=== PATIENT | female | born 1950 | race Caucasian/White ===

== ENCOUNTER 2019-10-17 10:46 | Inpatient (IN) | payer MEDICARE, SELFPAY | END 2019-10-18 18:06 | disposition home or self-care (01) | DRG 247 | PROVIDERS: Admitting Provider Internal Medicine Cardiovascular Disease; Emergency Provider Family Medicine; Visit Provider Internal Medicine Cardiovascular Disease | DX: I21.3 ST elevation (STEMI) myocardial infarction of unspecified site (principal); E78.5 Hyperlipidemia, unspecified; E03.9 Hypothyroidism, unspecified; I10 Essential (primary) hypertension; E66.9 Obesity, unspecified; Z68.35 Body mass index [BMI] 35.0-35.9, adult ==

== ENCOUNTER → 2019-10-28 10:30 | Outpatient (BNVA) | payer MEDICARE, SELFPAY | PROVIDERS: Visit Provider Nurse Practitioner Family | DX: I25.10 Atherosclerotic heart disease of native coronary artery without angina pectoris (principal) | CPT/HCPCS: 80048 ==

== ENCOUNTER → 2022-03-14 14:06 | Outpatient (BNVA) | payer MEDICARE, SELFPAY | PROVIDERS: PCP Family Medicine; Visit Provider Internal Medicine Cardiovascular Disease | DX: I25.10 Atherosclerotic heart disease of native coronary artery without angina pectoris (principal); I10 Essential (primary) hypertension; E78.2 Mixed hyperlipidemia; E03.9 Hypothyroidism, unspecified; I25.2 Old myocardial infarction | CPT/HCPCS: 93005; 99214; 99215 ==

== ENCOUNTER 2022-04-27 08:38 | Emergency (ER) | payer MEDICARE, SELFPAY ==
[2022-04-27] VITALS (14 sets, daily range): BP systolic 150–194; BP diastolic 75–118; PULSE 78–100; RESP 16; O2SAT 94–99; BMI 37.2
--- NOTE | 2022-04-27 09:12 | CT_ITS ---
WS: [id number] CT HEAD TECHNIQUE: Noncontrast CT of the head obtained from the skullbase to the vertex. CLINICAL INFORMATION: fall COMPARISON: None. DLP: 1013.[address] scans at [facility] use at least one of these dose optimization techniques: automated e xposure control; mA and/or kV adjustment per patient size (includes targeted exams where dose is matc hed to clinical indication); or iterative reconstruction. FINDINGS: No evidence of intracranial hemorrhage or mass effect. Ventricular system and basal cisterns are sheth nt. Mild small vessel changes with mild parenchymal volume loss. No extra-axial fluid collections. No evidence of mass or mass effect. Paranasal sinuses and mastoid air cells are well aerated. .Normal visualized soft tissues. CT/CT head wo con* [id number] IMPRESSION: 1. No evidence of intracranial hemorrhage or mass effect. 2. Mild small vessel changes. Mild parenchymal volume loss. 3. No acute intracranial findings.
--- NOTE | 2022-04-27 09:12 | CT_ITS ---
WS: [id number] CT CERVICAL TRAUMA TECHNIQUE: Noncontrast CT of the cervical spine with coronal and sagittal reformatted images. CLINICAL INFORMATION: fall COMPARISON: None. DLP: 310.[address] scans at [facility] use at least one of these dose optimization techniques: automated e xposure control; mA and/or kV adjustment per patient size (includes targeted exams where dose is matc hed to clinical indication); or iterative reconstruction. FINDINGS: Straightening of the normal cervical lordosis. Mild spondylitic changes. Disc space narrowing worse a t C5-C6 and C6-C7. Normal craniocervical junction. Normal C1-C2 articulation. Dens is normal in appea chris. Normal occipital condyles. No high-grade spinal canal narrowing. Normal C1 ring. No evidence o f acute fracture or dislocation. Moderate calcified carotid bulb calcification. Normal prevertebral soft tissues. Mastoids air cells are well aerated. CT/CT cervical spin wo con* [id number] IMPRESSION: 1. No evidence of acute fracture or dislocation. 2. Mild spondylitic changes.
--- NOTE | 2022-04-27 09:12 | ECG_ITS ---
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 Measurements Intervals [place] Rate: 66 P: 59 [place]: 252 QRS: 0 QRSD: 84 T: 62 QT: 402 QTc: 421 Interpretive Statements SINUS RHYTHM WITH FIRST DEGREE AV BLOCK Compared to ECG 10/18/2019 09:11:55 First degree AV block now present Ventricular premature complex(es) no longer present Myocardial infarct finding no longer present Electronically Signed On 04-27-2022 17:55:34 CDT by Sarbjit Randolph M.D. [email or web address] general [id number]
--- NOTE | 2022-04-27 09:13 | ED_ITS ---
HPI - Weakness General: Chief complaint: Weakness Stated complaint: GENERAL WEAKNESS Time Seen by Provider: 04/27/22 09:03 History of Present Illness: 71-year-old presents after a fall at home. States she got lightheaded and fell to the ground. Did not lose consciousness. Denies any focal numbness or tingling. She is on aspirin Plavix. Denies any headache or neck pain. Denies any chest pain shortness of breath palpitations. Denies any vision change hearing change or focal weakness numbness or tingling. Denies any vertigo. Review of Systems Narrative: - CONSTITUTIONAL: Denies weight loss, fever and chills. - HEENT: Denies changes in vision and hearing. - RESPIRATORY: Denies SOB and cough. - CV: Denies palpitations and CP. - GI: Denies abdominal pain, nausea, vomiting and diarrhea. - : Denies dysuria and urinary frequency. - MSK: Denies myalgia and joint pain. - SKIN: Denies rash and pruritus. - NEUROLOGICAL: Denies headache, weakness, numbness and syncope. - PSYCHIATRIC: Denies suicidal ideation PFSH ED PFSH: Medical History Coronary artery disease HTN (hypertension) Hyperlipidemia Hypothyroidism ST elevation [place] (STEMI) Family History Father Cancer glioblastoma Mother CAD (coronary artery disease), Onset Age: 90 Denies family history of Diabetes Clotting disorder Dementia Chronic kidney disease (CKD) Suicide Anesthesia complication Bleeding disorder Lung disease Stroke Social History Smoking and tobacco status: never smoked Alcohol intake: never History of recent travel: No Physical Exam Narrative: EXAM NARRATIVE: - GENERAL: Alert and oriented x 3. No acute distress. Well-nourished. - EYES: EOMI. Anicteric. - HENT: Atraumatic, no C-spine tenderness. Moist mucous membranes. No scleral icterus. No cervical lymphadenopathy. - LUNGS: Clear to auscultation bilaterally. No accessory muscle use. Equal lung sounds bilaterally. No respiratory distress. - CARDIOVASCULAR: Regular rate and rhythm. No murmur. No JVD. - ABDOMEN: Soft, non-tender and non-distended. Negative CVA tenderness bilaterally, no rebound or guarding, negative [place] sign. No palpable masses. - EXTREMITIES: No edema. Non-tender. - SKIN: No rashes or lesions. Warm. - NEUROLOGIC: No meningismus or focal neurological deficits. CN II-XII grossly intact. - PSYCHIATRIC: Cooperative. Appropriate mood and affect. Course Vital Signs: Vital signs: Vital Signs Pulse Rate 97 04/27/22 09:03 Respiratory Rate 16 04/27/22 09:03 Blood Pressure 164/97 04/27/22 10:00 Pulse Oximetry 94 04/27/22 10:26 MDM - Weakness Medical Decision Making 71-year-old presents with lightheadedness after fall at home. Denies any focal pain. She is on aspirin Plavix. CT scan of the head does not reveal any intracranial hemorrhage and CT of the C-spine does not show any fracture or dislocation. There is no other sign of focal trauma. EKG and troponin do not reveal any significant ischemia or acute abnormality. Urinalysis reveals UTI. Prescription for Keflex provided. Remainder blood work unremarkable. At this time I believe patient would be safe for discharge and outpatient follow-up. Return precautions provided. Plan was reviewed with the patient who expressed understanding. Questions answered. Patient will follow up with PCP. Patient discharged in stable condition. Lab Data : 04/27/22 09:29 04/27/22 09:29 Radiology Impressions Cervical Spine CT 04/27/22 09:12 IMPRESSION: 1. No evidence of acute fracture or dislocation. 2. Mild spondylitic changes. Head CT 04/27/22 09:12 IMPRESSION: 1. No evidence of intracranial hemorrhage or mass effect. 2. Mild small vessel changes. Mild parenchymal volume loss. 3. No acute intracranial findings. Laboratory Results WBC 5.9 10^3/uL (4.0-10.0) 04/27/22 09:29 RBC 4.25 10^6/uL (4.1-5.3) 04/27/22 09:29 Hgb 13.5 g/dL (11.5-15.3) 04/27/22 09:29 Hct 39.7 % (37.0-47.0) 04/27/22 09: MCV 93.4 fl (81-99) 04/27/22 09: MCH 31.8 pg (28.0-34.0) 04/27/22 09: MCHC 34.0 g/dL (30.0-36.0) 04/27/22 09: RDW 13.2 % (12.1-15.1) 04/27/22 09: Plt Count 241 10^3/cmm (130-400) 04/27/22 09: MPV 10.0 fL (7.4-10.4) 04/27/22 09: Neut % (Auto) 70.2 % 04/27/22 09: Lymph % (Auto) 20.2 % 04/27/22 09: [place] % (Auto) 6.6 % 04/27/22 09: Eos % (Auto) 1.7 % 04/27/22 09: Baso % (Auto) 0.8 % 04/27/22 09: Neut # (Auto) 4.17 10^3/uL (1.8-7.7) 04/27/22 09: Lymph # (Auto) 1.2 10^3/uL (0.8-4.8) 04/27/22 09: [place] # (Auto) 0.4 10^3/uL (0.2-0.9) 04/27/22 09: Eos # (Auto) 0.1 10^3/uL (0.0-0.8) 04/27/22 09: Baso # (Auto) 0.1 10^3/uL (0.0-0.1) 04/27/22 09: Nucleated RBC % (auto) 0 % 04/27/22: Nucleated RBCs # 0.0 /100WBC 04/27/22 09: Sodium 137 mmol/L (136-145) 04/27/22 09: Potassium 3.9 mmol/L (3.5-5.1) 04/27/22 09: Chloride 101 mmol/L (98-107) 04/27/22 09: Carbon Dioxide 22 mmol/L (22-29) 04/27/22 09: Anion Gap 17.9 (5-19) 04/27/22 09: BUN 13 mg/dL (8-23) 04/27/22 09: Creatinine 0.7 mg/dL (0.5-0.9) 04/27/22 09: GFR Calculation Not Reportable 04/27/22 09: Glucose 90 mg/dL (65-115) 04/27/22 09: Calculated Osmolality 284 mOsm/kg (285-295) L 04/27/22 09: Calcium 9.2 mg/dL (8.5-10.5) 04/27/22 09: Total Bilirubin 0.4 mg/dL (0.15-1.2) 04/27/22: AST 19 U/L (0-32) 04/27/22: ALT 11 U/L (0-33) 04/27/22: Alkaline Phosphatase 102 IU/L (35-105) 04/27/22: Troponin T Baseline 12 ng/L (0-10) H 04/27/22 09: NT-Pro-B Natriuret Pep 262 pg/mL (0-125) H 04/27/22 09: Total Protein 7.7 g/dL (6.6-8.7) 04/27/22 09: Albumin 4.2 g/dL (3.5-5.2) 04/27/22 09: Globulin 3.5 g/dL (1.3-4.6) 04/27/22 09: TSH 9.42 uIU/mL (0.27-4.20) H 04/27/22 09: Free T4 1.00 ng/dL (0.82-1.77) 04/27/22 09:29 Urine Color Straw (Yellow) 04/27/22 10:26 Urine Appearance Clear (CLEAR) 04/27/22 10:26 Urine pH 5 (5-7) 04/27/22 10:26 Ur Specific [place] 1.010 (1.005-1.030) 04/27/22 10:26 Urine Protein Neg (Negative) 04/27/22 10:26 Urine Glucose (UA) Norm (Normal) 04/27/22 10:26 Urine Ketones Negative (Negative) 04/27/22 10:26 Urine Blood Neg (Negative) 04/27/22 10:26 Urine Nitrate Negative (Negative) 04/27/22 10:26 Urine Bilirubin Neg (Negative) 04/27/22 10:26 Urine Urobilinogen Norm mg/dL (Negative) 04/27/22 10:26 Ur Leukocyte Esterase 2+ (Negative) H 04/27/22 10:26 Urine RBC 0-4 /hpf (0-2) H 04/27/22 10:26 Urine WBC 5-10 /hpf (0-5) H 04/27/22 10:26 Ur Squamous Epith Cells 5-10 /hpf (0-5) H 04/27/22 10:26 Amorphous Sediment Not Reportable 04/27/22 10:26 Urine Bacteria Trace /hpf (NONE) 04/27/22 10:26 EKG Data EKG 1: Other EKG comments: Sinus rhythm with first-degree AV block, rate of 66, no signs of acute ischemia or acute abnormality. Discharge Plan Discharge Condition: Stable Prescriptions: No Action levothyroxine [Euthyrox] 100 mcg tablet 100 mcg PO DAILY 0RF carvedilol 6.25 mg tablet 6.25 mg PO BID Qty: 180 3RF Rx Instructions: must administer with a meal/food clopidogrel 75 mg tablet 75 mg PO DAILY Qty: 90 3RF losartan 50 mg tablet 50 mg PO DAILY Qty: 90 3RF aspirin 162.5 mg capsule,extended release 24hr 162.5 mg PO QAM 30 Days Qty: 30 6RF Referrals: Marcela Avila MD [Primary Care Provider] - Coding Level of Care Code ED Steam Tender for Chg Delores
[2022-04-27 09:44] LABS: Basophils # 0.1 10^3/uL (0.0-0.1); Basophils % 0.8 %; Eosinophils # 0.1 10^3/uL (0.0-0.8); Eosinophils % 1.7 %; Hematocrit 39.7 % (37.0-47.0); Hemoglobin 13.5 g/dL (11.5-15.3); Lymphocytes # 1.2 10^3/uL (0.8-4.8); Lymphocytes % 20.2 %; Mean Corpuscular Hemoglobin 31.8 pg (28.0-34.0); Mean Corpuscular Volume 93.4 fl (81-99); Monocytes # 0.4 10^3/uL (0.2-0.9); Monocytes % 6.6 %; Neutrophils # 4.17 10^3/uL (1.8-7.7); Neutrophils % 70.2 %; Nucleated Red Blood Cells % 0 %; Platelet Count 241 10^3/cmm (130-400); Red Blood Count 4.25 10^6/uL (4.1-5.3); Red Cell Distribution Width 13.2 % (12.1-15.1); White Blood Count 5.9 10^3/uL (4.0-10.0)
[2022-04-27 10:01] LABS: Troponin(5th) Baseline 12 ng/L (0-10)
[2022-04-27 10:14] LABS: Alanine Aminotransferase 11 U/L (0-33); Albumin Level 4.2 g/dL (3.5-5.2); Alkaline Phosphatase 102 IU/L (35-105); Anion Gap 17.9 (5-19); Aspartate Amino Transferase 19 U/L (0-32); Blood Urea Nitrogen 13 mg/dL (8-23); Calcium 9.2 mg/dL (8.5-10.5); Carbon Dioxide 22 mmol/L (22-29); Chloride 101 mmol/L (98-107); Creatinine Clr Calc Pharmacy 70.8093; Globulin 3.5 g/dL (1.3-4.6); Glucose 90 mg/dL (65-115); NT Pro B Type Natriuretic Pept 262 pg/mL (0-125); Osmolality Calculated 284 mOsm/kg (285-295); Potassium 3.9 mmol/L (3.5-5.1); Sodium 137 mmol/L (136-145); Thyroid Stimulating Hormone 9.42 uIU/mL (0.27-4.20); Total Bilirubin 0.4 mg/dL (0.15-1.2); Total Protein 7.7 g/dL (6.6-8.7)
[2022-04-27 10:57] LABS: Bilirubin Urine Neg (Negative); Blood Urine Neg (Negative); Glucose Urine UA Norm (Normal); Ketones Urine Negative (Negative); Leukocyte Esterase Urine 2+ (Negative); Nitrate Urine Negative (Negative); Protein Urine Neg (Negative); Urine Appearance Clear (CLEAR); Urine Color Straw (Yellow); Urobilinogen Urine Norm (Negative); pH Urine 5 (5-7)
[2022-04-27 10:58] LABS: Bacteria Urine TRACE /hpf; RBC Urine 0-4 /hpf (0-2)
[2022-04-27 10:59] LABS: Add Urine Culture? No
== END 2022-04-27 11:59 | disposition home or self-care (01) ==
PROVIDERS: Emergency Provider Emergency Medicine; PCP Family Medicine
DX: R42 Dizziness and giddiness (principal); N39.0 Urinary tract infection, site not specified; I25.10 Atherosclerotic heart disease of native coronary artery without angina pectoris; I10 Essential (primary) hypertension; E78.5 Hyperlipidemia, unspecified; E03.9 Hypothyroidism, unspecified; I25.2 Old myocardial infarction; Z88.0 Allergy status to penicillin
CPT/HCPCS: 70450; 72125; 80053; 81001; 83880; 84439; 84443; 84484; 85025; 93005; 99284

== ENCOUNTER 2022-05-05 08:55 | Emergency (ER) | payer MEDICARE, SELFPAY ==
--- NOTE | 2022-05-05 08:58 | ECG_ITS ---
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 Measurements Intervals [place] Rate: 60 P: 54 MD: 187 QRS: 37 QRSD: 86 T: 90 QT: 429 QTc: 430 Interpretive Statements SINUS RHYTHM WITH MARKED SINUS ARRHYTHMIA LOW QRS VOLTAGE IN PRECORDIAL LEADS [QRS DEFLECTION < 1.0 mV IN CHEST LEADS] MODERATE ST DEPRESSION [0.05+ mV ST DEPRESSION] Compared to ECG 04/27/2022 09:40:20 Low QRS voltage now present ST (T wave) deviation now present First degree AV block no longer present Electronically Signed On 05-05-2022 22:02:11 CDT by Jazmyne Fields M.D. [id number]
--- NOTE | 2022-05-05 08:58 | XRR_ITS ---
PROCEDURE INFORMATION: Exam: XR Chest Exam date and time: 05/05/2022 10:05 AM Age: 71 years old Clinical indication: Pain; Chest pressure TECHNIQUE: Imaging protocol: Radiologic exam of the chest. Views: 1 view. COMPARISON: CT cervical spin wo con* [id number] 04/27/2022 10:04 AM FINDINGS: Lungs: There are normal lung volumes. There is minimal accentuation of the pulmonary vascularity. There are no airspace opacities in the lungs. Pleural spaces: There are no pleural effusions or pneumothorax. Heart/Mediastinum: There is doua-pi-drptdxuz cardiomegaly. There is a mildly tortuous thoracic aorta. The pulmonary vasculature is normal. The trachea is in the midline. Bones/joints: No acute abnormalities. Retrocardiac lower paraspinal opacity is seen, which may be related to a hiatal hernia. Assessment is limited. XR/XR chest 1V portable [id number] IMPRESSION: 1. Minimal accentuation of the pulmonary vascularity. No airspace opacities in the lungs. 2. Mild to moderate cardiomegaly.
--- NOTE | 2022-05-05 08:59 | ED_ITS ---
HPI - Chest Pain General: Chief Complaint: Chest Pain Stated Complaint: WEAKNESS, CHEST PRESSURE Time Seen by Provider: 05/05/22 08:55 Source: patient Mode of arrival: ambulatory Limitations: no limitations History of Present Illness: 71-year-old female presents to the emergency room with complaints of dizziness and chest discomfort. Patient has a known history of coronary disease to do half years ago she had a STEMI reviewing the cardiac cath report it was a single vessel disease with only 1 lesion in the right coronary artery distally that was 90% it was ballooned and stented no other coronary artery disease was noted. She is continued to be on Plavix since then. She complaining of some mild chest discomfort she had an episode 8 days ago she was seen in the emergency room found to have a UTI and was discharged home she is returning today with dizziness and some mild chest discomfort she had just stood up when this happened. Did not have any vomiting not have any diaphoresis no radiation of the discomfort into her neck or arms.Denies any shortness of breath cough or fever. MD complaint: chest pain Pertinent past history: coronary artery disease Onset (ago): hour(s) Timing of current episode: episodic Onset: during rest Pain location: left chest Pain radiation: none Severity: mild Quality: tightness and aching Relieving factors: nothing Exacerbating factors: nothing Context: other (Recent UTI) Associated symptoms: Deny abdominal pain, diaphoresis, dyspnea, fever(s), leg edema, nausea, palpitations, sense of impending doom, syncope or vomiting Review of Systems Const: Denies: fever(s), chills, fatigue, malaise or diaphoresis ENMT: Denies: throat pain, ear or mastoid pain, nasal discharge or nasal congestion Card: Reports: chest pain; Denies: palpitations, edema or syncope Resp: Denies: dyspnea GI: Denies: abdominal pain, nausea or vomiting : Denies: flank pain, difficulty voiding, dysuria, urinary frequency or urinary urgency Skin/Breast: Denies: rash or pruritus Neuro: Reports: dizziness; Denies: headache(s) PFSH ED PFSH: Medical History Coronary artery disease HTN (hypertension) Hyperlipidemia Hypothyroidism ST elevation [place] (STEMI) Family History Father Cancer glioblastoma Mother CAD (coronary artery disease), Onset Age: 90 Denies family history of Diabetes Clotting disorder Dementia Chronic kidney disease (CKD) Suicide Anesthesia complication Bleeding disorder Lung disease Stroke Social History Smoking and tobacco status: never smoked Alcohol intake: never History of recent travel: No Physical Exam Const: COMMON NORMALS: no acute distress GENERAL APPEARANCE: cooperative and comfortable ORIENTATION/CONSCIOUSNESS: Yes awake, Yes oriented to person, Yes oriented to place and Yes oriented to time HENMT: COMMON NORMALS: normocephalic, atraumatic and hearing grossly normal bilaterally HEAD & SCALP: normocephalic and atraumatic Neck/C-Spine: COMMON NORMALS: no JVD Resp: COMMON NORMALS: normal respiratory effort, No retractions, No use of accessory muscles and clear to auscultation bilaterally AUSCULTATION: clear to auscultation bilaterally Cardio: COMMON NORMALS: no JVD, regular rate, regular rhythm and No murmurs present (Cardio) RATE: regular rate RHYTHM: regular rhythm GI: COMMON NORMALS: Soft to palpation and No hepatosplenomegaly present AUSCULTATION: Yes normoactive bowel sounds PALPATION: Yes Soft to palpation, No Tenderness to palpation present (GI), No Guarding due to palpation present (GI) and Yes No hepatosplenomegaly present Extremity: COMMON NORMALS: normal to inspection, capillary refill normal, no clubbing, cyanosis or edema, no calf tenderness and no pedal edema Neuro: SENSORIUM/ORIENTATION: Yes oriented to person, Yes oriented to place and Yes oriented to time Skin: COMMON NORMALS: no rashes or lesions noted GENERAL SKIN EXAM: no rashes or lesions noted Course Vital Signs: Vital signs: Vital Signs Pulse Rate 75 05/05/22 11:54 Respiratory Rate 17 05/05/22 11:54 Blood Pressure 153/106 05/05/22 11:54 Pulse Oximetry 98 05/05/22 11:54 MDM - Chest Pain Medical Decision Making Previous cath ablation and single-vessel disease. Generally she has been feeling weak and at times dizzy. She is rather bradycardic when she is here. I suspect a lot of her symptoms are due to her carvedilol. We will decrease her carvedilol to 3.125 twice daily add amlodipine 5 daily continue her other medications the same particularly her clopidogrel. Recheck with primary care doctor within the week to reevaluate blood pressure and symptoms return if she has further problems. Medical Records I reviewed the patient's medical records. Lab Data I reviewed the patient's lab results. : 05/05/22 09:10 05/05/22 09:10 Radiology Impressions Chest X-Ray 05/05/22 08:58 IMPRESSION: 1. Minimal accentuation of the pulmonary vascularity. No airspace opacities in the lungs. 2. Mild to moderate cardiomegaly. Laboratory Results WBC 6.2 10^3/uL (4.0-10.0) 05/05/22 09:10 RBC 3.90 10^6/uL (4.1-5.3) L 05/05/22 09:10 Hgb 12.3 g/dL (11.5-15.3) 05/05/22 09:10 Hct 35.4 % (37.0-47.0) L 05/05/22 09:10 MCV 90.8 fl (81-99) 05/05/22 09:10 MCH 31.5 pg (28.0-34.0) 05/05/22 09:10 MCHC 34.7 g/dL (30.0-36.0) 05/05/22 09:10 RDW 13.4 % (12.1-15.1) 05/05/22 09:10 Plt Count 200 10^3/cmm (130-400) 05/05/22 09:10 MPV 9.8 fL (7.4-10.4) 05/05/22 09:10 Neut % (Auto) 68.3 % 05/05/22 09:10 Lymph % (Auto) 21.7 % 05/05/22 09:10 [place] % (Auto) 7.6 % 05/05/22 09:10 Eos % (Auto) 1.3 % 05/05/22 09:10 Baso % (Auto) 0.8 % 05/05/22 09:10 Neut # (Auto) 4.22 10^3/uL (1.8-7.7) 05/05/22 09:10 Lymph # (Auto) 1.3 10^3/uL (0.8-4.8) 05/05/22 09:10 [place] # (Auto) 0.5 10^3/uL (0.2-0.9) 05/05/22 09:10 Eos # (Auto) 0.1 10^3/uL (0.0-0.8) 05/05/22 09:10 Baso # (Auto) 0.1 10^3/uL (0.0-0.1) 05/05/22 09:10 Nucleated RBC % (auto) 0 % 05/05/22 09:10 Nucleated RBCs # 0.0 /100WBC 05/05/22 09:10 Sodium 135 mmol/L (136-145) L 05/05/22 09:10 Potassium 4.4 mmol/L (3.5-5.1) 05/05/22 09:10 Chloride 104 mmol/L (98-107) 05/05/22 09:10 Carbon Dioxide 18 mmol/L (22-29) L 05/05/22 09:10 Anion Gap 17.4 (5-19) 05/05/22 09:10 BUN 16 mg/dL (8-23) 05/05/22 09:10 Creatinine 0.7 mg/dL (0.5-0.9) 05/05/22 09:10 GFR Calculation Not Reportable 05/05/22 09:10 Glucose 105 mg/dL (65-115) 05/05/22 09:10 Calculated Osmolality 282 mOsm/kg (285-295) L 05/05/22 09:10 Calcium 9.2 mg/dL (8.5-10.5) 05/05/22 09:10 Total Bilirubin 0.4 mg/dL (0.15-1.2) 05/05/22 09:10 AST 21 U/L (0-32) 05/05/22 09:10 ALT 12 U/L (0-33) 05/05/22 09:10 Alkaline Phosphatase 89 IU/L (35-105) 05/05/22 09:10 Troponin T Baseline 10 ng/L (0-10) 05/05/22 09:10 Troponin T 120 Minute 10.96 ng/L (0-10) H 05/05/22 11:28 Delta Troponin T 0.96 ABS# (0-10) 05/05/22 11:28 Total Protein 7.6 g/dL (6.6-8.7) 05/05/22 09:10 Albumin 4.2 g/dL (3.5-5.2) 05/05/22 09:10 Globulin 3.4 g/dL (1.3-4.6) 05/05/22 09:10 Urine Color Yellow (Yellow) 05/05/22 11:20 Urine Appearance Clear (CLEAR) 05/05/22 11:20 Urine pH 5 (5-7) 05/05/22 11:20 Ur Specific [place] 1.005 (1.005-1.030) 05/05/22 11:20 Urine Protein Neg (Negative) 05/05/22 11:20 Urine Glucose (UA) Norm (Normal) 05/05/22 11:20 Urine Ketones Negative (Negative) 05/05/22 11:20 Urine Blood Neg (Negative) 05/05/22 11:20 Urine Nitrate Negative (Negative) 05/05/22 11:20 Urine Bilirubin Neg (Negative) 05/05/22 11:20 Urine Urobilinogen Norm mg/dL (Negative) 05/05/22 11:20 Ur Leukocyte Esterase Negative (Negative) 05/05/22 11:20 Discharge Plan Discharge Patient Disposition: Home Clinical Impression: Atypical chest pain, Dizziness, Medication side effect Condition: Stable Prescriptions: New carvedilol 3.125 mg tablet 3.125 mg PO BID Qty: 60 0RF Rx Instructions: must administer with a meal/food amlodipine 5 mg tablet 5 mg PO DAILY Qty: 30 0RF Discontinued carvedilol 6.25 mg tablet 6.25 mg PO BID Qty: 180 3RF Rx Instructions: must administer with a meal/food No Action levothyroxine [Euthyrox] 100 mcg tablet 100 mcg PO DAILY 0RF clopidogrel 75 mg tablet 75 mg PO DAILY Qty: 90 3RF losartan 50 mg tablet 50 mg PO DAILY Qty: 90 3RF aspirin 162.5 mg capsule,extended release 24hr 162.5 mg PO QAM 30 Days Qty: 30 6RF Multi-Vitamin Tablet 1 tab PO DAILY 0RF vitamin E 100 unit Capsule 100 unit PO DAILY 0RF Vitamin C 250 mg Tablet 250 mg PO DAILY 0RF Vitamin D3 25 mcg (1,000 unit) Capsule 25 mcg PO DAILY 0RF Discharge Orders: Discharge ED (Routine); Ordered 05/05/22 Ordered By: Jose Reyes Referrals: Marcela Avila MD [Primary Care Provider] - Discharge Diet: Usual diet Discharge Activity: Resume usual activity Patient Instructions: Opioid Safety Activity Restrictions/Additional Instructions: Follow-up with your primary care doctor within the week to reevaluate blood pressure. Coding Level of Care Code ED Automatic Lathe Tender for Chg Fwd Exam Comprehensive
[2022-05-05 09:00] VITALS: BP 182/82; PULSE 58; RESP 17; O2SAT 100; BMI 37.2
[2022-05-05 10:03] VITALS: BP 132/55; PULSE 72; RESP 18; O2SAT 98
[2022-05-05 10:07] LABS: Basophils # 0.1 10^3/uL (0.0-0.1); Basophils % 0.8 %; Eosinophils # 0.1 10^3/uL (0.0-0.8); Eosinophils % 1.3 %; Hematocrit 35.4 % (37.0-47.0); Hemoglobin 12.3 g/dL (11.5-15.3); Lymphocytes # 1.3 10^3/uL (0.8-4.8); Lymphocytes % 21.7 %; Mean Corpuscular HGB Conc 34.7 g/dL (30.0-36.0); Mean Corpuscular Hemoglobin 31.5 pg (28.0-34.0); Mean Corpuscular Volume 90.8 fl (81-99); Mean Platelet Volume 9.8 fL (7.4-10.4); Monocytes # 0.5 10^3/uL (0.2-0.9); Monocytes % 7.6 %; Neutrophils # 4.22 10^3/uL (1.8-7.7); Neutrophils % 68.3 %; Nucleated Red Blood Cells % 0 %; Platelet Count 200 10^3/cmm (130-400); Red Cell Distribution Width 13.4 % (12.1-15.1); White Blood Count 6.2 10^3/uL (4.0-10.0)
[2022-05-05 10:31] LABS: Troponin(5th) Baseline 10 ng/L (0-10)
[2022-05-05 10:35] LABS: Alanine Aminotransferase 12 U/L (0-33); Albumin Level 4.2 g/dL (3.5-5.2); Alkaline Phosphatase 89 IU/L (35-105); Blood Urea Nitrogen 16 mg/dL (8-23); Calcium 9.2 mg/dL (8.5-10.5); Carbon Dioxide 18 mmol/L (22-29); Chloride 104 mmol/L (98-107); Creatinine Clr Calc Pharmacy 70.8093; Globulin 3.4 g/dL (1.3-4.6); Glucose 105 mg/dL (65-115); Osmolality Calculated 282 mOsm/kg (285-295); Sodium 135 mmol/L (136-145); Total Bilirubin 0.4 mg/dL (0.15-1.2); Total Protein 7.6 g/dL (6.6-8.7)
[2022-05-05 10:51] LABS: Anion Gap 17.4 (5-19); Aspartate Amino Transferase 21 U/L (0-32); Potassium 4.4 mmol/L (3.5-5.1)
--- NOTE | 2022-05-05 10:58 | ECG_ITS ---
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 Measurements Intervals [place] Rate: 60 P: 61 [place]: 224 QRS: -6 QRSD: 88 T: 57 QT: 447 QTc: 447 Interpretive Statements SINUS RHYTHM WITH FIRST DEGREE AV BLOCK POSSIBLE ANTERIOR MYOCARDIAL INFARCTION , PROBABLY OLD [30 ms Q WAVE IN V3/V4, OR R < 0.2 mV IN V4] Compared to ECG 05/05/2022 09:05:43 First degree AV block now present Myocardial infarct finding now present Sinus arrhythmia no longer present ST (T wave) deviation no longer present Electronically Signed On 05-05-2022 22:52:17 CDT by Jazmyne Fields M.D. [id number]
[2022-05-05] MEDS: clopidogrel 75 mg Tablet PO (11:22)
[2022-05-05] MEDS: carvedilol 6.25 mg Tablet PO (11:22)
[2022-05-05 11:48] LABS: Add Urine Microscopic? NO; Charge for UA Resulting for Rev
[2022-05-05 11:54] VITALS: BP 153/106; PULSE 75; RESP 17; O2SAT 98
[2022-05-05 11:56] LABS: Bilirubin Urine Neg (Negative); Blood Urine Neg (Negative); Glucose Urine UA Norm (Normal); Ketones Urine Negative (Negative); Leukocyte Esterase Urine Negative (Negative); Nitrate Urine Negative (Negative); Protein Urine Neg (Negative); Specific Gravity, Urine 1.005 (1.005-1.030); Urine Appearance Clear (CLEAR); Urine Color Yellow (Yellow); Urobilinogen Urine Norm (Negative); pH Urine 5 (5-7)
[2022-05-05 12:06] LABS: Troponin 5 2HR 10.96 ng/L (0-10)
[2022-05-05 12:11] LABS: Troponin 5 2HR Delta 0.96 ABS# (0-10)
[2022-05-05 12:49] VITALS: BP 138/75; PULSE 61; RESP 15; O2SAT 98
== END 2022-05-05 12:50 | disposition home or self-care (01) ==
PROVIDERS: Emergency Provider Family Medicine; PCP Family Medicine
DX: R07.89 Other chest pain (principal); R42 Dizziness and giddiness; T50.905A Adverse effect of unspecified drugs, medicaments and biological substances, initial encounter; Z79.02 Long term (current) use of antithrombotics/antiplatelets; Z79.82 Long term (current) use of aspirin; I25.10 Atherosclerotic heart disease of native coronary artery without angina pectoris; I10 Essential (primary) hypertension; E78.5 Hyperlipidemia, unspecified; I25.2 Old myocardial infarction
CPT/HCPCS: 36415; 71045; 80053; 81003; 84484; 85025; 93005; 99285

== ENCOUNTER → 2022-05-09 13:53 | Outpatient (BNVA) | payer MEDICARE, SELFPAY | PROVIDERS: PCP Family Medicine; Visit Provider Nurse Practitioner Family | DX: R42 Dizziness and giddiness (principal); I49.9 Cardiac arrhythmia, unspecified; E03.9 Hypothyroidism, unspecified; I49.1 Atrial premature depolarization; I49.3 Ventricular premature depolarization; I48.91 Unspecified atrial fibrillation; I48.92 Unspecified atrial flutter | CPT/HCPCS: 93229; 99213; 99214 ==

== ENCOUNTER 2022-05-10 06:48 | Outpatient (CLI) | payer MEDICARE, SELFPAY ==
[2022-05-10 07:53] LABS: Thyroid Stimulating Hormone 9.75 uIU/mL (0.27-4.20)
[2022-05-11 13:10] LABS: Chol HDL Ratio 3.34 mg/dL (0.0-4.40); Cholesterol 227 mg/dL (0-200); HDL Cholesterol 68 mg/dL (60-100); LDL Cholesterol Calculated 140 mg/dL (50-129); LDL HDL Ratio 2.06 RATIO (0.00-3.22); Triglycerides 96 mg/dL (0-150)
[2022-05-11 13:13] LABS: Free T4 Free Thyroxine 1.32 ng/dL (0.82-1.77)
== END 2022-05-10 06:49 | disposition home or self-care (01) ==
PROVIDERS: Nurse Practitioner Family; PCP Family Medicine; Visit Provider Internal Medicine Cardiovascular Disease
DX: E78.2 Mixed hyperlipidemia (principal); I49.9 Cardiac arrhythmia, unspecified
CPT/HCPCS: 36415; 80061; 84439; 84443

== ENCOUNTER 2022-05-20 16:05 | Outpatient (CLI) | payer MEDICARE, SELFPAY ==
[2022-05-20 16:53] LABS: Basophils % 0.6 %; Eosinophils # 0.1 10^3/uL (0.0-0.8); Eosinophils % 2.5 %; Hematocrit 38.3 % (37.0-47.0); Hemoglobin 12.1 g/dL (11.5-15.3); Lymphocytes # 1.6 10^3/uL (0.8-4.8); Lymphocytes % 32.2 %; Mean Corpuscular HGB Conc 31.6 g/dL (30.0-36.0); Mean Corpuscular Hemoglobin 31.3 pg (28.0-34.0); Mean Corpuscular Volume 99.2 fl (81-99); Mean Platelet Volume 9.8 fL (7.4-10.4); Monocytes # 0.3 10^3/uL (0.2-0.9); Monocytes % 6.9 %; Neutrophils # 2.77 10^3/uL (1.8-7.7); Neutrophils % 57.6 %; Nucleated Red Blood Cells % 0 %; Platelet Count 217 10^3/cmm (130-400); Red Blood Count 3.86 10^6/uL (4.1-5.3); Red Cell Distribution Width 14.4 % (12.1-15.1); White Blood Count 4.8 10^3/uL (4.0-10.0)
[2022-05-20 18:01] LABS: Blood Urea Nitrogen 13 mg/dL (8-23); Calcium 9.5 mg/dL (8.5-10.5); Carbon Dioxide 21 mmol/L (22-29); Chloride 106 mmol/L (98-107); Glucose 105 mg/dL (65-115); NT Pro B Type Natriuretic Pept 252 pg/mL (0-125); Osmolality Calculated 290 mOsm/kg (285-295); Sodium 140 mmol/L (136-145); Thyroid Stimulating Hormone 1.63 uIU/mL (0.27-4.20)
[2022-05-20 18:20] LABS: Anion Gap 17.1 (5-19); Potassium 4.1 mmol/L (3.5-5.1)
== END 2022-05-20 16:06 | disposition home or self-care (01) ==
PROVIDERS: PCP Family Medicine; Visit Provider Nurse Practitioner Family
DX: I12.9 Hypertensive chronic kidney disease with stage 1 through stage 4 chronic kidney disease, or unspecified chronic kidney disease (principal); I25.10 Atherosclerotic heart disease of native coronary artery without angina pectoris; I48.91 Unspecified atrial fibrillation; E78.2 Mixed hyperlipidemia; N18.9 Chronic kidney disease, unspecified
CPT/HCPCS: 36415; 80048; 83880; 84443; 85025

== ENCOUNTER 2022-06-23 06:36 | Inpatient (IN) | payer MEDICARE, SELFPAY ==
[2022-06-23] VITALS (87 sets, daily range): BP systolic 109–169; BP diastolic 48–82; PULSE 31–48; RESP 11–23; TEMP 36.5–36.7; O2SAT 90–100; BMI 38.4
--- NOTE | 2022-06-23 06:38 | W.ED.CHESTPA ---
HPI - Chest Pain General: Chief Complaint: Neck Pain/Injury Stated Complaint: jaw/neck pain Time Seen by Provider: 06/23/22 06:37 History of Present Illness: Ms. Dhaliwal is a 71-year-old lady with significant past medical history of CAD, hypertension, hyperlipidemia, thyroid disorder, history of STEMI with PCI presenting to the emergency department due to abnormal neck and shoulder pain. Onset of symptoms was a few days ago without known specific provoking factor. She endorses pain in her right jaw and neck with radiation to her right shoulder back. Pain has been intermittent in nature and she currently does not endorse any pain. Mild associated generalized malaise, nausea, shortness of breath however no other specific focal infectious symptoms. Overall intensity symptoms when present is moderate. No other specific changes in health, exacerbating, or alleviating factors identified. Onset (ago): day(s) Timing of current episode: episodic Prior episodes: No Pain location: other Pain radiation: back and right shoulder Quality: aching Relieving factors: nothing Exacerbating factors: nothing Associated symptoms: Reports other Review of Systems General: Reports: 10 or more systems reviewed and unremarkable except in HPI and below PFSH ED PFSH: Medical History Coronary artery disease HTN (hypertension) Hyperlipidemia Reports she cannot take statins Hypothyroidism ST elevation [place] (STEMI) Surgical History H/O coronary angiogram 2020, RCA disease MARGY times 2 History of permanent cardiac pacemaker placement S/P cholecystectomy Family History Father Cancer glioblastoma Mother CAD (coronary artery disease), Onset Age: 90 Denies family history of Diabetes Clotting disorder Dementia Chronic kidney disease (CKD) Suicide Anesthesia complication Bleeding disorder Lung disease Stroke Social History Smoking and tobacco status: never smoked Alcohol intake: never History of recent travel: No Physical Exam Const: COMMON NORMALS: alert GENERAL APPEARANCE: cooperative and well developed HENMT: COMMON NORMALS: normocephalic and atraumatic HEAD & SCALP: normocephalic and atraumatic THROAT: posterior oropharynx normal Eye: COMMON NORMALS: conjunctivae normal CONJUNCTIVA: Yes conjunctivae normal SCLERA: sclerae normal Neck/C-Spine: COMMON NORMALS: no lymphadenopathy and supple GENERAL: Yes trachea midline OTHER: No tenderness palpation Resp: COMMON NORMALS: normal respiratory effort and clear to auscultation bilaterally EFFORT & INSPECTION: Yes able to speak in complete sentences AUSCULTATION: clear to auscultation bilaterally Cardio: COMMON NORMALS: regular rhythm RATE: bradycardic RHYTHM: regular rhythm GI: COMMON NORMALS: Soft to palpation PALPATION: Yes Soft to palpation and No Tenderness to palpation present (GI) Extremity: GENERAL: Yes normal exam except as noted and No edema Neuro: COMMON NORMALS: moves all extremities SENSORIUM/ORIENTATION: Yes alert and No Orientation impaired Psych: COMMON NORMALS: mental status grossly normal and Normal thought process present THOUGHT PROCESS: Normal thought process present Course ED course: - Patient was seen and evaluated by me at bedside - Patient placed on cardiac monitors, IV access obtained - Initial evaluation notable for exam as above. Patient is significantly bradycardic though blood pressure is adequate. - Labs and xrays personally interpreted by me. EKG notable for either second-degree type II block or other high-grade AV block, there is some significant irregularity of WI interval consistent with dissociation however QRS complexes narrow. Nonspecific ST segment abnormalities. No STEMI. Limited review of prior Holter monitor records reveals first-degree AV block. - Labs notable for no leukocytosis, normal hemoglobin. Metabolic panel with mild hyponatremia. Initial troponin only minimally elevated. BNP elevated compared to prior. TSH normal. - Imaging notable for mild pulmonary vascular congestion, no lobar consolidation or pneumothorax. No x-ray evidence of soft tissue pathology in the neck - Upon serial reexamination after treatment the patient was similar - Based on patient history, evaluation, and testing as interpreted the most likely cause of the patient's condition is neck pain which may be atypical chest pain in the context of new onset high-grade AV block - The results of ED evaluation were discussed with the patient including plan for admission due to requirement for level of care not available if discharged to prevent significant worsening/deterioration. - Admitting service was contacted and Dr Rice with the hospitalist service agreed to admit the patient - Patient was admitted without further deterioration or significant events. Note: Click bubbles or prepopulated suarez in note writing are used for assistance with data collection and billing and are inherently more limited than narrative and other text portions of this note. Please use narrative for additional clinical history and defer to narrative/free test for any case of contradictory information. If information appears in only free text or click bubble it should be considered present or absent as reported. Please contact note ticket writer for clarifications of clinical information or contradictory information. MDM is a brief summary, contradictory or erroneous seeming information should be clarified and full note should be reviewed. Vital Signs: Vital signs: Vital Signs Temperature 97.7 F 06/24/22 14:00 Pulse Rate 60 06/25/22 13:43 Respiratory Rate 19 H 06/25/22 12:00 Blood Pressure 127/62 06/25/22 14:00 Pulse Oximetry 93 06/25/22 13:44 Oxygen Delivery Me thod 06/25/22 13:43 Oxygen Flow Rate 2 06/23/22 23:00 MDM - Chest Pain Medical Decision Making 71-year-old lady with cardiac history presenting with neck/jaw pain with radiation down shoulder and back. Patient found to have new onset high-grade AV block. Blood pressure satisfactory. No clear etiology identified on ED evaluation. Admitted for further management. Medical Records I reviewed the patient's medical records. Lab Data I reviewed the patient's lab results. : 06/25/22 06:42 06/25/22 03:00 Radiology Impressions Soft Tissue Neck X-Ray 06/23/22 06:58 IMPRESSION: No acute findings. Chest X-Ray 06/25/22 06:00 IMPRESSION: 1. No significant change from prior exam. 2. Stable cardiomegaly. Laboratory Results WBC 5.2 10^3/uL (4.0-10.0) 06/23/22 06:50 RBC 3.66 10^6/uL (4.1-5.3) L 06/23/22 06:50 Hgb 11.6 g/dL (11.5-15.3) 06/23/22 06:50 Hct 36.4 % (37.0-47.0) L 06/23/22 06:50 MCV 99.5 fl (81-99) H 06/23/22 06:50 MCH 31.7 pg (28.0-34.0) 06/23/22 06:50 MCHC 31.9 g/dL (30.0-36.0) 06/23/22 06:50 RDW 14.2 % (12.1-15.1) 06/23/22 06:50 Plt Count 230 10^3/cmm (130-400) 06/23/22 06:50 MPV 11.1 fL (7.4-10.4) H 06/23/22 06:50 Neut % (Auto) 52.2 % 06/23/22 06:50 Lymph % (Auto) 34.5 % 06/23/22 06:50 Taliaferro % (Auto) 9.4 % 06/23/22 06:50 Eos % (Auto) 2.9 % 06/23/22 06:50 Baso % (Auto) 0.8 % 06/23/22 06:50 Neut # (Auto) 2.74 10^3/uL (1.8-7.7) 06/23/22 06:50 Lymph # (Auto) 1.8 10^3/uL (0.8-4.8) 06/23/22 06:50 Taliaferro # (Auto) 0.5 10^3/uL (0.2-0.9) 06/23/22 06:50 Eos # (Auto) 0.2 10^3/uL (0.0-0.8) 06/23/22 06:50 Baso # (Auto) 0.0 10^3/uL (0.0-0.1) 06/23/22 06:50 Nucleated RBC % (auto) 0 % 06/23/22 06:50 Nucleated RBCs # 0.0 /100WBC 06/23/22 06:50 D-Dimer 1.68 ug/mIFEU (0-0.59) H 06/23/22 06:50 Sodium 134 mmol/L (136-145) L 06/23/22 06:50 Potassium 4.3 mmol/L (3.5-5.1) 06/23/22 06:50 Chloride 104 mmol/L (98-107) 06/23/22 06:50 Carbon Dioxide 19 mmol/L (22-29) L 06/23/22 06:50 Anion Gap 15.3 (5-19) 06/23/22 06:50 BUN 19 mg/dL (8-23) 06/23/22 06:50 Creatinine 0.7 mg/dL (0.5-0.9) 06/23/22 06:50 GFR Calculation Not Reportable 06/23/22 06:50 Glucose 100 mg/dL (65-115) 06/23/22 06:50 Calculated Osmolality 280 mOsm/kg (285-295) L 06/23/22 06:50 Calcium 9.3 mg/dL (8.5-10.5) 06/23/22 06:50 Magnesium 2.1 mg/dL (1.7-2.3) 06/23/22 06:50 Total Bilirubin 0.3 mg/dL (0.15-1.2) 06/23/22 06:50 AST 31 U/L (0-32) 06/23/22 06:50 ALT 29 U/L (0-33) 06/23/22 06:50 Alkaline Phosphatase 102 U/L (35-105) 06/23/22 06:50 Troponin T Baseline 14 ng/L (0-10) H 06/23/22 06:50 Troponin T 120 Minute 12.16 ng/L (0-10) H 06/23/22 08:48 Delta Troponin T -1.84 ABS# (0-10) L 06/23/22 08:48 NT-Pro-B Natriuret Pep 2335 pg/mL (0-125) H 06/23/22 06:50 Total Protein 6.8 g/dL (6.6-8.7) 06/23/22 06:50 Albumin 3.7 g/dL (3.5-5.2) 06/23/22 06:50 Globulin 3.1 g/dL (1.3-4.6) 06/23/22 06:50 Lipase 27 U/L (13-60) 06/23/22 06:50 TSH 0.52 uIU/mL (0.27-4.20) 06/23/22 06:50 Critical Care Time Critical Care Time: Critical Care Time: Yes Total Critical Care Time: 35 Attestation: Due to a high probability of clinically significant, possibly life threatening deterioration, the patient required my highest level of attention and preparedness to intervene emergently and I personally spent this critical care time directly and personally managing the patient. This critical care time included obtaining a history; examining the patient; pulse oximetry; ordering and review of laboratory and imaging studies; arranging urgent treatment with development of a management plan; evaluation of patient's response to treatment; frequent reassessment; and, discussions with other providers as applicable. It was exclusive of separately billable procedures. Primary system involved is cardiac Discharge Plan Discharge Patient Disposition: Admitted As Inpatient Admit Provider: Jose Rice Clinical Impression: Atypical chest pain, High degree atrioventricular block Condition: Stable Discharge Diet: Cardiac Discharge Activity: Limit activity as instructed Coding Level of Care Code ED Steak Tenderizer Machine for Chg Fwd Exam Comprehensive
--- NOTE | 2022-06-23 06:42 | ECG_ITS ---
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 Measurements Intervals [place] Rate: 36 P: IN: QRS: 1 QRSD: 74 T: 37 QT: 503 QTc: 389 Interpretive Statements SINUS RHYTHM WITH HIGH GRADE AV BLOCK Possible junctional escape rhythm LOW QRS VOLTAGE IN PRECORDIAL LEADS [QRS DEFLECTION < 1.0 mV IN CHEST LEADS] MODERATE ST DEPRESSION [0.05+ mV ST DEPRESSION] CRITICAL TEST RESULT Compared to ECG 05/05/2022 11:58:33 Low QRS voltage now present ST (T wave) deviation now present First degree AV block no longer present Myocardial infarct finding no longer present Electronically Signed On 06-24-2022 15:34:46 CDT by Jazmyne Fields M.D. [id number]
--- NOTE | 2022-06-23 06:58 | XRR_ITS ---
PROCEDURE INFORMATION: Exam: XR Soft Tissue Neck Exam date and time: 06/23/2022 7:27 AM Age: 71 years old Clinical indication: Patient HX: RT sided neck pain and SOB x 2 days; Additional info: Right sided neck pain TECHNIQUE: Imaging protocol: Radiologic exam of the soft tissues of the neck. COMPARISON: CT cervical spin wo con* [id number] 04/27/2022 10:04 AM FINDINGS: Airway: Normal. No abnormal narrowing. Soft tissues: Normal. Normal epiglottis. No radiopaque foreign body seen. Bones/joints: Degenerative changes of the spine noted. XR/XR soft tissue neck [id number] IMPRESSION: No acute findings.
--- NOTE | 2022-06-23 06:58 | XRR_ITS ---
PROCEDURE INFORMATION: Exam: XR Chest Exam date and time: 06/23/2022 7:23 AM Age: 71 years old Clinical indication: Shortness of breath; Prior surgery; Surgery type: Stents; Patient HX: SOB RT sided neck pain x 2 days; Additional info: Bradycardia TECHNIQUE: Imaging protocol: Radiologic exam of the chest. Views: 1 view. COMPARISON: CR XR chest 1V portable [id number] 05/05/2022 10:05 AM FINDINGS: Lungs: Minimally increased lung markings, which can be seen with pulmonary congestion. Streaky left basilar atelectasis seen. No consolidation. Pleural spaces: Unremarkable. No pleural effusion. No pneumothorax. Heart/Mediastinum: Stable cardiomediastinal silhouette. Bones/joints: Unremarkable. XR/XR chest 1V portable [id number] IMPRESSION: Imaging findings suggestive of mild pulmonary congestion.
--- NOTE | 2022-06-23 07:10 | PC.NURSE ---
PT PLACED ON CONTINUOUS NIBP, SPO2, AND CM
[2022-06-23 07:21] LABS: Basophils % 0.8 %; Eosinophils # 0.2 10^3/uL (0.0-0.8); Eosinophils % 2.9 %; Hematocrit 36.4 % (37.0-47.0); Hemoglobin 11.6 g/dL (11.5-15.3); Lymphocytes # 1.8 10^3/uL (0.8-4.8); Lymphocytes % 34.5 %; Mean Corpuscular HGB Conc 31.9 g/dL (30.0-36.0); Mean Corpuscular Hemoglobin 31.7 pg (28.0-34.0); Mean Corpuscular Volume 99.5 fl (81-99); Mean Platelet Volume 11.1 fL (7.4-10.4); Monocytes # 0.5 10^3/uL (0.2-0.9); Monocytes % 9.4 %; Neutrophils # 2.74 10^3/uL (1.8-7.7); Neutrophils % 52.2 %; Nucleated Red Blood Cells % 0 %; Platelet Count 230 10^3/cmm (130-400); Red Blood Count 3.66 10^6/uL (4.1-5.3); Red Cell Distribution Width 14.2 % (12.1-15.1); White Blood Count 5.2 10^3/uL (4.0-10.0)
[2022-06-23 07:37] LABS: Troponin(5th) Baseline 14 ng/L (0-10)
[2022-06-23 07:52] LABS: Albumin Level 3.7 g/dL (3.5-5.2); Alkaline Phosphatase 102 U/L (35-105); Anion Gap 15.3 (5-19); Aspartate Amino Transferase 31 U/L (0-32); Blood Urea Nitrogen 19 mg/dL (8-23); Calcium 9.3 mg/dL (8.5-10.5); Carbon Dioxide 19 mmol/L (22-29); Chloride 104 mmol/L (98-107); Creatinine Clr Calc Pharmacy 69.4041; Globulin 3.1 g/dL (1.3-4.6); Glucose 100 mg/dL (65-115); Lipase 27 U/L (13-60); Magnesium 2.1 mg/dL (1.7-2.3); NT Pro B Type Natriuretic Pept 2335 pg/mL (0-125); Osmolality Calculated 280 mOsm/kg (285-295); Potassium 4.3 mmol/L (3.5-5.1); Sodium 134 mmol/L (136-145); Thyroid Stimulating Hormone 0.52 uIU/mL (0.27-4.20); Total Bilirubin 0.3 mg/dL (0.15-1.2); Total Protein 6.8 g/dL (6.6-8.7)
[2022-06-23 07:53] LABS: Alanine Aminotransferase 29 U/L (0-33)
--- NOTE | 2022-06-23 09:04 | ECG_ITS ---
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 Measurements Intervals [place] Rate: 32 P: [place]: QRS: 0 QRSD: 83 T: -12 QT: 536 QTc: 392 Interpretive Statements SINUS RHYTHM WITH THIRD-DEGREE HEART BLOCK NONSPECIFIC ST & T-WAVE ABNORMALITY CRITICAL TEST RESULT Compared to ECG 06/23/2022 06:43:30 T-wave abnormality now present ST (T wave) deviation no longer present Electronically Signed On 06-24-2022 15:44:21 CDT by Jazmyne Fields M.D. [id number]
--- NOTE | 2022-06-23 09:13 | PM.HP ---
Providers/Chief Complaint Admitting Physician: Jose Rice MD, Hospitalist. Primary Care Provider: Rebecca Salazar DO Chief Complaint: jaw/neck pain History of Present Illness Mady Dhaliwal is a 71 year old female who presents to the hospital feeling weak, dizzy, and short of breath with walking. She believes its been going on about 2 days. For the last 2 days she is also had some right neck, right jaw, right scapula and right shoulder discomfort occurring mainly at night, in the middle of the night. She reports it would last as long as 15 or 20 minutes. She denies any chest discomfort. She reports no shortness of breath currently. She has not recently had any fever, cough or other illness. There has been no recent change in her medication other than reduction of carvedilol dose at an ER visit around May 05. She had a subsequent Holter monitor in May demonstrating no heart block. In the emergency department and aspirin was given, and atropine was given x1 Review of Systems General: Reports: 10 or more systems reviewed and unremarkable except in HPI and below Const: Denies: fever(s) or chills Eyes: Denies: change in vision ENMT: Denies: throat pain Card: Denies: chest pain Resp: Reports: dyspnea GI: Denies: abdominal pain, hematemesis, hematochezia or melena : Denies: flank pain Musc: Denies: neck pain Skin/Breast: Denies: rash Neuro: Reports: dizziness; Denies: headache(s) Psych: Denies: anxiety or depression Endo: Denies: polyuria Jose/Lymph: Denies: easy bruising All/Imm: Denies: urticaria Medications/Allergies Home Medications Medication Instructions Recorded Confirmed Last Taken Type ascorbic acid (vitamin C) 250 mg 250 mg PO QAM 05/05/22 06/23/22 05/04/22 History tablet (Vitamin C) cholecalciferol (vitamin D3) 25 25 mcg PO DAILY 05/05/22 06/23/22 05/04/22 History mcg (1,000 unit) capsule (Vitamin D3) multivitamin 1 tab PO QAM 05/05/22 06/23/22 06/22/22 History levothyroxine 100 mcg tablet 150 mcg PO DAILY #135 tabs 05/11/22 06/23/22 06/23/22 Rx (Euthyrox) carvedilol 3.125 mg tablet 3.125 mg PO BID #180 tabs 05/23/22 06/23/22 06/22/22 Rx furosemide 20 mg tablet (Lasix) 20 mg PO DAILY PRN edema #90 tabs 05/27/22 06/23/22 Unknown Rx amlodipine 5 mg tablet 5 mg PO QAM 06/23/22 06/23/22 Unknown History aspirin 81 mg tablet,delayed 81 mg PO BID 06/23/22 06/23/22 Unknown History release clopidogrel 75 mg tablet 75 mg PO QAM 06/23/22 06/23/22 06/22/22 History losartan 50 mg tablet 50 mg PO QAM 06/23/22 06/23/22 06/22/22 History vitamin E 1,000 unit capsule 1,000 unit PO DAILY 06/23/22 06/23/22 Unknown History Allergies Allergy/AdvReac Type Severity Reaction Status Date / Time Penicillins Allergy Unknown Verified 06/23/22 07:12 alirocumab AdvReac Severe Pt refuses Verified 06/23/22 07:12 [From Praluent Pen] any self-injections evolocumab AdvReac Severe Pt refuses Verified 06/23/22 07:12 [From Repatha SureClick] self injections rosuvastatin AdvReac Severe ADR-Nausea Verified 06/23/22 07:12 PFSH Acute PFSH: Medical History (Updated 06/23/22 @ 10:05 by Jose Rice MD) Coronary artery disease HTN (hypertension) Hyperlipidemia Reports she cannot take statins Hypothyroidism ST elevation CT (STEMI) Surgical History H/O coronary angiogram 2019, RCA disease MARGY times 2 S/P cholecystectomy Family History Father Cancer glioblastoma Mother CAD (coronary artery disease), Onset Age: 90 Denies family history of Diabetes Clotting disorder Dementia Chronic kidney disease (CKD) Suicide Anesthesia complication Bleeding disorder Lung disease Stroke Social History Smoking and tobacco status: never smoked Alcohol intake: never History of recent travel: No Vitals/I&O/Wt Last Vital Signs Temp 97.9 F 06/23/22 06:42 Pulse 33 L 06/23/22 08:30 Resp 18 06/23/22 08:30 BP 169/66 06/23/22 08:30 Pulse Ox 97 06/23/22 08:30 O2 Del Method 06/23/22 08:30 Weight last 48 hrs Weight 95.254 kg Physical Exam Narrative: General exam is a white female, currently in no distress and denying any discomfort. HEENT: Pupils equally round. Oropharynx clear. Neck is supple no lymphadenopathy or thyromegaly Cardiovascular bradycardic, regular, no murmur Lungs clear no wheezing or crackles Abdomen is soft with positive bowel sounds. No obvious organomegaly exam is deferred Extremities no cyanosis clubbing or edema, cap refill brisk Skin no rash Neuro no obvious focal deficits. Data : 06/23/22 06:50 06/23/22 06:50 Other Labs: EKG demonstrates third-degree heart block, junctional escape rhythm, rate of 32 Chest x-ray possible mild pulmonary congestion. Soft tissue neck negative Dimer 1.7 LFTs normal Troponin 14 with repeat of 12 BNP 2335 TSH 0.5 Magnesium normal A&P Assessment and plan (1) Third degree heart block by electrocardiogram: Admission to ICU Keep pacer pads on Electrolytes, TSH were checked and normal Atropine was not effective Cardiology consultation obtained Consider dopamine if any significant symptomatology occurs May need pacemaker. Hold Plavix currently. Hold beta-matteo. Status: Acute (2) Atherosclerotic heart disease of [place] coronary artery with other forms of angina pectoris: Concerned that her right shoulder, jaw discomfort at night represents angina Cardiology is likely going to address with angiogram today. NPO. Continue aspirin Continue Norvasc Check echocardiogram. Status: Acute (3) Hypothyroidism: Continue thyroid hormone. Adequately supplemented. Status: Chronic Qualifiers: Hypothyroidism type: acquired Qualified Code(s): E03.9 - Hypothyroidism, unspecified (4) Hyperlipidemia: Refuses statin Status: Chronic Qualifiers: Hyperlipidemia type: mixed hyperlipidemia Qualified Code(s): E78.2 - Mixed hyperlipidemia Plan Multiple other medical problems as outlined in past medical history Full code SCDs for DVT prophylaxis, Lovenox for DVT prophylaxis Attestations Medical Necessity Statement*: Will need greater than 2 midnight stay for evaluation and treatment of complete heart block. Coding Level of Care Code Acute Caul Dresser for Chg Fwd Diagnoses Third degree heart block by electrocardiogram I44.2 Atherosclerotic heart disease of [place] coronary artery with other forms of angina pectoris I25.118 Hypothyroidism E03.9 Hypothyroidism type: acquired Hyperlipidemia E78.2 Hyperlipidemia type: mixed hyperlipidemia
[2022-06-23] MEDS: atropine 0.1 mg/mL Syr 10 mL 1 MG IVP (09:14)
--- NOTE | 2022-06-23 09:18 | USCV_ITS ---
Mady Dhaliwal Age: 71 Gender: F : 1950 Exam Date: 06/23/2022 09:35 Ordering Phys: Jose Rice MD Technologist: BLAIRE [place]am Location[place] [facility] [place]ication: CHEST PAIN BP: 159 / 64 HR: 30 Rhythm: Sinus Technical Quality: Adequate MEASUREMENTS (Male / Female) Normal Values 2D ECHO LV Diastolic Diameter PLAX 5.3 cm 4.2 - 5.9 / 3.9 - 5.3 cm LV Systolic Diameter PLAX 3.1 cm IVS Diastolic Thickness 1.1 cm 0.6 - 1.0 / 0.6 - 0.9 cm IVS Systolic Thickness 2.0 cm LVPW Diastolic Thickness 1.3 cm 0.6 - 1.0 / 0.6 - 0.9 cm LVPW Systolic Thickness 1.9 cm LVOT Diameter 2.0 cm LV Ejection Fraction 2D Teich 70.7 % LV Ejection Fraction MOD 2C 63.7 % LV Ejection Fraction 2C AL 64.6 % LA Diameter 4.2 cm LA Width 3.8 cm LA Height 5.9 cm RA Width 3.4 cm RA Height 4.9 cm Aorta at Sinotubular Diameter 2.1 cm IVC Diameter 1.8 cm M-MODE Aortic Annulus Diameter 3.1 cm LA Ao Ratio MM 1.5 MV E Point Septal Separation 0.3 cm DOPPLER AV Peak Velocity 259.8 cm/s LVOT Peak Velocity 205.7 cm/s AV Area Cont Eq vti 2.6 cm squared AV Area Cont Eq pk 2.6 cm squared MV Peak Velocity 181.0 cm/s MV Area PHT 5.4 cm squared Mitral E to A Ratio 2.1 MV E' Velocity 97.5 cm/s Mitral E to MV E' Ratio 12.2 Mitral E to LV E' Lateral Ratio 13.0 Mitral E to LV E' Septal Ratio 11.5 TR Peak Velocity 288.1 cm/s TR Peak Gradient 33.2 mmHg TR Mean Velocity 252.9 cm/s TR Mean Gradient 27.7 mmHg TR Velocity Time Integral 122.0 cm TV Peak E Velocity 53.0 cm/s Right Atrial Pressure 8.0 mmHg Pulmonary Artery Systolic Pressu 41.2 mmHg PV Peak Velocity 150.0 cm/s RV Acceleration Time 0.2 s RV Ejection Time 0.4 s RV AcT/ET 0.6 FINDINGS Left Ventricle Normal left ventricular size and systolic function, EF 63 %. No regional wall motion abnormalities. Right Ventricle The right ventricle is normal in size and function. Right Atrium Mildly increased right atrial size. Left Atrium Mildly increased left atrial size. Mitral Valve Trace to mild mitral valve regurgitation. Aortic Valve Mild aortic stenosis with a valve area of 2.32 cm squared. Peak gradient of 27 and a mean gradient of 13 mmHg. The peak velocity was 2.63 meters per second Tricuspid Valve Mild tricuspid valve regurgitation. Pulmonic Valve No gross abnormalities noted Pericardium Normal pericardium without effusion. Aorta Normal ascending aorta dimension. IVC Normal inferior vena cava. CONCLUSIONS Normal left ventricular size and systolic function, EF 63 %. No regional wall motion abnormalities. Mild biatrial enlargement. Trace to mild mitral valve regurgitation. Mild tricuspid valve regurgitation. Estimated pulmonary artery peak systolic pressure 41 mm of medically There is no pericardial effusion. There are no intracardiac masses. Compared to the study from 10/17/2019 there is development of aortic valve stenosis. Dr Jazmyne Fields MD FAC (Electronically Signed) Final Date: 23 June 2022 13:12 S
[2022-06-23 09:19] LABS: Troponin 5 2HR 12.16 ng/L (0-10)
[2022-06-23 09:21] LABS: Troponin 5 2HR Delta -1.84 ABS# (0-10)
--- NOTE | 2022-06-23 09:41 | P.CONIM_ITS ---
Providers/Reason For Consult Consulting Physician/Specialty*: ADRIANA Fields MD/cardiology Reason for Consult*: Patient with jaw pain/high degree heart block Requesting Physician: Dr. Bolden/Dr. iRce Attending Physician: Jose Rice MD Primary Care Provider: Rebecca Salazar DO History of Present Illness History of Present Illness Mady Dhaliwal is a 71 year old female with a history of atherosclerotic heart diseas, high blood pressure and dyslipidemia, presents with complaints of episodes of right jaw pain for the last 2 nights. This patient has a history of coronary artery disease and had PCI of the right coronary artery in September 2019.. She had a high-grade lesion in the distal RCA for which she underwent balloon angioplasty followed by drug-eluting stent placement. Apparently she been doing okay following this. Lately she been having episodes of bradycardia. She also has been having episodes of near syncopal episode. For the last 2 to 3 days, she has been having some amount of shortness of breath with activities, dizziness and feeling of weakness. She has not had any syncopal or near syncopal episodes during this time. She mainly came to the ER because of the episodes of jaw pain. She has no definite precipitating factors. The symptoms are mostly occurring at night when she tries to lie down. It may last anywhere from 5 to 10 minutes and then goes away by itself. She may have 2 or 3 episodes through the night. During the day times, she has no chest pains or jaw pains. She was brought to the emergency room by her . She had a recent event monitor which revealed sinus rhythm with an average heart rate of 63 bpm. She had a frequent episodes of supraventricular ectopics, a ccounting for 2% of the total heartbeats. She also had a short run of atrial flutter/fibrillation, lasting for 15 minutes. She did not have any symptomatic arrhythmias. She has not had any recent stress test. Review of Systems Narrative: CONSTITUTIONAL: No fever or chills. Has been having some amount of generalized weakness/fatigue lately. EYES: No blurring of vision or other visual disturbances lately. [] ENT: No hoarseness of voice, auditory disturbances or sore throat. [] CARDIOVASCULAR: As mentioned above. RESPIRATORY: No significant cough. GASTROINTESTINAL: No hematemesis or melena. GENITOURINARY: No dysuria or hematuria. INTEGUMENTARY: No skin rashes or history of skin cancer. NEURO: Has a history of syncopal/near syncopal episodes. PSYCHIATRIC: No history of psychosis or major depression. HEMATOLOGIC: No bleeding disorders or significant anemia. ENDOCRINE: No history of polyuria or polydipsia. MUSCULOSKELETAL: No recent joint pain or swelling. ALLERGY/IMMUNOLOGY: As mentioned above. Medications/Allergies Home Medications Medication Instructions Recorded Confirmed Last Taken Type ascorbic acid (vitamin C) 250 mg 250 mg PO QAM 05/05/22 06/23/22 05/04/22 History tablet (Vitamin C) cholecalciferol (vitamin D3) 25 25 mcg PO DAILY 05/05/22 06/23/22 05/04/22 History mcg (1,000 unit) capsule (Vitamin D3) multivitamin 1 tab PO QAM 05/05/22 06/23/22 06/22/22 History levothyroxine 100 mcg tablet 150 mcg PO DAILY #135 tabs 05/11/22 06/23/22 06/23/22 Rx (Euthyrox) carvedilol 3.125 mg tablet 3.125 mg PO BID #180 tabs 05/23/22 06/23/22 06/22/22 Rx furosemide 20 mg tablet (Lasix) 20 mg PO DAILY PRN edema #90 tabs 05/27/22 06/23/22 Unknown Rx amlodipine 5 mg tablet 5 mg PO QAM 06/23/22 06/23/22 Unknown History aspirin 81 mg tablet,delayed 81 mg PO BID 06/23/22 06/23/22 Unknown History release clopidogrel 75 mg tablet 75 mg PO QAM 06/23/22 06/23/22 06/22/22 History losartan 50 mg tablet 50 mg PO QAM 06/23/22 06/23/22 06/22/22 History vitamin E 1,000 unit capsule 1,000 unit PO DAILY 06/23/22 06/23/22 Unknown History Allergies Allergy/AdvReac Type Severity Reaction Status Date / Time Penicillins Allergy Unknown Verified 06/23/22 07:12 alirocumab AdvReac Severe Pt refuses Verified 06/23/22 07:12 [From Praluent Pen] any self-injections evolocumab AdvReac Severe Pt refuses Verified 06/23/22 07:12 [From Repsue SureClick] self injections rosuvastatin AdvReac Severe ADR-Nausea Verified 06/23/22 07:12 PFSH Acute PFSH: Medical History Coronary artery disease HTN (hypertension) Hyperlipidemia Hypothyroidism ST elevation [place] (STEMI) Surgical History H/O coronary angiogram 2020, RCA disease MARGY times 2 S/P cholecystectomy Family History Father Cancer glioblastoma Mother CAD (coronary artery disease), Onset Age: 90 Denies family history of Diabetes Clotting disorder Dementia Chronic kidney disease (CKD) Suicide Anesthesia complication Bleeding disorder Lung disease Stroke Social History Smoking and tobacco status: never smoked Alcohol intake: never History of recent travel: No Vitals/I&O/Wt Last Vital Signs Temp 97.9 F 06/23/22 06:42 Pulse 36 L 06/23/22 09:19 Resp 12 06/23/22 09:19 BP 151/60 06/23/22 09:19 Pulse Ox 97 06/23/22 09:19 O2 Del Method 06/23/22 09:19 Weight last 48 hrs Weight 210 lb Physical Exam Narrative: GENERAL: The patient is alert and oriented times three. Not in any acute distress. Moderately obese HEENT: No significant pallor, icterus or lymphadenopathy.Oral cavity: There are no mucous membrane lesions. Fundus examination. Fundus is not visualized NECK: Trachea appears to be central. No masses noted. No JVD or thyromegaly appreciated. RESPIRATORY: Chest is symmetrical. No intercostals muscle retraction or any accessory muscle activation. There is no chest wall tenderness. Breath sounds are heard bilaterally. No rales or rhonchi heard. No evidence of any consolidation. BREASTS: Deferred. HEART: The heart sounds are normal. No S3 or S4. No significant murmurs. No pericardial rub ABDOMEN: No vessel pulsations or distention. No tenderness. No organomegaly appreciated. Bowel sounds are normally heard. : Deferred. RECTAL: Deferred. LYMPHATIC: No lymphadenopathy noted in the neck. EXTREMITIES: No edema or cyanosis. No clubbing. MUSCULOSKELETAL: No acute joint deformities or swelling SKIN: There are no significant rashes or ecchymosis NEUROPSYCHIATRIC: The patient is alert and oriented x3. Appears to be in a good mood. No tremors or rigidity noted. Data : 06/23/22 06:50 06/23/22 06:50 Other Labs: EKG showed Third-degree heart block with a possible junctional bradycardia, heart rate of [address] changes. Event monitor done on 05/09/2022 1.? The baseline rhythm was found to be normal sinus with an average overall heart rate of 63 bpm.? Episodes of atrial flutter/fibrillation, lasting for a total of 15 minutes was recorded.? Occasional ventricular and frequent supraventricular ectopics were noted as mentioned above.? Supraventricular ectopics amounted 2% of the total heartbeats 2.? No symptomatic tachycardia or bradyarrhythmias.? No significant pauses. 3.? No previous similar studies, available for comparison 10/17/19 [facility] w/PCI LM has 0% stenosis LAD has 05 stenosis CX has 0% stenosis Distal Right Coronary Artery: Severe 90% stenosis, TI [place]: 0 flow Coronary angiography shows right dominance Distal Right Coronary Artery:90% stenosis treated with AB TREK 2.50 x 12 RX Balloon, M DT R ATTILA 3.0 x 15 MARGY, and MDT R ATTILA 2.5 x 15 MARGY 0% residual stenosis, JOVON: 3 flow Plain balloon angioplasty was performed and distal RCA using 2.5 x 12 AB trek balloon at nominal interval. There is severe coronary artery disease with one vessel disease Distal Right Coronary Artery was treated with balloon and two drug eluting stents. EKG 1: EKG computer-generated impression: Chest X-Ray 06/23/22 06:58 IMPRESSION: Imaging findings suggestive of mild pulmonary congestion. Soft Tissue Neck X-Ray 06/23/22 06:58 IMPRESSION: No acute findings. A&P Assessment and plan (1) Jaw pain: Patient's episodes of jaw pain, may suggest an unstable coronary syndrome. Her EKG changes are nonspecific. No evidence of myocardial injury. In view of the history of right coronary artery intervention, coronary ischemia causing bradycardia and chest pain is a consideration. For further evaluation, patient may benefit from a cardiac catheterization. I may go ahead and do an echocardiogram, to evaluate LV function and rule out any other pathology. Status: Acute (2) Third degree heart block by electrocardiogram: Patient seems to be fairly stable with a high degree AV block. IV atropine did not change the heart rate. Most likely she may require a permanent pacemaker implantation. This will be decided after reviewing the echocardiogram and possible cardiac catheterization. Status: Acute (3) Atherosclerotic heart disease of [place] coronary artery with other forms of angina pectoris: Patient has been doing okay up until recently. Her history of intervention of the right coronary artery and new onset of bradycardia, may suggest ischemia in the distribution of the right coronary artery. This needs to be further evaluated. Status: Acute (4) Benign essential hypertension with target blood pressure below 140/90: Currently the blood pressure is a stage II. We may optimize the antihypertensive medication. Status: Acute (5) Hyperlipidemia: She is on dietary modification. This may be continued. Status: Chronic Qualifiers: Hyperlipidemia type: mixed hyperlipidemia Qualified Code(s): E78.2 - Mixed hyperlipidemia (6) Hypothyroidism: Clinically she seems to be euthyroid. We may check on the TSH in the blood. Status: Chronic Qualifiers: Hypothyroidism type: acquired Qualified Code(s): E03.9 - Hypothyroidism, unspecified (7) Atrial arrhythmia: Need to consider oral anticoagulation. Status: Acute Plan After reviewing the echocardiogram, further recommendations will be made. Patient may continue on the current medications. She may be kept NPO. Also may hold off on the Plavix for the time being. After reviewing the above and also based on the patient's clinical progress, further recommendations will be made. Thank you for the opportunity to eval this patient make these recommendations Consult Attestations Medical Necessity Statement: Patient requires continued hospital stay for close monitoring and further management Coding Level of Care Code Acute Director Of Undergraduate Admissions for Chg Fwd History Expanded Problem Focused Exam Detailed Medical Decision Making High Complexity Diagnoses Jaw pain R68.84 Third degree heart block by electrocardiogram I44.2 Atherosclerotic heart disease of [place] coronary artery with other forms of angina pectoris I25.118 Benign essential hypertension with target blood pressure below 140/90 I10 Hyperlipidemia E78.2 Hyperlipidemia type: mixed hyperlipidemia Hypothyroidism E03.9 Hypothyroidism type: acquired Atrial arrhythmia I49.8
[2022-06-23 09:56] LABS: D Dimer 1.68 ug/mIFEU (0-0.59)
--- NOTE | 2022-06-23 10:26 | PC.CHAP ---
Pastoral Care Encounter/Spiritual Assessment Type of Contact [] Declined youth care specialist visit [] Patient/Family/Request visit [] Outpatient visit [] Follow-up visit [] Physician referral [] Code/Alert [x] Routine visit [] Staff referral [] Actively dying [] Patient sleeping [] Family support [] [] Out of room [] Palliative care [] [x] Receiving care in room [] Pre-surgical visit [] Trauma [] Long length of stay [x] ICU visit [] Other: Relational/Emotional Strength [] Patient feels connected with others/family/visitors/staff [] Distress [] Loneliness/isolation [] Abandonment Spirituality of Patient [] Person of Karen [] Attends Spiritism of their Karen [] Believes in Prayer [] Reads Bible or Buddhism materials [] There are Spiritual issues to be addressed [place] [employer] Interventions [x] Prayer [] Active listening [] Non-anxious presence [] Spiritual/emotional support [] Crisis/trauma care [] Spiritual counseling [] Bereavement support [] Provided bereavement packet [] Provided Bible/devotional materials [] Provided toy/stuffed animal, coloring book to patient or family member [] Provided Communion [] Anointing/[place] [] Salvation [x] Completed spiritual assessment [] Other: Impact on Illness or Injury [] Angry [] Fearful [] Anxious [] Often cries [] Exhaustion [] Unable to work [] Unable to attend jainism [] Unable to walk/stand [] Unable to read [] Unable to drive [] Unable to eat/drink [] Unable to sleep [] Unable to be with family [] Patient intubated [] Other: Summary Time spent with patient x
[2022-06-23] MEDS: enoxaparin 40 mg/0.4 mL Syringe SUBCUT (12:02)
[2022-06-23] MEDS: sodium chloride 0.9% 1,000 ML 30 ML IV (12:03)
--- NOTE | 2022-06-23 12:28 | XACV_ITS ---
Exam Room: [facility] Ht: 157 cm Wt: 95 kg BSA: 2.09 m2 Gender: Female : 1950 Any Known Allergies: Other Exam Priority: Routine Procedure(s): Procedure Description: Diagnostic procedure Procedure Description: Coronary Angiography Diagnostic Cath Status: Elective Diagnostic Findings * Patient has developed third-degree AV block and needs a pacemaker. Angiography requested prior to procedure. Coronaries only. The left main coronary artery reveals a 10% ostial stenosis. The remainder of the left main is normal. The LAD and circumflex are normal. The right coronary artery is the dominant vessel and is widely patent. There are stents placed at the acute margin. These are widely patent. The remainder the vessel is essentially normal. Conclusions 1. Normal coronary arteries. Patent stent of the right coronary artery. Recommendations * Proceed with pacemaker placement. Diagnostic RX Recommendation: none Anticoagulation: Heparin Pressures Phase:Rest AO : 84 / 45 ( 60 ) @ 4:22:00 PM 90 / 49 ( 66 ) @ 4:24:00 PM Clinical Evaluation EBL: 5mL-10mL Procedural Details Procedure Consent Obtained. Pre-Procedure Time Out. Identified patient by full name and date of as verbalized by the patient/guarantor. Does the consent match the physician's order: Yes. Accurate & Complete Informed Consent: Yes. Inpatient/Outpatient History & Physical on Chart: Yes. If H&P is completed, is and addenduem needed: No; If yes, is the addendum complete: N/A. Visualize and Verify Site with Patient/Guarantor: N/A. Relevant Radiology Images available: Yes. Pre-op teaching completed and patient verbalized understanding. The risks, benefits, and alternatives of sedation and/or procedure were discussed by physician. The patient agrees to continue. Procedure started. [facility] Clinical Fraility Score: 4: Vulnerable. Patient Transport Orderly Indications: Other. Correct patient, site and procedure confirmed by cath team. Current diagnosis: Chest Pain. PERRLA. 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 Lungs clear x 5 lobes. A 18 gauge IV was started in the left anticubital using aseptic technique. IV Fluids: 0.9% NaCl at KVO. 0 mL infused prior to garden labourer. Pre Procedural Pulses: right radial was 2+. Oxygen started at 2liters/min via nasal canula. right groin was prepped with chloroprep then draped in the usual sterile fashion. right radial was prepped with chloroprep then draped in the usual sterile fashion. Baseline sample Acquired. HR: 45 BPM. Physician notified. Physician arrived. Physician scrubbed in. Immediate Pre-Procedure Time Out. Correct Patient: Yes; Correct Procedure: Yes; Correct Site: Yes; Correct Patient Position: Yes; Correct Supplies: Yes; Dried Flammable Prep: Yes; Blood Products Available: N/A;. Lidocaine 1% infiltrated to the right radial. Arterial access obtained. A 5 [place] TIG catheter in over wire. Multiple views taken of left coronary artery. Catheter redirected to the RCA. Multiple views taken of right coronary artery. Catheter out. A TR Band was successful obtaining hemostatsis at the Right Radial artery insertion site. Post Procedure: Pulses reassessed and unchanged. PERRLA. 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 Medication's Wasted: Lidocaine 1% = 2 mL. Medication's Wasted: Heparin = 1000 units. Medication's Wasted: Nitro = 49.8 mg. Total IV fluids: 30 mL. Complications: None. Estimated blood loss: 5mL-10mL. Responsiveness - Normal response to verbal stimuli; alert and oriented, PERRLA. Airway - Unaffected, no intervention required; spontaneous ventilation. Circulation: W/N/L, pulses unchanged. Nausea/Vomiting: No. Procedure completed. Patient transferred by bed to ICU. Vital chart was stopped. Access Site Site: Right Radial artery Sheath Size: 6 Fr Hemostasis Method: TR Band Hemostasis Success: Successful Procedure Medications Start: 3:15 PM Stop: 3:15 PM Medication: Versed Amount: 1 mg Route: I.V. Start: 3:15 PM Stop: 3:15 PM Medication: Fentanyl Amount: 50 mcg Route: I.V. Start: 3:15 PM Stop: 3:15 PM Medication: Versed Amount: 1 mg Route: I.V. Start: 3:17 PM Stop: 3:17 PM Medication: Nitrogylcerin Amount: 200 mcg Route: I.A. Start: 3:20 PM Stop: 3:20 PM Medication: Heparin Amount: 3500 units Route: I.V. I, the attending physician, have reviewed and verified all procedure medications. Yes, all medications given per verbal order History/Risk Factors Hypertension: Yes Dyslipidemia: Yes Peripheral Arterial Disease (PAD): No Obesity: No Renal Disease: No Prior Interventions PCI: Yes CABG: No Valve Surgery: No Date of PCI: 10/17/2019 Report Signatures Finalized by Dr. Valeriy Donahue MD on 06/23/2022 03:39 PM
--- NOTE | 2022-06-23 13:03 | ECG_ITS ---
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 Measurements Intervals [place] Rate: 35 P: [place]: QRS: 4 QRSD: 78 T: 50 QT: 476 QTc: 365 Interpretive Statements SINUS RHYTHM WITH THIRD-DEGREE HEART BLOCK LOW QRS VOLTAGE IN PRECORDIAL LEADS [QRS DEFLECTION < 1.0 mV IN CHEST LEADS] POSSIBLE ANTERIOR MYOCARDIAL INFARCTION , PROBABLY OLD [30 ms Q WAVE IN V3/V4, OR R < 0.2 mV IN V4] CRITICAL TEST RESULT Compared to ECG 06/23/2022 09:04:49 Low QRS voltage now present Myocardial infarct finding now present T-wave abnormality no longer present Electronically Signed On 06-24-2022 15:46:22 CDT by Jazmyne Fields M.D. [email or web address]
[2022-06-23 13:21] LABS: Troponin 5 6HR 13.9 ng/L (0-10); Troponin 5 6HR Delta -0.1 ng/L (0-12)
[2022-06-23] MEDS: acetaminophen 325 mg Tablet 650 MG PO (14:00)
--- NOTE | 2022-06-23 14:58 | PC.NURSE ---
Patient transferred to director of cath lab by director of cath lab staff.
--- NOTE | 2022-06-23 16:17 | PC.NURSE ---
1545 Patient returned to room from cardiac cath lab manager.
[2022-06-23] MEDS: sodium chloride 0.9% 1,000 ML 100 ML IV (16:32)
[2022-06-23] MEDS: aspirin 81 mg EC Tablet PO (17:37)
--- NOTE | 2022-06-23 19:00 | PC.NURSE ---
Bedside report received from DAVIN Chandra with patient participation.
--- NOTE | 2022-06-23 19:30 | PC.NURSE ---
CHG bath completed, and signed consent on chart.
[2022-06-23] MEDS: vancomycin 1,000 MG in sodium chloride 0.9% 250 ML 250 MG IV (21:19)
[2022-06-24] VITALS (35 sets, daily range): BP systolic 99–164; BP diastolic 50–92; PULSE 31–82; RESP 2–23; TEMP 36.5–36.6; O2SAT 77–100
[2022-06-24] MEDS: acetaminophen 325 mg Tablet 650 MG PO ×2 (00:52→20:14)
[2022-06-24] MEDS: sodium chloride 0.9% 1,000 ML 100 ML IV (00:59)
[2022-06-24 03:24] LABS: Basophils # 0.1 10^3/uL (0.0-0.1); Basophils % 0.7 %; Eosinophils # 0.2 10^3/uL (0.0-0.8); Eosinophils % 2.2 %; Hematocrit 35.6 % (37.0-47.0); Hemoglobin 11.2 g/dL (11.5-15.3); Lymphocytes % 27.1 %; Mean Corpuscular HGB Conc 31.5 g/dL (30.0-36.0); Mean Corpuscular Hemoglobin 31.5 pg (28.0-34.0); Mean Corpuscular Volume 100.3 fl (81-99); Monocytes # 0.6 10^3/uL (0.2-0.9); Monocytes % 8.6 %; Neutrophils # 4.48 10^3/uL (1.8-7.7); Nucleated Red Blood Cells % 0 %; Platelet Count 219 10^3/cmm (130-400); Red Blood Count 3.55 10^6/uL (4.1-5.3); Red Cell Distribution Width 14.5 % (12.1-15.1); White Blood Count 7.3 10^3/uL (4.0-10.0)
[2022-06-24 03:41] LABS: Alanine Aminotransferase 24 U/L (0-33); Albumin Level 3.7 g/dL (3.5-5.2); Alkaline Phosphatase 103 U/L (35-105); Anion Gap 14.2 (5-19); Aspartate Amino Transferase 21 U/L (0-32); Blood Urea Nitrogen 14 mg/dL (8-23); Calcium 8.9 mg/dL (8.5-10.5); Carbon Dioxide 21 mmol/L (22-29); Chloride 111 mmol/L (98-107); Globulin 2.9 g/dL (1.3-4.6); Glucose 101 mg/dL (65-115); Magnesium 2.1 mg/dL (1.7-2.3); Osmolality Calculated 295 mOsm/kg (285-295); Potassium 4.2 mmol/L (3.5-5.1); Sodium 142 mmol/L (136-145); Total Bilirubin 0.4 mg/dL (0.15-1.2); Total Protein 6.6 g/dL (6.6-8.7)
[2022-06-24] MEDS: losartan 50 mg Tablet PO (05:04)
[2022-06-24] MEDS: amlodipine 5 mg Tablet PO (05:05)
--- NOTE | 2022-06-24 06:47 | PC.NURSE ---
Patient being transported to OR at this time, escorted by OR staff.
--- NOTE | 2022-06-24 07:08 | W.PM.OPSUD ---
Surgery/Procedure H&P Update DATE OF PROCEDURE: June 24, 2022 DATE H&P PERFORMED: 06/23/22 H&P UPDATE INFORMATION: I have reviewed H&P completed within last 30 days, I have examined patient prior to procedure and No changes to prior documentation PREOP DIAGNOSIS: Third-degree heart block/symptomatic bradycardia PRIMARY INDICATION FOR PROCEDURE: Symptomatic bradycardia/third-degree heart block PLANNED PROCEDURE: Operation Date: 06/24/22 08:30 Proposed Procedures p Pacemaker Insertion(Left) - Jazmyne Fields MD Transvenous temporary pacer insertion thro the right groin PATIENT REASSESSED PRIOR TO SEDATION, WITH NO CHANGE NOTED: Yes PHYSICAL EXAM: alert, oriented x 3, clear to auscultation bilaterally and regular rate & rhythm AIRWAY EVAL/ANESTHESIA PLAN: normal airway, see other exam findings, ASA III, Monitored Anesthesia, Local Anesthesia, Risks, benefits & alternatives of sedation and/or procedure discussed and Patient agrees to continue as planned
--- NOTE | 2022-06-24 07:38 | P.PN_ITS ---
Subjective Subjective: Patient continues to remain in the third-degree heart block with a heart rate in the low 30s. Denies any chest pain or shortness of breath. Blood pressure is in the normal range. Had a cardiac catheterization yesterday and was found to have patent stented segment of the right coronary artery. Medications: Medication Review Details: Current Medications Acetaminophen (Acetaminophen 325 Mg Tablet) 650 mg PO Q6H PRN PRN Reason: MILD PAIN Last Admin: 06/24/22 00:52 Dose: 650 mg Amlodipine Besylate (Aml[facility]ipine 5 Mg Tablet) [facility] Last Admin: 06/24/22 05:05 Dose: 5 mg Aspirin (Aspirin 81 Mg Ec Tablet) 81 mg PO BID [facility] Last Admin: 06/23/22 17:37 Dose: 81 mg Enoxaparin Sodium (Enoxaparin 40 Mg/0.4 Ml Syringe) 40 mg SUBCUT Q24H [facility] Last Admin: 06/23/22 12:02 Dose: 40 mg Sodium Chloride (Sodium Chloride 0.9%) 1,000 mls @ 30 mls/hr IV .Q24H [facility] Last Infusion: 06/23/22 22:36 Dose: 0 mls/hr Sodium Chloride (Sodium Chloride 0.9%) 1,000 mls @ 100 mls/hr IV .Q10H [facility] Last Admin: 06/24/22 00:59 Dose: 100 mls/hr Sodium Chloride (Sodium Chloride 0.9%) 1,000 mls @ 75 mls/hr IV .[id number] [facility] Last Admin: 06/23/22 21:34 Dose: Not Given Levothyroxine Sodium (Levothyroxine 150 Mcg Tablet) 150 mcg PO DAILY [facility] Losartan Potassium (Losartan 50 Mg Tablet) [facility] Last Admin: 06/24/22 05:04 Dose: 50 mg Ondansetron HCl (Ondansetron 2 Mg/Ml Sdv 2 Ml) 4 mg IVP Q6H PRN PRN Reason: NAUSEA AND VOMITING Vitals/I&O/Wt Last Vital Signs Temp 97.7 F 06/24/22 04:00 Pulse 34 L 06/24/22 06:00 Resp 18 06/24/22 06:00 BP 133/66 06/24/22 06:00 Pulse Ox 92 06/24/22 06:00 O2 Del Method 06/23/22 23:00 O2 Flow Rate 2 06/23/22 23:00 06/23/22 06/24/22 06/24/22 22:59 06:59 14:59 Intake Total 1669.833 / 1669.833 271.667 / 1941.500 Balance 1669.833 / 1269.833 271.667 / 1541.500 Weight last 48 hrs Weight 225 lb 3.2 oz Weight 220 lb Weight 210 lb Physical Exam Narrative: GENERAL: The patient is alert and oriented times three. Not in any acute distress. Moderately obese HEENT: No significant pallor, icterus or lymphadenopathy.Oral cavity: There are no mucous membrane lesions. Fundus examination. Fundus is not visualized NECK: Trachea appears to be central. No masses noted. No JVD or thyromegaly appreciated. RESPIRATORY: Chest is symmetrical. No intercostals muscle retraction or any accessory muscle activation. There is no chest wall tenderness. Breath sounds are heard bilaterally. No rales or rhonchi heard. No evidence of any consolidation. BREASTS: Deferred. HEART: The heart sounds are normal. No S3 or S4. No significant murmurs. No pericardial rub ABDOMEN: No vessel pulsations or distention. No tenderness. No organomegaly appreciated. Bowel sounds are normally heard. : Deferred. RECTAL: Deferred. LYMPHATIC: No lymphadenopathy noted in the neck. EXTREMITIES: No edema or cyanosis. No clubbing. The right radial arterial puncture site has no hematoma bleeding MUSCULOSKELETAL: No acute joint deformities or swelling SKIN: There are no significant rashes or ecchymosis NEUROPSYCHIATRIC: The patient is alert and oriented x3. Appears to be in a good mood. No tremors or rigidity noted. Data : 06/24/22 03:06 06/24/22 03:06 Other Labs: Laboratory Last Values WBC 7.3 10^3/uL (4.0-10.0) 06/24/22 03:06 RBC 3.55 10^6/uL (4.1-5.3) L 06/24/22 03:06 Hgb 11.2 g/dL (11.5-15.3) L 06/24/22 03:06 Hct 35.6 % (37.0-47.0) L 06/24/22 03:06 MCV 100.3 fl (81-99) H 06/24/22 03:06 MCH 31.5 pg (28.0-34.0) 06/24/22 03:06 MCHC 31.5 g/dL (30.0-36.0) 06/24/22 03:06 RDW 14.5 % (12.1-15.1) 06/24/22 03:06 Plt Count 219 10^3/cmm (130-400) 06/24/22 03:06 MPV 11.0 fL (7.4-10.4) H 06/24/22 03:06 Neut % (Auto) 61.0 % 06/24/22 03:06 Lymph % (Auto) 27.1 % 06/24/22 03:06 Bland % (Auto) 8.6 % 06/24/22 03:06 Eos % (Auto) 2.2 % 06/24/22 03:06 Baso % (Auto) 0.7 % 06/24/22 03:06 Neut # (Auto) 4.48 10^3/uL (1.8-7.7) 06/24/22 03:06 Lymph # (Auto) 2.0 10^3/uL (0.8-4.8) 06/24/22 03:06 Bland # (Auto) 0.6 10^3/uL (0.2-0.9) 06/24/22 03:06 Eos # (Auto) 0.2 10^3/uL (0.0-0.8) 06/24/22 03:06 Baso # (Auto) 0.1 10^3/uL (0.0-0.1) 06/24/22 03:06 Nucleated RBC % (auto) 0 % 06/24/22 03:06 Nucleated RBCs # 0.0 /100WBC 06/24/22 03:06 D-Dimer 1.68 ug/mIFEU (0-0.59) H 06/23/22 06:50 Sodium 142 mmol/L (136-145) 06/24/22 03:06 Potassium 4.2 mmol/L (3.5-5.1) 06/24/22 03:06 Chloride 111 mmol/L (98-107) H 06/24/22 03:06 Carbon Dioxide 21 mmol/L (22-29) L 06/24/22 03:06 Anion Gap 14.2 (5-19) 06/24/22 03:06 BUN 14 mg/dL (8-23) 06/24/22 03:06 Creatinine 0.7 mg/dL (0.5-0.9) 06/24/22 03:06 GFR Calculation Not Reportable 06/24/22 03:06 Glucose 101 mg/dL (65-115) 06/24/22 03:06 Calculated Osmolality 295 mOsm/kg (285-295) 06/24/22 03:06 Calcium 8.9 mg/dL (8.5-10.5) 06/24/22 03:06 Magnesium 2.1 mg/dL (1.7-2.3) 06/24/22 03:06 Total Bilirubin 0.4 mg/dL (0.15-1.2) 06/24/22 03:06 AST 21 U/L (0-32) 06/24/22 03:06 ALT 24 U/L (0-33) 06/24/22 03:06 Alkaline Phosphatase 103 U/L (35-105) 06/24/22 03:06 Troponin T Baseline 14 ng/L (0-10) H 06/23/22 06:50 Troponin T 120 Minute 12.16 ng/L (0-10) H 06/23/22 08:48 Delta Troponin T -1.84 ABS# (0-10) L 06/23/22 08:48 Troponin T Hi Sens 6Hr 13.9 ng/L (0-10) H 06/23/22 12:56 Troponin T Hi Sens 6Hr Delta -0.1 ng/L (0-12) L 06/23/22 12:56 NT-Pro-B Natriuret Pep 2335 pg/mL (0-125) H 06/23/22 06:50 Total Protein 6.6 g/dL (6.6-8.7) 06/24/22 03:06 Albumin 3.7 g/dL (3.5-5.2) 06/24/22 03:06 Globulin 2.9 g/dL (1.3-4.6) 06/24/22 03:06 Lipase 27 U/L (13-60) 06/23/22 06:50 TSH 0.52 uIU/mL (0.27-4.20) 06/23/22 06:50 Blood Type A Negative 06/23/22 21:32 Rho(D) Type Negative 06/23/22 21:32 Antibody Screen Negative 06/23/22 21:32 A&P Assessment and plan (1) Third degree heart block by electrocardiogram: In view of the patient's symptomatic bradycardia and high degree AV block, she requires a permanent pacer implantation. This was discussed with the patient detail. The risk of bleeding, hematoma, vascular injury, pneumothorax, infection, renal failure and other concomitant complications were explained in detail. The patient understood this well and consented to proceed. Status: Acute (2) Benign essential hypertension with target blood pressure below 140/90: Currently the blood pressure is in the normal range. May continue on the current medications. Status: Acute (3) Atherosclerotic heart disease of [place] coronary artery with other forms of angina pectoris: Patient had a cardiac catheterization yesterday. She was found to have patent s tents in the right coronary artery. Most likely her jaw pains may be related to the heart block Status: Acute (4) Jaw pain: As mentioned above. She has no evidence of myocardial injury. Status: Acute Plan Since the patient continues to remain in third-degree heart block, we may go ahead with the permanent pacer implantation today. She needed a transvenous temporary pacer prior to the permanent pacer implantation. Patient understood t hese and consented to proceed. Attestations Medical Necessity Statement*: Patient requires continued hospital stay for close monitoring and further management Coding Level of Care Code Acute Graphic Designer for Joaquin Estrella Diagnoses Third degree heart block by electrocardiogram I44.2 Benign essential hypertension with target blood pressure below 140/90 I10 Atherosclerotic heart disease of [place] coronary artery with other forms of angina pectoris I25.118 Jaw pain R68.84
--- NOTE | 2022-06-24 10:28 | PC.CHAP ---
Pastoral Care Encounter/Spiritual Assessment Type of Contact [] Declined restaurant supervisor visit [] Patient/Family/Request visit [] Outpatient visit [] Follow-up visit [] Physician referral [] Code/Alert [x] Routine visit [] Staff referral [] Actively dying [] Patient sleeping [] Family support [] [] Out of room [] Palliative care [] [] Receiving care in room [] Pre-surgical visit [] Trauma [] Long length of stay [x] ICU visit [] Other: Relational/Emotional Strength [] Patient feels connected with others/family/visitors/staff [] Distress [] Loneliness/isolation [] Abandonment Spirituality of Patient [] Person of Karen [] Attends Anabaptism of their Karen [] Believes in Prayer [] Reads Bible or Nondenominational materials [] There are Spiritual issues to be addressed Medical Affairs Leader Interventions [x] Prayer [] Active listening [] Non-anxious presence [] Spiritual/emotional support [] Crisis/trauma care [] Spiritual counseling [] Bereavement support [] Provided bereavement packet [] Provided Bible/devotional materials [] Provided toy/stuffed animal, coloring book to patient or family member [] Provided Communion [] Anointing/[place] [] Salvation [x] Completed spiritual assessment [] Other: Impact on Illness or Injury [] Angry [] Fearful [] Anxious [] Often cries [] Exhaustion [] Unable to work [] Unable to attend mandaeism [] Unable to walk/stand [] Unable to read [] Unable to drive [] Unable to eat/drink [] Unable to sleep [] Unable to be with family [] Patient intubated [] Other: Summary Time spent with patient
--- NOTE | 2022-06-24 12:06 | XR_ITS ---
WS: [id number] Exam: XR chest 1V portable [id number] Date/Time of Exam: 06/24/2022 12:16 PM Reason For Exam: post perm pacemaker /per Comparison 06/23/2022. A cardiac pacer superimposes the left chest. The heart is enlarged but unchanged in size. Increased p ulmonary vascularity. No pleural effusions. No pneumothorax. The mediastinum is not widened. There ma y be a large hiatal hernia present. XR/XR chest 1V portable [id number] IMPRESSION: 1. Cardiac pacer has been placed since prior study. 2. Cardiac enlargement with increased pulmonary vascularity. 3. There may be a hiatal hernia present.
--- NOTE | 2022-06-24 12:29 | PM.OP ---
Operative Report Date of procedure: June 24, 2022 Pre-op diagnosis: Preop Diagnosis Third-degree heart block/symptomatic bradycardia Procedure: LOCATION: ICU PREOPERATIVE DIAGNOSES: Symptomatic bradycardia/third-degree heart block. POSTOPERATIVE DIAGNOSES: Same as above. COMPLICATIONS: None. ESTIMATED BLOOD LOSS: Around 10 milliliters. BRIEF HISTORY: 71-year-old white female with a history of atherosclerotic heart diseas, high blood pressure and dyslipidemia, presents with complaints of dizziness/weakness/shortness of breath. She was found to be in third-degree heart block. For further management of her condition, permanent pacemaker evaluation was recommended A dual chamber permanent pacemaker implantation was recommended for AV synchrony and symptom relief The procedure was explained to the patient in detail with the risks and benefits. The risks of bleeding, hematoma, vascular injury, infection, pneumothorax, myocardial perforation and other concomitant complications were explained in detail, which the patient understood well and consented to proceed. PROCEDURE DESCRIPTION: The procedure was performed the cardiac catheterization lab. Because of the patient's third-degree heart block, it was decided to insert a transvenous temporary pacer through the right groin. A right femoral venous access obtained using an 18-gauge needle, under sterile precautions and local anesthesia with 1% Xylocaine. The patient did not have a venous access in the left arm. Multiple attempts were made to get an access both by the Personal Banking Assistant staff and by the anesthesia service. Almost after 2 hours of trying it was decided to quit. It was decided to do a subclavian venogram by inserting a catheter into the vein from the right femoral access. A pulmonary venous catheter was advanced from the inferior vena cava to the right atrium and then to the subclavian vein through the superior vena cava and the left brachiocephalic trunk. Venogram was performed by injecting 20 cc of Omnipaque into the vein. The subclavian vein was found to be patent and the anatomy was delineated. A transvenous temporary pacer wire was advanced through the IVC into the right ventricle and secured in place. The left and the right side of the neck and the subclavian area were cleaned and draped in a sterile fashion. 1% Xylocaine was used as the local anesthetic agent. The left subclavian venous access was obtained using an 18-gauge Seldinger needle. A two-inch long incision was made 2.0 centimeters below the midclavicular region. By sharp and blunt dissection, a pacemaker pocket was made. A second venous access was obtained using another micropuncture needle system. Over the first guidewire, a 7-Sammarinese venous sheath with dilator was advanced. The venous dilator and the guidewire were taken out. A screw-in ventricular lead was advanced through the venous sheath and was positioned towards the right ventricle. Under fluoroscopic guidance, the ventricular lead was positioned toward the right ventricular apex. Good pacing and sensing thresholds were obtained. The lead was secured to the endocardium by advancing the helix. The stability of the lead was tested by gentle twisting movements and also by asking the patient to take some deep breaths and cough. The venous sheath was peeled off, at this time. The lead was secured to the pectoralis fascia, by suturing with 1-0 Surgilon. Over the second guidewire, another 7-Sammarinese venous sheath with dilator was advanced. The dilator and the guidewire were taken out. Under fluoroscopic guidance, an atrial lead (Medtronic), was advanced and positioned toward the right atrium. The lead was positioned in the right atrial appendage. Good pacing and sensing thresholds were obtained. The lead was secured to the endocardium by advancing the helix. Stability of the lead was tested by gentle twisting movements and also by asking the patient to take some deep breaths and cough. The venous sheath was peeled off, at this time. The lead was secured to the pectoralis fascia by suturing with 0-Surgilon. The pacemaker pocket was copiously irrigated with vancomycin solution. Patient had a lot of bruising in the pacemaker pocket. We used 5000 units of thrombin in the pocket for better hemostasis. Complete hemostasis was achieved. Sponge counts were confirmed. The leads were attached to a Medtronic generator. The leads were positioned behind the generator and the generator was attached to the pectoralis fascia by suturing with 0-Surgilon. The pocket was closed in layers. Skin was approximated using 4-0 Vicryl. IMPLANTED DEVICES: ATRIAL LEAD: Model number: 5076/45 Serial number: [id number] Make: Medtronic VENTRICULAR LEAD: Model number: 5076/52 Serial number: [id number] Make: Medtronic GENERATOR Brand: [place] XT DR MIKA Real Model number: [id number] Serial number: [id number] Make: Medtronic IMPLANTATION DATA: With the pacing system analyzer, the R wave sensing was 8.2 millivolts with a lead impedance of 551 and a pacing threshold was 0.5 volts at 0.4 milliseconds. In the atrium, the sensing was 1.75 millivolts with a lead impedance of 437 ohms and a pacing threshold was 1.125 volts at 0.4 milliseconds. Through the device, the R-wave sensing was not obtained because of the pacer dependency . The lead impedance of 532 and a pacing threshold was 0.5 volts at 0.4 milliseconds. The atrial sensing was 2.6 millivolts with a lead impedance of 418 ohms and a pacing threshold of 0.5 volts at 0.4 milliseconds. The pacemaker was set for DDDR mode with upper rate of 130 and a lower rate of 60. The atrial and ventricular output To 3.5 V, pulse width of 0.4. Atrial sensitivity At 0.3 and the ventricular sensitivity kept at 0.9 The temporary pacer wire was discontinued. The femoral venous sheath was removed in the Personal Banking Assistant. A pressure dressing was applied over the pacemaker site. The patient was transferred to the Medical Floor in stable condition. A chest x-ray was ordered to confirm the lead position and also to rule out any pneumothorax.
--- NOTE | 2022-06-24 13:17 | PM.PN ---
Subjective Subjective: Patient reports she is doing ok but cold. She has just returned after her pacemaker placement. No complications with procedure according to cardiology. Medications: Reviewed: Yes Vitals/I&O/Wt Last Vital Signs Temp 97.7 F 06/24/22 12:00 Pulse 34 L 06/24/22 12:00 Resp 18 06/24/22 12:00 BP 133/66 06/24/22 12:00 Pulse Ox 92 06/24/22 12:00 O2 Del Method 06/23/22 23:00 O2 Flow Rate 2 06/23/22 23:00 06/23/22 06/24/22 06/24/22 22:59 06:59 14:59 Intake Total 1669.833 / 1669.833 271.667 / 1941.500 Balance 1669.833 / 1269.833 271.667 / 1541.500 Weight last 48 hrs Weight 102.149 kg Weight 99.79 kg Weight 95.254 kg Physical Exam Narrative: General exam is a white female, currently in no distress Neck is supple no lymphadenopathy or thyromegaly Cardiovascular regular rate and rhythm. Telemetry indicates a paced rhythm at 60. Dressing noted left chest Lungs clear no wheezing or crackles Abdomen is soft with positive bowel sounds. No obvious organomegaly Extremities no cyanosis clubbing or edema, cap refill brisk Skin no rash Data : 06/24/22 03:06 06/24/22 03:06 A&P Assessment and plan (1) Third degree heart block by electrocardiogram: Permanent pacemaker today per cardiology Hopefully can discharge tomorrow Status: Acute (2) Atherosclerotic heart disease of [place] coronary artery with other forms of angina pectoris: Concerned that her right shoulder, jaw discomfort at night represents angina Angiogram performed 06/23 with no flow-limiting disease Continue aspirin Continue [facility] Echocardiogram demonstrated preserved EF. Mild aortic stenosis. Status: Acute (3) Hypothyroidism: Continue thyroid hormone. Adequately supplemented. Status: Chronic Qualifiers: Hypothyroidism type: acquired Qualified Code(s): E03.9 - Hypothyroidism, unspecified (4) Hyperlipidemia: Refuses statin Status: Chronic Qualifiers: Hyperlipidemia type: mixed hyperlipidemia Qualified Code(s): E78.2 - Mixed hyperlipidemia Plan Multiple other medical problems as outlined in past medical history Full code SCDs for DVT prophylaxis, Lovenox for DVT prophylaxis Attestations Medical Necessity Statement*: Needs continued hospitalization for close monitoring following pacemaker placement. Coding Level of Care Code Acute Director Script for Chg Fwd Diagnoses Third degree heart block by electrocardiogram I44.2 Atherosclerotic heart disease of [place] coronary artery with other forms of angina pectoris I25.118 Hypothyroidism E03.9 Hypothyroidism type: acquired Hyperlipidemia E78.2 Hyperlipidemia type: mixed hyperlipidemia
--- NOTE | 2022-06-24 13:55 | PC.NURSE ---
Pt back from [facility] Pt brought back from [employer] by [facility] staff. Pt is alert and oriented. Bulky pressure dressing to left chest is in place and dry with immobilizer in place. Pt denies pain. Family is at bedside. Call light within reach.
[2022-06-24] MEDS: clindamycin 900 MG/50 ML PREMIX 100 MG IV ×2 (14:35→23:15)
[2022-06-24 16:19] LABS: INR 1.04 (0.8-1.2)
[2022-06-24] MEDS: aspirin 81 mg EC Tablet PO (18:04)
[2022-06-24] MEDS: oxyCODONE-APAP 5-325 mg Tablet 1 TAB PO (21:11)
[2022-06-25] VITALS (26 sets, daily range): BP systolic 87–139; BP diastolic 41–73; PULSE 60–77; RESP 14–25; O2SAT 88–98
[2022-06-25 04:32] LABS: Blood Urea Nitrogen 13 mg/dL (8-23); Calcium 8.4 mg/dL (8.5-10.5); Carbon Dioxide 19 mmol/L (22-29); Chloride 112 mmol/L (98-107); Glucose 96 mg/dL (65-115); Osmolality Calculated 288 mOsm/kg (285-295); Sodium 139 mmol/L (136-145)
[2022-06-25 04:36] LABS: Anion Gap 12.2 (5-19); Potassium 4.2 mmol/L (3.5-5.1)
[2022-06-25] MEDS: oxyCODONE-APAP 5-325 mg Tablet 1 TAB PO (05:09)
[2022-06-25] MEDS: losartan 50 mg Tablet PO (05:09)
[2022-06-25] MEDS: amlodipine 5 mg Tablet PO (05:09)
--- NOTE | 2022-06-25 05:56 | ECG_ITS ---
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 Measurements Intervals [place] Rate: 69 P: 53 FL: 187 QRS: -51 QRSD: 159 T: 114 QT: 499 QTc: 537 Interpretive Statements A SENSE V PACED RHYTHM Compared to ECG 06/23/2022 13:03:45 Sinus rhythm no longer present Myocardial infarct finding no longer present Electronically Signed On 06-25-2022 13:18:26 CDT by Princess Black M.D. [email or web address]
--- NOTE | 2022-06-25 06:00 | XRR_ITS ---
PROCEDURE INFORMATION: Exam: XR Chest Exam date and time: 06/25/2022 5:04 AM Age: 71 years old Clinical indication: Condition or disease; Cardiac pacemaker adjustment and management; Prior surgery; Surgery date: Post-operative (0-2 days); Patient HX: F/u post pacemaker placement; Additional info: Post permanent pacemaker placement; Visualize lead tip TECHNIQUE: Imaging protocol: Radiologic exam of the chest. Views: 1 view. COMPARISON: CR XR chest 1V portable [id number] 06/24/2022 12:20 PM FINDINGS: Tubes, catheters and devices: Left-sided cardiac device noted. Lungs: Mild interstitial prominence. No significant airspace consolidation concerning for pneumonia. Pleural spaces: No pneumothorax. No large pleural effusion. Heart/Mediastinum: The heart is enlarged for size similar to prior exam. Bones/joints: Unremarkable. XR/XR chest 1V [id number] IMPRESSION: 1. No significant change from prior exam. 2. Stable cardiomegaly.
[2022-06-25 06:48] LABS: Basophils % 0.4 %; Eosinophils # 0.1 10^3/uL (0.0-0.8); Hematocrit 28.1 % (37.0-47.0); Hemoglobin 8.9 g/dL (11.5-15.3); Lymphocytes % 17.7 %; Mean Corpuscular HGB Conc 31.7 g/dL (30.0-36.0); Mean Corpuscular Hemoglobin 31.8 pg (28.0-34.0); Mean Corpuscular Volume 100.4 fl (81-99); Mean Platelet Volume 10.4 fL (7.4-10.4); Monocytes # 0.5 10^3/uL (0.2-0.9); Monocytes % 9.5 %; Neutrophils # 3.84 10^3/uL (1.8-7.7); Neutrophils % 70.2 %; Nucleated Red Blood Cells % 0 %; Platelet Count 158 10^3/cmm (130-400); Red Cell Distribution Width 14.4 % (12.1-15.1); White Blood Count 5.5 10^3/uL (4.0-10.0)
[2022-06-25] MEDS: levothyroxine 150 mcg Tablet PO (08:12)
[2022-06-25] MEDS: aspirin 81 mg EC Tablet PO (08:14)
--- NOTE | 2022-06-25 09:51 | PM.PN ---
Subjective Subjective: Feels well apart from some local pain -PPM checked today after multiple attempts. Medications: Reviewed: Yes Vitals/I&O/Wt Last Vital Signs Temp 97.7 F 06/24/22 14:00 Pulse 71 06/25/22 08:30 Resp 17 06/25/22 08:30 BP 100/62 06/25/22 08:30 Pulse Ox 93 06/25/22 08:30 O2 Del Method 06/23/22 23:00 O2 Flow Rate 2 06/23/22 23:00 06/24/22 06/25/22 06/25/22 22:59 06:59 14:59 Intake Total 1050 / 1050 50 / 1100 300 / 300 Output Total 200 / 200 Balance 1050 / 1050 -150 / 900 300 / 300 Weight last 48 hrs Weight 225 lb 3.2 oz Weight 220 lb Physical Exam Narrative: GENERAL: pleasant obese woman laying in bed in no acute distress HEENT: Extraocular movement intact. No pallor or icterus. NECK: central trachea, No JVD, No carotid bruit. CARDIOVASCULAR SYSTEM: S1-S2 regular. No S3 or S4 present. No murmur rubs or gallops. RESPIRATORY SYSTEM: Chest clear to auscultation. No wheezes rhonchi or rubs heard. No use of accessory muscles. Left upeer chest PPM in situ; dressing in place ABDOMEN: Soft, nontender and nondistended. Normal bowel sounds present. EXTREMITIES: No cyanosis, trace edema. No signs of chronic venous insufficiency. VICTIM WITNESS ADMINISTRATOR: Patient is alert oriented ?3. No focal neurological deficits. Data : 06/25/22 06:42 06/25/22 03:00 A&P Assessment and plan (1) Third degree heart block by electrocardiogram: In view of the patient's symptomatic bradycardia and high degree AV block, she required a permanent pacer implantation. -s/p dual chamber Medtronic PPM implantation IMPLANTATION DATA: With the pacing system analyzer, the R wave sensing was 8.2 millivolts with a lead impedance of 551 and a pacing threshold was 0.5 volts at 0.4 milliseconds. In the atrium, the sensing was 1.75 millivolts with a lead impedance of 437 ohms and a pacing threshold was 1.125 volts at 0.4 milliseconds. Through the device, the R-wave sensing was not obtained because of the pacer dependency . The lead impedance of 532 and a pacing threshold was 0.5 volts at 0.4 milliseconds. The atrial sensing was 2.6 millivolts with a lead impedance of 418 ohms and a pacing threshold of 0.5 volts at 0.4 milliseconds. The pacemaker was set for DDDR mode with upper rate of 130 and a lower rate of 60.? The atrial and ventricular output To 3.5 V, pulse width of 0.4.? Atrial sensitivity At 0.3 and the ventricular sensitivity kept at 0.9 EKG A sense V paced rhythm. Device functioning normally on interrogation. stable to be discharged home. Status: Acute (2) Benign essential hypertension with target blood pressure below 140/90: Currently the blood pressure is in the normal range. May continue on the current medications. Status: Acute (3) Atherosclerotic heart disease of [place] coronary artery with other forms of angina pectoris: Patient had a cardiac catheterization day before yesterday. She was found to have patent stents in the right coronary artery. Most likely her jaw pains may be related to the heart block Status: Acute (4) Jaw pain: As mentioned above. She has no evidence of myocardial injury. Status: Acute Plan Anemia Attestations Medical Necessity Statement*: stable to be discharged home froom cardiac stand point Coding Level of Care Code Acute Service Line Bus Cleaner for Joaquin Estrella Diagnoses Third degree heart block by electrocardiogram I44.2 Benign essential hypertension with target blood pressure below 140/90 I10 Atherosclerotic heart disease of [place] coronary artery with other forms of angina pectoris I25.118 Jaw pain R68.84
--- NOTE | 2022-06-25 11:33 | P.DS_ITS ---
Discharge Providers Date of Admission: 06/23/22 08:58 Date of Discharge: June 25, 2022 Attending Provider at Admission: Jose Rice MD Attending Provider at Discharge: David Ibrahim Primary Care Provider: Rebecca Salazar DO Diagnoses at Discharge Discharge Diagnosis (1) Third degree heart block by electrocardiogram: Status: Acute (2) Benign essential hypertension with target blood pressure below 140/90: Status: Acute (3) Atherosclerotic heart disease of [place] coronary artery with other forms of angina pectoris: Status: Acute (4) Jaw pain: Status: Acute Reason for Visit Reason for Visit: jaw/neck pain Hospital Course Hospital Course Pleasant 71-year-old lady with symptomatic bradycardia with weakness, dizziness, shortness of breath walking, third-degree heart block, underwent coronary angiogram with finding of patent stents in the right coronary artery, with some right neck, right jaw, right shoulder pain related likely due to heart block. Chest x-ray with mild pulmonary congestion. Echocardiogram with normal EF. No R WMA. Trace to mild MVR. Mild TVR. 41 mmHg estimated pulm artery peak syst olic pressure. Underwent uneventful dual-chamber PPM implantation on 06/24. She has had no recurrence of pain or discomfort. Minimal soreness at PPM implantation site. She is otherwise doing very well today, feels happy to be returning home. She is noted to be in mild acute diastolic CHF, mild oxygen requirement 2 L nasal cannula. Home oxygen evaluation is requested. This should improve with resolution of heart block, should hopefully be able to wean off oxygen quickly. Lasix is provided as needed for edema. Blood pressures are noted soft after receiving her usual amlodipine and losarta n, she is asked to stop these medications for now, as well as hold carvedilol. Please reassess blood pressures, and when and what dose these medications may be resumed. Physical Exam Const: COMMON NORMALS: patient oriented x3 and alert GENERAL APPEARANCE: cooperative ORIENTATION/CONSCIOUSNESS: Yes awake HENMT: COMMON NORMALS: oropharynx normal Neck/C-Spine: COMMON NORMALS: no JVD Chest: OTHER: L chest PPM clean dressing. Wearing sling. Resp: COMMON NORMALS: normal respiratory effort and clear to auscultation bilaterally AUSCULTATION: clear to auscultation bilaterally Cardio: COMMON NORMALS: no JVD, regular rhythm, S1 normal heart sound present, S2 normal heart sound present and No murmurs present (Cardio) RHYTHM: regular rhythm HEART SOUNDS: S1 normal heart sound present and S2 normal heart sound present GI: COMMON NORMALS: Normal to inspection, nondistended, normoactive bowel sounds present, Soft to palpation and non-tender PALPATION: Yes Soft to palpation Extremity: COMMON NORMALS: no joint enlargement and no pedal edema Neuro: COMMON NORMALS: patient oriented x3 and moves all extremities SENSORIUM/ORIENTATION: Yes alert Skin: COMMON NORMALS: no rashes or lesions noted GENERAL SKIN EXAM: no rashes or lesions noted Discharge Data Studies Completed and Pending Completed Studies During Hospitalization Category Date Time Status EXTRUDING PRESS ADJUSTER request for service Routine Exams 06/23/22 12:28 Completed EXTRUDING PRESS ADJUSTER request for service Routine Exams 06/24/22 06:01 Completed CXRP [XR chest 1V portable [id number]] Stat Exams 06/24/22 12:06 Completed XR chest 1V [id number] Routine Exams 06/25/22 06:00 Completed XR chest 1V portable [id number] Stat Exams 06/23/22 06:58 Completed XR soft tissue neck [id number] Stat Exams 06/23/22 06:58 Completed CV. echo complete* [id number] Stat Ultrasound 06/23/22 09:18 Completed Radiology Impressions Soft Tissue Neck X-Ray 06/23/22 06:58 IMPRESSION: No acute findings. Chest X-Ray 06/25/22 06:00 IMPRESSION: 1. No significant change from prior exam. 2. Stable cardiomegaly. Laboratory Results WBC 5.5 10^3/uL (4.0-10.0) 06/25/22 06:42 Corrected WBC Cancelled 06/25/22 03:00 RBC 2.80 10^6/uL (4.1-5.3) L 06/25/22 06:42 Hgb 8.9 g/dL (11.5-15.3) L 06/25/22 06:42 Hct 28.1 % (37.0-47.0) L 06/25/22 06:42 MCV 100.4 fl (81-99) H 06/25/22 06:42 MCH 31.8 pg (28.0-34.0) 06/25/22 06:42 MCHC 31.7 g/dL (30.0-36.0) 06/25/22 06:42 RDW 14.4 % (12.1-15.1) 06/25/22 06:42 Plt Count 158 10^3/cmm (130-400) 06/25/22 06:42 MPV 10.4 fL (7.4-10.4) 06/25/22 06:42 Gran % Cancelled 06/25/22 03:00 Neut % (Auto) 70.2 % 06/25/22 06:42 Lymph % (Auto) 17.7 % 06/25/22 06:42 [place] % (Auto) 9.5 % 06/25/22 06:42 Eos % (Auto) 2.0 % 06/25/22 06:42 Baso % (Auto) 0.4 % 06/25/22 06:42 Neut # (Auto) 3.84 10^3/uL (1.8-7.7) 06/25/22 06:42 Lymph # (Auto) 1.0 10^3/uL (0.8-4.8) 06/25/22 06:42 [place] # (Auto) 0.5 10^3/uL (0.2-0.9) 06/25/22 06:42 Eos # (Auto) 0.1 10^3/uL (0.0-0.8) 06/25/22 06:42 Baso # (Auto) 0.0 10^3/uL (0.0-0.1) 06/25/22 06:42 Absolute Gran (auto) Cancelled 06/25/22 03:00 Nucleated RBC % (auto) 0 % 06/25/22 06:42 Nucleated RBCs # 0.0 /100WBC 06/25/22 06:42 PT 13.90 SECONDS (12.1-14.9) 06/24/22 16:00 INR 1.04 (0.8-1.2) 06/24/22 16:00 D-Dimer 1.68 ug/mIFEU (0-0.59) H 06/23/22 06:50 Sodium 139 mmol/L (136-145) 06/25/22 03:00 Potassium 4.2 mmol/L (3.5-5.1) 06/25/22 03:00 Chloride 112 mmol/L (98-107) H 06/25/22 03:00 Carbon Dioxide 19 mmol/L (22-29) L 06/25/22 03:00 Anion Gap 12.2 (5-19) 06/25/22 03:00 BUN 13 mg/dL (8-23) 06/25/22 03:00 Creatinine 0.5 mg/dL (0.5-0.9) 06/25/22 03:00 GFR Calculation Not Reportable 06/25/22 03:00 Glucose 96 mg/dL (65-115) 06/25/22 03:00 Calculated Osmolality 288 mOsm/kg (285-295) 06/25/22 03:00 Calcium 8.4 mg/dL (8.5-10.5) L 06/25/22 03:00 Magnesium 2.1 mg/dL (1.7-2.3) 06/24/22 03:06 Total Bilirubin 0.4 mg/dL (0.15-1.2) 06/24/22 03:06 AST 21 U/L (0-32) 06/24/22 03:06 ALT 24 U/L (0-33) 06/24/22 03:06 Alkaline Phosphatase 103 U/L (35-105) 06/24/22 03:06 Troponin T Baseline 14 ng/L (0-10) H 06/23/22 06:50 Troponin T 120 Minute 12.16 ng/L (0-10) H 06/23/22 08:48 Delta Troponin T -1.84 ABS# (0-10) L 06/23/22 08:48 Troponin T Hi Sens 6Hr 13.9 ng/L (0-10) H 06/23/22 12:56 Troponin T Hi Sens 6Hr Delta -0.1 ng/L (0-12) L 06/23/22 12:56 NT-Pro-B Natriuret Pep 2335 pg/mL (0-125) H 06/23/22 06:50 Total Protein 6.6 g/dL (6.6-8.7) 06/24/22 03:06 Albumin 3.7 g/dL (3.5-5.2) 06/24/22 03:06 Globulin 2.9 g/dL (1.3-4.6) 06/24/22 03:06 Lipase 27 U/L (13-60) 06/23/22 06:50 TSH 0.52 uIU/mL (0.27-4.20) 06/23/22 06:50 Blood Type A Negative 06/23/22 21:32 Rho(D) Type Negative 06/23/22 21:32 Antibody Screen Negative 06/23/22 21:32 Vitals Last Vital Signs Temp 97.7 F 06/24/22 14:00 Pulse 60 06/25/22 11:00 Resp 15 06/25/22 11:00 BP 87/55 06/25/22 11:00 Pulse Ox 94 06/25/22 11:00 O2 Del Method 06/23/22 23:00 O2 Flow Rate 2 06/23/22 23:00 Discharge Plan Discharge Patient Disposition: Home Condition: Stable Prescriptions: New sulfamethoxazole-trimethoprim [Bactrim DS] 800-160 mg tablet 1 tab PO BID 7 Days Qty: 14 0RF furosemide [Lasix] 20 mg tablet 20 mg PO DAILY PRN (Reason: edema) Qty: 30 0RF Continued levothyroxine [Euthyrox] 100 mcg tablet 150 mcg PO DAILY Qty: 135 3RF furosemide [Lasix] 20 mg tablet 20 mg PO DAILY PRN (Reason: edema) Qty: 90 0RF multivitamin [Multi-Vitamin] Tablet 1 tab PO QAM ascorbic acid (vitamin C) [Vitamin C] 250 mg Tablet 250 mg PO QAM cholecalciferol (vitamin D3) [Vitamin D3] 25 mcg (1,000 unit) Capsule 25 mcg PO DAILY vitamin E 1,000 unit Capsule 1,000 unit PO DAILY Aspir-81 81 mg Tablet,Delayed Release (Dr/Ec) 81 mg PO BID clopidogrel 75 mg tablet 75 mg PO QAM Discontinued carvedilol 3.125 mg tablet 3.125 mg PO BID Qty: 180 3RF Rx Instructions: must administer with a meal/food losartan 50 mg tablet 50 mg PO QAM amlodipine 5 mg tablet 5 mg PO QAM Discharge Orders: Discharge Order (Routine); Ordered 06/25/22 Ordered By: David Ibrahim Referrals: Marcela Avila MD [Physician] - 4-7 days (Please call Dr. Avila's Office at [phone] to schedule a follow up appointment for 4-7 days. Thank you.) Claire Wing FNP [Nurse Practitioner] - 1 week (Please call Claire Wing's Office at [phone] to schedule a follow up appointment for 1 week. Thank you) Discharge Diet: Cardiac Discharge Activity: Limit activity as instructed Patient Instructions: Pacemaker (DC), Post Pacemaker - Donnie Activity Restrictions/Additional Instructions: Bactrim DS one tab PO BID for 7 days MVI daily for two weeks appt at the [facility] next with the KILN CAR UNLOADER Appointment with me in one month Limit use of your left arm for the next 2 days. Avoid lifting her left arm over the next 2-4 weeks above shoulder level. Avoid heavy lifting no more than 10-15 pounds. Please measure blood pressure twice daily at home. Please stop amlodipine, losartan, carvedilol for now until your blood pressures start rising up again. Discharge Attestations Time Spent in Discharge Care*: greater than 30 min Quality Metrics Clinical Quality Measures [ No reported AMI, CVA or VTE this stay] Coding Level of Care Code Acute Chg FW DC note Diagnoses Third degree heart block by electrocardiogram I44.2 Benign essential hypertension with target blood pressure below 140/90 I10 Atherosclerotic heart disease of [place] coronary artery with other forms of angina pectoris I25.118 Jaw pain R68.84
--- NOTE | 2022-06-25 12:38 | PC.NURSE ---
All D/C instruction educated to patient and at bedside, patient signed d/c form
--- NOTE | 2022-06-25 15:48 | PC.NURSE ---
ISAAC at this time transported by zoe
== END 2022-06-25 15:49 | disposition home or self-care (01) | DRG 243 ==
LOC: ER 08:14 → ICU 09:19
PROVIDERS: Internal Medicine Cardiovascular Disease; Admitting Provider Internal Medicine; Emergency Provider Emergency Medicine; PCP Family Medicine; Visit Provider Internal Medicine
PROC: B2111ZZ Fluoroscopy of Multiple Coronary Arteries using Low Osmolar Contrast (ICD-10-PCS; principal; 2022-06-23 15:00)
PROC: 0JH606Z Insertion of Pacemaker, Dual Chamber into Chest Subcutaneous Tissue and Fascia, Open Approach (ICD-10-PCS; principal; 2022-06-24 08:30)
DX: I44.2 Atrioventricular block, complete (principal); Z68.41 Body mass index [BMI] 40.0-44.9, adult; I25.118 Atherosclerotic heart disease of native coronary artery with other forms of angina pectoris; Z95.5 Presence of coronary angioplasty implant and graft; E78.2 Mixed hyperlipidemia; E03.9 Hypothyroidism, unspecified; I25.2 Old myocardial infarction; Z79.82 Long term (current) use of aspirin; Z79.02 Long term (current) use of antithrombotics/antiplatelets; I10 Essential (primary) hypertension; E66.9 Obesity, unspecified
CPT/HCPCS: 33208; 33210; 36415; 70360; 71045; 80048; 80053; 83690; 83735; 83880; 84443; 84484; 85025; 85378; 85610; 86850; 86900; 93005; 93306; 93454; 94760; 96360; 96361; 96372; 96374; 97110; 97165; 97535; 99152; 99153; 99285; C1751; C1769; C1779; C1786; C1887; C1894; J0461; J1644; J1650; J2250; J3010; J3370; J3490; J7030; J7050; Q9967

== ENCOUNTER 2022-06-28 15:40 | Inpatient (IN) | payer MEDICARE, SELFPAY ==
[2022-06-28] VITALS (62 sets, daily range): BP systolic 100–180; BP diastolic 50–85; PULSE 0–105; RESP 15–28; TEMP 36.7–36.9; O2SAT 96–99; BMI 38.6
--- NOTE | 2022-06-28 16:15 | ECG_ITS ---
[facility] Test Date: 2022-06-28 Pat Name: Mady Dhaliwal Department: Room: Gender: Female Financial Operations Clerk: : 1950 Requested By: Jose Carr Order Number: [id number] Lee MD: Princess Black M.D. Measurements Intervals [place] Rate: 60 P: HI: QRS: -27 QRSD: 132 T: 55 QT: 463 QTc: 463 Interpretive Statements ELECTRONIC VENTRICULAR PACEMAKER ABNORMAL RHYTHM ECG Compared to ECG 06/25/2022 05:56:29 No significant changes Electronically Signed On 06-28-2022 16:32:09 CDT by Princess Black M.D. [id number]
--- NOTE | 2022-06-28 16:35 | PC.NURSE ---
reports dizziness and diaphoresis with position changes. reports she changes positions slowly, recently had surgery. lung sounds clear, bowel sounds present x4. speech clear, speaking in complete sentences without difficulty.
--- NOTE | 2022-06-28 17:00 | ED_ITS ---
HPI - Weakness General: Chief complaint: Weakness Stated complaint: WEAKNESS/DIZZINESS/ DIAPHORESIS Time Seen by Provider: 06/28/22 16:13 Source: patient History of Present Illness: 71-year-old female presents emergency room with complaints of black melanic stools for the last 2 days. She has exertional dyspnea and weakness. She denies any chest pain. Patient was recently hospitalized with third-degree heart block had a angiogram done at that time was negative for any significant coronary artery disease. Patient denies any hematemesis or coffee-ground emesis. Patient currently is on clopidogrel no other anticoagulants. MD Complaint: generalized weakness Onset (ago): day(s) (2) Duration: constant Location: generalized Migration: none Severity: mild Relieving factors: none Exacerbating factors: none Associated symptoms: Reports melena, decreased appetite and nausea; Denies chest pain, chills, confusion, diaphoresis, dysuria, easy bruising, fever(s), headache(s), myalgias, short of breath, syncope or vomiting Review of Systems Const: Denies: fever(s), chills or diaphoresis Card: Denies: chest pain or syncope GI: Reports: nausea and melena; Denies: vomiting : Denies: dysuria Neuro: Denies: headache(s) or confusion Jose/Lymph: Denies: easy bruising PFSH ED PFSH: Medical History Coronary artery disease HTN (hypertension) Hyperlipidemia Reports she cannot take statins Hypothyroidism ST elevation [place] (STEMI) Surgical History H/O coronary angiogram 2020, RCA disease MARGY times 2 History of permanent cardiac pacemaker placement S/P cholecystectomy Family History Father Cancer glioblastoma Mother CAD (coronary artery disease), Onset Age: 90 Denies family history of Diabetes Clotting disorder Dementia Chronic kidney disease (CKD) Suicide Anesthesia complication Bleeding disorder Lung disease Stroke Social History Smoking and tobacco status: never smoked Alcohol intake: never History of recent travel: No Physical Exam Const: GENERAL APPEARANCE: cooperative and comfortable ORIENTATION/CONSCIOUSNESS: Yes awake, Yes oriented to person, Yes oriented to place and Yes oriented to time HENMT: COMMON NORMALS: normocephalic, atraumatic and hearing grossly normal bilaterally HEAD & SCALP: normocephalic and atraumatic Resp: COMMON NORMALS: normal respiratory effort, No retractions, No use of accessory muscles and clear to auscultation bilaterally AUSCULTATION: clear to auscultation bilaterally Cardio: COMMON NORMALS: regular rate, regular rhythm and No murmurs present (Cardio) RATE: regular rate RHYTHM: regular rhythm GI: COMMON NORMALS: Soft to palpation and No hepatosplenomegaly present AUSCULTATION: Yes normoactive bowel sounds PALPATION: Yes Soft to palpation, No Tenderness to palpation present (GI), No Guarding due to palpation present (GI) and Yes No hepatosplenomegaly present Extremity: COMMON NORMALS: normal to inspection, capillary refill normal, no clubbing, cyanosis or edema, no calf tenderness and no pedal edema Neuro: SENSORIUM/ORIENTATION: Yes oriented to person, Yes oriented to place and Yes oriented to time Skin: COMMON NORMALS: no rashes or lesions noted GENERAL SKIN EXAM: no rashes or lesions noted Course Vital Signs: Vital signs: Vital Signs Temperature 100.7 F H 07/01/22 22:00 Pulse Rate 60 07/01/22 22:00 Respiratory Rate 17 07/01/22 22:00 Blood Pressure 121/36 07/01/22 22:00 Pulse Oximetry 95 07/01/22 22:00 Oxygen Delivery Me thod 07/01/22 22:00 Oxygen Flow Rate 2 06/30/22 23:00 MDM - Weakness Medical Decision Making Melanic stools acute admit for acute GI bleed discussed with hospitalist orders written Lab Data : 07/01/22 05:19 07/01/22 05:19 Radiology Impressions Chest X-Ray 06/28/22 17:21 IMPRESSION: 1. Cardiomegaly and minimal pulmonary vascular congestion. 2. Bibasilar atelectasis versus minimal infiltrate. Laboratory Results WBC 7.6 10^3/uL (4.0-10.0) 06/28/22 16:57 RBC 2.20 10^6/uL (4.1-5.3) L 06/28/22 16:57 Hgb 7.2 g/dL (11.5-15.3) L 06/28/22 16:57 Hct 21.8 % (37.0-47.0) L 06/28/22 16:57 MCV 99.1 fl (81-99) H 06/28/22 16:57 MCH 32.7 pg (28.0-34.0) 06/28/22 16:57 MCHC 33.0 g/dL (30.0-36.0) 06/28/22 16:57 RDW 14.4 % (12.1-15.1) 06/28/22 16:57 Plt Count 167 10^3/cmm (130-400) 06/28/22 16:57 MPV 10.5 fL (7.4-10.4) H 06/28/22 16:57 Neut % (Auto) 80.4 % 06/28/22 16:57 Lymph % (Auto) 13.0 % 06/28/22 16:57 [place] % (Auto) 5.5 % 06/28/22 16:57 Eos % (Auto) 0.5 % 06/28/22 16:57 Baso % (Auto) 0.3 % 06/28/22 16:57 Neut # (Auto) 6.12 10^3/uL (1.8-7.7) 06/28/22 16:57 Lymph # (Auto) 1.0 10^3/uL (0.8-4.8) 06/28/22 16:57 [place] # (Auto) 0.4 10^3/uL (0.2-0.9) 06/28/22 16:57 Eos # (Auto) 0.0 10^3/uL (0.0-0.8) 06/28/22 16:57 Baso # (Auto) 0.0 10^3/uL (0.0-0.1) 06/28/22 16:57 Nucleated RBC % (auto) 0 % 06/28/22 16:57 Nucleated RBCs # 0.0 /100WBC 06/28/22 16:57 PT 14.70 SECONDS (12.1-14.9) 06/28/22 16:57 INR 1.12 (0.8-1.2) 06/28/22 16:57 APTT 22.5 SECONDS (23.9-36.7) L 06/28/22 16:57 Sodium 140 mmol/L (136-145) 06/28/22 16:57 Potassium 4.8 mmol/L (3.5-5.1) 06/28/22 16:57 Chloride 109 mmol/L (98-107) H 06/28/22 16:57 Carbon Dioxide 19 mmol/L (22-29) L 06/28/22 16:57 Anion Gap 16.8 (5-19) 06/28/22 16:57 BUN 37 mg/dL (8-23) H 06/28/22 16:57 Creatinine 0.6 mg/dL (0.5-0.9) 06/28/22 16:57 GFR Calculation Not Reportable 06/28/22 16:57 Glucose 136 mg/dL (65-115) H 06/28/22 16:57 Calculated Osmolality 301 mOsm/kg (285-295) H 06/28/22 16:57 Calcium 8.6 mg/dL (8.5-10.5) 06/28/22 16:57 Total Bilirubin 0.2 mg/dL (0.15-1.2) 06/28/22 16:57 AST 15 U/L (0-32) 06/28/22 16:57 ALT 14 U/L (0-33) 06/28/22 16:57 Alkaline Phosphatase 97 U/L (35-105) 06/28/22 16:57 Troponin T Baseline 29 ng/L (0-10) H 06/28/22 16:57 Total Protein 5.8 g/dL (6.6-8.7) L 06/28/22 16:57 Albumin 3.2 g/dL (3.5-5.2) L 06/28/22 16:57 Globulin 2.6 g/dL (1.3-4.6) 06/28/22 16:57 Discharge Plan Discharge Patient Disposition: Admitted As Inpatient Admit Provider: Jose Rice Clinical Impression: Acute GI bleeding, History of permanent cardiac pacemaker placement, HTN (hypertension), Anemia Condition: Stable Coding Level of Care Code ED Corporate Quality Engineer for Joaquin Estrella
[2022-06-28 17:16] LABS: Basophils % 0.3 %; Eosinophils % 0.5 %; Hematocrit 21.8 % (37.0-47.0); Hemoglobin 7.2 g/dL (11.5-15.3); Mean Corpuscular Hemoglobin 32.7 pg (28.0-34.0); Mean Corpuscular Volume 99.1 fl (81-99); Mean Platelet Volume 10.5 fL (7.4-10.4); Monocytes # 0.4 10^3/uL (0.2-0.9); Monocytes % 5.5 %; Neutrophils # 6.12 10^3/uL (1.8-7.7); Neutrophils % 80.4 %; Nucleated Red Blood Cells % 0 %; Platelet Count 167 10^3/cmm (130-400); Red Cell Distribution Width 14.4 % (12.1-15.1); White Blood Count 7.6 10^3/uL (4.0-10.0)
--- NOTE | 2022-06-28 17:21 | XRR_ITS ---
PROCEDURE INFORMATION: Exam: XR Chest Exam date and time: 06/28/2022 5:30 PM Age: 71 years old Clinical indication: Cough and dyspnea; Additional info: Dyspnea/cough TECHNIQUE: Imaging protocol: Radiologic exam of the chest. Views: 1 view. COMPARISON: CR (CHEST, ) 06/25/2022 5:04 AM FINDINGS: Tubes, catheters and devices: Pacemaker. Lungs: Bibasilar atelectasis versus minimal infiltrate. Pleural spaces: Unremarkable. No pleural effusion. No pneumothorax. Heart/Mediastinum: Cardiomegaly and minimal pulmonary vascular congestion. Bones/joints: Unremarkable. XR/XR chest 1V portable [id number] IMPRESSION: 1. Cardiomegaly and minimal pulmonary vascular congestion. 2. Bibasilar atelectasis versus minimal infiltrate.
[2022-06-28 17:36] LABS: INR 1.12 (0.8-1.2); Partial Thromboplastin Time 22.5 SECONDS (23.9-36.7)
[2022-06-28 17:42] LABS: Alanine Aminotransferase 14 U/L (0-33); Albumin Level 3.2 g/dL (3.5-5.2); Alkaline Phosphatase 97 U/L (35-105); Anion Gap 16.8 (5-19); Aspartate Amino Transferase 15 U/L (0-32); Blood Urea Nitrogen 37 mg/dL (8-23); Calcium 8.6 mg/dL (8.5-10.5); Carbon Dioxide 19 mmol/L (22-29); Chloride 109 mmol/L (98-107); Globulin 2.6 g/dL (1.3-4.6); Glucose 136 mg/dL (65-115); Osmolality Calculated 301 mOsm/kg (285-295); Potassium 4.8 mmol/L (3.5-5.1); Sodium 140 mmol/L (136-145); Total Bilirubin 0.2 mg/dL (0.15-1.2); Total Protein 5.8 g/dL (6.6-8.7)
--- NOTE | 2022-06-28 17:42 | PM.HP ---
Providers/Chief Complaint Admitting Physician: Jose Rice MD, hospitalist Primary Care Provider: Rebecca Salazar DO Chief Complaint: WEAKNESS/DIZZINESS/ DIAPHORESIS History of Present Illness Mady Dhaliwal is a 71 year old female presents to the hospital with history of black tarry stools, multiple times during the day for the last 2 days. When exerting she is short of breath, dizzy, and diaphoretic. She denies any chest discomfort. She reports some nausea, but no abdominal discomfort. She reports no vomiting any blood, blood in stool, or black or tarry stools. She has never had a GI bleed to her knowledge. She was recently in the hospital, for sick sinus syndrome and received a pacemaker, on June 24. He was somewhat a difficult placement, and she had some oozing during the procedure but was stable to be discharged the next day. Angiogram was also performed during the hospital stay which demonstrated no obvious flow-limiting lesions. In the emergency department, 2 units of packed red blood cells have been ordered. IV fluids have been initiated. Review of Systems General: Reports: 10 or more systems reviewed and unremarkable except in HPI and below Const: Denies: fever(s) or chills Eyes: Denies: change in vision ENMT: Denies: throat pain Card: Denies: chest pain Resp: Denies: dyspnea GI: Reports: nausea and melena; Denies: abdominal pain, vomiting, hematemesis or hematochezia : Denies: flank pain Musc: Denies: neck pain Skin/Breast: Denies: rash Neuro: Denies: headache(s) Psych: Denies: anxiety or depression Endo: Denies: polyuria Jose/Lymph: Denies: easy bruising All/Imm: Denies: urticaria Medications/Allergies Home Medications Medication Instructions Recorded Confirmed Last Taken Type ascorbic acid (vitamin C) 250 mg 250 mg PO QAM 05/05/22 06/28/22 05/04/22 History tablet (Vitamin C) multivitamin 1 tab PO QAM 05/05/22 06/28/22 06/28/22 History levothyroxine 100 mcg tablet 150 mcg PO DAILY #135 tabs 05/11/22 06/28/22 06/28/22 Rx (Euthyrox) aspirin 81 mg tablet,delayed 81 mg PO BID 06/23/22 06/28/22 Unknown History release clopidogrel 75 mg tablet 75 mg PO QAM 06/23/22 06/28/22 06/22/22 History furosemide 20 mg tablet (Lasix) 20 mg PO DAILY PRN edema #30 tabs 06/25/22 06/28/22 Unknown Rx sulfamethoxazole 800 1 tab PO BID 7 days #14 tabs 06/25/22 06/28/22 06/28/22 Rx mg-trimethoprim 160 mg tablet (Bactrim DS) acetaminophen 500 mg tablet 500 mg PO Q6H PRN Pain 06/28/22 06/28/22 06/27/22 History amlodipine 5 mg tablet 5 mg PO DAILY 06/28/22 06/28/22 Unknown History carvedilol 3.125 mg tablet 3.125 mg PO BID 06/28/22 06/28/22 Unknown History losartan 50 mg tablet 50 mg PO DAILY 06/28/22 06/28/22 Unknown History Allergies Allergy/AdvReac Type Severity Reaction Status Date / Time Penicillins Allergy Unknown Verified 06/28/22 16:44 alirocumab AdvReac Severe Pt refuses Verified 06/28/22 16:44 [From Praluent Pen] any self-injections evolocumab AdvReac Severe Pt refuses Verified 06/28/22 16:44 [From Repatha SureClick] self injections rosuvastatin AdvReac Severe ADR-Nausea Verified 06/28/22 16:44 PFSH Acute PFSH: Medical History (Updated 06/28/22 @ 17:56 by Jose Rice MD) Coronary artery disease HTN (hypertension) Hyperlipidemia Reports she cannot take statins Hypothyroidism ST elevation [place] (STEMI) Surgical History (Updated 06/28/22 @ 17:57 by Jose Rice MD) H/O coronary angiogram 2020, RCA disease MARGY times 2 History of permanent cardiac pacemaker placement S/P cholecystectomy Family History Father Cancer glioblastoma Mother CAD (coronary artery disease), Onset Age: 90 Denies family history of Diabetes Clotting disorder Dementia Chronic kidney disease (CKD) Suicide Anesthesia complication Bleeding disorder Lung disease Stroke Social History Smoking and tobacco status: never smoked Alcohol intake: never History of recent travel: No Vitals/I&O/Wt Last Vital Signs Temp 98.4 F 06/28/22 15:43 Pulse 60 06/28/22 17:18 Resp 15 06/28/22 15:43 BP 180/83 06/28/22 17:18 Pulse Ox 99 06/28/22 15:43 O2 Del Method 06/28/22 15:43 Physical Exam Narrative: General exam is a white female, somewhat anxious, and slightly diaphoretic. HEENT: Atraumatic and normocephalic. Pupils equally round. Oropharynx clear. Neck is supple no lymphadenopathy thyromegaly Cardiovascular regular rate and rhythm, no murmur Pacemaker site left chest without any significant drainage. Bandage in place. Lungs clear no wheezing or crackles Abdomen is soft with positive bowel sounds. No obvious organomegaly exams deferred Extremities no cyanosis clubbing or edema, cap refill brisk Skin no rash Neuro no obvious focal deficits. Data : 06/28/22 16:57 06/28/22 16:57 Other Labs: LFTs are within normal limits Creatinine 0.6 INR 1.12 Anion gap 17 Albumin 3.2 Chest x-ray by my read demonstrates pacemaker, no obvious infiltrate. Dual-chamber EKG demonstrates paced rhythm A&P Assessment and plan (1) Acute GI bleeding: Patient presents with black and tarry stools. This is consistent with upper GI bleeding. She has significant anemia. Hold Plavix and aspirin General surgery consultation for possible EGD Protonix 80 mg IV now on 40 mg IV every 12 hours N.p.o. Hydration Status: Acute (2) Anemia, posthemorrhagic, acute: Severe symptoms at home. These consist of diaphoresis, dizziness, shortness of breath. Transfusion of 2 units packed red blood cells ordered Repeat hemoglobin 1 hour following transfusion Repeat hemoglobin tomorrow morning with routine lab Status: Acute (3) Atherosclerotic heart disease of [place] coronary artery with other forms of angina pectoris: Hold Plavix and aspirin currently. Has been over 1 year since her last angiogram requiring stent, 2019 Status: Acute (4) History of permanent cardiac pacemaker placement: Recently had a permanent place maker placed. Surgical site appropriate No evidence of bleeding at surgical site Status: Acute (5) HTN (hypertension): Blood pressure elevated currently. Hydralazine as needed Initiate p.o. medicine as tolerated, once it is established acute GI bleeding has stabilized. Status: Chronic Qualifiers: Hypertension type: essential hypertension Qualified Code(s): I10 - Essential (primary) hypertension (6) Hypothyroidism: Continue thyroid hormone Status: Chronic Qualifiers: Hypothyroidism type: acquired Qualified Code(s): E03.9 - Hypothyroidism, unspecified Plan Full code SCDs for DVT prophylaxis. Anticoagulation contraindicated secondary to GI bleeding Attestations Medical Necessity Statement*: Will need greater than 2 midnight stay for evaluation and treatment of acute upper GI bleed with associated anemia Critical Care Time: The high probability of a clinically significant, sudden or life threatening deterioration of the patient's [hematologic, gastrointestinal] system(s) required my full and direct attention, intervention and personal management. The critical care time is as shown. 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
[2022-06-28 18:12] LABS: Troponin(5th) Baseline 29 ng/L (0-10)
[2022-06-28] MEDS: sodium chloride 0.9% 1,000 ML 150 ML IV (18:51)
[2022-06-28] MEDS: pantoprazole 40 mg SDV 80 MG IVP (19:48)
[2022-06-28] MEDS: D5-NS 0.45% + KCL 20 mEq 20 MEQ/1,000 ML BAG 100 MEQ IV (19:49)
--- NOTE | 2022-06-28 19:59 | ECG_ITS ---
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 Measurements Intervals [place] Rate: 60 P: OR: QRS: -48 QRSD: 166 T: 64 QT: 498 QTc: 498 Interpretive Statements ELECTRONIC VENTRICULAR PACEMAKER ABNORMAL RHYTHM ECG Compared to ECG 06/28/2022 16:15:46 No significant changes Electronically Signed On 06-29-2022 17:36:54 CDT by Princess Black M.D. [id number]
[2022-06-28 20:18] LABS: Hematocrit 21.7 % (37.0-47.0); Hemoglobin 6.7 g/dL (11.5-15.3)
[2022-06-28 20:26] LABS: Troponin 5 2HR 28.06 ng/L (0-10)
[2022-06-28 20:27] LABS: Troponin 5 2HR Delta -0.94 ABS# (0-10)
--- NOTE | 2022-06-28 23:02 | ECG_ITS ---
[facility] Test Date: 2022-06-29 Pat Name: Mady Dhaliwal Department: Room: ICU11 Gender: Female Trade Manager: : 1950 Requested By: Jose Carr Order Number: [id number] Lee MD: Sarbjit Randolph M.D. Measurements Intervals [place] Rate: 59 P: MS: QRS: -52 QRSD: 138 T: 83 QT: 469 QTc: 468 Interpretive Statements ELECTRONIC VENTRICULAR PACEMAKER Compared to ECG 06/28/2022 19:59:35 No significant changes Electronically Signed On 06-29-2022 19:55:06 CDT by Sarbjit Randolph M.D. [id number]
[2022-06-29] VITALS (142 sets, daily range): BP systolic 93–172; BP diastolic 35–88; PULSE 51–71; RESP 15–31; TEMP 36.5–38.3; O2SAT 89–100
[2022-06-29 00:30] LABS: Troponin 5 6HR 22.17 ng/L (0-10); Troponin 5 6HR Delta -6.83 ng/L (0-12)
--- NOTE | 2022-06-29 00:47 | PC.NURSE ---
Patient arrived to ICU with orders for 2 units of PRBC, MD notified of current orders for two other fluids. MD notified to disregard ED orders for fluids and admin Blood products. Tolerated well by patient with some minor discomfort at IV site.
[2022-06-29 01:43] LABS: Blood Urine Neg (Negative); Glucose Urine UA Norm (Normal); Ketones Urine Negative (Negative); Nitrate Urine Positive (Negative); Protein Urine 1+ (Negative); Urine Appearance SL Hazy (CLEAR); Urine Color Yellow (Yellow); pH Urine 6 (5-7)
[2022-06-29 01:44] LABS: Add Urine Microscopic? YES; Bilirubin Urine Neg (Negative); Leukocyte Esterase Urine 2+ (Negative); Urobilinogen Urine Norm (Negative)
[2022-06-29 01:45] LABS: Bacteria Urine 2+ /hpf; RBC Urine 0-4 /hpf (0-2); Squamous Epithelial Cell Urine 0-4 /hpf (0-5); WBC Urine 15-25 /hpf (0-5)
[2022-06-29 01:46] LABS: Add Urine Culture? Yes
[2022-06-29] MEDS: acetaminophen 325 mg Tablet 650 MG PO ×3 (01:46→20:43)
--- NOTE | 2022-06-29 03:09 | PC.NURSE ---
During Transfusion of 2nd unit of PRBC, patient reported pain at IV site. Line was flushed and patient reported taste but developed a hardened lump proximal from the IV insertion. Iv was discontinued and new Ultrasound IV started in Upper Right Arm. Approximately 2.5 hours into transfusion patient developed similar knot at IV site with reports of pain. Transfusion time limited out during 3rd IV Start attempt. Approximately 75ml remained of this transfusion.
[2022-06-29 05:49] LABS: Basophils % 0.3 %; Eosinophils % 0.1 %; Hematocrit 22.3 % (37.0-47.0); Hemoglobin 7.3 g/dL (11.5-15.3); Lymphocytes # 1.4 10^3/uL (0.8-4.8); Lymphocytes % 15.1 %; Mean Corpuscular HGB Conc 32.7 g/dL (30.0-36.0); Mean Corpuscular Hemoglobin 30.2 pg (28.0-34.0); Mean Corpuscular Volume 92.1 fl (81-99); Mean Platelet Volume 10.6 fL (7.4-10.4); Monocytes # 0.5 10^3/uL (0.2-0.9); Neutrophils # 7.02 10^3/uL (1.8-7.7); Neutrophils % 78.1 %; Nucleated Red Blood Cells % 0 %; Platelet Count 143 10^3/cmm (130-400); Red Blood Count 2.42 10^6/uL (4.1-5.3); Red Cell Distribution Width 19.2 % (12.1-15.1)
[2022-06-29 06:12] LABS: Anion Gap 14.4 (5-19); Blood Urea Nitrogen 33 mg/dL (8-23); Calcium 8.4 mg/dL (8.5-10.5); Carbon Dioxide 19 mmol/L (22-29); Chloride 111 mmol/L (98-107); Glucose 127 mg/dL (65-115); Osmolality Calculated 299 mOsm/kg (285-295); Potassium 4.4 mmol/L (3.5-5.1); Sodium 140 mmol/L (136-145)
--- NOTE | 2022-06-29 07:05 | PC.NURSE ---
Bedside report completed with DAVIN Mesa and DAVIN Elder.
--- NOTE | 2022-06-29 08:11 | P.PN_ITS ---
Subjective Subjective: No complaints of pain. Still having bowel movements, better melanotic. Lots of trouble last night keeping IV access. Medications: Reviewed: Yes Vitals/I&O/Wt Last Vital Signs Temp 98.2 F 06/29/22 06:55 Pulse 62 06/29/22 07:05 Resp 27 H 06/29/22 07:05 BP 112/56 06/29/22 07:00 Pulse Ox 98 06/29/22 06:55 O2 Del Method 06/28/22 19:31 06/28/22 06/29/22 06/29/22 22:59 06:59 14:59 Intake Total 581.667 / 581.667 644 / 1225.667 Balance 581.667 / 581.667 644 / 1225.667 Weight last 48 hrs Weight 100.698 kg Weight 98.883 kg Physical Exam Narrative: General exam is a white female, no distress Neck is supple no lymphadenopathy thyromegaly Cardiovascular regular rate and rhythm, no murmur Pacemaker site left chest without any significant drainage. Bandage in place. Lungs clear no wheezing or crackles Abdomen is soft with positive bowel sounds. No obvious organomegaly exams deferred Extremities no cyanosis clubbing or edema, cap refill brisk Skin no rash Data : 06/29/22 05:15 06/29/22 05:15 A&P Assessment and plan (1) Acute GI bleeding: Patient presents with black and tarry stools. This is consistent with upper GI bleeding. She has significant anemia. Hold Plavix and aspirin General surgery consultation for possible EGD Protonix 40 mg IV every 12 hours Continue n.p.o. status Continue hydration Status: Acute (2) Anemia, posthemorrhagic, acute: Severe symptoms at home. These consist of diaphoresis, dizziness, shortness of breath. Transfusion of 2 units packed red blood cells ordered. She received approximately 1-1/2 units prior to IV troubles last night. Hemoglobin 7.3 this morning and in face of potentially still active bleeding will transfuse 1 more unit of packed red blood cells Status: Acute (3) Atherosclerotic heart disease of [place] coronary artery with other forms of angina pectoris: Hold Plavix and aspirin currently. Has been over 1 year since her last angiogram requiring stent, 2019 Status: Acute (4) History of permanent cardiac pacemaker placement: Recently had a permanent place maker placed. Surgical site appropriate No evidence of bleeding at surgical site Status: Acute (5) HTN (hypertension): Blood pressure elevated currently. Hydralazine as needed Initiate p.o. medicine as tolerated, once it is established acute GI bleeding has stabilized. Status: Chronic Qualifiers: Hypertension type: essential hypertension Qualified Code(s): I10 - Essential (primary) hypertension (6) Hypothyroidism: Continue thyroid hormone Status: Chronic Qualifiers: Hypothyroidism type: acquired Qualified Code(s): E03.9 - Hypothyroidism, unspecified Plan Possible UTI by urinalysis. Initiate Rocephin 1 g IV every 24 hours. Obtain urine culture. Full code SCDs for DVT prophylaxis. Anticoagulation contraindicated secondary to GI bleeding Attestations Medical Necessity Statement*: Needs continued hospital stay secondary to upper GI bleed with severe symptomatic anemia and potentially ongoing bleeding awaiting definitive evaluation. Coding Level of Care Code Acute Geosciences Professor for [facility] Fwd Diagnoses Acute GI bleeding K92.2 Anemia, posthemorrhagic, acute D62 Atherosclerotic heart disease of [place] coronary artery with other forms of angina pectoris I25.118 History of permanent cardiac pacemaker placement Z95.0 HTN (hypertension) I10 Hypertension type: essential hypertension Hypothyroidism E03.9 Hypothyroidism type: acquired
[2022-06-29] MEDS: levothyroxine 150 mcg Tablet PO (08:21)
[2022-06-29] MEDS: pantoprazole 40 mg SDV IVP ×2 (08:21→17:33)
[2022-06-29] MEDS: cefTRIAXone 1,000 MG in sodium chloride 0.9% (plus) 50 ML 100 MG IV (08:52)
--- NOTE | 2022-06-29 11:04 | PC.CHAP ---
Pastoral Care Encounter/Spiritual Assessment Type of Contact [] Declined waistband setter lockstitch visit [] Patient/Family/Request visit [] Outpatient visit [] Follow-up visit [] Physician referral [] Code/Alert [x] Routine visit [] Staff referral [] Actively dying [x] Patient sleeping [] Family support [] [] Out of room [] Palliative care [] [] Receiving care in room [] Pre-surgical visit [] Trauma [] Long length of stay [x] ICU visit [] Other: Relational/Emotional Strength [] Patient feels connected with others/family/visitors/staff [] Distress [] Loneliness/isolation [] Abandonment Spirituality of Patient [] Person of Karen [] Attends Christianity of their Karen [] Believes in Prayer [] Reads Bible or Denominational materials [] There are Spiritual issues to be addressed Manager Administrative Services Interventions [x] Prayer [] Active listening [] Non-anxious presence [] Spiritual/emotional support [] Crisis/trauma care [] Spiritual counseling [] Bereavement support [] Provided bereavement packet [] Provided Bible/devotional materials [] Provided toy/stuffed animal, coloring book to patient or family member [] Provided Communion [] Anointing/[place] [] Salvation [x] Completed spiritual assessment [] Other: Impact on Illness or Injury [] Angry [] Fearful [] Anxious [] Often cries [] Exhaustion [] Unable to work [] Unable to attend christian [] Unable to walk/stand [] Unable to read [] Unable to drive [] Unable to eat/drink [] Unable to sleep [] Unable to be with family [] Patient intubated [] Other: Summary Time spent with patient
--- NOTE | 2022-06-29 12:45 | PC.NURSE ---
RIght upper arm IV access obtained with ultrasound.
[2022-06-29] MEDS: sodium chloride 0.9% (100 ml) 100 ML ×2 (13:17→17:34)
--- NOTE | 2022-06-29 13:18 | ANES.PREANE2 ---
Pre-Anesthetic Assessment Height/Weight: Height 1.6 m Weight 100.698 kg Temp Pulse Resp BP Pulse Ox O2 Del Method 98.8 F 60 23 H 140/51 98 06/29/22 13:01 06/29/22 13:01 06/29/22 13:01 06/29/22 13:01 06/29/22 13:01 06/29/22 12:00 Preop Diagnosis: Third-degree heart block/symptomatic bradycardia Operation Date: 06/29/22 11:45 Proposed Procedures p EGD(Not Applicable) - Cristian Grijalva DO Familial anesthetic complications: None Was Beta Celio taken within 24 hours: N/A Was Clonidine taken within 24 hours: N/A Social Alcohol and Tobacco Exam alert, oriented x 3, clear to auscultation bilaterally and regular rate & rhythm Airway Submandibular: within normal limits Cervical ROM: within normal limits Mallampati: Class III Dentition: full History/ROS No significant history except as noted and No significant complaints Pulmonary None reported CV/HEM Anemia, Arrythmia (Pacemaker) and Hypertension None reported Hepatic None reported GI None reported Metabolic Hyperlipidemia, Morbid Obesity and Thyroid Disease [facility] [place] None reported Neuropsych Syncope Anesthetic Plan ASA status: 4 Anesthesia: Anesthesia Evaluation, General and MAC Risk of > 500 ml blood loss (7ml/kg in children): No Medications/Allergies Home Medications Medication Instructions Recorded Confirmed Last Taken Type ascorbic acid (vitamin C) 250 mg 250 mg PO QAM 05/05/22 06/28/22 05/04/22 History tablet (Vitamin C) multivitamin 1 tab PO QAM 05/05/22 06/28/22 06/28/22 History levothyroxine 100 mcg tablet 150 mcg PO DAILY #135 tabs 05/11/22 06/28/22 06/28/22 Rx (Euthyrox) aspirin 81 mg tablet,delayed 81 mg PO BID 06/23/22 06/28/22 Unknown History release clopidogrel 75 mg tablet 75 mg PO QAM 06/23/22 06/28/22 06/22/22 History furosemide 20 mg tablet (Lasix) 20 mg PO DAILY PRN edema #30 tabs 06/25/22 06/28/22 Unknown Rx sulfamethoxazole 800 1 tab PO BID 7 days #14 tabs 06/25/22 06/28/22 06/28/22 Rx mg-trimethoprim 160 mg tablet (Bactrim DS) acetaminophen 500 mg tablet 500 mg PO Q6H PRN Pain 06/28/22 06/28/22 06/27/22 History amlodipine 5 mg tablet 5 mg PO DAILY 06/28/22 06/28/22 Unknown History carvedilol 3.125 mg tablet 3.125 mg PO BID 06/28/22 06/28/22 Unknown History losartan 50 mg tablet 50 mg PO DAILY 06/28/22 06/28/22 Unknown History Allergies Allergy/AdvReac Type Severity Reaction Status Date / Time Penicillins Allergy Unknown Verified 06/28/22 16:44 alirocumab AdvReac Severe Pt refuses Verified 06/28/22 16:44 [From Praluent Pen] any self-injections evolocumab AdvReac Severe Pt refuses Verified 06/28/22 16:44 [From Repatha SureClick] self injections rosuvastatin AdvReac Severe ADR-Nausea Verified 06/28/22 16:44 Current Medications Generic Name Dose Route Start Last Admin Trade Name Freq PRN Reason Stop Dose Admin Acetaminophen 650 mg 06/28/22 19:28 06/29/22 13:14 Acetaminophen 325 Mg Tablet PO 650 mg Q6H PRN Administration MILD PAIN Potassium Chloride/Dextrose/Sod Cl 20 meq in 1,000 mls @ 75 mls/hr 06/28/22 19:28 06/29/22 08:49 D5-Ns 0.45% + Kcl 20 Meq IV 75 mls/hr .[id number] ELVA Infusion Ceftriaxone Sodium 1,000 mg/ 50 mls @ 100 mls/hr 06/29/22 08:15 06/29/22 08:52 Sodium Chloride IV 100 mls/hr Q24H ELVA Administration Protocol Levothyroxine Sodium 150 mcg 06/29/22 09:00 06/29/22 08:21 Levothyroxine 150 Mcg Tablet PO 150 mcg DAILY ELVA Administration Pantoprazole Sodium 40 mg 06/29/22 06:00 06/29/22 08:21 Pantoprazole 40 Mg Sdv IVP 40 mg Q12H ELVA Administration PFSH Anesthesia Medical History (Updated 06/28/22 @ 17:56 by Jose Rice MD) Coronary artery disease HTN (hypertension) Hyperlipidemia Reports she cannot take statins Hypothyroidism ST elevation [place] (STEMI) Surgical History (Updated 06/28/22 @ 17:57 by Jose Rice MD) H/O coronary angiogram 2020, RCA disease MARGY times 2 History of permanent cardiac pacemaker placement S/P cholecystectomy Family History Father Cancer glioblastoma Mother CAD (coronary artery disease), Onset Age: 90 Denies family history of Diabetes Clotting disorder Dementia Chronic kidney disease (CKD) Suicide Anesthesia complication Bleeding disorder Lung disease Stroke Social History Smoking and tobacco status: never smoked Alcohol intake: never History of recent travel: No Data Anesthesia : 06/29/22 05:15 06/29/22 05:15 Short CBC 06/28/22 06/28/22 06/29/22 Range/Units 16:57 19:57 05:15 WBC 7.6 9.0 (4.0-10.0) 10^3/uL Hgb 7.2 L 6.7 L 7.3 L (11.5-15.3) g/dL Hct 21.8 L 21.7 L 22.3 L (37.0-47.0) % MCV 99.1 H 92.1 D (81-99) fl Plt Count 167 143 (130-400) 10^3/cmm Neut % (Auto) 80.4 78.1 % Neut # (Auto) 6.12 7.02 (1.8-7.7) 10^3/uL BMP 06/28/22 06/29/22 16:57 05:15 Sodium 140 140 Potassium 4.8 4.4 Chloride 109 H 111 H Carbon Dioxide 19 L 19 L BUN 37 H 33 H Creatinine 0.6 0.8 Glucose 136 H 127 H Calcium 8.6 8.4 L Cardiac Enzymes 06/28/22 06/28/22 06/28/22 Range/Units 16:57 19:57 23:38 Troponin T Baseline 29 H (0-10) ng/L Troponin T 120 Minute 28.06 H (0-10) ng/L Delta Troponin T -0.94 L (0-10) ABS# Troponin T Hi Sens 6Hr 22.17 H (0-10) ng/L Troponin T Hi Sens 6Hr Delta -6.83 L (0-12) ng/L Liver Function 09/06/22 Range/Units 16:57 Total Bilirubin 0.2 (0.15-1.2) mg/dL AST 15 (0-32) U/L ALT 14 (0-33) U/L Alkaline Phosphatase 97 (35-105) U/L Albumin 3.2 L (3.5-5.2) g/dL Urine 06/29/22 Range/Units 00:15 Urine Color Yellow (Yellow) Urine Appearance Sl hazy (CLEAR) Urine pH 6 (5-7) Ur Specific [place] 1.030 (1.005-1.030) Urine Protein 1+ H (Negative) Urine Glucose (UA) Norm (Normal) Urine Ketones Negative (Negative) Urine Nitrate Positive H (Negative) Urine Bilirubin Neg (Negative) Ur Leukocyte Esterase 2+ H (Negative) Urine RBC 0-4 H (0-2) /hpf Urine WBC 15-25 H (0-5) /hpf Ur Renal Epithelial Cell 5-10 /hpf Blood Bank 06/28/22 18:03 Blood Type A Negative Rho(D) Type Negative Antibody Screen Negative Coags 06/28/22 16:57 PT 14.70 INR 1.12 APTT 22.5 L Cardiac Studies: Echocardiogram 06/23/22 Cardiac Event Monitor 05/09/22
--- NOTE | 2022-06-29 13:40 | PM.CONSULT ---
Providers/Reason For Consult Consulting Physician/Specialty*: Dr. Cristian Grijalva DO/General surgery Reason for Consult*: Melena Attending Physician: Jose Rice MD Primary Care Provider: Rebecca Salazar DO History of Present Illness History of Present Illness Mady Dhaliwal is a 71 year old female who presents to the hospital with anemia and melanotic stools for 2 days. She denies any abdominal pain, nausea. She is currently receiving an infusion of PRBCs. She is never had anything like this before. Review of Systems General: Reports: 10 or more systems reviewed and unremarkable except in HPI and below Medications/Allergies Home Medications Medication Instructions Recorded Confirmed Last Taken Type ascorbic acid (vitamin C) 250 mg 250 mg PO QAM 05/05/22 06/28/22 05/04/22 History tablet (Vitamin C) multivitamin 1 tab PO QAM 05/05/22 06/28/22 06/28/22 History levothyroxine 100 mcg tablet 150 mcg PO DAILY #135 tabs 05/11/22 06/28/22 06/28/22 Rx (Euthyrox) aspirin 81 mg tablet,delayed 81 mg PO BID 06/23/22 06/28/22 Unknown History release clopidogrel 75 mg tablet 75 mg PO QAM 06/23/22 06/28/22 06/22/22 History furosemide 20 mg tablet (Lasix) 20 mg PO DAILY PRN edema #30 tabs 06/25/22 06/28/22 Unknown Rx sulfamethoxazole 800 1 tab PO BID 7 days #14 tabs 06/25/22 06/28/22 06/28/22 Rx mg-trimethoprim 160 mg tablet (Bactrim DS) acetaminophen 500 mg tablet 500 mg PO Q6H PRN Pain 06/28/22 06/28/22 06/27/22 History amlodipine 5 mg tablet 5 mg PO DAILY 06/28/22 06/28/22 Unknown History carvedilol 3.125 mg tablet 3.125 mg PO BID 06/28/22 06/28/22 Unknown History losartan 50 mg tablet 50 mg PO DAILY 06/28/22 06/28/22 Unknown History Allergies Allergy/AdvReac Type Severity Reaction Status Date / Time Penicillins Allergy Unknown Verified 06/28/22 16:44 alirocumab AdvReac Severe Pt refuses Verified 06/28/22 16:44 [From Praluent Pen] any self-injections evolocumab AdvReac Severe Pt refuses Verified 06/28/22 16:44 [From Repatha SureClick] self injections rosuvastatin AdvReac Severe ADR-Nausea Verified 06/28/22 16:44 Current Medications Generic Name Dose Route Start Last Admin Trade Name Freq PRN Reason Stop Dose Admin Acetaminophen 650 mg 06/28/22 19:28 06/29/22 13:14 Acetaminophen 325 Mg Tablet PO 650 mg Q6H PRN Administration MILD PAIN Potassium Chloride/Dextrose/Sod Cl 20 meq in 1,000 mls @ 75 mls/hr 06/28/22 19:28 06/29/22 08:49 D5-Ns 0.45% + Kcl 20 Meq IV 75 mls/hr .[id number] ELVA Infusion Ceftriaxone Sodium 1,000 mg/ 50 mls @ 100 mls/hr 06/29/22 08:15 06/29/22 08:52 Sodium Chloride IV 100 mls/hr Q24H ELVA Administration Protocol Levothyroxine Sodium 150 mcg 06/29/22 09:00 06/29/22 08:21 Levothyroxine 150 Mcg Tablet PO 150 mcg DAILY ELVA Administration Pantoprazole Sodium 40 mg 06/29/22 06:00 06/29/22 08:21 Pantoprazole 40 Mg Sdv IVP 40 mg Q12H ELVA Administration PFSH Acute PFSH: Medical History Coronary artery disease HTN (hypertension) Hyperlipidemia Reports she cannot take statins Hypothyroidism ST elevation CT (STEMI) Surgical History H/O coronary angiogram 2020, RCA disease MARGY times 2 History of permanent cardiac pacemaker placement S/P cholecystectomy Family History Father Cancer glioblastoma Mother CAD (coronary artery disease), Onset Age: 90 Denies family history of Diabetes Clotting disorder Dementia Chronic kidney disease (CKD) Suicide Anesthesia complication Bleeding disorder Lung disease Stroke Social History Smoking and tobacco status: never smoked Alcohol intake: never History of recent travel: No Vitals/I&O/Wt Last Vital Signs Temp 98.8 F 06/29/22 13:01 Pulse 60 06/29/22 13:01 Resp 23 H 06/29/22 13:01 BP 140/51 06/29/22 13:01 Pulse Ox 98 06/29/22 13:01 O2 Del Method 06/29/22 12:00 06/28/22 06/29/22 06/29/22 22:59 06:59 14:59 Intake Total 581.667 / 581.667 644 / 1225.667 30 / 30 Output Total 800 / 800 Balance 581.667 / 581.667 644 / 1225.667 -770 / -770 Weight last 48 hrs Weight 222 lb Weight 218 lb Physical Exam Narrative: General : Patient is well developed , no acute distress, oriented x3 Head : Normal cephalic, a-traumatic. Ears : Pinnae and external canal are normal. Hearing is normal. Eyes : PERRLA, Sclera and injection are normal. No conjunctival discharge. Nose : Mucous membranes are without erythema. Throat : buccal mucosa is normal, gums are without significant recession or hypertrophy. Lungs : Equal chest rise bilaterally, no use of accessory muscles, trachea is midline. Cor : Rate and rhythm are normal. Abdomen : Soft, ND, NT, no g/r/m Extremities : No edema, no cyanosis or clubbing, dorsalis pedis pulses are present bilaterally, non-tender to palpation of calves. Upper extremities are normal bilaterally. Back : non-tender to palpation, no CVA tenderness. Neuro : CN II - XII intact, Upper and lower extremities have equal and full strength Data : 06/29/22 05:15 06/29/22 05:15 A&P Assessment and plan (1) Acute GI bleeding: Status: Acute (2) Anemia, posthemorrhagic, acute: Status: Acute Plan EGD The risks and benefits of the procedure, including bleeding, infection, intestinal perforation requiring surgery, missed lesion, or explained to the patient. He is understanding of the risks and wishes to proceed. Coding Level of Care Code Acute Transportation Economics Teacher for [facility] Estrella Diagnoses Acute GI bleeding K92.2 Anemia, posthemorrhagic, acute D62
[2022-06-29] MEDS: sodium chloride 0.9% 1,000 ML 30 ML IV (14:11)
[2022-06-29] MEDS: EPINEPHrine 1 mg/mL INJ XX (15:12)
[2022-06-29] MEDS: ondansetron 2 mg/ML SDV 2 mL 4 MG IVP (15:42)
--- NOTE | 2022-06-29 15:45 | PC.NURSE ---
Addendum entered by Jade Ruiz RN 06/29/22 20:22: See vital sign flow sheet for vital signs. Original Note: PRBC unit #[id number] started. Unit manually verified with Margarita Kay RN [facility] , as computer/connection issues.
[2022-06-29] MEDS: sucralfate 1 gm Tablet PO ×2 (17:33→20:48)
--- NOTE | 2022-06-29 20:32 | PC.NURSE ---
Shift Note: Pt rested i bed most of the shift. SHe did get out of bed to BSC 3-4 times. She had maroon/ black stools twice this shift. She had EGD, ulcers found, see report for full findings. She received a unit of PRBCs this am before GI lab,2 more ordered after. A total of 4 units of PRBCs up to this point with an additional unit waiting to be infused. She is sensitive to IVs, She is on her third, started with US, this shift. , at bedside, has been attentive and supportive. Frequent safety and comfort rounds continue. Orders and/or nursing care completed as indicated. Patient monitored for response to intervention and treatment(s). Education provided includes RBCs, EGD, Protonix, Zofran, Sucralfate Patient and/or used equipment sales representative verbalized understadning of progress, plan of care, blood administration and medications. Will continue to monitor.
[2022-06-29] MEDS: sodium chloride 0.9% (100 ml) 100 ML 10 ML (20:46)
[2022-06-30] VITALS (73 sets, daily range): BP systolic 84–132; BP diastolic 30–87; PULSE 43–68; RESP 19–32; TEMP 36.7–37.4; O2SAT 90–96; BMI 40.7
[2022-06-30] MEDS: acetaminophen 325 mg Tablet 650 MG PO (02:07)
[2022-06-30 02:22] LABS: Hematocrit 28.2 % (37.0-47.0); Hemoglobin 9.2 g/dL (11.5-15.3)
[2022-06-30 02:41] LABS: Alanine Aminotransferase 18 U/L (0-33); Albumin Level 2.9 g/dL (3.5-5.2); Alkaline Phosphatase 83 U/L (35-105); Blood Urea Nitrogen 23 mg/dL (8-23); Calcium 8.1 mg/dL (8.5-10.5); Carbon Dioxide 17 mmol/L (22-29); Chloride 112 mmol/L (98-107); Creatinine Clr Calc Pharmacy 73.0266; Globulin 2.2 g/dL (1.3-4.6); Glucose 149 mg/dL (65-115); Osmolality Calculated 294 mOsm/kg (285-295); Sodium 139 mmol/L (136-145); Total Bilirubin 0.6 mg/dL (0.15-1.2); Total Protein 5.1 g/dL (6.6-8.7)
[2022-06-30 02:47] LABS: Anion Gap 14.5 (5-19); Potassium 4.5 mmol/L (3.5-5.1)
[2022-06-30 02:48] LABS: Aspartate Amino Transferase 28 U/L (0-32)
[2022-06-30] MEDS: pantoprazole 40 mg SDV IVP ×2 (06:36→17:34)
[2022-06-30] MEDS: sucralfate 1 gm Tablet PO ×4 (06:36→21:04)
[2022-06-30 07:38] LABS: Basophils # 0.1 10^3/uL (0.0-0.1); Basophils % 0.5 %; Eosinophils % 0.2 %; Hematocrit 29.2 % (37.0-47.0); Hemoglobin 9.8 g/dL (11.5-15.3); Lymphocytes # 1.9 10^3/uL (0.8-4.8); Lymphocytes % 9.8 %; Mean Corpuscular HGB Conc 33.6 g/dL (30.0-36.0); Mean Corpuscular Hemoglobin 30.3 pg (28.0-34.0); Mean Corpuscular Volume 90.4 fl (81-99); Mean Platelet Volume 11.3 fL (7.4-10.4); Monocytes # 0.6 10^3/uL (0.2-0.9); Monocytes % 2.9 %; Neutrophils # 16.69 10^3/uL (1.8-7.7); Neutrophils % 86.1 %; Nucleated Red Blood Cells % 0.1 %; Platelet Count 126 10^3/cmm (130-400); Red Blood Count 3.23 10^6/uL (4.1-5.3); Red Cell Distribution Width 19.1 % (12.1-15.1); White Blood Count 19.4 10^3/uL (4.0-10.0)
[2022-06-30] MEDS: cefTRIAXone 1,000 MG in sodium chloride 0.9% (plus) 50 ML 100 MG IV (08:05)
[2022-06-30] MEDS: levothyroxine 150 mcg Tablet PO (08:06)
--- NOTE | 2022-06-30 08:56 | ANE.PACU2 ---
Inpatient post-anesthesia follow up: Airway intact: Yes Vital signs: Temperature 98.2 F Pulse Rate [Orthos tatic 60 Standing Right] Pulse Rate [Orthos tatic 55 Sitting Right] Pulse Rate [Orthos tatic Lying 60 Right] Pulse Rate 60 Respiratory Rate 29 Blood Pressure [Or thostatic 115/83 Standing Right Arm ] Blood Pressure [Or thostatic 100/76 Sitting Right Arm] Blood Pressure [Or thostatic 180/83 Lying Right Arm] Blood Pressure 131/56 Pulse Oximetry 94 Oxygen Delivery Me thod [ Room Air Current Rate & Del tara] Oxygen Delivery Me thod Nasal Cannula Oxygen Flow Rate [ Current Rate 5 & Delivery] Oxygen Flow Rate 2 Fraction of Inspir ed Oxygen Hydration adequate: Yes Nausea and vomiting: No Pain level: 2 Mental status: Baseline
[2022-06-30] MEDS: morphine 4 mg/mL SDV 1 mL 2 MG IVP (09:32)
--- NOTE | 2022-06-30 10:38 | PC.CHAP ---
Pastoral Care Encounter/Spiritual Assessment Type of Contact [] Declined loan reviewer visit [] Patient/Family/Request visit [] Outpatient visit [] Follow-up visit [] Physician referral [] Code/Alert [x] Routine visit [] Staff referral [] Actively dying [x] Patient sleeping [] Family support [] [] Out of room [] Palliative care [] [] Receiving care in room [] Pre-surgical visit [] Trauma [] Long length of stay [x] ICU visit [] Other: Relational/Emotional Strength [] Patient feels connected with others/family/visitors/staff [] Distress [] Loneliness/isolation [] Abandonment Spirituality of Patient [] Person of Karen [] Attends Jew of their Karen [] Believes in Prayer [] Reads Bible or Voodoo materials [] There are Spiritual issues to be addressed Canteen Manager Interventions [x] Prayer [] Active listening [] Non-anxious presence [] Spiritual/emotional support [] Crisis/trauma care [] Spiritual counseling [] Bereavement support [] Provided bereavement packet [] Provided Bible/devotional materials [] Provided toy/stuffed animal, coloring book to patient or family member [] Provided Communion [] Anointing/[place] [] Salvation [x] Completed spiritual assessment [] Other: Impact on Illness or Injury [] Angry [] Fearful [] Anxious [] Often cries [] Exhaustion [] Unable to work [] Unable to attend mandaen [] Unable to walk/stand [] Unable to read [] Unable to drive [] Unable to eat/drink [] Unable to sleep [] Unable to be with family [] Patient intubated [] Other: Summary Time spent with patient
--- NOTE | 2022-06-30 11:03 | P.PN_ITS ---
Subjective Subjective: Mady reports that she feels better. No nausea or abdominal pain. Underwent EGD yesterday and ulcer found. Full report is pending. Medications: Reviewed: Yes Vitals/I&O/Wt Last Vital Signs Temp 98.2 F 06/30/22 06:30 Pulse 51 L 06/30/22 10:15 Resp 19 H 06/30/22 10:15 BP 103/44 06/30/22 08:45 Pulse Ox 94 06/30/22 08:04 O2 Del Method 06/30/22 08:04 O2 Flow Rate 2 06/29/22 22:00 06/29/22 06/30/22 06/30/22 22:59 06:59 14:59 Intake Total 1650 / 2293.75 250 / 2543.75 240 / 240 Output Total 300 / 1300 250 / 250 Balance 1650 / 1293.75 -50 / 1243.75 -10 / -10 Weight last 48 hrs Weight 104.326 kg Weight 100.698 kg Weight 98.883 kg Physical Exam Narrative: General exam is no distress Neck is supple no lymphadenopathy thyromegaly Cardiovascular regular rate and rhythm without murmur, no S3 or S4 Lungs clear no wheezing or crackles Abdomen is soft with positive bowel sounds Extremities no cyanosis clubbing or edema Data : 06/30/22 07:00 06/30/22 01:34 Micro: Microbiology 06/29/22 00:15 Urine Culture - Preliminary Urine,Clean Catch A&P Assessment and plan (1) Acute GI bleeding: Patient presents with black and tarry stools. This is consistent with upper GI bleeding. She has significant anemia. Hold Plavix and aspirin Appreciate general surgery consultation. Underwent EGD yesterday. Ulcer noted. Therapeutic procedure ensued. Continue Protonix 40 mg IV every 12 hours Clear liquids initiated Discontinue fluids at this time. Transfer out of ICU. Status: Acute (2) Anemia, posthemorrhagic, acute: Severe symptoms at home. These consist of diaphoresis, dizziness, shortness of breath. Transfusion of 4 units packed red blood cells since admission. Hemoglobin 9.8 this morning. Status: Acute (3) Atherosclerotic heart disease of [place] coronary artery with other forms of angina pectoris: Hold Plavix and aspirin currently. Has been over 1 year since her last angiogram requiring stent, 2019 Status: Acute (4) History of permanent cardiac pacemaker placement: Recently had a permanent pacemaker placed. Surgical site appropriate No evidence of bleeding at surgical site Status: Acute (5) HTN (hypertension): Blood pressure stable currently Hydralazine as needed Initiate p.o. medicine as tolerated, once it is established acute GI bleeding has stabilized. Status: Chronic Qualifiers: Hypertension type: essential hypertension Qualified Code(s): I10 - Essential (primary) hypertension (6) Hypothyroidism: Continue thyroid hormone Status: Chronic Qualifiers: Hypothyroidism type: acquired Qualified Code(s): E03.9 - Hypothyroidism, unspecified Plan Possible UTI by urinalysis. Continue Rocephin 1 g IV every 24 hours. Awaiting urine culture Full code SCDs for DVT prophylaxis. Anticoagulation contraindicated secondary to GI bleeding Attestations Medical Necessity Statement*: Needs continued hospitalization for close monitoring secondary to severe upper GI bleed, with recent EGD and therapy which was both diagnostic and therapeutic, in this time of reinitiation of diet. Coding Level of Care Code Acute Car Construction Superintendent for [facility] Fwd Diagnoses Acute GI bleeding K92.2 Anemia, posthemorrhagic, acute D62 Atherosclerotic heart disease of [place] coronary artery with other forms of angina pectoris I25.118 History of permanent cardiac pacemaker placement Z95.0 HTN (hypertension) I10 Hypertension type: essential hypertension Hypothyroidism E03.9 Hypothyroidism type: acquired
--- NOTE | 2022-06-30 11:31 | ECG_ITS ---
[facility] Test Date: 2022-06-30 Pat Name: Mady Dhaliwal Department: Room: ICU11 Gender: Female Engineering Department Chair: : 1950 Requested By: Jose Carter Order Number: [id number] Lee MD: Sarbjit Randolph M.D. Measurements Intervals [place] Rate: 48 P: SC: QRS: 39 QRSD: 77 T: -55 QT: 466 QTc: 420 Interpretive Statements ELECTRONIC VENTRICULAR PACEMAKER -- CONTOUR ANALYSIS BASED ON INTRINSIC RHYTHM MODERATE T-WAVE ABNORMALITY, CONSIDER ANTEROLATERAL ISCHEMIA [-0.1+ mV T-WAVE IN V3-V6] MODERATE T-WAVE ABNORMALITY, CONSIDER INFERIOR ISCHEMIA [-0.1+ mV T-WAVE IN II/aVF] Compared to ECG 06/29/2022 00:35:58 T-wave abnormality now present Possible ischemia now present Electronically Signed On 07-01-2022 14:42:17 CDT by Sarbjit Randolph M.D. [id number]
[2022-06-30] MEDS: D5-NS 0.45% + KCL 20 mEq 20 MEQ/1,000 ML BAG 75 MEQ IV (12:33)
--- NOTE | 2022-06-30 13:07 | P.PN_ITS ---
Subjective Subjective: Patient reports that she is not having any abdominal pain. No nausea or vomiting. No bowel movement today Vitals/I&O/Wt Last Vital Signs Temp 98.3 F 06/30/22 20:00 Pulse 43 L 07/01/22 05:00 Resp 23 H 07/01/22 05:00 BP 108/46 07/01/22 05:00 Pulse Ox 97 07/01/22 03:30 O2 Del Method 06/30/22 23:00 O2 Flow Rate 2 06/30/22 23:00 06/30/22 07/01/22 07/01/22 22:59 06:59 14:59 Intake Total 947 / 2336.583 750 / 3086.583 Balance 947 / 2086.583 750 / 2836.583 Weight last 48 hrs Weight 230 lb Physical Exam Narrative: General: No acute distress, awake alert and oriented x3 Abdomen: Soft, nontender, nondistended, no guarding rebound or masses Data : 07/01/22 05:19 07/01/22 05:19 Micro: Microbiology 06/29/22 00:15 Urine Culture - Preliminary Urine,Clean Catch A&P Assessment and plan (1) Peptic ulcer disease: Status: Acute (2) Acute GI bleeding: Status: Acute Plan Continue Protonix and sucralfate Full liquid diet After 3 days liquid diet she can have a bland diet for 2 more weeks She needs 4 weeks of sucralfate twice daily and 6 weeks of Protonix twice daily followed by another 6 weeks of Protonix once daily Await results of biopsies Attestations Medical Necessity Statement*: Patient requires at least 1 more night in the hospital until medically stable Coding Level of Care Code Acute Clinical Documentation Spec for Joaquin Estrella Diagnoses Peptic ulcer disease K27.9 Acute GI bleeding K92.2
[2022-06-30 14:16] LABS: Hemoglobin 9.1 g/dL (11.5-15.3)
--- NOTE | 2022-06-30 18:33 | PC.NURSE ---
Pt had small bowel movement that was small, soft and brown in color.
[2022-07-01] VITALS (45 sets, daily range): BP systolic 106–131; BP diastolic 36–59; PULSE 42–63; RESP 13–30; TEMP 38.1–38.2; O2SAT 91–98
[2022-07-01] MEDS: morphine 4 mg/mL SDV 1 mL 1 MG IVP (01:10)
--- NOTE | 2022-07-01 04:25 | PC.NURSE ---
Spoke with nancy, [employer] rep, about interrogation report. This RN informed him of ventricular capture issues and HR ranging from 34-60. Checker Stocker suggested contacting original surgeon and make him aware of pacer issues for further interventions. Nancy states, this is not any reprogramming he will be about to do to assist. MD Baer notified of civil rights representative recommendation.
[2022-07-01 05:46] LABS: Basophils # 0.1 10^3/uL (0.0-0.1); Basophils % 0.4 %; Eosinophils # 0.2 10^3/uL (0.0-0.8); Eosinophils % 1.7 %; Hematocrit 26.3 % (37.0-47.0); Hemoglobin 8.3 g/dL (11.5-15.3); Lymphocytes # 1.7 10^3/uL (0.8-4.8); Lymphocytes % 14.2 %; Mean Corpuscular Hemoglobin 29.9 pg (28.0-34.0); Mean Corpuscular Volume 94.6 fl (81-99); Mean Platelet Volume 10.9 fL (7.4-10.4); Monocytes # 0.6 10^3/uL (0.2-0.9); Neutrophils # 9.04 10^3/uL (1.8-7.7); Neutrophils % 78.2 %; Nucleated Red Blood Cells % 0 %; Platelet Count 113 10^3/cmm (130-400); Red Blood Count 2.78 10^6/uL (4.1-5.3); Red Cell Distribution Width 19.1 % (12.1-15.1); White Blood Count 11.6 10^3/uL (4.0-10.0)
[2022-07-01 05:55] LABS: Mean Corpuscular HGB Conc 31.6 g/dL (30.0-36.0)
[2022-07-01 06:08] LABS: Anion Gap 14.2 (5-19); Blood Urea Nitrogen 16 mg/dL (8-23); Calcium 8.3 mg/dL (8.5-10.5); Carbon Dioxide 16 mmol/L (22-29); Chloride 110 mmol/L (98-107); Glucose 99 mg/dL (65-115); Osmolality Calculated 283 mOsm/kg (285-295); Potassium 4.2 mmol/L (3.5-5.1); Sodium 136 mmol/L (136-145)
[2022-07-01] MEDS: pantoprazole 40 mg SDV IVP (06:30)
[2022-07-01] MEDS: sucralfate 1 gm Tablet PO ×3 (06:30→21:29)
[2022-07-01] MEDS: cefTRIAXone 1,000 MG in sodium chloride 0.9% (plus) 50 ML 100 MG IV (09:02)
[2022-07-01] MEDS: levothyroxine 150 mcg Tablet PO (09:03)
--- NOTE | 2022-07-01 10:17 | PC.SOCIAL ---
IMM Update Pg. 2 of IMM updated and reviewed with patient, who verbalized understanding. Copy provided. Initialed, dated, and timed copy in chart.
--- NOTE | 2022-07-01 11:52 | PC.CHAP ---
Pastoral Care Encounter/Spiritual Assessment Type of Contact [] Declined neon sign installer visit [] Patient/Family/Request visit [] Outpatient visit [] Follow-up visit [] Physician referral [] Code/Alert [x] Routine visit [] Staff referral [] Actively dying [x] Patient sleeping [] Family support [] [] Out of room [] Palliative care [] [] Receiving care in room [] Pre-surgical visit [] Trauma [] Long length of stay [x] ICU visit [] Other: Relational/Emotional Strength [] Patient feels connected with others/family/visitors/staff [] Distress [] Loneliness/isolation [] Abandonment Spirituality of Patient [] Person of Karen [] Attends Mandaeism of their Karen [] Believes in Prayer [] Reads Bible or Pentecostalism materials [] There are Spiritual issues to be addressed Personal Financial Planner Interventions [x] Prayer [] Active listening [] Non-anxious presence [] Spiritual/emotional support [] Crisis/trauma care [] Spiritual counseling [] Bereavement support [] Provided bereavement packet [] Provided Bible/devotional materials [] Provided toy/stuffed animal, coloring book to patient or family member [] Provided Communion [] Anointing/[place] [] Salvation [x] Completed spiritual assessment [] Other: Impact on Illness or Injury [] Angry [] Fearful [] Anxious [] Often cries [] Exhaustion [] Unable to work [] Unable to attend mormon [] Unable to walk/stand [] Unable to read [] Unable to drive [] Unable to eat/drink [] Unable to sleep [] Unable to be with family [] Patient intubated [] Other: Summary Time spent with patient
--- NOTE | 2022-07-01 13:46 | P.CONIM_ITS ---
Providers/Reason For Consult Consulting Physician/Specialty*: Sarbjit Randolph MD/Cardiology Reason for Consult*: Bradycardia Requesting Physician: Dr Rice Attending Physician: Jose Rice MD Primary Care Provider: Rebecca Salazar DO History of Present Illness History of Present Illness Mady Dhaliwal is a 71 year old female with past medical history of CAD, recently placed dual-chamber pacemaker for complete heart block presented to the hospital with a GI bleed. She underwent EGD yesterday and was noted to have peptic ulcer disease. Cardiology was consulted as patient's heart rate was dropping into late 30s to 40s at times. EKG reviewed showed intermittent loss of capture. Device interrogation reveals normal impedance. Review of Systems Narrative: CONSTITUTIONAL: No fever chills weight loss or gain or night sw eats. [] HEENT: Normocephalic, atraumatic.[] RESPIRATORY: No cough, sputum, hemoptysis or wheezing.[] CARDIOVASCULAR: Has shortness of breath GI: no nausea vomiting diarrhea. [] HEATING AND COOLING SYSTEMS ENGINEER: No numbness, tingling, weakness or loss of function in any part of the body. [] MUSCULOSKELETAL: No knee or joint pain or rashes. [] Medications/Allergies Home Medications Medication Instructions Recorded Confirmed Last Taken Type ascorbic acid (vitamin C) 250 mg 250 mg PO QAM 05/05/22 06/28/22 05/04/22 History tablet (Vitamin C) multivitamin 1 tab PO QAM 05/05/22 06/28/22 06/28/22 History levothyroxine 100 mcg tablet 150 mcg PO DAILY #135 tabs 05/11/22 06/28/22 06/28/22 Rx (Euthyrox) aspirin 81 mg tablet,delayed 81 mg PO BID 06/23/22 06/28/22 Unknown History release clopidogrel 75 mg tablet 75 mg PO QAM 06/23/22 06/28/22 06/22/22 History furosemide 20 mg tablet (Lasix) 20 mg PO DAILY PRN edema #30 tabs 06/25/22 06/28/22 Unknown Rx sulfamethoxazole 800 1 tab PO BID 7 days #14 tabs 06/25/22 06/28/22 06/28/22 Rx mg-trimethoprim 160 mg tablet (Bactrim DS) acetaminophen 500 mg tablet 500 mg PO Q6H PRN Pain 0906/28/22 06/27/22 History amlodipine 5 mg tablet 5 mg PO DAILY 06/28/22 06/28/22 Unknown History carvedilol 3.125 mg tablet 3.125 mg PO BID 06/28/22 06/28/22 Unknown History losartan 50 mg tablet 50 mg PO DAILY 06/28/22 06/28/22 Unknown History Allergies Allergy/AdvReac Type Severity Reaction Status Date / Time Penicillins Allergy Unknown Verified 06/28/22 16:44 alirocumab AdvReac Severe Pt refuses Verified 06/28/22 16:44 [From Praluent Pen] any self-injections evolocumab AdvReac Severe Pt refuses Verified 06/28/22 16:44 [From [employer] SureClick] self injections rosuvastatin AdvReac Severe ADR-Nausea Verified 06/28/22 16:44 Current Medications Generic Name Dose Route Start Last Admin Trade Name Freq PRN Reason Stop Dose Admin Acetaminophen 650 mg 06/28/22 19:28 06/30/22 02:07 Acetaminophen 325 Mg Tablet PO 650 mg Q6H PRN Administration MILD PAIN Ceftriaxone Sodium 1,000 mg/ 50 mls @ 100 mls/hr 06/29/22 08:15 07/01/22 11:57 Sodium Chloride IV Infused Q24H ELVA Infusion Protocol Dopamine HCl/Dextrose 400 mg in 250 mls @ 19.561 mls/hr 07/01/22 04:00 07/01/22 06:33 Intropin Drip IV Not Given CONT ELVA Protocol 5 MCG/KG/MIN Levothyroxine Sodium 150 mcg 06/29/22 09:00 07/01/22 09:03 Levothyroxine 150 Mcg Tablet PO 150 mcg DAILY ELVA Administration Ondansetron HCl 4 mg 06/29/22 13:49 06/29/22 15:42 Ondansetron 2 Mg/Ml Sdv 2 Ml IVP 4 mg Q15M PRN Administration Nausea/Vomiting PACU PHASE II Sucralfate 1 gm 06/29/22 17:00 07/01/22 11:57 Sucralfate 1 Gm Tablet PO 1 gm AC&BEDTIME ELVA Administration PFSH Acute PFSH: Medical History Coronary artery disease HTN (hypertension) Hyperlipidemia Reports she cannot take statins Hypothyroidism ST elevation [place] (STEMI) Surgical History H/O coronary angiogram 2020, RCA disease MARGY times 2 History of permanent cardiac pacemaker placement S/P cholecystectomy Family History Father Cancer glioblastoma Mother CAD (coronary artery disease), Onset Age: 90 Denies family history of Diabetes Clotting disorder Dementia Chronic kidney disease (CKD) Suicide Anesthesia complication Bleeding disorder Lung disease Stroke Social History Smoking and tobacco status: never smoked Alcohol intake: never History of recent travel: No Vitals/I&O/Wt Last Vital Signs Temp 98.3 F 06/30/22 20:00 Pulse 57 L 07/01/22 13:00 Resp 25 H 07/01/22 13:00 BP 130/46 07/01/22 08:00 Pulse Ox 93 07/01/22 07:55 O2 Del Method 07/01/22 07:55 O2 Flow Rate 2 06/30/22 23:00 06/30/22 07/01/22 07/01/22 22:59 06:59 14:59 Intake Total 947 / 2336.583 750 / 3086.583 410 / 410 Balance 947 / 2086.583 750 / 2836.583 410 / 410 Weight last 48 hrs Weight 230 lb Physical Exam Narrative: GENERAL: Patient is alert, awake and oriented x3. [] NECK: No jugular vein distension. [] HEENT: No cyanosis. No icterus. No pallor. [] HEART: Regular S1 and S2. No murmur, rub or gallop. [] LUNGS: Clear to auscultate bilaterally. [] ABDOMEN: Soft, nontender and nondistended. Positive bowel sounds. No guarding, rebound or tenderness. [] CENTRAL NERVOUS SYSTEM: Grossly nonfocal. [] EXTREMITIES: Lower extremities with 1+ edema bilaterally. Pulses palpable in the lower extremities, both dorsalis pedis and posterior tibial. [] Data : 07/01/22 05:19 07/01/22 05:19 Micro: Microbiology 06/29/22 00:15 Urine Culture - Final Urine,Clean Catch A&P Assessment and plan (1) Peptic ulcer disease: Status: Acute (2) History of permanent cardiac pacemaker placement: Status: Acute (3) Acute GI bleeding: Status: Acute (4) HTN (hypertension): Status: Chronic Qualifiers: Hypertension type: essential hypertension Qualified Code(s): I10 - Essential (primary) hypertension (5) Hyperlipidemia: Status: Chronic Qualifiers: Hyperlipidemia type: mixed hyperlipidemia Qualified Code(s): E78.2 - Mixed hyperlipidemia Plan Patient has been having intermittent loss of capture. Possible lead microdislodgment. Likely will need lead revision. Will recommend transferring to a center with EP availability for evaluation and procedure. Continue current medications. Thank you for involving us with care of this patient. We will continue to follow. Consult Attestations Medical Necessity Statement: Care expected to cross 2 midnights. 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
--- NOTE | 2022-07-01 15:34 | P.TS_ITS ---
Transfer Summary Providers Date of Admission: 06/28/22 17:27 Date of Discharge/Transfer: 07/01/22 Attending Provider at Admission: Jsoe Rice MD Attending Provider at Transfer: Jose Rice MD Primary Care Provider: Rebecca Salazar DO Transfer Plans: Anticipated date of transfer: 07/01/22 . Diagnoses at Discharge Discharge Diagnosis (1) Peptic ulcer disease: Status: Acute (2) History of permanent cardiac pacemaker placement: Status: Acute (3) Acute GI bleeding: Status: Acute (4) HTN (hypertension): Status: Chronic Qualifiers: Hypertension type: essential hypertension Qualified Code(s): I10 - Essential (primary) hypertension (5) Hyperlipidemia: Status: Chronic Qualifiers: Hyperlipidemia type: mixed hyperlipidemia Qualified Code(s): E78.2 - Mi xed hyperlipidemia Permanent problem details: Reports she cannot take statins Reason for Visit Reason for Visit WEAKNESS/DIZZINESS/ DIAPHORESIS Hospital Course Hospital Course Mady presented to the hospital with history of black and tarry stool. She was found to be anemic and an upper GI bleed was suspected. She was recently in the hospital for pacemaker placement. That hospitalization occurred from June 23 through June 25. During that time frame she presented to the hospital with third-degree heart block. Secondary to past history of coronary disease, RCA, an angiogram was performed which demonstrated no flow-limiting disease. A pacemaker was placed without any complications at that time, demonstrating good capture following placement. On readmission, on June 28 with GI bleeding hemoglobin was 7.2 on presentation. She was ultimately transfused 4 units of packed red blood cells during this hospital stay. She received a therapeutic and diagnostic endoscopy on June 30 and was diagnosed with a fundal gastric ulcer. I visited with general surgery who did the scope prior to the patient's transfer. They would recommend not resuming Plavix on the patient until July 04. They recommend continuing Carafate on the patient 4 times daily and Protonix 40 mg twice daily. Biopsies were done of the stomach and no malignancy was noted. Following the procedure it was noted that her heart rate was running in the mid 40s. Pacemaker evaluation ensued, and cardiology was consulted. EKG demonstrated occasional loss of capture. There was concern for possible lead micro dislodgment, needing lead revision. This was discussed in detail with the patient, cardiology. As we do not have coverage for pacemaker, transfer the patient was arranged to [facility], care of Dr. Garcia. Dr. Randolph kindly contacted the outside hospital to arrange transfer. Patient was stable at time of transfer. Physical Exam Narrative: General exam no apparent distress Neck is supple no lymphadenopathy thyromegaly Cardiovascular regular rate and rhythm without murmur. Left chest pacemaker site without significant drainage. Lungs clear Abdomen is soft nontender positive bowel sounds exam is deferred Extremities no cyanosis clubbing or edema. TS Data Studies Completed and Pending Pending at discharge Category Date Time Status CBC Auto Diff [Complete Blood Count w/Auto] AM LABS Lab 07/02/22 04:00 Ordered CMP [Comprehensive Metabolic Panel] AM LABS Lab 07/02/22 04:00 Ordered Magnesium AM LABS Lab 07/02/22 04:00 Ordered Occult Blood Stool [Immunochemical Fecal OCB] Routine Lab 06/29/22 02:00 Received Labs from last 24 hours 07/01/22 07/01/22 06/28/22 05:19 05:19 18:03 WBC 11.6 H RBC 2.78 L Hgb 8.3 L Hct 26.3 L MCV 94.6 MCH 29.9 MCHC 31.6 D RDW 19.1 H Plt Count 113 L MPV 10.9 H Neut % (Auto) 78.2 Lymph % (Auto) 14.2 [place] % (Auto) 5.0 Eos % (Auto) 1.7 Baso % (Auto) 0.4 Neut # (Auto) 9.04 H Lymph # (Auto) 1.7 [place] # (Auto) 0.6 Eos # (Auto) 0.2 Baso # (Auto) 0.1 Nucleated RBC % (auto) 0 Nucleated RBCs # 0.0 Sodium 136 Potassium 4.2 Chloride 110 H Carbon Dioxide 16 L Anion Gap 14.2 BUN 16 Creatinine 0.7 GFR Calculation Not Reportable Glucose 99 Calculated Osmolality 283 L Calcium 8.3 L Crossmatch See Detail Completed Studies During Hospitalization Category Date Time Status XR chest 1V portable [id number] Stat Exams 06/28/22 17:21 Completed Pathology: Surgical [PTH] Routine Pth 06/29/22 15:33 Completed Laboratory Last Values WBC 11.6 10^3/uL (4.0-10.0) H 07/01/22 05:19 RBC 2.78 10^6/uL (4.1-5.3) L 07/01/22 05:19 Hgb 8.3 g/dL (11.5-15.3) L 07/01/22 05:19 Hct 26.3 % (37.0-47.0) L 07/01/22 05:19 MCV 94.6 fl (81-99) 07/01/22 05:19 MCH 29.9 pg (28.0-34.0) 07/01/22 05:19 MCHC 31.6 g/dL (30.0-36.0) D 07/01/22 05:19 RDW 19.1 % (12.1-15.1) H 07/01/22 05:19 Plt Count 113 10^3/cmm (130-400) L 07/01/22 05:19 MPV 10.9 fL (7.4-10.4) H 07/01/22 05:19 Neut % (Auto) 78.2 % 07/01/22 05:19 Lymph % (Auto) 14.2 % 07/01/22 05:19 [place] % (Auto) 5.0 % 07/01/22 05:19 Eos % (Auto) 1.7 % 07/01/22 05:19 Baso % (Auto) 0.4 % 07/01/22 05:19 Neut # (Auto) 9.04 10^3/uL (1.8-7.7) H 07/01/22 05:19 Lymph # (Auto) 1.7 10^3/uL (0.8-4.8) 07/01/22 05:19 [place] # (Auto) 0.6 10^3/uL (0.2-0.9) 07/01/22 05:19 Eos # (Auto) 0.2 10^3/uL (0.0-0.8) 07/01/22 05:19 Baso # (Auto) 0.1 10^3/uL (0.0-0.1) 07/01/22 05:19 Nucleated RBC % (auto) 0 % 07/01/22 05:19 Nucleated RBCs # 0.0 /100WBC 07/01/22 05:19 PT 14.70 SECONDS (12.1-14.9) 06/28/22 16:57 INR 1.12 (0.8-1.2) 06/28/22 16:57 APTT 22.5 SECONDS (23.9-36.7) L 06/28/22 16:57 Sodium 136 mmol/L (136-145) 07/01/22 05:19 Potassium 4.2 mmol/L (3.5-5.1) 07/01/22 05:19 Chloride 110 mmol/L (98-107) H 07/01/22 05:19 Carbon Dioxide 16 mmol/L (22-29) L 07/01/22 05:19 Anion Gap 14.2 (5-19) 07/01/22 05:19 BUN 16 mg/dL (8-23) 07/01/22 05:19 Creatinine 0.7 mg/dL (0.5-0.9) 07/01/22 05:19 GFR Calculation Not Reportable 07/01/22 05:19 Glucose 99 mg/dL (65-115) 07/01/22 05:19 Calculated Osmolality 283 mOsm/kg (285-295) L 07/01/22 05:19 Calcium 8.3 mg/dL (8.5-10.5) L 07/01/22 05:19 Total Bilirubin 0.6 mg/dL (0.15-1.2) 06/30/22 01:34 AST 28 U/L (0-32) 06/30/22 01:34 ALT 18 U/L (0-33) 06/30/22 01:34 Alkaline Phosphatase 83 U/L (35-105) 06/30/22 01:34 Troponin T Baseline 29 ng/L (0-10) H 06/28/22 16:57 Troponin T 120 Minute 28.06 ng/L (0-10) H 06/28/22 19:57 Delta Troponin T -0.94 ABS# (0-10) L 06/28/22 19:57 Troponin T Hi Sens 6Hr 22.17 ng/L (0-10) H 06/28/22 23:38 Troponin T Hi Sens 6Hr Delta -6.83 ng/L (0-12) L 06/28/22 23:38 Total Protein 5.1 g/dL (6.6-8.7) L 06/30/22 01:34 Albumin 2.9 g/dL (3.5-5.2) L 06/30/22 01:34 Globulin 2.2 g/dL (1.3-4.6) 06/30/22 01:34 Urine Color Yellow (Yellow) 06/29/22 00:15 Urine Appearance Sl hazy (CLEAR) 06/29/22 00:15 Urine pH 6 (5-7) 06/29/22 00:15 Ur Specific [place] 1.030 (1.005-1.030) 06/29/22 00:15 Urine Protein 1+ (Negative) H 06/29/22 00:15 Urine Glucose (UA) Norm (Normal) 06/29/22 00:15 Urine Ketones Negative (Negative) 06/29/22 00:15 Urine Blood Neg (Negative) 06/29/22 00:15 Urine Nitrate Positive (Negative) H 06/29/22 00:15 Urine Bilirubin Neg (Negative) 06/29/22 00:15 Urine Urobilinogen Norm mg/dL (Negative) 06/29/22 00:15 Ur Leukocyte Esterase 2+ (Negative) H 06/29/22 00:15 Urine RBC 0-4 /hpf (0-2) H 06/29/22 00:15 Urine WBC 15-25 /hpf (0-5) H 06/29/22 00:15 Ur Squamous Epith Cells 0-4 /hpf (0-5) H 06/29/22 00:15 Ur Renal Epithelial Cell 5-10 /hpf 06/29/22 00:15 Amorphous Sediment Not Reportable 06/29/22 00:15 Urine Bacteria 2+ /hpf (NONE) H 06/29/22 00:15 Blood Type A Negative 06/28/22 18:03 Rho(D) Type Negative 06/28/22 18:03 Antibody Screen Negative 06/28/22 18:03 Crossmatch See Detail 06/28/22 18:03 Radiology Impressions Chest X-Ray 06/28/22 17:21 IMPRESSION: 1. Cardiomegaly and minimal pulmonary vascular congestion. 2. Bibasilar atelectasis versus minimal infiltrate. Recent Clincial Data Last Vital Signs Temp 98.3 F 06/30/22 20:00 Pulse 57 L 07/01/22 13:00 Resp 25 H 07/01/22 13:00 BP 130/46 07/01/22 08:00 Pulse Ox 93 07/01/22 07:55 O2 Del Method 07/01/22 07:55 O2 Flow Rate 2 06/30/22 23:00 Vital Signs Pulse Resp BP Pulse Ox O2 Del Method 07/01/22 13:00 57 L 25 H 07/01/22 12:30 56 L 26 H 07/01/22 12:00 55 L 30 H 07/01/22 11:30 51 L 21 H 07/01/22 11:00 49 L 21 H 07/01/22 10:30 56 L 17 07/01/22 10:00 55 L 26 H 07/01/22 09:30 56 L 25 H 07/01/22 09:00 58 L 26 H 07/01/22 08:42 48 L 27 H 07/01/22 08:00 130/46 07/01/22 07:30 55 L 22 H 120/52 07/01/22 07:00 56 L 19 H 111/49 07/01/22 06:30 58 L 24 H 125/55 07/01/22 06:00 51 L 21 H 124/38 07/01/22 05:30 49 L 17 126/54 95 07/01/22 07:55 63 93 Room Air 07/01/22 05:00 43 L 23 H 108/46 07/01/22 04:30 42 L 19 H 116/49 07/01/22 04:00 48 L 16 110/49 Intake & Output/Weight 06/29/22 06/30/22 07/01/22 07/02/22 06:59 06:59 06:59 06:59 Intake Total 1225.667 / 6450.005 0244.75 / 2543.75 3086.583 / 3086.583 410 / 410 Output Total 1300 / 1300 250 / 250 Balance 1225.667 / 0036.799 9498.75 / 1243.75 2836.583 / 2836.583 410 / 410 Weight 100.698 kg 104.326 kg Vitals Last Vital Signs Temp 98.3 F 06/30/22 20:00 Pulse 57 L 07/01/22 13:00 Resp 25 H 07/01/22 13:00 BP 130/46 07/01/22 08:00 Pulse Ox 93 07/01/22 07:55 O2 Del Method 07/01/22 07:55 O2 Flow Rate 2 06/30/22 23:00 TS Medications Medications Acetaminophen (Acetaminophen 325 Mg Tablet) 650 mg PO Q6H PRN PRN Reason: MILD PAIN Last Admin: 06/30/22 02:07 Dose: 650 mg Hydralazine HCl (Hydralazine 20 Mg/Ml Inj 1 Ml) 10 mg IVP Q4H PRN PRN Reason: HYPERTENSION Ceftriaxone Sodium 1,000 mg/ (Sodium Chloride) 50 mls @ 100 mls/hr IV Q24H [facility]; Protocol Last Infusion: 07/01/22 11:57 Dose: Infused Dopamine HCl/Dextrose (Intropin Drip) 400 mg in 250 mls @ 19.561 mls/hr IV CONT [facility]; Protocol Last Admin: 07/01/22 06:33 Dose: Not Given Levothyroxine Sodium (Levothyroxine 150 Mcg Tablet) 150 mcg PO DAILY [facility] Last Admin: 07/01/22 09:03 Dose: 150 mcg Ondansetron HCl (Ondansetron 2 Mg/Ml Sdv 2 Ml) 4 mg IVP Q6H PRN PRN Reason: NAUSEA AND VOMITING Ondansetron HCl (Ondansetron 2 Mg/Ml Sdv 2 Ml) 4 mg IVP Q5M PRN PRN Reason: NAUSEA AND VOMITING Ondansetron HCl (Ondansetron 2 Mg/Ml Sdv 2 Ml) 4 mg IVP Q15M PRN PRN Reason: Nausea/Vomiting PACU PHASE II Last Admin: 06/29/22 15:42 Dose: 4 mg Pantoprazole Sodium (Pantoprazole Dr 40 Mg Tablet) 40 mg PO BID [facility] Sucralfate (Sucralfate 1 Gm Tablet) 1 gm PO AC&BEDTIME [facility] Last Admin: 07/01/22 11:57 Dose: 1 gm Discontinued Medications Benzocaine (Cetylpyridinium Lozenge) 1 each MUCOUS MEM ONCE ONE Stop: 06/29/22 13:50 Last Admin: 06/29/22 17:07 Dose: Not Given Benzocaine/Butamben/Tetracaine HCl (Cetacaine [place] 5 Gm Can) Confirm Administered Dose 5 spray .ROUTE .STK-MED ONE Stop: 06/29/22 13:44 Epinephrine HCl (Epinephrine 1 Mg/Ml Inj) 1 mg XX ONCE ONE Stop: 06/29/22 14:57 Last Admin: 06/29/22 15:12 Dose: 1 mg Fentanyl (Fentanyl 50 Mcg/Ml Inj 2ml) 50 mcg IVP Q10M PRN PRN Reason: Preop Pain Fentanyl (Fentanyl 50 Mcg/Ml Inj 2ml) Confirm Administered Dose 100 mcg .ROUTE .[facility] ONE Stop: 06/29/22 14:15 Sodium Chloride (Sodium Chloride 0.9%) 1,000 mls @ 150 mls/hr IV .Q6H40M [facility] Last Admin: 06/29/22 20:54 Dose: Not Given Potassium Chloride/Dextrose/Sod Cl (D5-Ns 0.45% + Kcl 20 Meq) 20 meq in 1,000 mls @ 75 mls/hr IV .[id number] [facility] Last Infusion: 06/30/22 19:43 Dose: Infused Sodium Chloride (Sodium Chloride 0.9% (100 Ml)) Confirm Administered Dose 100 mls @ as directed .ROUTE .[facility] ONE Stop: 06/29/22 12:14 Last Infusion: 06/29/22 20:53 Dose: Infused Sodium Chloride (Sodium Chloride 0.9%) 1,000 mls @ 30 mls/hr IV .Q24H [facility] Stop: 06/30/22 13:59 Last Infusion: 06/29/22 15:43 Dose: Infused Sodium Chloride (Sodium Chloride 0.9% (100 Ml)) Confirm Administered Dose 100 mls @ as directed .ROUTE .[facility] ONE Stop: 06/29/22 15:33 Last Infusion: 06/29/22 20:54 Dose: Infused Sodium Chloride (Sodium Chloride 0.9% (100 Ml)) Confirm Administered Dose 100 mls @ as directed .ROUTE .[facility] ONE Stop: 06/29/22 20:17 Last Infusion: 06/30/22 07:00 Dose: Infused Midazolam HCl (Midazolam 1 Mg/Ml Inj 2 Ml) 2 mg IVP Q5M PRN PRN Reason: Preop Anxiety Morphine Sulfate (Morphine 4 Mg/Ml Sdv 1 Ml) 2 mg IVP ONCE ONE Stop: 06/30/22 07:11 Last Admin: 06/30/22 09:32 Dose: 2 mg Morphine Sulfate (Morphine 4 Mg/Ml Sdv 1 Ml) 1 mg IVP ONCE ONE Stop: 07/01/22 01:16 Last Admin: 07/01/22 01:10 Dose: 1 mg Pantoprazole Sodium (Pantoprazole 40 Mg Sdv) 80 mg IVP ONCE ONE Stop: 06/28/22 17:46 Last Admin: 06/28/22 19:48 Dose: 80 mg Pantoprazole Sodium (Pantoprazole 40 Mg Sdv) 40 mg IVP Q12H [facility] Last Admin: 07/01/22 06:30 Dose: 40 mg Propofol (Propofol 10 Mg/Ml Sdv 20 Ml) Confirm Administered Dose 200 mg .ROUTE .STK-MED ONE Stop: 06/29/22 14:41 Propofol (Propofol 10 Mg/Ml Sdv 20 Ml) Confirm Administered Dose 200 mg .ROUTE .STK-MED ONE Stop: 06/29/22 15:23 Allergies Penicillins Allergy (Verified 06/28/22 16:44) Unknown alirocumab [From Praluent Pen] Adverse Reaction (Severe, Verified 06/28/22 16:44) Pt refuses any self-injections evolocumab [From Repatha SureClick] Adverse Reaction (Severe, Verified 06/28/22 16:44) Pt refuses self injections rosuvastatin Adverse Reaction (Severe, Verified 06/28/22 16:44) ADR-Nausea N/V, muscle pain, lightheaded, couldn't walk straight Home Medications ascorbic acid (vitamin C) 250 mg tablet (Vitamin C) 250 mg PO QAM 05/05/22 [History Confirmed 06/28/22] multivitamin 1 tab PO QAM 05/05/22 [History Confirmed 06/28/22] levothyroxine 100 mcg tablet (Euthyrox) 150 mcg PO DAILY #135 tabs 05/11/22 [Rx Confirmed 06/28/22] aspirin 81 mg tablet,delayed release 81 mg PO BID 06/23/22 [History Confirmed 06/28/22] clopidogrel 75 mg tablet 75 mg PO QAM 06/23/22 [History Confirmed 06/28/22] furosemide 20 mg tablet (Lasix) 20 mg PO DAILY PRN edema #30 tabs 06/25/22 [Rx Confirmed 06/28/22] sulfamethoxazole 800 mg-trimethoprim 160 mg tablet (Bactrim DS) 1 tab PO BID 7 days #14 tabs 06/25/22 [Rx Confirmed 06/28/22] acetaminophen 500 mg tablet 500 mg PO Q6H PRN Pain 06/28/22 [History Confirmed 06/28/22] amlodipine 5 mg tablet 5 mg PO DAILY 06/28/22 [History Confirmed 06/28/22] carvedilol 3.125 mg tablet 3.125 mg PO BID 06/28/22 [History Confirmed 06/28/22] losartan 50 mg tablet 50 mg PO DAILY 06/28/22 [History Confirmed 06/28/22] Discharge Plan Discharge Patient Disposition: Xfer Short-Term Hosp Condition: Stable Prescriptions: No Action levothyroxine [Euthyrox] 100 mcg tablet 150 mcg PO DAILY Qty: 135 3RF multivitamin Tablet 1 tab PO QAM ascorbic acid (vitamin C) [Vitamin C] 250 mg Tablet 250 mg PO QAM aspirin 81 mg Tablet,Delayed Release (Dr/Ec) 81 mg PO BID clopidogrel 75 mg tablet 75 mg PO QAM sulfamethoxazole-trimethoprim [Bactrim DS] 800-160 mg tablet 1 tab PO BID 7 Days Qty: 14 0RF furosemide [Lasix] 20 mg tablet 20 mg PO DAILY PRN (Reason: edema) Qty: 30 0RF losartan 50 mg tablet 50 mg PO DAILY amlodipine 5 mg tablet 5 mg PO DAILY Tylenol Ex Str Rapid Release 500 mg Tablet 500 mg PO Q6H PRN (Reason: Pain) carvedilol 3.125 mg tablet 3.125 mg PO BID Discharge Orders: Transfer Out of Facility (Order); Ordered 07/01/22 Ordered By: Jose Rice Other Ambulatory Orders: DME: Shower Chair (Order) Location: None Selected Ordered By: Jose Rice DME: Wheelchair (Order) Location: None Selected Ordered By: Jose Rice Referrals: Rebecca Salazar DO [Primary Care Provider] - Patient Instructions: GI Discharge Instructions Transfer Attestations Time Spent in Transfer Care: greater than 30 min Quality Metrics Clinical Quality Measures [ No reported AMI, CVA or VTE this stay] Coding Level of Care Code Acute Train Control Electronic Technician for Chg Fwd Diagnoses Peptic ulcer disease K27.9 History of permanent cardiac pacemaker placement Z95.0 Acute GI bleeding K92.2 HTN (hypertension) I10 Hypertension type: essential hypertension Hyperlipidemia E78.2 Hyperlipidemia type: mixed hyperlipidemia
[2022-07-01] MEDS: pantoprazole DR 40 mg Tablet PO (17:55)
[2022-07-01] MEDS: acetaminophen 325 mg Tablet 650 MG PO (21:31)
--- NOTE | 2022-07-01 22:06 | PC.NURSE ---
report called to Rebecca Sullivan RN at [phone]
--- NOTE | 2022-07-01 22:10 | PC.NURSE ---
pt belonging left with patient's patient left with EMS crew on 07/01/2022 @ [id number]
== END 2022-07-01 22:15 | disposition short-term general hospital (02) | DRG 378 ==
LOC: ER 17:01 → ICU 17:44
PROVIDERS: Surgery; Admitting Provider Internal Medicine; Emergency Provider Family Medicine; PCP Family Medicine; Visit Provider Internal Medicine
PROC: 0DJ08ZZ Inspection of Upper Intestinal Tract, Via Natural or Artificial Opening Endoscopic (ICD-10-PCS; CPT 43235; principal; 2022-06-29 11:45)
DX: K25.4 Chronic or unspecified gastric ulcer with hemorrhage (principal); D62 Acute posthemorrhagic anemia; N39.0 Urinary tract infection, site not specified; T82.120A Displacement of cardiac electrode, initial encounter; Z95.0 Presence of cardiac pacemaker; I25.10 Atherosclerotic heart disease of native coronary artery without angina pectoris; I10 Essential (primary) hypertension; E78.2 Mixed hyperlipidemia; E03.9 Hypothyroidism, unspecified; I25.2 Old myocardial infarction; Z79.82 Long term (current) use of aspirin; Z79.02 Long term (current) use of antithrombotics/antiplatelets; Z88.0 Allergy status to penicillin; K29.80 Duodenitis without bleeding; Y71.8 Miscellaneous cardiovascular devices associated with adverse incidents, not elsewhere classified
CPT/HCPCS: 36415; 36430; 43236; 43239; 43255; 71045; 80048; 80053; 81001; 82274; 84484; 85014; 85018; 85025; 85610; 85730; 86850; 86900; 86920; 87086; 88305; 88342; 93005; 96374; 99285; C9113; J0171; J0696; J2270; J2405; J2704; J3010; J7030; P9016

== ENCOUNTER → 2023-04-11 11:53 | Outpatient (BNVA) | payer MEDICARE, SELFPAY | PROVIDERS: PCP Family Medicine; Visit Provider Family Medicine | DX: E03.9 Hypothyroidism, unspecified (principal); Z13.6 Encounter for screening for cardiovascular disorders; E55.9 Vitamin D deficiency, unspecified; E66.9 Obesity, unspecified | CPT/HCPCS: 80053; 80061; 82306; 84439; 84443; 85025 ==

== ENCOUNTER → 2023-10-10 12:09 | Outpatient (BNVA) | payer MEDICARE, SELFPAY | PROVIDERS: PCP Family Medicine; Visit Provider Family Medicine | DX: E03.9 Hypothyroidism, unspecified (principal); H61.23 Impacted cerumen, bilateral | CPT/HCPCS: 84439; 84443 ==

== ENCOUNTER → 2023-12-05 13:04 | Outpatient (BNVA) | payer MEDICARE, SELFPAY | PROVIDERS: PCP Family Medicine; Visit Provider Family Medicine | DX: E03.9 Hypothyroidism, unspecified (principal) | CPT/HCPCS: 84439; 84443 ==

== ENCOUNTER → 2024-02-28 11:58 | Outpatient (BNVA) | payer MEDICARE, SELFPAY | PROVIDERS: PCP Family Medicine; Visit Provider Family Medicine | DX: E03.9 Hypothyroidism, unspecified (principal) | CPT/HCPCS: 84439; 84443 ==

== ENCOUNTER 2024-07-26 04:52 | Emergency (ER) | payer MEDICARE, SELFPAY ==
[2024-07-26 04:54] VITALS: BP 147/87; PULSE 74; RESP 18; TEMP 37.2; O2SAT 96; BMI 31.8
--- NOTE | 2024-07-26 05:04 | W.ED.ABDPA2 ---
Documented by User: Kennedy Samson DO 07/26/24 05:05 HPI - Abdominal Pain General: Chief Complaint: Abdominal Pain Stated Complaint: ABD Pain Time Seen by Provider: 07/26/24 04:57 History of Present Illness: Patient presents to the ER via EMS with complaints of abdominal pain times last 3 days. Patient states the pain is abdomen and underneath her umbilicus. Patient has been having some urinary symptoms such as pain burning frequency at times the pain radiates to her back. Related Data Home Medications Medication Instructions Recorded Confirmed ascorbic acid (vitamin C) 250 mg 250 mg PO QAM 05/05/22 07/26/24 tablet (Vitamin C) multivitamin 1 tab PO QAM 05/05/22 07/26/24 Previous Rx's Medication Instructions Recorded levothyroxine 125 mcg tablet 125 mcg PO DAILY #90 tabs 02/29/24 ciprofloxacin HCl 250 mg tablet 250 mg PO BID #14 tabs 07/26/24 (Cipro) phenazopyridine 200 mg tablet 200 mg PO TID 6 doses #6 tabs 07/26/24 (Pyridium) Allergies Allergy/AdvReac Type Severity Reaction Status Date / Time Penicillins Allergy Unknown Verified 10/10/23 11:30 alirocumab AdvReac Severe Pt refuses Verified 10/10/23 11:30 [From Praluent Pen] any self-injections evolocumab AdvReac Severe Pt refuses Verified 10/10/23 11:30 [From Repatha SureClick] self injections rosuvastatin AdvReac Severe ADR-Nausea Verified 10/10/23 11:30 Review of Systems General: Reports: 10 or more systems reviewed and unremarkable except in HPI and below PFSH ED PFSH: Medical History Coronary artery disease ST elevation [place] (STEMI) HTN (hypertension) Hyperlipidemia Reports she cannot take statins Hypothyroidism Surgical History History of permanent cardiac pacemaker placement H/O coronary angiogram 2019, RCA disease MARGY times 2 S/P cholecystectomy Family History Father Cancer glioblastoma Mother CAD (coronary artery disease), Onset Age: 90 Denies family history of Diabetes Clotting disorder Dementia Chronic kidney disease (CKD) Suicide Anesthesia complication Bleeding disorder Lung disease Stroke Social History Smoking and tobacco/nicotine status: never used tobacco/nicotine Alcohol intake: never Substance/Drug Use: never Physical Exam Const: COMMON NORMALS: no acute distress, average body habitus, patient oriented x3, no limitations, healthy appearing, alert and well nourished HENMT: COMMON NORMALS: normocephalic, atraumatic, hearing grossly normal bilaterally, external ears normal, Normal external nose present and moist oral mucous membranes HEAD & SCALP: normocephalic and atraumatic NOSE: Normal external nose present EXTERNAL EAR: Yes external ears normal Neck/C-Spine: COMMON NORMALS: no JVD Chest: COMMONS NORMALS: normal inspection of the chest and normal palpation of entire chest wall Resp: COMMON NORMALS: normal respiratory effort, No retractions, No use of accessory muscles and clear to auscultation bilaterally AUSCULTATION: clear to auscultation bilaterally Cardio: COMMON NORMALS: no JVD, regular rate, regular rhythm, S1 normal heart sound present, S2 normal heart sound present, No gallops present (Cardio), No clicks present (Cardio), No murmurs present (Cardio) and No rub (Cardio) RATE: regular rate RHYTHM: regular rhythm HEART SOUNDS: S1 normal heart sound present and S2 normal heart sound present GI: COMMON NORMALS: Normal to inspection, nondistended, normoactive bowel sounds present, Soft to palpation, No hepatosplenomegaly present and no masses; negative for non-tender (Mild tenderness to palpation infraumbilical) PALPATION: Yes Soft to palpation and Yes No hepatosplenomegaly present Neuro: COMMON NORMALS: patient oriented x3 SENSORIUM/ORIENTATION: Yes alert Course Vital Signs: Vital signs: Vital Signs Temperature 98.9 F 07/26/24 04:54 Pulse Rate 60 07/26/24 09:12 Respiratory Rate 18 07/26/24 09:12 Blood Pressure 123/64 07/26/24 09:12 Pulse Oximetry 93 07/26/24 09:12 Oxygen Delivery Me thod Room Air 07/26/24 08:54 MDM - Abdominal Pain Medical Records I reviewed the patient's medical records. Lab Data I reviewed the patient's lab results. 07/26/24 05:33 07/26/24 05:08 Labs/Radiology: Radiology Impressions Abdomen Ultrasound 07/26/24 05:44 IMPRESSION: 1. Findings of cirrhosis with evidence for portal hypertension. 2. Prominent biliary duct which may be secondary to post cholecystectomy changes versus age related changes. Laboratory Results WBC 6.73 10^3/uL (3.29-11.43) 07/26/24 05:33 Corrected WBC Cancelled 07/26/24 05:08 RBC 3.93 10^6/uL (3.85-5.65) 07/26/24 05:33 Hgb 12.90 g/dL (11.27-16.99) 07/26/24 05:33 Hct 39.1 % (36-47) 07/26/24 05:33 MCV 99.5 fl (85-98) H 07/26/24 05:33 MCH 32.8 pg (27-33) 07/26/24 05:33 MCHC 33.0 g/dL (30-55) 07/26/24 05:33 RDW 13.3 % (12.1-15.1) 07/26/24 05:33 Plt Count 162 10^3/cmm (157-399) 07/26/24 05:33 MPV 9.8 fL (7.4-10.4) 07/26/24 05:33 Gran % Cancelled 07/26/24 05:08 Neut % (Auto) 85.8 % 07/26/24 05:33 Lymph % (Auto) 10.3 % 07/26/24 05:33 Burt % (Auto) 3.1 % 07/26/24 05:33 Eos % (Auto) 0.1 % 07/26/24 05:33 Baso % (Auto) 0.4 % 07/26/24 05:33 Neut # (Auto) 5.77 10^3/uL (1.8-7.7) 07/26/24 05:33 Lymph # (Auto) 0.7 10^3/uL (0.8-4.8) L 07/26/24 05:33 Burt # (Auto) 0.2 10^3/uL (0.2-0.9) 07/26/24 05:33 Eos # (Auto) 0.0 10^3/uL (0.0-0.8) 07/26/24 05:33 Baso # (Auto) 0.0 10^3/uL (0.0-0.1) 07/26/24 05:33 Absolute Gran (auto) Cancelled 07/26/24 05:08 Nucleated RBC % (auto) 0 % 07/26/24 05:33 Nucleated RBCs # 0.0 /100WBC 07/26/24 05:33 Sodium 139 mmol/L (136-145) 07/26/24 05:08 Potassium 4.1 mmol/L (3.5-5.1) 07/26/24 05:08 Chloride 102 mmol/L (98-107) 07/26/24 05:08 Carbon Dioxide 24 mmol/L (22-29) 07/26/24 05:08 Anion Gap 17.1 (5-19) 07/26/24 05:08 BUN 9 mg/dL (8-23) 07/26/24 05:08 Creatinine 0.6 mg/dL (0.5-0.9) 07/26/24 05:08 GFR Calculation Not Reportable 07/26/24 05:08 Glucose 139 mg/dL (65-115) H 07/26/24 05:08 Calculated Osmolality 289 mOsm/kg (285-295) 07/26/24 05:08 Calcium 9.4 mg/dL (8.5-10.5) 07/26/24 05:08 Magnesium 1.7 mg/dL (1.7-2.3) 07/26/24 05:08 Total Bilirubin 1.5 mg/dL (0.15-1.2) H 07/26/24 05:08 AST 55 U/L (0-32) H 07/26/24 05:08 ALT 37 U/L (0-33) H 07/26/24 05:08 Alkaline Phosphatase 157 U/L (35-105) H 07/26/24 05:08 Total Protein 8.0 g/dL (6.6-8.7) 07/26/24 05:08 Albumin 4.3 g/dL (3.5-5.2) 07/26/24 05:08 Globulin 3.7 g/dL (1.3-4.6) 07/26/24 05:08 Lipase 18 U/L (13-60) 07/26/24 05:08 Urine Color [place] (Yellow) A 07/26/24 06:10 Urine Appearance Clear (CLEAR) 07/26/24 06:10 Urine pH 6.0 (5-7) 07/26/24 06:10 Ur Specific [place] 1.018 (1.005-1.030) 07/26/24 06:10 Urine Protein Trace (Negative) A 07/26/24 06:10 Urine Glucose (UA) Negative (Normal) 07/26/24 06:10 Urine Ketones Trace (Negative) 07/26/24 06:10 Urine Blood Negative (Negative) 07/26/24 06:10 Urine Nitrate Negative (Negative) 07/26/24 06:10 Urine Bilirubin 1+ (Negative) H 07/26/24 06:10 Urine Urobilinogen 1.0 mg/dL (Negative) 07/26/24 06:10 Ur Leukocyte Esterase 2+ (Negative) A 07/26/24 06:10 Urine RBC 0-2 /hpf (0-2) 07/26/24 06:10 Urine WBC 11-20 /hpf (0-5) H 07/26/24 06:10 Ur Squamous Epith Cells 6-10 /hpf (0-5) 07/26/24 06:10 Amorphous Sediment Not Reportable 07/26/24 06:10 Urine Bacteria Trace /hpf (NONE) 07/26/24 06:10 Hyaline Casts 1.21 /lpf 07/26/24 06:10 Discharge Plan Discharge Patient Disposition: Home Clinical Impression: Cystitis Condition: Stable Prescriptions: New ciprofloxacin HCl [Cipro] 250 mg tablet 250 mg PO BID Qty: 14 0RF phenazopyridine [Pyridium] 200 mg tablet 200 mg PO TID Qty: 6 0RF No Action levothyroxine 125 mcg tablet 125 mcg PO DAILY Qty: 90 1RF multivitamin Tablet 1 tab PO QAM ascorbic acid (vitamin C) [Vitamin C] 250 mg Tablet 250 mg PO QAM Discharge Orders: Discharge ED (Routine); Ordered 07/26/24 Ordered By: Jose Reyes Patient Instructions: Urinary Tract Infection in Women (ED), Opioid Safety, Pain Management Activity Restrictions/Additional Instructions: Thank you for choosing [facility] for your healthcare needs today. It is very important that you follow up as instructed or that you return to the Emergency Department should you have concerns or if your condition changes or worsens in any way. Sign Out Sign Out Data: Patient Sign Out occurred on 07/26/24 at 06:13. Patient's care was discussed, and care was transferred from Kennedy Samson DO to Jose Reyes DO. 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 [employer] Documented by User: Jose Reyes DO 07/26/24 10:35 HPI - Abdominal Pain General: Chief Complaint: Abdominal Pain Stated Complaint: ABD Pain Time Seen by Provider: 07/26/24 04:57 Related Data Home Medications Medication Instructions Recorded Confirmed ascorbic acid (vitamin C) 250 mg 250 mg PO QAM 05/05/22 07/26/24 tablet (Vitamin C) multivitamin 1 tab PO QAM 05/05/22 07/26/24 Previous Rx's Medication Instructions Recorded levothyroxine 125 mcg tablet 125 mcg PO DAILY #90 tabs 02/29/24 ciprofloxacin HCl 250 mg tablet 250 mg PO BID #14 tabs 07/26/24 (Cipro) phenazopyridine 200 mg tablet 200 mg PO TID 6 doses #6 tabs 07/26/24 (Pyridium) Allergies Allergy/AdvReac Type Severity Reaction Status Date / Time Penicillins Allergy Unknown Verified 10/10/23 11:30 alirocumab AdvReac Severe Pt refuses Verified 10/10/23 11:30 [From Praluent Pen] any self-injections evolocumab AdvReac Severe Pt refuses Verified 10/10/23 11:30 [From Repatha SureClick] self injections rosuvastatin AdvReac Severe ADR-Nausea Verified 10/10/23 11:30 PFSH ED PFSH: Medical History Coronary artery disease ST elevation [place] (STEMI) HTN (hypertension) Hyperlipidemia Reports she cannot take statins Hypothyroidism Surgical History History of permanent cardiac pacemaker placement H/O coronary angiogram 2020, RCA disease MARGY times 2 S/P cholecystectomy Family History Father Cancer glioblastoma Mother CAD (coronary artery disease), Onset Age: 90 Denies family history of Diabetes Clotting disorder Dementia Chronic kidney disease (CKD) Suicide Anesthesia complication Bleeding disorder Lung disease Stroke Social History Smoking and tobacco/nicotine status: never used tobacco/nicotine Alcohol intake: never Substance/Drug Use: never Course Vital Signs: Vital signs: Vital Signs Temperature 98.9 F 07/26/24 04:54 Pulse Rate 60 07/26/24 09:12 Respiratory Rate 18 07/26/24 09:12 Blood Pressure 123/64 07/26/24 09:12 Pulse Oximetry 93 07/26/24 09:12 Oxygen Delivery Me thod Room Air 07/26/24 08:54 MDM - Abdominal Pain Medical Decision Making Care assumed at change of shift. Liver enzymes elevated patient does have a history of cirrhosis portal hypertension does not have any active bleeding now ultrasound shows mildly dilated common bile duct which is probably chronic. She is not having any right upper quadrant pain she is having suprapubic pain she has no leukocytosis does have signs of cystitis we will start her on ceftriaxone single dose here start oral ciprofloxacin tomorrow along with Pyridium follow-up with primary care Lab Data 07/26/24 05:33 07/26/24 05:08 Labs/Radiology: Radiology Impressions Abdomen Ultrasound 07/26/24 05:44 IMPRESSION: 1. Findings of cirrhosis with evidence for portal hypertension. 2. Prominent biliary duct which may be secondary to post cholecystectomy changes versus age related changes. Laboratory Results WBC 6.73 10^3/uL (3.29-11.43) 07/26/24 05:33 Corrected WBC Cancelled 07/26/24 05:08 RBC 3.93 10^6/uL (3.85-5.65) 07/26/24 05:33 Hgb 12.90 g/dL (11.27-16.99) 07/26/24 05:33 Hct 39.1 % (36-47) 07/26/24 05:33 MCV 99.5 fl (85-98) H 07/26/24 05:33 MCH 32.8 pg (27-33) 07/26/24 05:33 MCHC 33.0 g/dL (30-55) 07/26/24 05:33 RDW 13.3 % (12.1-15.1) 07/26/24 05:33 Plt Count 162 10^3/cmm (157-399) 07/26/24 05:33 MPV 9.8 fL (7.4-10.4) 07/26/24 05:33 Gran % Cancelled 07/26/24 05:08 Neut % (Auto) 85.8 % 07/26/24 05:33 Lymph % (Auto) 10.3 % 07/26/24 05:33 Burt % (Auto) 3.1 % 07/26/24 05:33 Eos % (Auto) 0.1 % 07/26/24 05:33 Baso % (Auto) 0.4 % 07/26/24 05:33 Neut # (Auto) 5.77 10^3/uL (1.8-7.7) 07/26/24 05:33 Lymph # (Auto) 0.7 10^3/uL (0.8-4.8) L 07/26/24 05:33 Burt # (Auto) 0.2 10^3/uL (0.2-0.9) 07/26/24 05:33 Eos # (Auto) 0.0 10^3/uL (0.0-0.8) 07/26/24 05:33 Baso # (Auto) 0.0 10^3/uL (0.0-0.1) 07/26/24 05:33 Absolute Gran (auto) Cancelled 07/26/24 05:08 Nucleated RBC % (auto) 0 % 07/26/24 05:33 Nucleated RBCs # 0.0 /100WBC 07/26/24 05:33 Sodium 139 mmol/L (136-145) 07/26/24 05:08 Potassium 4.1 mmol/L (3.5-5.1) 07/26/24 05:08 Chloride 102 mmol/L (98-107) 07/26/24 05:08 Carbon Dioxide 24 mmol/L (22-29) 07/26/24 05:08 Anion Gap 17.1 (5-19) 07/26/24 05:08 BUN 9 mg/dL (8-23) 07/26/24 05:08 Creatinine 0.6 mg/dL (0.5-0.9) 07/26/24 05:08 GFR Calculation Not Reportable 07/26/24 05:08 Glucose 139 mg/dL (65-115) H 07/26/24 05:08 Calculated Osmolality 289 mOsm/kg (285-295) 07/26/24 05:08 Calcium 9.4 mg/dL (8.5-10.5) 07/26/24 05:08 Magnesium 1.7 mg/dL (1.7-2.3) 07/26/24 05:08 Total Bilirubin 1.5 mg/dL (0.15-1.2) H 07/26/24 05:08 AST 55 U/L (0-32) H 07/26/24 05:08 ALT 37 U/L (0-33) H 07/26/24 05:08 Alkaline Phosphatase 157 U/L (35-105) H 07/26/24 05:08 Total Protein 8.0 g/dL (6.6-8.7) 07/26/24 05:08 Albumin 4.3 g/dL (3.5-5.2) 07/26/24 05:08 Globulin 3.7 g/dL (1.3-4.6) 07/26/24 05:08 Lipase 18 U/L (13-60) 07/26/24 05:08 Urine Color [place] (Yellow) A 07/26/24 06:10 Urine Appearance Clear (CLEAR) 07/26/24 06:10 Urine pH 6.0 (5-7) 07/26/24 06:10 Ur Specific [place] 1.018 (1.005-1.030) 07/26/24 06:10 Urine Protein Trace (Negative) A 07/26/24 06:10 Urine Glucose (UA) Negative (Normal) 07/26/24 06:10 Urine Ketones Trace (Negative) 07/26/24 06:10 Urine Blood Negative (Negative) 07/26/24 06:10 Urine Nitrate Negative (Negative) 07/26/24 06:10 Urine Bilirubin 1+ (Negative) H 07/26/24 06:10 Urine Urobilinogen 1.0 mg/dL (Negative) 07/26/24 06:10 Ur Leukocyte Esterase 2+ (Negative) A 07/26/24 06:10 Urine RBC 0-2 /hpf (0-2) 07/26/24 06:10 Urine WBC 11-20 /hpf (0-5) H 07/26/24 06:10 Ur Squamous Epith Cells 6-10 /hpf (0-5) 07/26/24 06:10 Amorphous Sediment Not Reportable 07/26/24 06:10 Urine Bacteria Trace /hpf (NONE) 07/26/24 06:10 Hyaline Casts 1.21 /lpf 07/26/24 06:10 All radiology interpretation(s) finalized by discharge Discharge Plan Discharge Patient Disposition: Home Clinical Impression: Cystitis Condition: Stable Prescriptions: New ciprofloxacin HCl [Cipro] 250 mg tablet 250 mg PO BID Qty: 14 0RF phenazopyridine [Pyridium] 200 mg tablet 200 mg PO TID Qty: 6 0RF No Action levothyroxine 125 mcg tablet 125 mcg PO DAILY Qty: 90 1RF multivitamin Tablet 1 tab PO QAM ascorbic acid (vitamin C) [Vitamin C] 250 mg Tablet 250 mg PO QAM Discharge Orders: Discharge ED (Routine); Ordered 07/26/24 Ordered By: Jose Reyes Patient Instructions: Urinary Tract Infection in Women (ED), Opioid Safety, Pain Management Activity Restrictions/Additional Instructions: Thank you for choosing [facility] for your healthcare needs today. It is very important that you follow up as instructed or that you return to the Emergency Department should you have concerns or if your condition changes or worsens in any way. Sign Out Sign Out Data: Patient Sign Out occurred on 07/26/24 at 06:13. Patient's care was discussed, and care was transferred from Kennedy Samson DO to Jose Reyes DO. 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
[2024-07-26 05:13] VITALS: BP 138/78; PULSE 74; RESP 18; O2SAT 96
[2024-07-26 05:37] LABS: Alanine Aminotransferase 37 U/L (0-33); Albumin Level 4.3 g/dL (3.5-5.2); Alkaline Phosphatase 157 U/L (35-105); Blood Urea Nitrogen 9 mg/dL (8-23); Calcium 9.4 mg/dL (8.5-10.5); Carbon Dioxide 24 mmol/L (22-29); Chloride 102 mmol/L (98-107); Creatinine Clr Calc Pharmacy 63.3755; Globulin 3.7 g/dL (1.3-4.6); Glucose 139 mg/dL (65-115); Magnesium 1.7 mg/dL (1.7-2.3); Osmolality Calculated 289 mOsm/kg (285-295); Sodium 139 mmol/L (136-145); Total Bilirubin 1.5 mg/dL (0.15-1.2)
[2024-07-26 05:39] LABS: Anion Gap 17.1 (5-19); Aspartate Amino Transferase 55 U/L (0-32); Potassium 4.1 mmol/L (3.5-5.1)
[2024-07-26 05:39] LABS: Basophils % 0.4 %; Eosinophils % 0.1 %; Hematocrit 39.1 % (36-47); Lymphocytes # 0.7 10^3/uL (0.8-4.8); Lymphocytes % 10.3 %; Mean Corpuscular Hemoglobin 32.8 pg (27-33); Mean Corpuscular Volume 99.5 fl (85-98); Mean Platelet Volume 9.8 fL (7.4-10.4); Monocytes # 0.2 10^3/uL (0.2-0.9); Monocytes % 3.1 %; Neutrophils # 5.77 10^3/uL (1.8-7.7); Neutrophils % 85.8 %; Nucleated Red Blood Cells % 0 %; Platelet Count 162 10^3/cmm (157-399); Red Blood Count 3.93 10^6/uL (3.85-5.65); Red Cell Distribution Width 13.3 % (12.1-15.1); White Blood Count 6.73 10^3/uL (3.29-11.43)
--- NOTE | 2024-07-26 05:44 | USR_ITS ---
PROCEDURE INFORMATION: Exam: US Abdomen, Limited; Right Upper Quadrant Exam date and time: 07/26/2024 6:15 AM Age: 73 years old Clinical indication: Abdominal pain; Prior surgery; Surgery date: 6+ months; Surgery type: Cholecystectomy. ; Additional info: Abd pain elevated lfts/bili TECHNIQUE: Imaging protocol: Real time ultrasound of the abdomen with image documentation. Limited exam focused on the right upper quadrant. COMPARISON: No relevant prior studies available. FINDINGS: Liver: Undulating contour of the liver. Gallbladder: Status post cholecystectomy. Biliary ducts: Common bile duct reaches up to 7 mm which may be secondary to post cholecystectomy changes versus age related changes. Pancreas: Visualized pancreas is unremarkable. Right kidney: Normal. No mass. No hydronephrosis. Portal venous: Pulsatile waveform and elevated velocity of the portal vein. US/US abdomen limited [id number] IMPRESSION: 1. Findings of cirrhosis with evidence for portal hypertension. 2. Prominent biliary duct which may be secondary to post cholecystectomy changes versus age related changes.
[2024-07-26 06:04] LABS: Lipase 18 U/L (13-60)
[2024-07-26 06:11] VITALS: BP 124/65; PULSE 60; RESP 18; O2SAT 91
[2024-07-26 06:24] LABS: Bilirubin Urine 1+ (Negative); Blood Urine Negative (Negative); Glucose Urine UA Negative (Normal); Ketones Urine Trace (Negative); Leukocyte Esterase Urine 2+ (Negative); Nitrate Urine Negative (Negative); Protein Urine Trace (Negative); Specific Gravity, Urine 1.018 (1.005-1.030); Urine Appearance Clear (CLEAR)
[2024-07-26] MEDS: sodium chloride 0.9% 1,000 ML 999 ML IV (06:24)
[2024-07-26 06:29] LABS: Add Urine Microscopic? YES; Bacteria Urine Trace /hpf; Hyaline Casts Urine 1.21 /lpf; RBC Urine 0-2 /hpf (0-2); Urine Color Orange (Yellow)
[2024-07-26] MEDS: cefTRIAXone 1,000 mg SDV 1000 MG IVP (06:58)
[2024-07-26 07:03] VITALS: BP 139/80; PULSE 60; RESP 16; O2SAT 91
[2024-07-26 08:54] VITALS: BP 143/69; PULSE 93; RESP 16; O2SAT 92
[2024-07-26 09:12] VITALS: BP 123/64; PULSE 60; RESP 18; O2SAT 93
== END 2024-07-26 09:17 | disposition home or self-care (01) ==
PROVIDERS: Emergency Medicine; Emergency Provider Family Medicine
DX: N30.90 Cystitis, unspecified without hematuria (principal); I25.10 Atherosclerotic heart disease of native coronary artery without angina pectoris; I25.2 Old myocardial infarction; I10 Essential (primary) hypertension; E78.5 Hyperlipidemia, unspecified; Z95.0 Presence of cardiac pacemaker
CPT/HCPCS: 36415; 76705; 80053; 81001; 83690; 83735; 85025; 96361; 96374; 99284; J0696; J7030

== ENCOUNTER 2024-10-09 22:43 | Emergency (ER) | payer MEDICARE, SELFPAY ==
[2024-10-09 22:50] VITALS: BP 175/96; PULSE 85; RESP 16; TEMP 36.4; O2SAT 96; BMI 34.4
--- NOTE | 2024-10-10 00:07 | W.ED.BACK ---
HPI - Back Pain/Injury General: Chief Complaint: Back Pain/Injury Stated Complaint: Back pain Time Seen by Provider: 10/10/24 00:06 Source: patient Mode of arrival: ambulatory Limitations: no limitations History of Present Illness: Patient is a 74-year-old female presenting to the emergency department complaining of lower back pain for the past few days. States it specifically worsened after receiving chiropractic adjustment yesterday. States that it moves across the low back, denies any trauma. Reports taking ibuprofen for pain, this does not do much. Denies any history of back surgeries. She is not reporting any bowel or bladder incontinence, or saddle anesthesia. Reports a history of sciatica, states this does not feel the same as she is not having any radiation of pain. Does not report any fevers, trauma, unexplained weight loss, neurological symptoms, IVDU, steroid use, or history of cancer. She does note history of recurrent UTI. MD elicited complaint: back pain Onset (ago): day(s) Timing: constant Severity: moderate Quality: burning Location: lumbar spine, right lower back and left lower back Exacerbating factors: movement Relieving factors: none Associated symptoms: Deny abdominal pain, difficulty walking, fecal incontinence, fever(s) or syncope Related Data Home Medications Medication Instructions Recorded Confirmed ascorbic acid (vitamin C) 250 mg 250 mg PO QAM 05/05/22 07/26/24 tablet (Vitamin C) multivitamin 1 tab PO QAM 05/05/22 07/26/24 Previous Rx's Medication Instructions Recorded ciprofloxacin HCl 250 mg tablet 250 mg PO BID #14 tabs 07/26/24 (Cipro) phenazopyridine 200 mg tablet 200 mg PO TID 6 doses #6 tabs 07/26/24 (Pyridium) levothyroxine 125 mcg tablet 125 mcg PO DAILY #90 tabs 08/09/24 cyclobenzaprine 10 mg tablet 5 mg (1/2 x 10 mg) PO PRN PRN 10/10/24 Muscle Spasm #10 tabs ketorolac 10 mg tablet 10 mg PO Q8H PRN pain #15 tabs 10/10/24 prednisone 20 mg tablet 20 mg PO ONCE 5 days #5 tabs 10/10/24 Allergies Allergy/AdvReac Type Severity Reaction Status Date / Time Penicillins Allergy Unknown Verified 10/09/24 22:56 Review of Systems General: Reports: 10 or more systems reviewed and unremarkable except in HPI and below Const: Reports: other (denies trauma); Denies: fever(s), change in weight or night sweats Card: Denies: chest pain, lightheadedness or syncope Resp: Denies: dyspnea GI: Denies: abdominal pain or fecal incontinence : Denies: urinary incontinence Musc: Reports: back pain; Denies: neck pain or extremity pain Skin/Breast: Denies: rash or skin pain Neuro: Denies: headache(s), numbness in extremities, weakness in extremities, sensory changes, lack of coordination, difficulty walking, frequent falls or involuntary movements PFSH ED PFSH: Medical History Coronary artery disease ST elevation [place] (STEMI) HTN (hypertension) Hyperlipidemia Reports she cannot take statins Hypothyroidism Surgical History History of permanent cardiac pacemaker placement H/O coronary angiogram 2019, RCA disease MARGY times 2 S/P cholecystectomy Family History Father Cancer glioblastoma Mother CAD (coronary artery disease), Onset Age: 90 Denies family history of Diabetes Clotting disorder Dementia Chronic kidney disease (CKD) Suicide Anesthesia complication Bleeding disorder Lung disease Stroke Social History Smoking and tobacco/nicotine status: never used tobacco/nicotine Alcohol intake: never Substance/Drug Use: never Physical Exam Const: COMMON NORMALS: no acute distress, patient oriented x3, no limitations, healthy appearing and alert Resp: COMMON NORMALS: normal respiratory effort, No retractions, No use of accessory muscles and clear to auscultation bilaterally AUSCULTATION: clear to auscultation bilaterally Cardio: COMMON NORMALS: regular rate, regular rhythm, S1 normal heart sound present and S2 normal heart sound present RATE: regular rate RHYTHM: regular rhythm HEART SOUNDS: S1 normal heart sound present and S2 normal heart sound present Back/Pelvis: COMMON NORMALS: thoraco-lumbar ROM normal and straight leg raise negative bilaterally OTHER: Normal visual examination. No spinous process tenderness or paracervical, parathoracic, or paralumbar tenderness to palpation. Full active range of motion. No rash. Extremity: COMMON NORMALS: normal to inspection and full ROM Neuro: COMMON NORMALS: patient oriented x3, moves all extremities, no focal motor deficits, no sensory deficits noted, deep tendon reflexes 2+ bilaterally and gait normal SENSORIUM/ORIENTATION: Yes alert OTHER: L3, L4, L5, and S1 nerve sensations intact. Normal knee jerk and ankle jerk reflexes. Skin: COMMON NORMALS: no rashes or lesions noted GENERAL SKIN EXAM: no rashes or lesions noted Course Vital Signs: Vital signs: Vital Signs Temperature 97.6 F 10/09/24 22:50 Pulse Rate 61 10/10/24 02:05 Respiratory Rate 16 10/09/24 22:50 Blood Pressure 178/76 10/10/24 02:05 Pulse Oximetry 96 10/10/24 02:05 Oxygen Delivery Me thod Room Air 10/10/24 00:19 MDM - Back Pain/Injury Medical Decision Making Patient presenting with about a week of low back pain, unknown what would have caused it. She had no red flag back symptoms or red flag findings on physical exam. After being given steroid, Toradol, and muscle relaxer here in the emergency department states that she was already feeling much better. Will treat with very low-dose of these medications at home and have her follow-up with her primary care provider for any further evaluation or potential referral to Ortho/spine. Labs Laboratory Results Urine Color Yellow (Yellow) 10/10/24 01:03 Urine Appearance Clear (CLEAR) 10/10/24 01:03 Urine pH 5.0 (5-7) 10/10/24 01:03 Ur Specific [place] 1.004 (1.005-1.030) L 10/10/24 01:03 Urine Protein Negative (Negative) 10/10/24 01:03 Urine Glucose (UA) Negative (Normal) 10/10/24 01:03 Urine Ketones Trace (Negative) 10/10/24 01:03 Urine Blood Negative (Negative) 10/10/24 01:03 Urine Nitrate Negative (Negative) 10/10/24 01:03 Urine Bilirubin Negative (Negative) 10/10/24 01:03 Urine Urobilinogen 0.2 mg/dL (Negative) 10/10/24 01:03 Ur Leukocyte Esterase Negative (Negative) 10/10/24 01:03 Urine RBC 0-2 /hpf (0-2) 10/10/24 01:03 Urine WBC 0-5 /hpf (0-5) 10/10/24 01:03 Ur Squamous Epith Cells 0-5 /hpf (0-5) 10/10/24 01:03 Amorphous Sediment Not Reportable 10/10/24 01:03 Urine Bacteria None seen /hpf (NONE) 10/10/24 01:03 Hyaline Casts 0.40 /lpf 10/10/24 01:03 No radiology studies performed this visit Discharge Plan Discharge Patient Disposition: Home Clinical Impression: Musculoskeletal back pain Condition: Stable Prescriptions: New prednisone 20 mg tablet 20 mg PO ONCE 5 Days Qty: 5 0RF cyclobenzaprine 10 mg tablet 5 mg PO PRN PRN (Reason: Muscle Spasm) Qty: 10 0RF ketorolac 10 mg tablet 10 mg PO Q8H PRN (Reason: pain) Qty: 15 0RF No Action levothyroxine 125 mcg tablet 125 mcg PO DAILY Qty: 90 1RF multivitamin Tablet 1 tab PO QAM ascorbic acid (vitamin C) [Vitamin C] 250 mg Tablet 250 mg PO QAM ciprofloxacin HCl [Cipro] 250 mg tablet 250 mg PO BID Qty: 14 0RF phenazopyridine [Pyridium] 200 mg tablet 200 mg PO TID Qty: 6 0RF Discharge Orders: Discharge ED (Routine); Ordered 10/10/24 Ordered By: Sridhar Mckeon Referrals: Cassie Cosby MD [Primary Care Provider] - Patient Instructions: Back Pain (ED) Activity Restrictions/Additional Instructions: Take medications as prescribed. With the cyclobenzaprine, please only take before bed do not operate heavy machinery or drive after taking dose. Monitor your condition closely, follow-up with primary care. Return with any new or concerning symptoms. Care with transferring, ice/heat for added relief. Please skip your chiropractic appointment tomorrow for comfort sake. Coding Level of Care Code ED Lead Man Over [employer] for Joaquin Estrella
[2024-10-10 00:19] VITALS: BP 185/91; PULSE 63; O2SAT 96
[2024-10-10] MEDS: ketorolac 60 mg/2 mL INJ IM (00:36)
[2024-10-10] MEDS: orphenadrine 30 mg/mL Inj 2 mL 60 MG IM (00:39)
[2024-10-10] MEDS: dexamethasone 10 mg/mL INJ IM (00:40)
[2024-10-10 01:09] LABS: Bilirubin Urine Negative (Negative); Blood Urine Negative (Negative); Glucose Urine UA Negative (Normal); Ketones Urine Trace (Negative); Leukocyte Esterase Urine Negative (Negative); Nitrate Urine Negative (Negative); Protein Urine Negative (Negative); Specific Gravity, Urine 1.004 (1.005-1.030); Urine Appearance Clear (CLEAR); Urine Color Yellow (Yellow); Urobilinogen Urine 0.2 mg/dL (Negative)
[2024-10-10 01:13] LABS: Add Urine Microscopic? YES; Bacteria Urine None Seen /hpf; RBC Urine 0-2 /hpf (0-2); Squamous Epithelial Cell Urine 0-5 /hpf (0-5); WBC Urine 0-5 /hpf (0-5)
[2024-10-10 02:05] VITALS: BP 178/76; PULSE 61; O2SAT 96
== END 2024-10-10 01:30 | disposition home or self-care (01) ==
PROVIDERS: Emergency Provider Physician Assistant; PCP Family Medicine
DX: M54.89 Other dorsalgia (principal); I10 Essential (primary) hypertension; E78.5 Hyperlipidemia, unspecified
CPT/HCPCS: 81001; 96372; 99284; J1100; J1885; J2360

== ENCOUNTER 2024-10-16 18:41 | Emergency (ER) | payer MEDICARE, SELFPAY ==
[2024-10-16 18:45] VITALS: BP 174/92; PULSE 78; RESP 16; TEMP 36.7; O2SAT 100; BMI 30.1
[2024-10-16 18:55] VITALS: BP 175/91; PULSE 66; RESP 18; O2SAT 100
--- NOTE | 2024-10-16 18:55 | CTR_ITS ---
PROCEDURE INFORMATION: Exam: CT Lumbar Spine Without Contrast Exam date and time: 10/16/2024 8:09 PM Age: 74 years old Clinical indication: Low back pain; Additional info: Right low back pain, seen here previously, getting worse TECHNIQUE: Imaging protocol: Computed tomography of the lumbar spine without contrast. Radiation optimization: All CT scans at this facility use at least one of these dose optimization techniques: automated exposure control; mA and/or kV adjustment per patient size (includes targeted exams where dose is matched to clinical indication); or iterative reconstruction. COMPARISON: US abdomen limited [id number] 07/26/2024 6:15 AM RADIATION DOSE METRICS: Total DLP (mGy-cm): 959.78 FINDINGS: Bones/joints: L1 vertebral body compression fracture without significant retropulsion of bony fragments or spinal canal narrowing, age-indeterminate. L1-L2: No significant disc bulge or herniation. No severe spinal canal stenosis. No significant neural foraminal narrowing. L2-L3: No significant disc bulge or herniation. No severe spinal canal stenosis. No significant neural foraminal narrowing. L3-L4: No significant disc bulge or herniation. No severe spinal canal stenosis. No significant neural foraminal narrowing. L4-L5: L4-L5 broad-based disc bulge with [id number] bilateral foraminal narrowing. L5-S1: L5-S1 broad-based disc bulge with moderate to severe bilateral foraminal narrowing. Lungs: Left lower lobe atelectasis. Soft tissues: Unremarkable. CT/CT lumbar spine wo con* [id number] IMPRESSION: 1. L1 vertebral body compression fracture without significant retropulsion of bony fragments or spinal canal narrowing, age-indeterminate. 2. Left lower lobe atelectasis. 3. L4-L5 broad-based disc bulge with [id number] bilateral foraminal narrowing. 4. L5-S1 broad-based disc bulge with moderate to severe bilateral foraminal narrowing.
--- NOTE | 2024-10-16 18:57 | ED_ITS ---
HPI - Back Pain/Injury General: Chief Complaint: Back Pain/Injury Stated Complaint: back pain Time Seen by Provider: 10/16/24 18:49 Source: patient Mode of arrival: EMS Limitations: no limitations History of Present Illness: Patient is a 74-year-old female who presents to the emergency department by ambulance for the second time a week for back pain. I saw this patient personally a week ago, she was having right lower back pain and at that time was treated with steroids, muscle relaxer, and Toradol here in the emergency department. She was having good amount of improvement then, sent home with low- dose prescriptions of these medications. States that she has not gotten better, can barely walk to and from the bathroom. Again she is not reporting any red flag back symptoms or any recurrent trauma since I last saw her. No bowel or bladder incontinence, distal numbness/paralysis/paresthesias, or other symptoms. She was noted to be ambulatory from EMS to ED bed. MD elicited complaint: back pain Pertinent past history: prior back pain Onset (ago): day(s) Timing: constant and progressively worsening Severity: severe Similar Symptoms Previously: Yes Location: right lower back Radiation: none Exacerbating factors: movement Relieving factors: none Associated symptoms: Deny abdominal pain, difficulty walking, fecal incontinence, fever(s) or syncope Related Data Home Medications Medication Instructions Recorded Confirmed ascorbic acid (vitamin C) 250 mg 250 mg PO QAM 05/05/22 07/26/24 tablet (Vitamin C) multivitamin 1 tab PO QAM 05/05/22 07/26/24 Previous Rx's Medication Instructions Recorded ciprofloxacin HCl 250 mg tablet 250 mg PO BID #14 tabs 07/26/24 (Cipro) phenazopyridine 200 mg tablet 200 mg PO TID 6 doses #6 tabs 07/26/24 (Pyridium) levothyroxine 125 mcg tablet 125 mcg PO DAILY #90 tabs 08/09/24 cyclobenzaprine 10 mg tablet 5 mg (1/2 x 10 mg) PO PRN PRN 10/10/24 Muscle Spasm #10 tabs ketorolac 10 mg tablet 10 mg PO Q8H PRN pain #15 tabs 10/10/24 hydrocodone 5 mg-acetaminophen 325 1 tab PO Q8H PRN pain #14 tabs 10/16/24 mg tablet Allergies Allergy/AdvReac Type Severity Reaction Status Date / Time Penicillins Allergy Unknown Verified 10/09/24 22:56 Review of Systems General: Reports: 10 or more systems reviewed and unremarkable except in HPI and below Const: Reports: other (denies trauma); Denies: fever(s), change in weight or night sweats Card: Denies: chest pain, lightheadedness or syncope Resp: Denies: dyspnea GI: Denies: abdominal pain or fecal incontinence : Denies: urinary incontinence Musc: Reports: back pain; Denies: neck pain or extremity pain Skin/Breast: Denies: rash or skin pain Neuro: Denies: headache(s), numbness in extremities, weakness in extremities, sensory changes, lack of coordination, difficulty walking, frequent falls or involuntary movements PFSH ED PFSH: Medical History Coronary artery disease ST elevation [place] (STEMI) HTN (hypertension) Hyperlipidemia Reports she cannot take statins Hypothyroidism Surgical History History of permanent cardiac pacemaker placement H/O coronary angiogram 2019, RCA disease MARGY times 2 S/P cholecystectomy Family History Father Cancer glioblastoma Mother CAD (coronary artery disease), Onset Age: 90 Denies family history of Diabetes Clotting disorder Dementia Chronic kidney disease (CKD) Suicide Anesthesia complication Bleeding disorder Lung disease Stroke Social History Smoking and tobacco/nicotine status: never used tobacco/nicotine Alcohol intake: never Substance/Drug Use: never Physical Exam Const: COMMON NORMALS: patient oriented x3, no limitations, healthy appearing and alert OTHER: Mild acute distress secondary to pain Resp: COMMON NORMALS: normal respiratory effort, No retractions, No use of accessory muscles and clear to auscultation bilaterally AUSCULTATION: clear to auscultation bilaterally Cardio: COMMON NORMALS: regular rate, regular rhythm, S1 normal heart sound present and S2 normal heart sound present RATE: regular rate RHYTHM: regular rhythm HEART SOUNDS: S1 normal heart sound present and S2 normal heart sound present Back/Pelvis: OTHER: Normal visual examination. No spinous process tenderness. Reproducible tenderness to palpation to the right paralumbar muscles. Negative straight leg raise testing. Extremity: COMMON NORMALS: normal to inspection and full ROM Neuro: COMMON NORMALS: patient oriented x3, moves all extremities, no focal motor deficits, no sensory deficits noted, deep tendon reflexes 2+ bilaterally and gait normal SENSORIUM/ORIENTATION: Yes alert OTHER: L3, L4, L5, and S1 nerve sensations intact. Normal knee jerk and ankle jerk reflexes. Skin: COMMON NORMALS: no rashes or lesions noted GENERAL SKIN EXAM: no rashes or lesions noted Course Vital Signs: Vital signs: Vital Signs Temperature 98.0 F 10/16/24 18:45 Pulse Rate 60 10/16/24 21:00 Respiratory Rate 14 10/16/24 21:00 Blood Pressure 148/76 10/16/24 21:00 Pulse Oximetry 90 10/16/24 21:00 Oxygen Delivery Me thod Room Air 10/16/24 21:00 MDM - Back Pain/Injury Medical Decision Making Patient presented for the second time in a week for continued back pain. He was noting no improvement after prescription pain medication sent last time. CT was ordered this time showing multiple degenerative changes, she will be directly referred to Ortho/spine this time. Will also treat her pain with Lov[place] and have her continue doing conservative therapies. Her physical exam did not demonstrate any focal neurological findings or red flag signs or symptoms. Return precautions given. Labs Radiology Impressions Lumbar Spine CT 10/16/24 18:55 IMPRESSION: 1. L1 vertebral body compression fracture without significant retropulsion of bony fragments or spinal canal narrowing, age-indeterminate. 2. Left lower lobe atelectasis. 3. L4-L5 broad-based disc bulge with [id number]-zt-moryvory bilateral foraminal narrowing. 4. L5-S1 broad-based disc bulge with moderate to severe bilateral foraminal narrowing. All radiology interpretation(s) finalized by discharge Discharge Plan Discharge Patient Disposition: Home Clinical Impression: Degenerative disc disease Qualifiers: Spinal region: lumbar Disc-related pain type: discogenic back pain only Qualified Code(s): M51.360 - Other intervertebral disc degeneration, lumbar region with discogenic back pain only Condition: Stable Prescriptions: New hydrocodone-acetaminophen 5-325 mg tablet 1 tab PO Q8H PRN (Reason: pain) Qty: 14 0RF Rx Instructions: Take 1/2 to 1 tab every 8 hours as needed for pain No Action levothyroxine 125 mcg tablet 125 mcg PO DAILY Qty: 90 1RF multivitamin Tablet 1 tab PO QAM ascorbic acid (vitamin C) [Vitamin C] 250 mg Tablet 250 mg PO QAM ciprofloxacin HCl [Cipro] 250 mg tablet 250 mg PO BID Qty: 14 0RF phenazopyridine [Pyridium] 200 mg tablet 200 mg PO TID Qty: 6 0RF cyclobenzaprine 10 mg tablet 5 mg PO PRN PRN (Reason: Muscle Spasm) Qty: 10 0RF ketorolac 10 mg tablet 10 mg PO Q8H PRN (Reason: pain) Qty: 15 0RF Discharge Orders: Discharge ED (Routine); Ordered 10/16/24 Ordered By: Sridhar Mckeon Referrals: Cassie Cosby MD [Primary Care Provider] - Patient Instructions: Back Pain (ED) Activity Restrictions/Additional Instructions: Await call from Ortho/spine to schedule an appointment. Take hydrocodone as prescribed. IcyHot topical as discussed. May use walker to assist in ambulation. All other conservative therapies that we discussed. Please return with any new or worsening. Coding Level of Care Code ED Resource Conservation Manager for Joaquin Estrella
[2024-10-16 19:57] VITALS: RESP 20; O2SAT 95
[2024-10-16] MEDS: HYDROmorphone 1 mg/mL INJ 1 mL IVP ×2 (19:57→22:06)
[2024-10-16 21:00] VITALS: BP 148/76; PULSE 60; RESP 14; O2SAT 90
[2024-10-16 22:06] VITALS: RESP 16; O2SAT 99
[2024-10-16 22:43] VITALS: BP 162/78; PULSE 60; RESP 14; O2SAT 100
--- NOTE | 2024-10-17 08:15 | DCPLANNER ---
messaged ortho for er f/u
== END 2024-10-16 22:42 | disposition home or self-care (01) ==
PROVIDERS: Emergency Provider Physician Assistant; PCP Family Medicine
DX: M51.360 Other intervertebral disc degeneration, lumbar region with discogenic back pain only (principal); E78.5 Hyperlipidemia, unspecified; I10 Essential (primary) hypertension
CPT/HCPCS: 72131; 96374; 96376; 99285; J1171

== ENCOUNTER 2024-10-23 13:31 | Inpatient (IN) | payer MEDICARE, SELFPAY ==
[2024-10-23] VITALS (19 sets, daily range): BP systolic 117–138; BP diastolic 52–79; PULSE 51–73; RESP 16–23; TEMP 36.6–36.9; O2SAT 96–100
[2024-10-23 15:39] LABS: Basophils % 0.3 %; Eosinophils % 0.2 %; Hematocrit 22.9 % (36-47); Lymphocytes # 1.7 10^3/uL (0.8-4.8); Lymphocytes % 14.7 %; Mean Corpuscular Hemoglobin 32.4 pg (27-33); Mean Corpuscular Volume 104.6 fl (85-98); Mean Platelet Volume 11.4 fL (7.4-10.4); Monocytes # 0.5 10^3/uL (0.2-0.9); Monocytes % 3.9 %; Neutrophils # 9.47 10^3/uL (1.8-7.7); Neutrophils % 80.6 %; Nucleated Red Blood Cells % 0 %; Platelet Count 177 10^3/cmm (157-399); Red Blood Count 2.19 10^6/uL (3.85-5.65); Red Cell Distribution Width 14.2 % (12.1-15.1); White Blood Count 11.76 10^3/uL (3.29-11.43)
[2024-10-23 15:58] LABS: Alanine Aminotransferase 22 U/L (0-33); Albumin Level 3.4 g/dL (3.5-5.2); Alkaline Phosphatase 105 U/L (35-105); Anion Gap 19.8 (5-19); Aspartate Amino Transferase 24 U/L (0-32); Blood Urea Nitrogen 20 mg/dL (8-23); Carbon Dioxide 19 mmol/L (22-29); Chloride 102 mmol/L (98-107); Creatinine Clr Calc Pharmacy 60.6624; Globulin 2.8 g/dL (1.3-4.6); Glucose 128 mg/dL (65-115); Osmolality Calculated 288 mOsm/kg (285-295); Potassium 3.8 mmol/L (3.5-5.1); Sodium 137 mmol/L (136-145); Total Bilirubin 0.2 mg/dL (0.15-1.2); Total Protein 6.2 g/dL (6.6-8.7)
[2024-10-23 16:03] LABS: Slide Review Slide Review Perform
--- NOTE | 2024-10-23 16:54 | W.ED.GIBLEED ---
HPI - GI Bleed General: Chief complaint: GI Bleed Stated complaint: BLOOD IN STOOL Time Seen by Provider: 10/23/24 16:49 History of Present Illness: 74-year-old female presents emergency room with multiple complaints her primary complaint is black dark tarry stools and at times dark red stool last couple of days additionally she has severe back pain which has been chronic she has not had any recent traumas or fall. She denies any hematemesis or coffee-ground emesis no dysuria urgency or frequency she has had urinary incontinence no fecal incontinence. No pain radiating into her legs. Associated symptoms: Denies abdominal pain, chills, fever(s) or rash Related Data Home Medications Medication Instructions Recorded Confirmed ascorbic acid (vitamin C) 250 mg 250 mg PO [facility] 05/05/22 10/24/24 tablet (Vitamin C) multivitamin 1 tab PO QAM 05/05/22 10/24/24 Previous Rx's Medication Instructions Recorded levothyroxine 125 mcg tablet 125 mcg PO DAILY #90 tabs 08/09/24 cyclobenzaprine 10 mg tablet 5 mg (1/2 x 10 mg) PO PRN PRN 10/10/24 Muscle Spasm #10 tabs fluconazole 40 mg/mL oral 150 mg (3.75 mL) PO DAILY 1 dose 10/16/24 suspension (Diflucan) #35 mL hydrocodone 5 mg-acetaminophen 325 1 tab PO Q8H PRN pain #14 tabs 10/16/24 mg tablet Allergies Allergy/AdvReac Type Severity Reaction Status Date / Time Penicillins Allergy Unknown Verified 10/23/24 14:13 Review of Systems Const: Denies: fever(s) or chills Card: Denies: chest pain Resp: Denies: dyspnea GI: Reports: hematochezia and melena; Denies: abdominal pain : Denies: difficulty voiding, dysuria, urinary frequency, urinary urgency or urinary hesitancy Musc: Reports: back pain; Denies: neck pain or extremity pain Skin/Breast: Denies: rash PFSH ED PFSH: Medical History Coronary artery disease ST elevation [place] (STEMI) HTN (hypertension) Hyperlipidemia Reports she cannot take statins Hypothyroidism Surgical History History of permanent cardiac pacemaker placement H/O coronary angiogram 2019, RCA disease MARGY times 2 S/P cholecystectomy Family History Father Cancer glioblastoma Mother CAD (coronary artery disease), Onset Age: 90 Denies family history of Diabetes Clotting disorder Dementia Chronic kidney disease (CKD) Suicide Anesthesia complication Bleeding disorder Lung disease Stroke Social History Smoking and tobacco/nicotine status: never used tobacco/nicotine Alcohol intake: never Substance/Drug Use: never Physical Exam Const: COMMON NORMALS: no acute distress GENERAL APPEARANCE: cooperative and comfortable ORIENTATION/CONSCIOUSNESS: Yes awake, Yes oriented to person, Yes oriented to place and Yes oriented to time HENMT: COMMON NORMALS: normocephalic, atraumatic and hearing grossly normal bilaterally HEAD & SCALP: normocephalic and atraumatic Resp: COMMON NORMALS: normal respiratory effort, No retractions, No use of accessory muscles and clear to auscultation bilaterally AUSCULTATION: clear to auscultation bilaterally Cardio: COMMON NORMALS: regular rate, regular rhythm and No murmurs present (Cardio) RATE: regular rate RHYTHM: regular rhythm GI: COMMON NORMALS: Soft to palpation and No hepatosplenomegaly present AUSCULTATION: Yes normoactive bowel sounds PALPATION: Yes Soft to palpation, No Tenderness to palpation present (GI), No Guarding due to palpation present (GI) and Yes No hepatosplenomegaly present OTHER: Hemoccult sharply positive Extremity: COMMON NORMALS: normal to inspection, capillary refill normal, no clubbing, cyanosis or edema, no calf tenderness and no pedal edema Neuro: SENSORIUM/ORIENTATION: Yes oriented to person, Yes oriented to place and Yes oriented to time Skin: COMMON NORMALS: no rashes or lesions noted GENERAL SKIN EXAM: no rashes or lesions noted Course Vital Signs: Vital signs: Vital Signs Temperature 97.6 F 10/30/24 19:41 Pulse Rate 67 10/30/24 19:41 Respiratory Rate 18 10/30/24 19:41 Blood Pressure 146/79 10/30/24 19:41 Pulse Oximetry 99 10/30/24 19:41 Oxygen Delivery Me thod Room Air 10/30/24 19:41 MDM - GI Bleed Medical Decision Making Initial hemoglobin 7.1. Started on Protonix. Will admit. Patient will need further workup for her back. Unfortunately she has a pacemaker. She recently had a CT of her back that showed a L1 compression fracture. No sign of cauda equina at this time. Medical Records I reviewed the patient's medical records. Lab Data I reviewed the patient's lab results. 10/30/24 16:42 10/30/24 04:52 Radiology Impressions Bone Scan Nuclear Medicine 10/30/24 08:02 IMPRESSION: 1. Increased uptake within the L1 vertebral body consistent with a compression fracture as described by CT on 10/16/2024. 2. No additional suspicious areas of uptake in the ribs or spine. 3. Osteoarthritic changes at the knees and ankles. Laboratory Results WBC 11.76 10^3/uL (3.29-11.43) H 10/23/24 15:23 RBC 2.19 10^6/uL (3.85-5.65) L 10/23/24 15:23 Hgb 7.10 g/dL (11.27-16.99) L 10/23/24 15:23 Hct 22.9 % (36-47) L 10/23/24 15:23 MCV 104.6 fl (85-98) H 10/23/24 15:23 MCH 32.4 pg (27-33) 10/23/24 15:23 MCHC 31.0 g/dL (30-55) 10/23/24 15:23 RDW 14.2 % (12.1-15.1) 10/23/24 15:23 Plt Count 177 10^3/cmm (157-399) 10/23/24 15:23 MPV 11.4 fL (7.4-10.4) H 10/23/24 15:23 Neut % (Auto) 80.6 % 10/23/24 15:23 Lymph % (Auto) 14.7 % 10/23/24 15:23 [place] % (Auto) 3.9 % 10/23/24 15:23 Eos % (Auto) 0.2 % 10/23/24 15:23 Baso % (Auto) 0.3 % 10/23/24 15:23 Neut # (Auto) 9.47 10^3/uL (1.8-7.7) H 10/23/24 15:23 Lymph # (Auto) 1.7 10^3/uL (0.8-4.8) 10/23/24 15:23 [place] # (Auto) 0.5 10^3/uL (0.2-0.9) 10/23/24 15:23 Eos # (Auto) 0.0 10^3/uL (0.0-0.8) 10/23/24 15:23 Baso # (Auto) 0.0 10^3/uL (0.0-0.1) 10/23/24 15:23 Nucleated RBC % (auto) 0 % 10/23/24 15:23 Nucleated RBCs # 0.0 /100WBC 10/23/24 15:23 Sodium 137 mmol/L (136-145) 10/23/24 15:23 Potassium 3.8 mmol/L (3.5-5.1) 10/23/24 15:23 Chloride 102 mmol/L (98-107) 10/23/24 15:23 Carbon Dioxide 19 mmol/L (22-29) L 10/23/24 15:23 Anion Gap 19.8 (5-19) H 10/23/24 15:23 BUN 20 mg/dL (8-23) 10/23/24 15:23 Creatinine 0.6 mg/dL (0.5-0.9) 10/23/24 15:23 GFR Calculation Not Reportable 10/23/24 15:23 Glucose 128 mg/dL (65-115) H 10/23/24 15:23 Calculated Osmolality 288 mOsm/kg (285-295) 10/23/24 15:23 Calcium 9.0 mg/dL (8.5-10.5) 10/23/24 15:23 Iron 57 ug/dL (37-145) 10/23/24 15:23 TIBC 278 mcg/dl 10/23/24 15:23 % Saturation 20.5 % (20-50) 10/23/24 15:23 Unsat Iron Binding 221 ug/dL (112-347) 10/23/24 15:23 Ferritin 149 ng/mL (15-150) 10/23/24 15:23 Total Bilirubin 0.2 mg/dL (0.15-1.2) 10/23/24 15:23 AST 24 U/L (0-32) 10/23/24 15:23 ALT 22 U/L (0-33) 10/23/24 15:23 Alkaline Phosphatase 105 U/L (35-105) 10/23/24 15:23 Total Protein 6.2 g/dL (6.6-8.7) L 10/23/24 15:23 Albumin 3.4 g/dL (3.5-5.2) L 10/23/24 15:23 Globulin 2.8 g/dL (1.3-4.6) 10/23/24 15:23 All radiology interpretation(s) finalized by discharge Discharge Plan Discharge Patient Disposition: Admitted As Inpatient Admit Provider: Gala Weber Clinical Impression: Acute GI bleeding, Anemia due to GI blood loss, Compression fracture of L1 lumbar vertebra Condition: Stable Coding Level of Care Code ED Marine Service Manager for Joaquin Estrella
[2024-10-23] MEDS: morphine 4 mg/mL SDV 1 mL 2 MG IVP ×2 (18:11→21:39)
[2024-10-23] MEDS: ondansetron 2 mg/ML SDV 2 mL 4 MG IVP (18:11)
[2024-10-23] MEDS: pantoprazole 40 mg SDV 80 MG IVP (18:11)
[2024-10-23 18:22] LABS: Basophils % 0.2 %; Eosinophils % 0.3 %; Lymphocytes # 2.1 10^3/uL (0.8-4.8); Mean Corpuscular HGB Conc 32.6 g/dL (30-55); Mean Corpuscular Hemoglobin 32.6 pg (27-33); Mean Platelet Volume 10.5 fL (7.4-10.4); Monocytes # 0.5 10^3/uL (0.2-0.9); Monocytes % 4.9 %; Neutrophils # 7.31 10^3/uL (1.8-7.7); Neutrophils % 73.3 %; Nucleated Red Blood Cells % 0 %; Platelet Count 177 10^3/cmm (157-399); Red Blood Count 1.93 10^6/uL (3.85-5.65); Red Cell Distribution Width 14.2 % (12.1-15.1); White Blood Count 9.98 10^3/uL (3.29-11.43)
[2024-10-23] MEDS: sodium chloride 0.9% 1,000 ML 75 ML IV (18:30)
[2024-10-23 18:34] LABS: INR 1.02 (0.8-1.2)
[2024-10-23 18:39] LABS: Hematocrit 19.3 % (36-47)
--- NOTE | 2024-10-23 19:04 | PM.HP ---
Providers/Chief Complaint Primary Care Provider: Cassie Cosby MD Chief Complaint: BLOOD IN STOOL History of Present Illness Mady Dhaliwal is a 74 year old female with history of established coronary disease history of stents in the past 2019, history of GI bleed in the past secondary to medications as per the patient, has a pacemaker for sick sinus syndrome, EGD [address] Grijalva showed gastritis chronic gastric ulcer with hemorrhage and duodenitis presented today with chief complaint of feeling dizzy, lethargic orthostatic/presyncope and black tarry stools. Patient is stating that she has had multiple limb ER visits secondary to her back pain, she has not noticed any recent in sensation to medial thigh area, no recent fall but endorsing difficult to control her urinary bladder. No recent fever nausea vomiting or diarrhea. She has been noticing dark-colored stools since 16 October. She has been given ketorolac for her back pain. She is not on any antiplatelet or anticoagulating agent. In the ER workup showed severe anemia, 2 unit PRBC requested secondary to underlying coronary disease with goal above 8 she did not experience any chest pain or shortness of breath. Patient is stating that she normally gets abdominal pain which gets worse on empty stomach, it gets better with eating, she describing her pain as cramping/burning radiating towards her umbilical area from epigastric region, no vomiting but she has been nauseous, abdominal pain has gotten worse in last 24 hours Review of Systems Const: Denies: fever(s) Eyes: Denies: change in vision ENMT: Denies: throat pain Card: Denies: chest pain Resp: Reports: dyspnea GI: Reports: abdominal pain and nausea : Denies: flank pain Musc: Denies: neck pain Medications/Allergies Home Medications Medication Instructions Recorded Confirmed Last Taken Type ascorbic acid (vitamin C) 250 mg 250 mg PO QAM 05/05/22 07/26/24 07/25/24 History tablet (Vitamin C) multivitamin 1 tab PO QAM 05/05/22 07/26/24 07/25/24 History ciprofloxacin HCl 250 mg tablet 250 mg PO BID #14 tabs 07/26/24 Unknown Rx (Cipro) phenazopyridine 200 mg tablet 200 mg PO TID 6 doses #6 tabs 07/26/24 Unknown Rx (Pyridium) levothyroxine 125 mcg tablet 125 mcg PO DAILY #90 tabs 08/09/24 Unknown Rx cyclobenzaprine 10 mg tablet 5 mg (1/2 x 10 mg) PO PRN PRN 10/10/24 Unknown Rx Muscle Spasm #10 tabs ketorolac 10 mg tablet 10 mg PO Q8H PRN pain #15 tabs 10/10/24 Unknown Rx fluconazole 40 mg/mL oral 150 mg (3.75 mL) PO DAILY 1 dose 10/16/24 Unknown Rx suspension (Diflucan) #35 mL hydrocodone 5 mg-acetaminophen 325 1 tab PO Q8H PRN pain #14 tabs 10/16/24 Unknown Rx mg tablet Allergies Allergy/AdvReac Type Severity Reaction Status Date / Time Penicillins Allergy Unknown Verified 10/23/24 14:13 PFSH Acute PFSH: Medical History Coronary artery disease ST elevation [place] (STEMI) HTN (hypertension) Hyperlipidemia Reports she cannot take statins Hypothyroidism Surgical History History of permanent cardiac pacemaker placement H/O coronary angiogram 2019, RCA disease MARGY times 2 S/P cholecystectomy Family History Father Cancer glioblastoma Mother CAD (coronary artery disease), Onset Age: 90 Denies family history of Diabetes Clotting disorder Dementia Chronic kidney disease (CKD) Suicide Anesthesia complication Bleeding disorder Lung disease Stroke Social History Smoking and tobacco/nicotine status: never used tobacco/nicotine Alcohol intake: never Substance/Drug Use: never Vitals/I&O/Wt Last Vital Signs Temp 98.2 F 10/23/24 18:51 Pulse 65 10/23/24 18:51 Resp 18 10/23/24 18:51 BP 126/52 10/23/24 18:51 Pulse Ox 100 10/23/24 18:51 O2 Del Method Room Air 10/23/24 14:09 10/23/24 10/23/24 10/23/24 06:59 14:59 22:59 Intake Total 0 / 0 Balance 0 / 0 Weight last 48 hrs Weight 77.111 kg Physical Exam Narrative: Pale complexion Hemodynamically stable Getting unit of blood GCS 15 S1, S2 Hemodynamic stable Pleasant and cooperative Nonfocal neuroexam No audible stridor or wheezing Family at the bedside Data 10/23/24 18:17 10/23/24 15:23 A&P Assessment and plan (1) History of permanent cardiac pacemaker placement: (2) Peptic ulcer disease: (3) Acute GI bleeding: (4) Anemia, posthemorrhagic, acute: (5) Anemia: (6) Degenerative disc disease: Qualifiers: Disc-related pain type: discogenic back pain only Spinal region: lumbar Qualified Code(s): M51.360 - Other intervertebral disc degeneration, lumbar region with discogenic back pain only (7) HTN (hypertension): (8) Coronary artery disease: Qualifiers: Coronary Disease-Associated Artery/Lesion type: [place] artery [place] vs. transplanted heart: [place] heart Associated angina: without angina Qualified Code(s): I25.10 - Atherosclerotic heart disease of [place] coronary artery without angina pectoris (9) Anemia due to GI blood loss: Plan Acute GI blood loss anemia In 2020 patient had similar episode at that point she was on antiplatelets, she is not on antiplatelets or anticoagulating agent Has a pacemaker for sick sinus syndrome I received ketorolac Previous history of gastritis duodenitis as per the EGD report per Dr. Grijalva Keep her n.p.o. Start Protonix 40 mg IV twice daily 2 unit PRBC with goal hemoglobin above 8 considering underlying coronary disease Hypertension: Closely monitor for now Holding off on antihypertensive regimen with active bleed Lower back pain: Degenerative joint disease: No typical signs of cauda equina patient is wanting to be seen by spine surgeon in the morning Patient does have a L1 vertebral body compression fracture Will request MRI spine after her endoscopy Patient is stating that her urine incontinence is relatively new but no in sensations of medial thigh area, no recent fall Her back pain is so severe she cannot lay flat, she has a recliner herself up in the bed Full code N.p.o. DVT prophylaxis: SCDs Attestations Medical Necessity Statement*: More than 2 midnights anticipated Diagnoses History of permanent cardiac pacemaker placement Z95.0 Peptic ulcer disease K27.9 Acute GI bleeding K92.2 Anemia, posthemorrhagic, acute D62 Anemia D64.9 Degenerative disc disease M51.360 Disc-related pain type: discogenic back pain only Spinal region: lumbar Essential hypertension I10 Coronary artery disease involving [place] coronary artery of [place] heart without angina pectoris I25.10 Coronary Disease-Associated Artery/Lesion type: [place] artery [place] vs. transplanted heart: [place] heart Associated angina: without angina Anemia due to GI blood loss D50.0
[2024-10-23 19:12] LABS: Add Urine Microscopic? NO
[2024-10-23 19:14] LABS: Bilirubin Urine Negative (Negative); Blood Urine 3+ (Negative); Glucose Urine UA Negative (Normal); Ketones Urine Trace (Negative); Leukocyte Esterase Urine 1+ (Negative); Nitrate Urine Negative (Negative); Protein Urine Negative (Negative); Specific Gravity, Urine 1.023 (1.005-1.030); Urine Appearance Cloudy (CLEAR); Urine Color Yellow (Yellow)
[2024-10-23 19:19] LABS: Bacteria Urine Trace /hpf; Hyaline Casts Urine 1.21 /lpf; RBC Urine 21-50 /hpf (0-2); Squamous Epithelial Cell Urine 0-5 /hpf (0-5); WBC Urine 0-5 /hpf (0-5)
[2024-10-23 19:22] LABS: Add Urine Culture? Yes
[2024-10-23 19:23] LABS: Charge for UA Resulting for Rev
[2024-10-23 19:31] LABS: UA Slide Review UA Slide Review Perf
--- NOTE | 2024-10-23 20:20 | PC.NURSE ---
Report was called to Radha SHAH on Med-Surg. All questions and concerns were addressed at time of report.
--- NOTE | 2024-10-23 20:50 | PC.NURSE ---
Patient was transferred via stretcher with all paperwork and belongings to Med Surg room 252-2.
--- NOTE | 2024-10-23 21:22 | P.CONIM_ITS ---
Providers/Reason For Consult 2 Consulting Physician/Specialty*: general surgery dr. grajeda Reason for Consult*: GIB Attending Physician: Gala Weber MD Primary Care Provider: Cassie Cosby MD History of Present Illness History of Present Illness Mady Dhaliwal is a 74 year old female consulted for upper GI bleed. Patient has had multiple episodes of gastric bleeders. Patient was given a dose of Toradol and steroids in the ER and she started bleeding. Surgery consulted for EGD and possible hemostasis. Hemodynamically acceptable. Medications/Allergies Home Medications Medication Instructions Recorded Confirmed Last Taken Type ascorbic acid (vitamin C) 250 mg 250 mg PO QAM 05/05/22 10/24/24 07/25/24 History tablet (Vitamin C) multivitamin 1 tab PO QAM 05/05/22 10/24/24 07/25/24 History levothyroxine 125 mcg tablet 125 mcg PO DAILY #90 tabs 08/09/24 10/24/24 Unknown Rx cyclobenzaprine 10 mg tablet 5 mg (1/2 x 10 mg) PO PRN PRN 10/10/24 10/24/24 Unknown Rx Muscle Spasm #10 tabs fluconazole 40 mg/mL oral 150 mg (3.75 mL) PO DAILY 1 dose 10/16/24 10/24/24 Unknown Rx suspension (Diflucan) #35 mL hydrocodone 5 mg-acetaminophen 325 1 tab PO Q8H PRN pain #14 tabs 10/16/24 10/24/24 Unknown Rx mg tablet Allergies Allergy/AdvReac Type Severity Reaction Status Date / Time Penicillins Allergy Unknown Verified 10/23/24 14:13 PFSH Acute 2 PFSH: Medical History Coronary artery disease ST elevation [place] (STEMI) HTN (hypertension) Hyperlipidemia Reports she cannot take statins Hypothyroidism Surgical History History of permanent cardiac pacemaker placement H/O coronary angiogram 2019, RCA disease MARGY times 2 S/P cholecystectomy Family History Father Cancer glioblastoma Mother CAD (coronary artery disease), Onset Age: 90 Denies family history of Diabetes Clotting disorder Dementia Chronic kidney disease (CKD) Suicide Anesthesia complication Bleeding disorder Lung disease Stroke Social History Smoking and tobacco/nicotine status: never used tobacco/nicotine Alcohol intake: never Substance/Drug Use: never Vitals/I&O/Wt Last Vital Signs Temp 98.0 F 10/23/24 20:00 Pulse 60 10/23/24 20:51 Resp 16 10/23/24 20:00 BP 136/61 10/23/24 20:51 Pulse Ox 100 10/23/24 20:51 O2 Del Method Room Air 10/23/24 20:13 10/23/24 10/23/24 10/23/24 06:59 14:59 22:59 Intake Total 0 / 0 Balance 0 / 0 Weight last 48 hrs Weight 185 lb 8 oz Weight 170 lb Physical Exam 2 Narrative: General: AOx3 Heart: RRR Lungs: unlabored breathing RA Abdomen: soft, non tended, non distended. No masses. No lymphadenopathy Data 10/24/24 04:35 10/24/24 04:35 A&P Assessment and plan (1) Anemia due to GI blood loss: Plan 74-year-old female who presents with upper GI bleed. I have discussed risks and benefits of EGD and possible hemostasis and patient agrees to proceed. Coding Level of Care Code 00837 Diagnoses Anemia due to GI blood loss D50.0 Time Spent (min) 30
[2024-10-23] MEDS: cyclobenzaprine 10 mg Tablet 5 MG PO (21:40)
[2024-10-24] VITALS (18 sets, daily range): BP systolic 109–147; BP diastolic 52–82; PULSE 58–69; RESP 15–18; TEMP 36.2–37.2; O2SAT 92–100
[2024-10-24] MEDS: HYDROcodone-acetaminophen 5-325 mg Tablet 1 TAB PO ×3 (00:46→16:54)
[2024-10-24] MEDS: morphine 4 mg/mL SDV 1 mL 2 MG IVP ×2 (04:41→12:24)
[2024-10-24 05:24] LABS: Basophils # 0.1 10^3/uL (0.0-0.1); Basophils % 0.6 %; Eosinophils # 0.2 10^3/uL (0.0-0.8); Eosinophils % 1.5 %; Hematocrit 27.8 % (36-47); Lymphocytes # 2.6 10^3/uL (0.8-4.8); Lymphocytes % 24.6 %; Mean Corpuscular HGB Conc 32.4 g/dL (30-55); Mean Corpuscular Hemoglobin 30.4 pg (27-33); Mean Corpuscular Volume 93.9 fl (85-98); Mean Platelet Volume 10.4 fL (7.4-10.4); Monocytes # 0.7 10^3/uL (0.2-0.9); Neutrophils # 6.82 10^3/uL (1.8-7.7); Neutrophils % 65.7 %; Nucleated Red Blood Cells % 0 %; Platelet Count 153 10^3/cmm (157-399); Red Blood Count 2.96 10^6/uL (3.85-5.65); Red Cell Distribution Width 19.2 % (12.1-15.1); White Blood Count 10.38 10^3/uL (3.29-11.43)
[2024-10-24 05:47] LABS: Anion Gap 12.1 (5-19); Blood Urea Nitrogen 20 mg/dL (8-23); Calcium 8.5 mg/dL (8.5-10.5); Carbon Dioxide 23 mmol/L (22-29); Chloride 109 mmol/L (98-107); Creatinine Clr Calc Pharmacy 63.4012; Glucose 112 mg/dL (65-115); Osmolality Calculated 293 mOsm/kg (285-295); Potassium 4.1 mmol/L (3.5-5.1); Sodium 140 mmol/L (136-145)
[2024-10-24] MEDS: pantoprazole 40 mg SDV IVP ×2 (06:07→16:54)
[2024-10-24] MEDS: sucralfate 1 gm/10 mL Oral Liq UDC PO ×3 (06:07→16:54)
[2024-10-24] MEDS: levothyroxine 125 mcg Tablet PO (06:07)
--- NOTE | 2024-10-24 07:23 | PC.NURSE ---
Pt to GI lab at at this time.
--- NOTE | 2024-10-24 08:03 | ANES.PREANE2 ---
Pre-Anesthetic Assessment Height/Weight: Height 1.6 m Weight 84.141 kg Temp Pulse Resp BP Pulse Ox O2 Del Method 97.4 F L 59 L 18 147/60 100 Room Air 10/24/24 07:38 10/24/24 07:38 10/24/24 07:38 10/24/24 07:38 10/24/24 07:38 10/24/24 07:38 Operation Date: 10/24/24 08:00 Proposed Procedures p EGD(Not Applicable) - Delano Riley MD Familial anesthetic complications: NOne Was Beta Celio taken within 24 hours: N/A Was Clonidine taken within 24 hours: N/A Last intake: > 8 hrs, no vomiting, no nausea Social No alcohol and No tobacco Exam alert, oriented x 3, clear to auscultation bilaterally and regular rate & rhythm Airway Mallampati: Class II CV/HEM Arrythmia (third degree heart block with pacemaker), Coronary Artery Disease (stemi w/ stents) and Hypertension GI PUD Metabolic Thyroid Disease Anesthetic Plan ASA status: 4 Anesthesia: MAC Risk of > 500 ml blood loss (7ml/kg in children): No Medications/Allergies Home Medications Medication Instructions Recorded Confirmed Last Taken Type ascorbic acid (vitamin C) 250 mg 250 mg PO QAM 05/05/22 10/24/24 07/25/24 History tablet (Vitamin C) multivitamin 1 tab PO QAM 05/05/22 10/24/24 07/25/24 History levothyroxine 125 mcg tablet 125 mcg PO DAILY #90 tabs 08/09/24 10/24/24 Unknown Rx cyclobenzaprine 10 mg tablet 5 mg (1/2 x 10 mg) PO PRN PRN 10/10/24 10/24/24 Unknown Rx Muscle Spasm #10 tabs fluconazole 40 mg/mL oral 150 mg (3.75 mL) PO DAILY 1 dose 10/16/24 10/24/24 Unknown Rx suspension (Diflucan) #35 mL hydrocodone 5 mg-acetaminophen 325 1 tab PO Q8H PRN pain #14 tabs 10/16/24 10/24/24 Unknown Rx mg tablet Allergies Allergy/AdvReac Type Severity Reaction Status Date / Time Penicillins Allergy Unknown Verified 10/23/24 14:13 Current Medications Generic Name Dose Route Start Last Admin Trade Name Freq PRN Reason Stop Dose Admin Hydrocodone Bitart/Acetaminophen 1 tab 10/23/24 20:51 10/24/24 00:46 Hydrocodone-Acetaminophen 5-325 Mg Tablet PO 1 tab Q8H PRN Administration PAIN: MODERATE Cyclobenzaprine HCl 5 mg 10/23/24 20:51 10/23/24 21:40 Cyclobenzaprine 10 Mg Tablet PO 5 mg BID PRN Administration Muscle Spasm Levothyroxine Sodium 125 mcg 10/24/24 06:00 10/24/24 06:07 Levothyroxine 125 Mcg Tablet PO 125 mcg DAILY@0600 ELVA Administration Morphine Sulfate 2 mg 10/23/24 20:51 10/24/24 04:41 Morphine 4 Mg/Ml Sdv 1 Ml IVP 2 mg Q4H PRN Administration SEVERE PAIN Pantoprazole Sodium 40 mg 10/24/24 06:00 10/24/24 06:07 Pantoprazole 40 Mg Sdv IVP 40 mg Q12H ELVA Administration Sucralfate 1 gm 10/24/24 07:00 10/24/24 06:07 Sucralfate 1 Gm/10 Ml Oral Liq Udc PO 1 gm AC ELVA Administration PFSH Anesthesia Medical History Coronary artery disease ST elevation [place] (STEMI) HTN (hypertension) Hyperlipidemia Reports she cannot take statins Hypothyroidism Surgical History History of permanent cardiac pacemaker placement H/O coronary angiogram 2019, RCA disease MARGY times 2 S/P cholecystectomy Family History Father Cancer glioblastoma Mother CAD (coronary artery disease), Onset Age: 90 Denies family history of Diabetes Clotting disorder Dementia Chronic kidney disease (CKD) Suicide Anesthesia complication Bleeding disorder Lung disease Stroke Social History Smoking and tobacco/nicotine status: never used tobacco/nicotine Alcohol intake: never Substance/Drug Use: never Data Anesthesia 10/24/24 04:35 10/24/24 04:35 Short CBC 10/23/24 10/23/24 10/24/24 Range/Units 15:23 18:17 04:35 WBC 11.76 H 9.98 10.38 (3.29-11.43) 10^3/uL Hgb 7.10 L 6.30 L* 9.00 L D (11.27-16.99) g/dL Hct 22.9 L 19.3 L* 27.8 L D (36-47) % MCV 104.6 H 100.0 H 93.9 D (85-98) fl Plt Count 177 177 153 L (157-399) 10^3/cmm Neut % (Auto) 80.6 73.3 65.7 % Neut # (Auto) 9.47 H 7.31 6.82 (1.8-7.7) 10^3/uL BMP 10/23/24 10/24/24 15:23 04:35 Sodium 137 140 Potassium 3.8 4.1 Chloride 102 109 H Carbon Dioxide 19 L 23 BUN 20 20 Creatinine 0.6 0.6 Glucose 128 H 112 Calcium 9.0 8.5 Liver Function 10/23/24 Range/Units 15:23 Total Bilirubin 0.2 (0.15-1.2) mg/dL AST 24 (0-32) U/L ALT 22 (0-33) U/L Alkaline Phosphatase 105 (35-105) U/L Albumin 3.4 L (3.5-5.2) g/dL Urine 10/23/24 Range/Units 18:48 Urine Color Yellow (Yellow) Urine Appearance Cloudy A (CLEAR) Urine pH 6.0 (5-7) Ur Specific [place] 1.023 (1.005-1.030) Urine Protein Negative (Negative) Urine Glucose (UA) Negative (Normal) Urine Ketones Trace (Negative) Urine Nitrate Negative (Negative) Urine Bilirubin Negative (Negative) Ur Leukocyte Esterase 1+ A (Negative) Urine RBC 21-50 H (0-2) /hpf Urine WBC 0-5 (0-5) /hpf Blood Bank 10/23/24 17:35 Blood Type A Negative Rho(D) Type Rh negative Antibody Screen Negative Coags 10/23/24 18:17 PT 14.10 INR 1.02 Cardiac Studies: Echocardiogram 06/23/22 Cardiac Event Monitor 05/09/22
[2024-10-24] MEDS: EPINEPHrine 1 mg/mL INJ XX (08:18)
--- NOTE | 2024-10-24 08:27 | PM.MISC ---
Miscellaneous Note Note: No sources of bleeding identified on EGD. Patient has a pre pyloric stricture suspiscious for malignancy. Biopsied and treated with epi. See full EGD report.
--- NOTE | 2024-10-24 08:45 | ANE.PACU2 ---
Inpatient post-anesthesia follow up: Airway intact: Yes Vital signs: Temperature 97.8 F Pulse Rate 58 Respiratory Rate 15 Blood Pressure 117/54 Pulse Oximetry 97 Oxygen Delivery Me thod Room Air Oxygen Flow Rate Fraction of Inspir ed Oxygen Hydration adequate: Yes Nausea and vomiting: No Pain level: 1 Mental status: Baseline
--- NOTE | 2024-10-24 14:25 | P.PN_ITS ---
Subjective 2 Subjective: Seen this morning. Patient underwent EGD this morning. Suspicion of prepyloric stricture? Query malignancy. Biopsies were obtained and epinephrine was used to cauterize the area.. Hemoglobin at 9.0 this morning. Did receive 1 unit packed RBC yesterday. She complains of back pain. Has a known compression fracture at L1 area. Patient getting TLSO brace placed. Vitals/I&O/Wt Last Vital Signs Temp 98.1 F 10/24/24 11:55 Pulse 60 10/24/24 14:07 Resp 16 10/24/24 14:07 BP 130/62 10/24/24 11:55 Pulse Ox 100 10/24/24 14:07 O2 Del Method Room Air 10/24/24 14:07 10/23/24 10/24/24 10/24/24 22:59 06:59 14:59 Intake Total 350 / 350 350 / 700 60 / 60 Output Total 300 / 300 Balance 350 / 350 50 / 400 60 / 60 Weight last 48 hrs Weight 84.141 kg Weight 84.141 kg Weight 77.111 kg Physical Exam 2 Narrative: Laying in bed appearing comfortable. TLSO brace in place. Normal S1-S2 Lungs clear to auscultation bilaterally abdomen soft nontender No edema bilateral lower extremities Resting comfortably in bed. ? Atraumatic normocephalic head. EOMI Data 10/24/24 04:35 10/24/24 04:35 A&P Assessment and plan (1) History of permanent cardiac pacemaker placement: (2) Peptic ulcer disease: (3) Acute GI bleeding: (4) Anemia, posthemorrhagic, acute: (5) Anemia: (6) Degenerative disc disease: Qualifiers: Disc-related pain type: discogenic back pain only Spinal region: lumbar Qualified Code(s): M51.360 - Other intervertebral disc degeneration, lumbar region with discogenic back pain only (7) HTN (hypertension): (8) Coronary artery disease: Qualifiers: Coronary Disease-Associated Artery/Lesion type: [place] artery [place] vs. transplanted heart: [place] heart Associated angina: without angina Qualified Code(s): I25.10 - Atherosclerotic heart disease of [place] coronary artery without angina pectoris (9) Anemia due to GI blood loss: Plan Acute GI blood loss anemia In 2020 patient had similar episode at that point she was on antiplatelets, she is not on antiplatelets or anticoagulating agent Has a pacemaker for sick sinus syndrome I received ketorolac Previous history of gastritis duodenitis as per the EGD report per Dr. Grijalva Keep her n.p.o. Start Protonix 40 mg IV twice daily 2 unit PRBC with goal hemoglobin above 8 considering underlying coronary disease Hypertension: Closely monitor for now Holding off on antihypertensive regimen with active bleed Lower back pain: Degenerative joint disease: No typical signs of cauda equina patient is wanting to be seen by spine surgeon in the morning Patient does have a L1 vertebral body compression fracture Will request MRI spine after her endoscopy Patient is stating that her urine incontinence is relatively new but no in sensations of medial thigh area, no recent fall Her back pain is so severe she cannot lay flat, she has a recliner herself up in the bed Full code N.p.o. DVT prophylaxis: SCDs 10/24/2024 -EGD completed this morning. Possibility of prepyloric stricture. If hemoglobin remained stable in next 24 hours may be discharged from that standpoint ? Patient on TLSO brace at this time. Does have a known vertebral compression fracture on scan from 10/16. ? MRI cannot be completed secondary to pacemaker. ? Spine surgery not on-call today. She is to follow-up as an outpatient with them for further management ? Will optimize pain medications at this time. ? Labs consistent with iron deficiency anemia RDW 19. I will start on oral iron at this time. ? Check iron TIBC, ferritin. ? Once pathology biopsy results are available she may be able to follow-up as an outpatient with oncology. Attestations 2 Medical Necessity Statement*: Continued hospitalization for IV pain medicine and monitoring of hemoglobin secondary to upper GI bleed. Diagnoses History of permanent cardiac pacemaker placement Z95.0 Peptic ulcer disease K27.9 Acute GI bleeding K92.2 Anemia, posthemorrhagic, acute D62 Anemia D64.9 Degenerative disc disease M51.360 Disc-related pain type: discogenic back pain only Spinal region: lumbar Essential hypertension I10 Coronary artery disease involving [place] coronary artery of [place] heart without angina pectoris I25.10 Coronary Disease-Associated Artery/Lesion type: [place] artery [place] vs. transplanted heart: [place] heart Associated angina: without angina Anemia due to GI blood loss D50.0
[2024-10-24 19:20] LABS: Basophils # 0.1 10^3/uL (0.0-0.1); Basophils % 0.4 %; Eosinophils # 0.2 10^3/uL (0.0-0.8); Eosinophils % 1.9 %; Hematocrit 30.1 % (36-47); Lymphocytes # 2.9 10^3/uL (0.8-4.8); Lymphocytes % 23.3 %; Mean Corpuscular HGB Conc 32.6 g/dL (30-55); Mean Corpuscular Hemoglobin 30.4 pg (27-33); Mean Corpuscular Volume 93.5 fl (85-98); Mean Platelet Volume 10.2 fL (7.4-10.4); Monocytes # 0.7 10^3/uL (0.2-0.9); Monocytes % 5.8 %; Neutrophils # 8.32 10^3/uL (1.8-7.7); Neutrophils % 68.1 %; Nucleated Red Blood Cells % 0.2 %; Platelet Count 162 10^3/cmm (157-399); Red Blood Count 3.22 10^6/uL (3.85-5.65); Red Cell Distribution Width 20.5 % (12.1-15.1); White Blood Count 12.22 10^3/uL (3.29-11.43)
[2024-10-24] MEDS: cyclobenzaprine 10 mg Tablet 5 MG PO (20:33)
[2024-10-25] VITALS (7 sets, daily range): BP systolic 94–142; BP diastolic 53–81; PULSE 58–78; RESP 14–17; TEMP 36.6–37.1; O2SAT 94–97
[2024-10-25] MEDS: pantoprazole 40 mg SDV IVP ×2 (06:23→16:53)
[2024-10-25] MEDS: levothyroxine 125 mcg Tablet PO (06:23)
[2024-10-25] MEDS: sucralfate 1 gm/10 mL Oral Liq UDC PO ×3 (06:24→16:53)
[2024-10-25 06:46] LABS: Anion Gap 12.9 (5-19); Blood Urea Nitrogen 16 mg/dL (8-23); Calcium 8.7 mg/dL (8.5-10.5); Carbon Dioxide 24 mmol/L (22-29); Chloride 109 mmol/L (98-107); Creatinine Clr Calc Pharmacy 63.4191; Glucose 111 mg/dL (65-115); Magnesium 1.9 mg/dL (1.7-2.3); Osmolality Calculated 296 mOsm/kg (285-295); Potassium 3.9 mmol/L (3.5-5.1); Sodium 142 mmol/L (136-145)
[2024-10-25 06:56] LABS: Basophils % 0.4 %; Eosinophils # 0.2 10^3/uL (0.0-0.8); Eosinophils % 2.2 %; Hematocrit 29.4 % (36-47); Lymphocytes # 1.6 10^3/uL (0.8-4.8); Lymphocytes % 15.9 %; Mean Corpuscular HGB Conc 31.6 g/dL (30-55); Mean Corpuscular Hemoglobin 30.2 pg (27-33); Mean Corpuscular Volume 95.5 fl (85-98); Mean Platelet Volume 10.2 fL (7.4-10.4); Monocytes # 0.6 10^3/uL (0.2-0.9); Monocytes % 6.1 %; Neutrophils # 7.36 10^3/uL (1.8-7.7); Neutrophils % 74.9 %; Nucleated Red Blood Cells % 0 %; Platelet Count 161 10^3/cmm (157-399); Red Blood Count 3.08 10^6/uL (3.85-5.65); Red Cell Distribution Width 20.4 % (12.1-15.1); White Blood Count 9.83 10^3/uL (3.29-11.43)
--- NOTE | 2024-10-25 09:30 | P.PN_ITS ---
Subjective 2 Subjective: No melena, no hematochezia Tolerating diet Vitals/I&O/Wt Last Vital Signs Temp 98.6 F 10/25/24 07:23 Pulse 59 L 10/25/24 07:23 Resp 14 10/25/24 07:23 BP 109/54 10/25/24 07:23 Pulse Ox 97 10/25/24 07:23 O2 Del Method Room Air 10/25/24 07:23 10/24/24 10/25/24 10/25/24 22:59 06:59 14:59 Intake Total 300 / 360 120 / 480 240 / 240 Balance 300 / 360 120 / 480 240 / 240 Weight last 48 hrs Weight 185 lb 9.6 oz Weight 185 lb 8 oz Weight 185 lb 8 oz Weight 170 lb Physical Exam 2 Narrative: Chest: Unlabored breathing room air. No lymphadenopathy. Heart: Regular rate and rhythm. Abdomen: Soft, nontender, nondistended. No masses or lymphadenopathy. Data 10/25/24 06:19 10/25/24 06:19 A&P Assessment and plan (1) Acute GI bleeding: Plan 74-year-old male status post EGD to rule out GI bleed. Prepyloric stricture identified. Biopsies pending. Patient can follow-up with me as outpatient. Attestations 2 Medical Necessity Statement*: NA Coding Level of Care Code 70576 Diagnoses Acute GI bleeding K92.2 Time Spent (min) 30
--- NOTE | 2024-10-25 10:16 | PC.SOCIAL ---
IMM Updated Updated pt on IMM. No questions voiced. Provided pt a copy. Initialed, dated, & timed a copy & placed in chart.
[2024-10-25] MEDS: HYDROcodone-acetaminophen 5-325 mg Tablet 1 TAB PO ×2 (11:34→16:53)
--- NOTE | 2024-10-25 14:10 | PM.PN ---
Subjective Subjective: Seen today. Patient states there is nobody at home to take care of her and she has a lot of animals. She does have a TLSO brace on however the pain is unbearable at times. She is not sure if she can function safely at home. I also have similar concerns and I discussed with the patient that given her lumbar fracture we should continue to hospitalize her and have her seen by orthopedic surgery on Monday. She is unsafe for discharge at home at this time. Vitals/I&O/Wt Last Vital Signs Temp 97.8 F 10/25/24 12:27 Pulse 62 10/25/24 13:56 Resp 17 10/25/24 13:56 BP 94/56 10/25/24 12:27 Pulse Ox 96 10/25/24 13:56 O2 Del Method Room Air 10/25/24 13:56 10/24/24 10/25/24 10/25/24 22:59 06:59 14:59 Intake Total 300 / 360 120 / 480 594 / 594 Balance 300 / 360 120 / 480 594 / 594 Weight last 48 hrs Weight 84.187 kg Weight 84.141 kg Weight 84.141 kg Physical Exam Narrative: Laying in bed appearing comfortable. TLSO brace in place. Normal S1-S2 Lungs clear to auscultation bilaterally abdomen soft nontender No edema bilateral lower extremities Resting comfortably in bed. ? Atraumatic normocephalic head. EOMI Data 10/25/24 06:19 10/25/24 06:19 Micro: Microbiology 10/23/24 18:48 Urine Culture - Preliminary Urine,Clean Catch Gram Negative Rods Gram Negative Rods#2 A&P Assessment and plan (1) History of permanent cardiac pacemaker placement: (2) Peptic ulcer disease: (3) Acute GI bleeding: (4) Anemia, posthemorrhagic, acute: (5) Anemia: (6) Degenerative disc disease: Qualifiers: Disc-related pain type: discogenic back pain only Spinal region: lumbar Qualified Code(s): M51.360 - Other intervertebral disc degeneration, lumbar region with discogenic back pain only (7) HTN (hypertension): (8) Coronary artery disease: Qualifiers: Coronary Disease-Associated Artery/Lesion type: [place] artery [place] vs. transplanted heart: [place] heart Associated angina: without angina Qualified Code(s): I25.10 - Atherosclerotic heart disease of [place] coronary artery without angina pectoris (9) Anemia due to GI blood loss: Plan Acute GI blood loss anemia In 2020 patient had similar episode at that point she was on antiplatelets, she is not on antiplatelets or anticoagulating agent Has a pacemaker for sick sinus syndrome I received ketorolac Previous history of gastritis duodenitis as per the EGD report per Dr. Grijalva Keep her n.p.o. Start Protonix 40 mg IV twice daily 2 unit PRBC with goal hemoglobin above 8 considering underlying coronary disease Hypertension: Closely monitor for now Holding off on antihypertensive regimen with active bleed Lower back pain: Degenerative joint disease: No typical signs of cauda equina patient is wanting to be seen by spine surgeon in the morning Patient does have a L1 vertebral body compression fracture Will request MRI spine after her endoscopy Patient is stating that her urine incontinence is relatively new but no in sensations of medial thigh area, no recent fall Her back pain is so severe she cannot lay flat, she has a recliner herself up in the bed Full code N.p.o. DVT prophylaxis: SCDs 10/24/2024 -EGD completed this morning. Possibility of prepyloric stricture. If hemoglobin remained stable in next 24 hours may be discharged from that standpoint ? Patient on TLSO brace at this time. Does have a known vertebral compression fracture on scan from 10/16. ? MRI cannot be completed secondary to pacemaker. ? Spine surgery not on-call today. She is to follow-up as an outpatient with them for further management ? Will optimize pain medications at this time. ? Labs consistent with iron deficiency anemia RDW 19. I will start on oral iron at this time. ? Check iron TIBC, ferritin. ? Once pathology biopsy results are available she may be able to follow-up as an outpatient with oncology. 10/25/2024 ?Patient does have a TLSO brace at this time. Has a known vertebral compression fracture from 10/16. Patient is unsafe to go home at this time and will likely need surgical intervention possible kyphoplasty. ? Spine surgeon not on-call today. Continue to hospitalize patient at this time. IV pain management required. ? Consult spine surgeon on Monday for possible procedure. ? Continue oral iron ? Check iron TIBC ferritin. ? Once pathology results available she should follow-up with oncology as an outpatient. Attestations Medical Necessity Statement*: Unsafe discharge home at this time secondary to pain and compression fracture. Coding Level of Care Code 16343 Diagnoses History of permanent cardiac pacemaker placement Z95.0 Peptic ulcer disease K27.9 Acute GI bleeding K92.2 Anemia, posthemorrhagic, acute D62 Anemia D64.9 Degenerative disc disease M51.360 Disc-related pain type: discogenic back pain only Spinal region: lumbar Essential hypertension I10 Coronary artery disease involving [place] coronary artery of [place] heart without angina pectoris I25.10 Coronary Disease-Associated Artery/Lesion type: [place] artery [place] vs. transplanted heart: [place] heart Associated angina: without angina Anemia due to GI blood loss D50.0
[2024-10-25 15:34] LABS: Ferritin 149 ng/mL (15-150); Iron 57 ug/dL (37-145); Percent Saturation 20.5 % (20-50); Total Iron Binding Capacity 278 mcg/dl; Unsaturated Iron Binding 221 ug/dL (112-347)
[2024-10-25 17:45] LABS: Basophils % 0.4 %; Eosinophils # 0.2 10^3/uL (0.0-0.8); Hematocrit 29.1 % (36-47); Lymphocytes # 2.2 10^3/uL (0.8-4.8); Lymphocytes % 27.2 %; Mean Corpuscular Hemoglobin 30.7 pg (27-33); Mean Platelet Volume 10.3 fL (7.4-10.4); Monocytes # 0.5 10^3/uL (0.2-0.9); Monocytes % 6.8 %; Neutrophils # 4.98 10^3/uL (1.8-7.7); Neutrophils % 62.5 %; Nucleated Red Blood Cells % 0 %; Platelet Count 162 10^3/cmm (157-399); Red Blood Count 3.03 10^6/uL (3.85-5.65); Red Cell Distribution Width 19.9 % (12.1-15.1); White Blood Count 7.97 10^3/uL (3.29-11.43)
[2024-10-26] VITALS (7 sets, daily range): BP systolic 106–147; BP diastolic 52–85; PULSE 59–80; RESP 15–18; TEMP 36.6–36.9; O2SAT 94–98
[2024-10-26 03:21] LABS: Basophils % 0.3 %; Eosinophils # 0.2 10^3/uL (0.0-0.8); Eosinophils % 3.1 %; Hematocrit 25.7 % (36-47); Lymphocytes # 2.2 10^3/uL (0.8-4.8); Lymphocytes % 29.8 %; Mean Corpuscular HGB Conc 31.9 g/dL (30-55); Mean Corpuscular Hemoglobin 30.3 pg (27-33); Mean Corpuscular Volume 94.8 fl (85-98); Mean Platelet Volume 10.8 fL (7.4-10.4); Monocytes # 0.6 10^3/uL (0.2-0.9); Monocytes % 7.8 %; Neutrophils # 4.24 10^3/uL (1.8-7.7); Neutrophils % 58.7 %; Nucleated Red Blood Cells % 0 %; Platelet Count 157 10^3/cmm (157-399); Red Blood Count 2.71 10^6/uL (3.85-5.65); Red Cell Distribution Width 19.5 % (12.1-15.1); White Blood Count 7.21 10^3/uL (3.29-11.43)
[2024-10-26 03:43] LABS: Anion Gap 13.5 (5-19); Blood Urea Nitrogen 16 mg/dL (8-23); Calcium 8.3 mg/dL (8.5-10.5); Carbon Dioxide 24 mmol/L (22-29); Chloride 105 mmol/L (98-107); Creatinine Clr Calc Pharmacy 63.4191; Glucose 100 mg/dL (65-115); Osmolality Calculated 289 mOsm/kg (285-295); Potassium 3.5 mmol/L (3.5-5.1); Sodium 139 mmol/L (136-145)
[2024-10-26] MEDS: pantoprazole 40 mg SDV IVP ×2 (06:17→17:34)
[2024-10-26] MEDS: levothyroxine 125 mcg Tablet PO (06:17)
[2024-10-26] MEDS: sucralfate 1 gm/10 mL Oral Liq UDC PO ×3 (06:17→17:34)
[2024-10-26] MEDS: HYDROcodone-acetaminophen 5-325 mg Tablet 1 TAB PO (10:50)
[2024-10-26] MEDS: cyclobenzaprine 10 mg Tablet 5 MG PO (10:50)
[2024-10-26] MEDS: lanolin oint 7 gm 1 APPLIC TOPICAL (17:34)
[2024-10-26] MEDS: sennosides-docusate Tablet 1 TAB PO (17:34)
[2024-10-26] MEDS: cefTRIAXone 1,000 mg SDV 1000 MG IVP (17:34)
[2024-10-27] VITALS (7 sets, daily range): BP systolic 106–146; BP diastolic 56–82; PULSE 59–78; RESP 15–18; TEMP 36.7–37.1; O2SAT 96–98
[2024-10-27 05:03] LABS: Anion Gap 22.7 (5-19); Blood Urea Nitrogen 12 mg/dL (8-23); Calcium 8.1 mg/dL (8.5-10.5); Carbon Dioxide 23 mmol/L (22-29); Chloride 98 mmol/L (98-107); Glucose 95 mg/dL (65-115); Magnesium 1.9 mg/dL (1.7-2.3); Osmolality Calculated 290 mOsm/kg (285-295); Potassium 3.7 mmol/L (3.5-5.1); Sodium 140 mmol/L (136-145)
[2024-10-27] MEDS: pantoprazole 40 mg SDV IVP ×2 (05:59→17:20)
[2024-10-27] MEDS: levothyroxine 125 mcg Tablet PO (05:59)
[2024-10-27] MEDS: sucralfate 1 gm/10 mL Oral Liq UDC PO ×3 (05:59→17:20)
[2024-10-27] MEDS: sennosides-docusate Tablet 1 TAB PO ×2 (08:33→17:20)
--- NOTE | 2024-10-27 13:09 | PM.PN ---
Subjective Subjective: Seen this morning. Patient states she is feeling better. Back pain is better controlled today with pain medication. She is still waiting to have a bowel movement. She took the docusate senna that I gave her yesterday. Vitals/I&O/Wt Last Vital Signs Temp 98.7 F 10/27/24 11:31 Pulse 61 10/27/24 11:31 Resp 16 10/27/24 11:31 BP 145/82 10/27/24 11:31 Pulse Ox 97 10/27/24 11:31 O2 Del Method Room Air 10/27/24 11:31 10/26/24 10/27/24 10/27/24 22:59 06:59 14:59 Intake Total 240 / 720 240 / 960 360 / 360 Balance 240 / 720 240 / 960 360 / 360 Weight last 48 hrs Weight 85.003 kg Physical Exam Narrative: Laying in bed appearing comfortable. TLSO brace in place. Normal S1-S2 Lungs clear to auscultation bilaterally abdomen soft nontender No edema bilateral lower extremities Resting comfortably in bed. ? Atraumatic normocephalic head. EOMI Data 10/26/24 02:46 10/27/24 02:30 Micro: Microbiology 10/23/24 18:48 Urine Culture - Final Urine,Clean Catch Proteus mirabilis Citrobacter murliniae A&P Assessment and plan (1) History of permanent cardiac pacemaker placement: (2) Peptic ulcer disease: (3) Acute GI bleeding: (4) Anemia, posthemorrhagic, acute: (5) Anemia: (6) Degenerative disc disease: Qualifiers: Disc-related pain type: discogenic back pain only Spinal region: lumbar Qualified Code(s): M51.360 - Other intervertebral disc degeneration, lumbar region with discogenic back pain only (7) HTN (hypertension): (8) Coronary artery disease: Qualifiers: Coronary Disease-Associated Artery/Lesion type: [place] artery [place] vs. transplanted heart: [place] heart Associated angina: without angina Qualified Code(s): I25.10 - Atherosclerotic heart disease of [place] coronary artery without angina pectoris (9) Anemia due to GI blood loss: Plan Acute GI blood loss anemia In 2020 patient had similar episode at that point she was on antiplatelets, she is not on antiplatelets or anticoagulating agent Has a pacemaker for sick sinus syndrome I received ketorolac Previous history of gastritis duodenitis as per the EGD report per Dr. Grijalva Keep her n.p.o. Start Protonix 40 mg IV twice daily 2 unit PRBC with goal hemoglobin above 8 considering underlying coronary disease Hypertension: Closely monitor for now Holding off on antihypertensive regimen with active bleed Lower back pain: Degenerative joint disease: No typical signs of cauda equina patient is wanting to be seen by spine surgeon in the morning Patient does have a L1 vertebral body compression fracture Will request MRI spine after her endoscopy Patient is stating that her urine incontinence is relatively new but no in sensations of medial thigh area, no recent fall Her back pain is so severe she cannot lay flat, she has a recliner herself up in the bed Full code N.p.o. DVT prophylaxis: SCDs 10/24/2024 -EGD completed this morning. Possibility of prepyloric stricture. If hemoglobin remained stable in next 24 hours may be discharged from that standpoint ? Patient on TLSO brace at this time. Does have a known vertebral compression fracture on scan from 10/16. ? MRI cannot be completed secondary to pacemaker. ? Spine surgery not on-call today. She is to follow-up as an outpatient with them for further management ? Will optimize pain medications at this time. ? Labs consistent with iron deficiency anemia RDW 19. I will start on oral iron at this time. ? Check iron TIBC, ferritin. ? Once pathology biopsy results are available she may be able to follow-up as an outpatient with oncology. 10/25/2024 ?Patient does have a TLSO brace at this time. Has a known vertebral compression fracture from 10/16. Patient is unsafe to go home at this time and will likely need surgical intervention possible kyphoplasty. ? Spine surgeon not on-call today. Continue to hospitalize patient at this time. IV pain management required. ? Consult spine surgeon on Monday for possible procedure. ? Continue oral iron ? Check iron TIBC ferritin. ? Once pathology results available she should follow-up with oncology as an outpatient. 10/27/2024 -Continue TLSO brace. Known vertebral fracture from 10/16. ? Consult Dr. Rai in a.m. for evaluation for kyphoplasty. ? Hemoglobin is stable ? Follow-up with oncology once pathology is also available. ? Patient lives alone at home with her animals. Secondary to pain and with no other help at home she is unable to go home safely at this time. She has concerns for falling and managing alone at this time. Attestations Medical Necessity Statement*: Unsafe discharge home at this time secondary to pain and compression fracture. Diagnoses History of permanent cardiac pacemaker placement Z95.0 Peptic ulcer disease K27.9 Acute GI bleeding K92.2 Anemia, posthemorrhagic, acute D62 Anemia D64.9 Degenerative disc disease M51.360 Disc-related pain type: discogenic back pain only Spinal region: lumbar Essential hypertension I10 Coronary artery disease involving [place] coronary artery of [place] heart without angina pectoris I25.10 Coronary Disease-Associated Artery/Lesion type: [place] artery [place] vs. transplanted heart: [place] heart Associated angina: without angina Anemia due to GI blood loss D50.0
[2024-10-27] MEDS: cefTRIAXone 1,000 mg SDV 1000 MG IVP (16:09)
[2024-10-27] MEDS: HYDROcodone-acetaminophen 5-325 mg Tablet 1 TAB PO (21:51)
[2024-10-28] VITALS (7 sets, daily range): BP systolic 95–134; BP diastolic 59–72; PULSE 60–68; RESP 15–18; TEMP 36.5–36.8; O2SAT 94–100
[2024-10-28 05:33] LABS: Basophils % 0.4 %; Eosinophils # 0.2 10^3/uL (0.0-0.8); Eosinophils % 4.1 %; Hematocrit 27.4 % (36-47); Lymphocytes % 40.1 %; Mean Corpuscular HGB Conc 30.3 g/dL (30-55); Mean Corpuscular Volume 98.9 fl (85-98); Mean Platelet Volume 10.3 fL (7.4-10.4); Monocytes # 0.4 10^3/uL (0.2-0.9); Monocytes % 8.6 %; Neutrophils # 2.28 10^3/uL (1.8-7.7); Neutrophils % 46.6 %; Nucleated Red Blood Cells % 0 %; Platelet Count 178 10^3/cmm (157-399); Red Blood Count 2.77 10^6/uL (3.85-5.65); Red Cell Distribution Width 18.3 % (12.1-15.1); White Blood Count 4.89 10^3/uL (3.29-11.43)
[2024-10-28 05:56] LABS: Anion Gap 14.8 (5-19); Blood Urea Nitrogen 8 mg/dL (8-23); Calcium 8.2 mg/dL (8.5-10.5); Carbon Dioxide 23 mmol/L (22-29); Chloride 106 mmol/L (98-107); Creatinine Clr Calc Pharmacy 64.1613; Glucose 92 mg/dL (65-115); Osmolality Calculated 288 mOsm/kg (285-295); Potassium 3.8 mmol/L (3.5-5.1); Sodium 140 mmol/L (136-145)
[2024-10-28] MEDS: sucralfate 1 gm/10 mL Oral Liq UDC PO ×3 (06:16→17:55)
[2024-10-28] MEDS: pantoprazole 40 mg SDV IVP ×2 (06:16→17:55)
[2024-10-28] MEDS: levothyroxine 125 mcg Tablet PO (06:16)
[2024-10-28] MEDS: sennosides-docusate Tablet 1 TAB PO ×2 (08:13→17:56)
--- NOTE | 2024-10-28 12:10 | PC.SOCIAL ---
IMM Update pg 2 of IMM Updated and reviewed w/ patient. Copy provided and copy dated, initialed and placed in chart.
[2024-10-28] MEDS: cefTRIAXone 1,000 mg SDV 1000 MG IVP (15:45)
--- NOTE | 2024-10-28 17:30 | P.PN_ITS ---
Subjective 2 Subjective: Hemoglobin stable at 8.3 today. No GI bleeding currently. Medications: Reviewed: Yes Vitals/I&O/Wt Last Vital Signs Temp 98.3 F 10/28/24 15:24 Pulse 60 10/28/24 15:24 Resp 15 10/28/24 15:24 BP 115/62 10/28/24 15:24 Pulse Ox 99 10/28/24 15:24 O2 Del Method Room Air 10/28/24 15:24 10/28/24 10/28/24 10/28/24 06:59 14:59 22:59 Intake Total 360 / 360 Output Total Balance 359 / 359 Weight last 48 hrs Weight 86.092 kg Weight 85.003 kg Physical Exam 2 Narrative: General: No acute distress, AO x3 HEENT: PERRLA, pupils bilaterally equal and reactive, pallors not present Chest: Normal vesicular breath sounds, no added sounds, equal good air entry bilaterally CVS: S1-S2 regular, no murmurs, no tachycardia, no gallops, no rubs Abdomen: Soft, nontender, no organomegaly, bowel sounds present Neuro: No focal deficits, no facial deformity, AO x3, power 5/5 in all limbs Data 10/28/24 04:47 10/28/24 04:47 A&P Assessment and plan (1) History of permanent cardiac pacemaker placement: (2) Peptic ulcer disease: (3) Acute GI bleeding: (4) Anemia, posthemorrhagic, acute: (5) Anemia: (6) Degenerative disc disease: Qualifiers: Disc-related pain type: discogenic back pain only Spinal region: lumbar Qualified Code(s): M51.360 - Other intervertebral disc degeneration, lumbar region with discogenic back pain only (7) HTN (hypertension): (8) Coronary artery disease: Qualifiers: Coronary Disease-Associated Artery/Lesion type: [place] artery [place] vs. transplanted heart: [place] heart Associated angina: without angina Qualified Code(s): I25.10 - Atherosclerotic heart disease of [place] coronary artery without angina pectoris (9) Anemia due to GI blood loss: Plan Acute GI blood loss anemia In 2020 patient had similar episode at that point she was on antiplatelets, she is not on antiplatelets or anticoagulating agent Has a pacemaker for sick sinus syndrome I received ketorolac Previous history of gastritis duodenitis as per the EGD report per Dr. Grijalva Keep her n.p.o. Start Protonix 40 mg IV twice daily 2 unit PRBC with goal hemoglobin above 8 considering underlying coronary disease Hypertension: Closely monitor for now Holding off on antihypertensive regimen with active bleed Lower back pain: Degenerative joint disease: No typical signs of [place] patient is wanting to be seen by spine surgeon in the morning Patient does have a L1 vertebral body compression fracture Will request MRI spine after her endoscopy Patient is stating that her urine incontinence is relatively new but no in sensations of medial thigh area, no recent fall Her back pain is so severe she cannot lay flat, she has a recliner herself up in the bed Full code N.p.o. DVT prophylaxis: SCDs 10/24/2024 -EGD completed this morning. Possibility of prepyloric stricture. If hemoglobin remained stable in next 24 hours may be discharged from that standpoint ? Patient on TLSO brace at this time. Does have a known vertebral compression fracture on scan from 10/16. ? MRI cannot be completed secondary to pacemaker. ? Spine surgery not on-call today. She is to follow-up as an outpatient with them for further management ? Will optimize pain medications at this time. ? Labs consistent with iron deficiency anemia RDW 19. I will start on oral iron at this time. ? Check iron TIBC, ferritin. ? Once pathology biopsy results are available she may be able to follow-up as an outpatient with oncology. 10/25/2024 ?Patient does have a TLSO brace at this time. Has a known vertebral compression fracture from 10/16. Patient is unsafe to go home at this time and will likely need surgical intervention possible kyphoplasty. ? Spine surgeon not on-call today. Continue to hospitalize patient at this time. IV pain management required. ? Consult spine surgeon on Monday for possible procedure. ? Continue oral iron ? Check iron TIBC ferritin. ? Once pathology results available she should follow-up with oncology as an outpatient. 10/27/2024 -Continue TLSO brace. Known vertebral fracture from 10/16. ? Consult Dr. Rai in a.m. for evaluation for kyphoplasty. ? Hemoglobin is stable ? Follow-up with oncology once pathology is also available. ? Patient lives alone at home with her animals. Secondary to pain and with no other help at home she is unable to go home safely at this time. She has concerns for falling and managing alone at this time. oct 28, 2024 Hb stable today consulted ortho surgery Dr. Rai, continue TLSO brace Pain appears to be controlled with current regimen last iv morphine 2 mg taken on 10/24/24 ay 12: 24 PM. NO administered doses of morphine 4 mg. Po hydrocoddone APAP last taken at 10/27/24 at 21: 51. prn order renewed. Iv orders d/c as not needed since 10/24/24. Will assess. Continue prn flexeril, last taken 10/26. urine cx with Galvez S Proteus and citrobacter , on ceftriaxone currently. Attestations 2 Medical Necessity Statement*: Spine surgery assessment , discharge planning Coding Level of Care Code Acute Code for Chg Fwd Straight Forward/Low MDM includes number and complexity of problems actively addressed during encounter, amount and/or complexity of data reviewed/ordered and described risk of complication, morbidity or mortality of management as documented Diagnoses History of permanent cardiac pacemaker placement Z95.0 Peptic ulcer disease K27.9 Acute GI bleeding K92.2 Anemia, posthemorrhagic, acute D62 Anemia D64.9 Degenerative disc disease M51.360 Disc-related pain type: discogenic back pain only Spinal region: lumbar Essential hypertension I10 Coronary artery disease involving [place] coronary artery of [place] heart without angina pectoris I25.10 Coronary Disease-Associated Artery/Lesion type: [place] artery [place] vs. transplanted heart: [place] heart Associated angina: without angina Anemia due to GI blood loss D50.0
[2024-10-28] MEDS: cyclobenzaprine 10 mg Tablet 5 MG PO (23:10)
[2024-10-29 05:29] LABS: Basophils % 0.4 %; Eosinophils # 0.3 10^3/uL (0.0-0.8); Eosinophils % 5.9 %; Hematocrit 27.5 % (36-47); Lymphocytes # 1.5 10^3/uL (0.8-4.8); Mean Corpuscular HGB Conc 31.3 g/dL (30-55); Mean Corpuscular Hemoglobin 30.5 pg (27-33); Mean Corpuscular Volume 97.5 fl (85-98); Mean Platelet Volume 10.4 fL (7.4-10.4); Monocytes # 0.4 10^3/uL (0.2-0.9); Monocytes % 8.2 %; Neutrophils # 2.57 10^3/uL (1.8-7.7); Neutrophils % 54.3 %; Nucleated Red Blood Cells % 0 %; Platelet Count 199 10^3/cmm (157-399); Red Blood Count 2.82 10^6/uL (3.85-5.65); Red Cell Distribution Width 18.3 % (12.1-15.1); White Blood Count 4.74 10^3/uL (3.29-11.43)
[2024-10-29 06:01] LABS: Alanine Aminotransferase 20 U/L (0-33); Albumin Level 2.9 g/dL (3.5-5.2); Alkaline Phosphatase 127 U/L (35-105); Anion Gap 16.1 (5-19); Aspartate Amino Transferase 23 U/L (0-32); Blood Urea Nitrogen 6 mg/dL (8-23); Calcium 8.4 mg/dL (8.5-10.5); Carbon Dioxide 23 mmol/L (22-29); Chloride 108 mmol/L (98-107); Creatinine Clr Calc Pharmacy 64.1613; Globulin 2.7 g/dL (1.3-4.6); Glucose 93 mg/dL (65-115); Osmolality Calculated 293 mOsm/kg (285-295); Potassium 4.1 mmol/L (3.5-5.1); Sodium 143 mmol/L (136-145); Total Bilirubin 0.3 mg/dL (0.15-1.2); Total Protein 5.6 g/dL (6.6-8.7)
[2024-10-29] MEDS: pantoprazole 40 mg SDV IVP ×2 (06:11→17:11)
[2024-10-29] MEDS: levothyroxine 125 mcg Tablet PO (06:11)
[2024-10-29] MEDS: sucralfate 1 gm/10 mL Oral Liq UDC PO ×3 (06:11→17:11)
[2024-10-29 07:40] VITALS: BP 130/78; PULSE 60; RESP 16; TEMP 36.7; O2SAT 97
--- NOTE | 2024-10-29 08:05 | P.CONIM_ITS ---
Providers/Reason For Consult 2 Consulting Physician/Specialty*: Hospitalist Reason for Consult*: L1 compression fracture Attending Physician: Anita Lawrence MD Primary Care Provider: Cassie Cosby MD History of Present Illness History of Present Illness Mady Dhaliwal is a 74 year old female was admitted to the hospital last week for what appears to be GI bleed. She is also subsequent complaining of low back pain patient has an L1 compression fracture on CT scan. I was asked to see her for this compression fracture. Review of Systems 2 Const: Denies: fever(s) Eyes: Denies: change in vision ENMT: Denies: throat pain Card: Denies: chest pain Resp: Reports: dyspnea GI: Reports: abdominal pain and nausea : Denies: flank pain Musc: Denies: neck pain Medications/Allergies Home Medications Medication Instructions Recorded Confirmed Last Taken Type ascorbic acid (vitamin C) 250 mg 250 mg PO QAM 05/05/22 10/24/24 07/25/24 History tablet (Vitamin C) multivitamin 1 tab PO QAM 05/05/22 10/24/24 07/25/24 History levothyroxine 125 mcg tablet 125 mcg PO DAILY #90 tabs 08/09/24 10/24/24 Unknown Rx cyclobenzaprine 10 mg tablet 5 mg (1/2 x 10 mg) PO PRN PRN 10/10/24 10/24/24 Unknown Rx Muscle Spasm #10 tabs fluconazole 40 mg/mL oral 150 mg (3.75 mL) PO DAILY 1 dose 10/16/24 10/24/24 Unknown Rx suspension (Diflucan) #35 mL hydrocodone 5 mg-acetaminophen 325 1 tab PO Q8H PRN pain #14 tabs 10/16/24 10/24/24 Unknown Rx mg tablet Allergies Allergy/AdvReac Type Severity Reaction Status Date / Time Penicillins Allergy Unknown Verified 10/23/24 14:13 Current Medications Generic Name Dose Route Start Last Admin Trade Name Freq PRN Reason Stop Dose Admin Ceftriaxone Sodium 1,000 mg 10/26/24 15:15 10/28/24 15:45 Ceftriaxone 1,000 Mg Sdv IVP 1,000 mg Q24H ELVA Administration Protocol Cyclobenzaprine HCl 5 mg 10/23/24 20:51 10/28/24 23:10 Cyclobenzaprine 10 Mg Tablet PO 5 mg BID PRN Administration Muscle Spasm Ferrous Sulfate 300 mg 10/25/24 18:00 10/28/24 17:55 Ferrous Sulfate 300 Mg/5 Ml Udc PO 300 mg BIDWM ELVA Administration Lanolin 1 applic 10/26/24 16:17 10/26/24 17:34 Lanolin Oint 7 Gm TOPICAL 1 applic PRN PRN Administration DRYNESS Levothyroxine Sodium 125 mcg 10/24/24 06:00 10/29/24 06:11 Levothyroxine 125 Mcg Tablet PO 125 mcg DAILY@0600 ELVA Administration Pantoprazole Sodium 40 mg 10/24/24 06:00 10/29/24 06:11 Pantoprazole 40 Mg Sdv IVP 40 mg Q12H ELVA Administration Senna/Docusate Sodium 1 tab 10/26/24 18:00 10/28/24 17:56 Sennosides-Docusate Tablet PO 1 tab BID ELVA Administration Sucralfate 1 gm 10/24/24 07:00 10/29/24 06:11 Sucralfate 1 Gm/10 Ml Oral Liq Udc PO 1 gm AC ELVA Administration PFSH Acute 2 PFSH: Medical History Coronary artery disease ST elevation [place] (STEMI) HTN (hypertension) Hyperlipidemia Reports she cannot take statins Hypothyroidism Surgical History History of permanent cardiac pacemaker placement H/O coronary angiogram 2019, RCA disease MARGY times 2 S/P cholecystectomy Family History Father Cancer glioblastoma Mother CAD (coronary artery disease), Onset Age: 90 Denies family history of Diabetes Clotting disorder Dementia Chronic kidney disease (CKD) Suicide Anesthesia complication Bleeding disorder Lung disease Stroke Social History Smoking and tobacco/nicotine status: never used tobacco/nicotine Alcohol intake: never Substance/Drug Use: never Vitals/I&O/Wt Last Vital Signs Temp 98.0 F 10/29/24 07:40 Pulse 60 10/29/24 07:40 Resp 16 10/29/24 07:40 BP 130/78 10/29/24 07:40 Pulse Ox 97 10/29/24 07:40 O2 Del Method Room Air 10/29/24 07:40 10/28/24 10/29/24 10/29/24 22:59 06:59 14:59 Intake Total 600 / 960 Balance 600 / 959 Weight last 48 hrs Weight 191 lb 9.6 oz Weight 189 lb 12.8 oz Physical Exam 2 Narrative: Alert and oriented x 3 Head is normocephalic atraumatic Respirations are intact No evidence of any rashes or infection 5/5 strength in bilateral upper and lowe r extremities Sensation intact in all extremities Deep tendon reflexes 2 out of 4 bilateral upper and lower extremities Data 10/29/24 04:44 10/29/24 04:44 A&P Assessment and plan (1) Compression fracture of L1 lumbar vertebra: Will order a bone scan to determine the acuity of the fracture. If this is acute L1 fracture we will potentially do kyphoplasty tomorrow. Qualifiers: Encounter type: initial encounter Qualified Code(s): S32.010A - [place] compression fracture of first lumbar vertebra, initial encounter for closed fracture Consult Attestations 2 Medical Necessity Statement: Per primary service Coding Level of Care Code Acute Code for Chg Fwd Diagnoses Compression fracture of L1 vertebra, initial encounter S32.010A Encounter type: initial encounter
[2024-10-29 08:58] VITALS: PULSE 60; RESP 16; O2SAT 99
[2024-10-29] MEDS: sennosides-docusate Tablet 1 TAB PO ×2 (09:01→17:11)
[2024-10-29 11:55] VITALS: BP 119/63; PULSE 61; RESP 17; TEMP 37; O2SAT 98
--- NOTE | 2024-10-29 14:54 | P.PN_ITS ---
Subjective 2 Subjective: Hemoglobin stable at 8.6. Patient sleeping comfortably at the time of rounds. Medications: Reviewed: Yes Vitals/I&O/Wt Last Vital Signs Temp 98.6 F 10/29/24 11:55 Pulse 61 10/29/24 11:55 Resp 17 10/29/24 11:55 BP 119/63 10/29/24 11:55 Pulse Ox 98 10/29/24 11:55 O2 Del Method Room Air 10/29/24 11:55 10/28/24 10/29/24 10/29/24 22:59 06:59 14:59 Intake Total 600 / 960 480 / 480 Balance 600 / 959 480 / 480 Weight last 48 hrs Weight 86.908 kg Weight 86.092 kg Physical Exam 2 Narrative: General: No acute distress, AO x3 HEENT: PERRLA, pupils bilaterally equal and reactive, pallors not present Chest: Normal vesicular breath sounds, no added sounds, equal good air entry bilaterally CVS: S1-S2 regular, no murmurs, no tachycardia, no gallops, no rubs Abdomen: Soft, nontender, no organomegaly, bowel sounds present Neuro: No focal deficits, no facial deformity, AO x3, power 5/5 in all limbs Data 10/29/24 04:44 10/29/24 04:44 A&P Assessment and plan (1) History of permanent cardiac pacemaker placement: (2) Peptic ulcer disease: (3) Acute GI bleeding: (4) Anemia, posthemorrhagic, acute: (5) Anemia: (6) Degenerative disc disease: Qualifiers: Disc-related pain type: discogenic back pain only Spinal region: lumbar Qualified Code(s): M51.360 - Other intervertebral disc degeneration, lumbar region with discogenic back pain only (7) HTN (hypertension): (8) Coronary artery disease: Qualifiers: Coronary Disease-Associated Artery/Lesion type: [place] artery [place] vs. transplanted heart: [place] heart Associated angina: without angina Qualified Code(s): I25.10 - Atherosclerotic heart disease of [place] coronary artery without angina pectoris (9) Anemia due to GI blood loss: Plan Acute GI blood loss anemia In 2020 patient had similar episode at that point she was on antiplatelets, she is not on antiplatelets or anticoagulating agent Has a pacemaker for sick sinus syndrome I received ketorolac Previous history of gastritis duodenitis as per the EGD report per Dr. Grijalva Keep her n.p.o. Start Protonix 40 mg IV twice daily 2 unit PRBC with goal hemoglobin above 8 considering underlying coronary disease Hypertension: Closely monitor for now Holding off on antihypertensive regimen with active bleed Lower back pain: Degenerative joint disease: No typical signs of cauda equina patient is wanting to be seen by spine surgeon in the morning Patient does have a L1 vertebral body compression fracture Will request MRI spine after her endoscopy Patient is stating that her urine incontinence is relatively new but no in sensations of medial thigh area, no recent fall Her back pain is so severe she cannot lay flat, she has a recliner herself up in the bed Full code N.p.o. DVT prophylaxis: SCDs 10/24/2024 -EGD completed this morning. Possibility of prepyloric stricture. If hemoglobin remained stable in next 24 hours may be discharged from that standpoint ? Patient on TLSO brace at this time. Does have a known vertebral compression fracture on scan from 10/16. ? MRI cannot be completed secondary to pacemaker. ? Spine surgery not on-call today. She is to follow-up as an outpatient with them for further management ? Will optimize pain medications at this time. ? Labs consistent with iron deficiency anemia RDW 19. I will start on oral iron at this time. ? Check iron TIBC, ferritin. ? Once pathology biopsy results are available she may be able to follow-up as an outpatient with oncology. 10/25/2024 ?Patient does have a TLSO brace at this time. Has a known vertebral compression fracture from 10/16. Patient is unsafe to go home at this time and will likely need surgical intervention possible kyphoplasty. ? Spine surgeon not on-call today. Continue to hospitalize patient at this time. IV pain management required. ? Consult spine surgeon on Monday for possible procedure. ? Continue oral iron ? Check iron TIBC ferritin. ? Once pathology results available she should follow-up with oncology as an outpatient. 10/27/2024 -Continue TLSO brace. Known vertebral fracture from 10/16. ? Consult Dr. Rai in a.m. for evaluation for kyphoplasty. ? Hemoglobin is stable ? Follow-up with oncology once pathology is also available. ? Patient lives alone at home with her animals. Secondary to pain and with no other help at home she is unable to go home safely at this time. She has concerns for falling and managing alone at this time. oct 28, 2024 Hb stable today consulted ortho surgery Dr. Rai, continue TLSO brace Pain appears to be controlled with current regimen last iv morphine 2 mg taken on 10/24/24 ay 12: 24 PM. NO administered doses of morphine 4 mg. Po hydrocoddone APAP last taken at 10/27/24 at 21: 51. prn order renewed. Iv orders d/c as not needed since 10/24/24. Will assess. Continue prn flexeril, last taken 10/26. urine cx with Galvez S Proteus and citrobacter , on ceftriaxone currently. October 29, 2024 Hemoglobin stable at 8.6. Evaluated by spine surgery, plan for bone scan tomorrow. Likely conservative management if fracture appearing to be chronic. May require kyphoplasty if acute. Has not required hydrocodone this morning. She was apprehensive to participate with physical therapy until seen by Dr. Holloway. Worked in bed for therapy. Further planning dependent on results of bone scan tomorrow. Attestations 2 Medical Necessity Statement*: Pending bone scan to evaluate acuity of fracture Coding Level of Care Code Acute Code for Chg Fwd Diagnoses History of permanent cardiac pacemaker placement Z95.0 Peptic ulcer disease K27.9 Acute GI bleeding K92.2 Anemia, posthemorrhagic, acute D62 Anemia D64.9 Degenerative disc disease M51.360 Disc-related pain type: discogenic back pain only Spinal region: lumbar Essential hypertension I10 Coronary artery disease involving [place] coronary artery of [place] heart without angina pectoris I25.10 Coronary Disease-Associated Artery/Lesion type: [place] artery [place] vs. transplanted heart: [place] heart Associated angina: without angina Anemia due to GI blood loss D50.0
[2024-10-29] MEDS: cefTRIAXone 1,000 mg SDV 1000 MG IVP (15:13)
[2024-10-29 16:00] VITALS: BP 137/71; PULSE 62; RESP 18; TEMP 36.7; O2SAT 98
[2024-10-29 20:00] VITALS: BP 126/63; PULSE 61; RESP 18; TEMP 36.7; O2SAT 97
[2024-10-30 05:52] LABS: Basophils % 0.4 %; Eosinophils # 0.2 10^3/uL (0.0-0.8); Eosinophils % 4.5 %; Hematocrit 27.5 % (36-47); Lymphocytes # 1.5 10^3/uL (0.8-4.8); Lymphocytes % 31.4 %; Mean Corpuscular HGB Conc 30.9 g/dL (30-55); Mean Corpuscular Hemoglobin 30.1 pg (27-33); Mean Corpuscular Volume 97.5 fl (85-98); Mean Platelet Volume 10.4 fL (7.4-10.4); Monocytes # 0.5 10^3/uL (0.2-0.9); Monocytes % 9.8 %; Neutrophils # 2.53 10^3/uL (1.8-7.7); Neutrophils % 53.7 %; Nucleated Red Blood Cells % 0 %; Platelet Count 219 10^3/cmm (157-399); Red Blood Count 2.82 10^6/uL (3.85-5.65); Red Cell Distribution Width 18.1 % (12.1-15.1); White Blood Count 4.71 10^3/uL (3.29-11.43)
[2024-10-30] MEDS: pantoprazole 40 mg SDV IVP (05:59)
[2024-10-30] MEDS: sucralfate 1 gm/10 mL Oral Liq UDC PO ×3 (05:59→18:30)
[2024-10-30] MEDS: levothyroxine 125 mcg Tablet PO (05:59)
[2024-10-30 06:21] LABS: Alanine Aminotransferase 16 U/L (0-33); Albumin Level 2.9 g/dL (3.5-5.2); Alkaline Phosphatase 128 U/L (35-105); Anion Gap 15.7 (5-19); Aspartate Amino Transferase 21 U/L (0-32); Blood Urea Nitrogen 5 mg/dL (8-23); Calcium 8.5 mg/dL (8.5-10.5); Carbon Dioxide 22 mmol/L (22-29); Chloride 107 mmol/L (98-107); Creatinine Clr Calc Pharmacy 64.4792; Globulin 2.6 g/dL (1.3-4.6); Glucose 100 mg/dL (65-115); Osmolality Calculated 289 mOsm/kg (285-295); Potassium 3.7 mmol/L (3.5-5.1); Sodium 141 mmol/L (136-145); Total Bilirubin 0.3 mg/dL (0.15-1.2); Total Protein 5.5 g/dL (6.6-8.7)
[2024-10-30 08:00] VITALS: BP 148/75; PULSE 60; RESP 17; TEMP 36.6; O2SAT 98
--- NOTE | 2024-10-30 08:02 | NM_ITS ---
WS: [id number] NUCLEAR MEDICINE WHOLE BODY BONE SCAN HISTORY: L1 compression fracture; pt has a pacemaker COMPARISON: CT lumbar spine 10/16/2024 TECHNIQUE: The patient was injected with 26.5 mCi of Technetium 99m HDP and serial whole-body scintig espinoza have been performed with anterior and posterior images. Moderately intense uptake in the L1 vertebral body in an H-shaped configuration. Corresponds to the f indings of an acute fracture described by CT on 10/16/2024. No additional uptake in the spine. There is mild curvature and scoliosis of the thoracic and lumbar spines. Very minimal AC joint disease. Mod erate patellofemoral and ankle joint arthritis. Normal soft tissue uptake. Both kidneys are identifie d. NM/NM bone scan whole body* [id number] IMPRESSION: 1. Increased uptake within the L1 vertebral body consistent with a compression fracture as described by CT on 10/16/2024. 2. No additional suspicious areas of uptake in the ribs or spine. 3. Osteoarthritic changes at the knees and ankles.
[2024-10-30 08:22] VITALS: BP 148/75; PULSE 60; RESP 17; TEMP 36.6
[2024-10-30] MEDS: sennosides-docusate Tablet 1 TAB PO ×2 (08:28→18:26)
[2024-10-30 09:04] VITALS: PULSE 62; RESP 16; O2SAT 98
--- NOTE | 2024-10-30 10:05 | PC.SOCIAL ---
IMM Update pg 2 of IMM updated and reviewed w/ patient. Copy provided and and copy dated, initialed and placed in chart.
[2024-10-30] MEDS: HYDROcodone-acetaminophen 5-325 mg Tablet 1 TAB PO ×2 (10:58→18:30)
--- NOTE | 2024-10-30 11:04 | PC.NURSE ---
Lidocaine 5% topical patched ordered per verbal order from Dr. Lawrence. Incentive Spirometer ordered per verbal order from Dr. Lawrence. both orders in
[2024-10-30 12:00] VITALS: BP 150/77; PULSE 60; RESP 19; TEMP 36.7; O2SAT 98
[2024-10-30] MEDS: lidocaine 5% Patch 1 PATCH TOPICAL (12:17)
--- NOTE | 2024-10-30 13:05 | P.PN_ITS ---
Subjective 2 Subjective: Completed bone scan this morning. States that after the bone scan her pain has increased. Patient is currently crying. She is hesitant to try more opiates. requesting NSAIDs, however has been counseled that with recent GI bleeding NSAIDs would not be a safe intervention at this time. Medications: Reviewed: Yes Vitals/I&O/Wt Last Vital Signs Temp 98.0 F 10/30/24 12:00 Pulse 60 10/30/24 12:00 Resp 19 H 10/30/24 12:00 BP 150/77 10/30/24 12:00 Pulse Ox 98 10/30/24 12:00 O2 Del Method Room Air 10/30/24 12:00 10/29/24 10/30/24 10/30/24 22:59 06:59 14:59 Intake Total 480 / 960 480 / 480 Balance 480 / 960 480 / 480 Weight last 48 hrs Weight 87.044 kg Weight 86.908 kg Physical Exam 2 Narrative: General: No acute distress, AO x3 HEENT: PERRLA, pupils bilaterally equal and reactive, pallors not present Chest: Normal vesicular breath sounds, no added sounds, equal good air entry bilaterally CVS: S1-S2 regular, no murmurs, no tachycardia, no gallops, no rubs Abdomen: Soft, nontender, no organomegaly, bowel sounds present Neuro: No focal deficits, no facial deformity, AO x3, power 5/5 in all limbs Data 10/30/24 04:52 10/30/24 04:52 A&P Assessment and plan (1) History of permanent cardiac pacemaker placement: (2) Peptic ulcer disease: (3) Acute GI bleeding: (4) Anemia, posthemorrhagic, acute: (5) Anemia: (6) Degenerative disc disease: Qualifiers: Disc-related pain type: discogenic back pain only Spinal region: lumbar Qualified Code(s): M51.360 - Other intervertebral disc degeneration, lumbar region with discogenic back pain only (7) HTN (hypertension): (8) Coronary artery disease: Qualifiers: Coronary Disease-Associated Artery/Lesion type: [place] artery [place] vs. transplanted heart: [place] heart Associated angina: without angina Qualified Code(s): I25.10 - Atherosclerotic heart disease of [place] coronary artery without angina pectoris (9) Anemia due to GI blood loss: Plan Acute GI blood loss anemia In 2020 patient had similar episode at that point she was on antiplatelets, she is not on antiplatelets or anticoagulating agent Has a pacemaker for sick sinus syndrome I received ketorolac Previous history of gastritis duodenitis as per the EGD report per Dr. Grijalva Keep her n.p.o. Start Protonix 40 mg IV twice daily 2 unit PRBC with goal hemoglobin above 8 considering underlying coronary disease Hypertension: Closely monitor for now Holding off on antihypertensive regimen with active bleed Lower back pain: Degenerative joint disease: No typical signs of cauda equina patient is wanting to be seen by spine surgeon in the morning Patient does have a L1 vertebral body compression fracture Will request MRI spine after her endoscopy Patient is stating that her urine incontinence is relatively new but no in sensations of medial thigh area, no recent fall Her back pain is so severe she cannot lay flat, she has a recliner herself up in the bed Full code N.p.o. DVT prophylaxis: SCDs 10/24/2024 -EGD completed this morning. Possibility of prepyloric stricture. If hemoglobin remained stable in next 24 hours may be discharged from that standpoint ? Patient on TLSO brace at this time. Does have a known vertebral compression fracture on scan from 10/16. ? MRI cannot be completed secondary to pacemaker. ? Spine surgery not on-call today. She is to follow-up as an outpatient with them for further management ? Will optimize pain medications at this time. ? Labs consistent with iron deficiency anemia RDW 19. I will start on oral iron at this time. ? Check iron TIBC, ferritin. ? Once pathology biopsy results are available she may be able to follow-up as an outpatient with oncology. 10/25/2024 ?Patient does have a TLSO brace at this time. Has a known vertebral compression fracture from 10/16. Patient is unsafe to go home at this time and will likely need surgical intervention possible kyphoplasty. ? Spine surgeon not on-call today. Continue to hospitalize patient at this time. IV pain management required. ? Consult spine surgeon on Monday for possible procedure. ? Continue oral iron ? Check iron TIBC ferritin. ? Once pathology results available she should follow-up with oncology as an outpatient. 10/27/2024 -Continue TLSO brace. Known vertebral fracture from 10/16. ? Consult Dr. Rai in a.m. for evaluation for kyphoplasty. ? Hemoglobin is stable ? Follow-up with oncology once pathology is also available. ? Patient lives alone at home with her animals. Secondary to pain and with no other help at home she is unable to go home safely at this time. She has concerns for falling and managing alone at this time. oct 28, 2024 Hb stable today consulted ortho surgery Dr. Rai, continue TLSO brace Pain appears to be controlled with current regimen last iv morphine 2 mg taken on 10/24/24 ay 12: 24 PM. NO administered doses of morphine 4 mg. Po hydrocoddone APAP last taken at 10/27/24 at 21: 51. prn order renewed. Iv orders d/c as not needed since 10/24/24. Will assess. Continue prn flexeril, last taken 10/26. urine cx with Galvez S Proteus and citrobacter , on ceftriaxone currently. October 29, 2024 Hemoglobin stable at 8.6. Evaluated by spine surgery, plan for bone scan tomorrow. Likely conservative management if fracture appearing to be chronic. May require kyphoplasty if acute. Has not required hydrocodone this morning. She was apprehensive to participate with physical therapy until seen by Dr. Holloway. Worked in bed for therapy. Further planning dependent on results of bone scan tomorrow. Oct 30, 2024 Patient states her pain increased after being moved for the bone scan. Still able to move bilateral lower extremities. No tingling or numbness. Able to void without issues. Patient has been trying to minimize opioids while in the hospital. She requested NSAIDs, however counseled that with recent GI bleeding NSAIDs would not be a safe intervention for her.She is hesitant to participate with PT however has been up in the room walking to the bathroom intermittently. Today her pain is worse. Nonopiate pain management optimized with lidocaine patch, addition of diclofenac gel topically, Flexeril as needed for muscle spasms. Encouraged incentive spirometry Bone scan completed today, shows L1 fracture, appearing to be acute, likely will proceed to kyphoplasty, next OR day on Monday. Attestations 2 Medical Necessity Statement*: planned kyphoplasty Coding Level of Care Code Acute Code for Chg Fwd Diagnoses History of permanent cardiac pacemaker placement Z95.0 Peptic ulcer disease K27.9 Acute GI bleeding K92.2 Anemia, posthemorrhagic, acute D62 Anemia D64.9 Degenerative disc disease M51.360 Disc-related pain type: discogenic back pain only Spinal region: lumbar Essential hypertension I10 Coronary artery disease involving [place] coronary artery of [place] heart without angina pectoris I25.10 Coronary Disease-Associated Artery/Lesion type: [place] artery [place] vs. transplanted heart: [place] heart Associated angina: without angina Anemia due to GI blood loss D50.0
[2024-10-30 16:00] VITALS: BP 158/80; PULSE 59; RESP 18; TEMP 36.6; O2SAT 96
[2024-10-30] MEDS: cefTRIAXone 1,000 mg SDV 1000 MG IVP (16:02)
[2024-10-30 16:48] LABS: Hematocrit 34.6 % (36-47)
[2024-10-30] MEDS: pantoprazole DR 40 mg Tablet PO (18:26)
[2024-10-30 19:41] VITALS: BP 146/79; PULSE 67; RESP 18; TEMP 36.4; O2SAT 99
[2024-10-31] MEDS: sucralfate 1 gm/10 mL Oral Liq UDC PO ×3 (06:11→18:09)
[2024-10-31] MEDS: levothyroxine 125 mcg Tablet PO (06:11)
[2024-10-31 06:23] VITALS: BMI 33.8
[2024-10-31 08:00] VITALS: BP 132/72; PULSE 64; RESP 17; TEMP 36.5; O2SAT 98
[2024-10-31 08:02] VITALS: PULSE 61; RESP 16; O2SAT 98
[2024-10-31] MEDS: lidocaine 5% Patch 1 PATCH TOPICAL ×2 (08:40→20:33)
[2024-10-31] MEDS: pantoprazole DR 40 mg Tablet PO ×2 (08:40→18:09)
[2024-10-31] MEDS: sennosides-docusate Tablet 1 TAB PO ×2 (08:40→18:09)
[2024-10-31 11:48] VITALS: BP 142/67; PULSE 71; RESP 17; TEMP 36.4; O2SAT 99
--- NOTE | 2024-10-31 15:02 | PM.PN ---
Subjective Subjective: Pain is much better controlled today. No acute interim events. Last hemoglobin of 10. Medications: Reviewed: Yes Vitals/I&O/Wt Last Vital Signs Temp 97.5 F L 10/31/24 11:48 Pulse 71 10/31/24 11:48 Resp 17 10/31/24 11:48 BP 142/67 10/31/24 11:48 Pulse Ox 99 10/31/24 11:48 O2 Del Method Room Air 10/31/24 11:48 10/31/24 10/31/24 10/31/24 06:59 14:59 22:59 Intake Total 480 / 1078 480 / 480 Balance 480 / 1078 480 / 480 Weight last 48 hrs Weight 86.636 kg Weight 88.269 kg Weight 87.044 kg Physical Exam Narrative: General: No acute distress, AO x3 HEENT: PERRLA, pupils bilaterally equal and reactive, pallors not present Chest: Normal vesicular breath sounds, no added sounds, equal good air entry bilaterally CVS: S1-S2 regular, no murmurs, no tachycardia, no gallops, no rubs Abdomen: Soft, nontender, no organomegaly, bowel sounds present Neuro: No focal deficits, no facial deformity, AO x3, power 5/5 in all limbs Data 10/30/24 16:42 10/30/24 04:52 A&P Assessment and plan (1) History of permanent cardiac pacemaker placement: (2) Peptic ulcer disease: (3) Acute GI bleeding: (4) Anemia, posthemorrhagic, acute: (5) Anemia: (6) Degenerative disc disease: Qualifiers: Disc-related pain type: discogenic back pain only Spinal region: lumbar Qualified Code(s): M51.360 - Other intervertebral disc degeneration, lumbar region with discogenic back pain only (7) HTN (hypertension): (8) Coronary artery disease: Qualifiers: Coronary Disease-Associated Artery/Lesion type: [place] artery [place] vs. transplanted heart: [place] heart Associated angina: without angina Qualified Code(s): I25.10 - Atherosclerotic heart disease of [place] coronary artery without angina pectoris (9) Anemia due to GI blood loss: Plan Acute GI blood loss anemia In 2020 patient had similar episode at that point she was on antiplatelets, she is not on antiplatelets or anticoagulating agent Has a pacemaker for sick sinus syndrome I received ketorolac Previous history of gastritis duodenitis as per the EGD report per Dr. Grijalva Keep her n.p.o. Start Protonix 40 mg IV twice daily 2 unit PRBC with goal hemoglobin above 8 considering underlying coronary disease Hypertension: Closely monitor for now Holding off on antihypertensive regimen with active bleed Lower back pain: Degenerative joint disease: No typical signs of cauda equina patient is wanting to be seen by spine surgeon in the morning Patient does have a L1 vertebral body compression fracture Will request MRI spine after her endoscopy Patient is stating that her urine incontinence is relatively new but no in sensations of medial thigh area, no recent fall Her back pain is so severe she cannot lay flat, she has a recliner herself up in the bed Full code N.p.o. DVT prophylaxis: SCDs 10/24/2024 -EGD completed this morning. Possibility of prepyloric stricture. If hemoglobin remained stable in next 24 hours may be discharged from that standpoint ? Patient on TLSO brace at this time. Does have a known vertebral compression fracture on scan from 10/16. ? MRI cannot be completed secondary to pacemaker. ? Spine surgery not on-call today. She is to follow-up as an outpatient with them for further management ? Will optimize pain medications at this time. ? Labs consistent with iron deficiency anemia RDW 19. I will start on oral iron at this time. ? Check iron TIBC, ferritin. ? Once pathology biopsy results are available she may be able to follow-up as an outpatient with oncology. 10/25/2024 ?Patient does have a TLSO brace at this time. Has a known vertebral compression fracture from 10/16. Patient is unsafe to go home at this time and will likely need surgical intervention possible kyphoplasty. ? Spine surgeon not on-call today. Continue to hospitalize patient at this time. IV pain management required. ? Consult spine surgeon on Monday for possible procedure. ? Continue oral iron ? Check iron TIBC ferritin. ? Once pathology results available she should follow-up with oncology as an outpatient. 10/27/2024 -Continue TLSO brace. Known vertebral fracture from 10/16. ? Consult Dr. Rai in a.m. for evaluation for kyphoplasty. ? Hemoglobin is stable ? Follow-up with oncology once pathology is also available. ? Patient lives alone at home with her animals. Secondary to pain and with no other help at home she is unable to go home safely at this time. She has concerns for falling and managing alone at this time. oct 28, 2024 Hb stable today consulted ortho surgery Dr. Rai, continue TLSO brace Pain appears to be controlled with current regimen last iv morphine 2 mg taken on 10/24/24 ay 12: 24 PM. NO administered doses of morphine 4 mg. Po hydrocoddone APAP last taken at 10/27/24 at 21: 51. prn order renewed. Iv orders d/c as not needed since 10/24/24. Will assess. Continue prn flexeril, last taken 10/26. urine cx with Galvez S Proteus and citrobacter , on ceftriaxone currently. October 29, 2024 Hemoglobin stable at 8.6. Evaluated by spine surgery, plan for bone scan tomorrow. Likely conservative management if fracture appearing to be chronic. May require kyphoplasty if acute. Has not required hydrocodone this morning. She was apprehensive to participate with physical therapy until seen by Dr. Holloway. Worked in bed for therapy. Further planning dependent on results of bone scan tomorrow. Oct 30, 2024 Patient states her pain increased after being moved for the bone scan. Still able to move bilateral lower extremities. No tingling or numbness. Able to void without issues. Patient has been trying to minimize opioids while in the hospital. She requested NSAIDs, however counseled that with recent GI bleeding NSAIDs would not be a safe intervention for her.She is hesitant to participate with PT however has been up in the room walking to the bathroom intermittently. Today her pain is worse. Nonopiate pain management optimized with lidocaine patch, addition of diclofenac gel topically, Flexeril as needed for muscle spasms. Encouraged incentive spirometry Bone scan completed today, shows L1 fracture, appearing to be acute, likely will proceed to kyphoplasty, next OR day on Monday. October 31, 2024 Pain is better controlled today. Pathology results from EGD biopsy are now available. No active malignancy identified. Signs of intestinal metaplasia and chronic gastritis. Patient is continued on PPIs. Helicobacter testing is currently negative. Patient has previously been treated for H. pylori gastritis in 2021 when she had presented with GI bleeding. Will likely benefit from long-term follow-up with gastroenterology as an outpatient. Plan kyphoplasty tomorrow. N.p.o. after midnight Attestations Medical Necessity Statement*: Plan kyphoplasty tomorrow Coding Level of Care Code Acute Code for Chg Fwd Diagnoses History of permanent cardiac pacemaker placement Z95.0 Peptic ulcer disease K27.9 Acute GI bleeding K92.2 Anemia, posthemorrhagic, acute D62 Anemia D64.9 Degenerative disc disease M51.360 Disc-related pain type: discogenic back pain only Spinal region: lumbar Essential hypertension I10 Coronary artery disease involving [place] coronary artery of [place] heart without angina pectoris I25.10 Coronary Disease-Associated Artery/Lesion type: [place] artery [place] vs. transplanted heart: [place] heart Associated angina: without angina Anemia due to GI blood loss D50.0
[2024-10-31 15:39] VITALS: BP 128/69; PULSE 58; RESP 16; TEMP 36.8; O2SAT 100
--- NOTE | 2024-10-31 17:07 | P.PN_ITS ---
Subjective 2 Subjective: Patient is complaining of back pain still. At this point she is scheduled for kyphoplasty tomorrow. Went over risks and benefits of surgery with her. Vitals/I&O/Wt Last Vital Signs Temp 98.3 F 10/31/24 15:39 Pulse 58 L 10/31/24 15:39 Resp 16 10/31/24 15:39 BP 128/69 10/31/24 15:39 Pulse Ox 100 10/31/24 15:39 O2 Del Method Room Air 10/31/24 15:39 10/31/24 10/31/24 10/31/24 06:59 14:59 22:59 Intake Total 480 / 1078 480 / 480 Balance 480 / 1078 480 / 480 Weight last 48 hrs Weight 191 lb Weight 194 lb 9.6 oz Weight 191 lb 14.4 oz Physical Exam 2 Narrative: Resting comfortably in bed Data 10/30/24 16:42 10/30/24 04:52 A&P Assessment and plan (1) Compression fracture of L1 lumbar vertebra: Bone scan showed L1 acute compression fracture. This point plan is to do kyphoplasty at L1. I had an open and honest discussion with the patient about the risks, benefits and alternatives to both surgical and nonsurgical treatment. The patient verbalized understanding of the inherent unpredictability associated with surgery. Risk of surgery were discussed including, but not limited to, infection, bleeding, temporary and permanent nerve damage, continued pain, stiffness, incomplete healing, need for revision surgery, blood clot and other complications. The patient verbalized understanding that there is spine is elective in nature and if they find any of these risks to be unacceptable then they should choose not to have the surgery. The patient verbalized understanding of these risks and elected to proceed with the surgery. N.p.o. after midnight Qualifiers: Encounter type: initial encounter Qualified Code(s): S32.010A - Wedge compression fracture of first lumbar vertebra, initial encounter for closed fracture Attestations 2 Medical Necessity Statement*: Pain control Coding Level of Care Code Acute Code for Chg Fwd Diagnoses Compression fracture of L1 vertebra, initial encounter S32.010A Encounter type: initial encounter
[2024-10-31] MEDS: cefTRIAXone 1,000 mg SDV 1000 MG IVP (18:09)
[2024-10-31 20:00] VITALS: BP 128/70; PULSE 59; RESP 18; TEMP 36.8; O2SAT 99
[2024-10-31] MEDS: HYDROcodone-acetaminophen 5-325 mg Tablet 1 TAB PO (20:32)
[2024-11-01] VITALS (18 sets, daily range): BP systolic 104–165; BP diastolic 52–95; PULSE 58–68; RESP 13–18; TEMP 36.1–36.8; O2SAT 92–100
[2024-11-01 04:58] LABS: Basophils % 0.7 %; Eosinophils # 0.2 10^3/uL (0.0-0.8); Hematocrit 27.3 % (36-47); Lymphocytes % 46.6 %; Mean Corpuscular HGB Conc 31.5 g/dL (30-55); Mean Corpuscular Hemoglobin 30.5 pg (27-33); Mean Corpuscular Volume 96.8 fl (85-98); Mean Platelet Volume 10.1 fL (7.4-10.4); Monocytes # 0.4 10^3/uL (0.2-0.9); Monocytes % 10.4 %; Neutrophils # 1.58 10^3/uL (1.8-7.7); Neutrophils % 37.3 %; Nucleated Red Blood Cells % 0 %; Platelet Count 238 10^3/cmm (157-399); Red Blood Count 2.82 10^6/uL (3.85-5.65); Red Cell Distribution Width 17.7 % (12.1-15.1); White Blood Count 4.23 10^3/uL (3.29-11.43)
[2024-11-01 05:26] LABS: Alanine Aminotransferase 14 U/L (0-33); Albumin Level 2.7 g/dL (3.5-5.2); Alkaline Phosphatase 121 U/L (35-105); Anion Gap 12.6 (5-19); Aspartate Amino Transferase 17 U/L (0-32); Blood Urea Nitrogen 7 mg/dL (8-23); Calcium 8.5 mg/dL (8.5-10.5); Carbon Dioxide 24 mmol/L (22-29); Chloride 107 mmol/L (98-107); Creatinine Clr Calc Pharmacy 64.7795; Ferritin 118 ng/mL (15-150); Globulin 2.9 g/dL (1.3-4.6); Glucose 87 mg/dL (65-115); Osmolality Calculated 287 mOsm/kg (285-295); Potassium 3.6 mmol/L (3.5-5.1); Sodium 140 mmol/L (136-145); Total Bilirubin 0.2 mg/dL (0.15-1.2); Total Protein 5.6 g/dL (6.6-8.7)
[2024-11-01 05:48] LABS: Iron 40 ug/dL (37-145); Vitamin B12 718 pg/mL (232-1245)
[2024-11-01 05:49] LABS: Folate Level 9.1 ng/mL (4.8-37.3)
[2024-11-01] MEDS: sucralfate 1 gm/10 mL Oral Liq UDC PO ×2 (05:54→17:07)
[2024-11-01] MEDS: levothyroxine 125 mcg Tablet PO (05:55)
[2024-11-01] MEDS: sodium chloride 0.9% 1,000 ML 30 ML IV (08:25)
--- NOTE | 2024-11-01 08:45 | W.PM.OPSUD ---
Surgery/Procedure H&P Update DATE OF PROCEDURE: November 01, 2024 DATE H&P PERFORMED: 10/29/24 H&P UPDATE INFORMATION: I have reviewed H&P completed within last 30 days, I have examined patient prior to procedure and No changes to prior documentation PLANNED PROCEDURE: Operation Date: 10/24/24 08:00 Proposed Procedures p EGD(Not Applicable) - Delano Riley MD Operation Date: 11/01/24 13:30 Proposed Procedures p Kyphoplasty L1(Not Applicable) - Honorio Rai DO
--- NOTE | 2024-11-01 09:08 | P.ANESASSM_ITS ---
Pre-Anesthetic Assessment Height/Weight: Height 5 ft 3 in Weight 193 lb 4.8 oz Temp Pulse Resp BP Pulse Ox O2 Del Method 97.8 F 58 L 16 120/57 98 Room Air 11/01/24 08:14 11/01/24 08:14 11/01/24 08:14 11/01/24 08:14 11/01/24 08:14 11/01/24 08:14 Preop Diagnosis: L1 compression fracture Operation Date: 10/24/24 08:00 Proposed Procedures p EGD(Not Applicable) - Delano Riley MD Operation Date: 11/01/24 13:30 Proposed Procedures p Kyphoplasty L1(Not Applicable) - Honorio Rai, DO Was Beta Celio taken within 24 hours: N/A Was Clonidine taken within 24 hours: N/A Last intake: Intake Last Liquid Date 10/31/24 Last Liquid Time 19:00 Last Solid Date 10/31/24 Last Solid Time 19:00 Social No alcohol and No tobacco Exam alert, oriented x 3, clear to auscultation bilaterally and regular rate & rhythm (Pacemaker) Airway Submandibular: within normal limits Cervical ROM: within normal limits Mallampati: Class III Dentition: false Comments: Comments: Upper false teeth, missing multiple lower teeth, denies any loose Anesthetic Plan ASA status: 4 Anesthesia: General Other: Patient initially admitted on 10/23/2024 for back pain with concerns of GI bleed Patient underwent EGD without issues NPO since yesterday Patient has third-degree heart block on EKG, pacemaker in place. History of hypertension Hypothyroidism on Synthroid Labs reviewed from today, hemoglobin 8.6 Plan for GETA Medications/Allergies Home Medications Medication Instructions Recorded Confirmed Last Taken Type ascorbic acid (vitamin C) 250 mg 250 mg PO QAM 05/05/22 10/24/24 07/25/24 History tablet (Vitamin C) multivitamin 1 tab PO QAM 05/05/22 10/24/24 07/25/24 History levothyroxine 125 mcg tablet 125 mcg PO DAILY #90 tabs 08/09/24 10/24/24 Unknown Rx cyclobenzaprine 10 mg tablet 5 mg (1/2 x 10 mg) PO PRN PRN 10/10/24 10/24/24 Unknown Rx Muscle Spasm #10 tabs fluconazole 40 mg/mL oral 150 mg (3.75 mL) PO DAILY 1 dose 10/16/24 10/24/24 Unknown Rx suspension (Diflucan) #35 mL hydrocodone 5 mg-acetaminophen 325 1 tab PO Q8H PRN pain #14 tabs 10/16/24 10/24/24 Unknown Rx mg tablet Allergies Allergy/AdvReac Type Severity Reaction Status Date / Time Penicillins Allergy Unknown Verified 10/23/24 14:13 Current Medications Generic Name Dose Route Start Last Admin Trade Name Freq PRN Reason Stop Dose Admin Hydrocodone Bitart/Acetaminophen 1 tab 10/28/24 15:56 10/31/24 20:32 Hydrocodone-Acetaminophen 5-325 Mg Tablet PO 1 tab Q4H PRN Administration MODERATE PAIN Ceftriaxone Sodium 1,000 mg 10/26/24 15:15 10/31/24 18:09 Ceftriaxone 1,000 Mg Sdv IVP 1,000 mg Q24H ELVA Administration Protocol Cyclobenzaprine HCl 5 mg 10/23/24 20:51 10/28/24 23:10 Cyclobenzaprine 10 Mg Tablet PO 5 mg BID PRN Administration Muscle Spasm Ferrous Sulfate 300 mg 10/25/24 18:00 10/31/24 18:08 Ferrous Sulfate 300 Mg/5 Ml Udc PO 300 mg BIDWM ELVA Administration Sodium Chloride 1,000 mls @ 30 mls/hr 11/01/24 08:00 11/01/24 08:25 Sodium Chloride 0.9% IV 11/02/24 07:59 30 mls/hr .Q24H ELVA Administration Lanolin 1 applic 10/26/24 16:17 10/26/24 17:34 Lanolin Oint 7 Gm TOPICAL 1 applic PRN PRN Administration DRYNESS Levothyroxine Sodium 125 mcg 10/24/24 06:00 11/01/24 05:55 Levothyroxine 125 Mcg Tablet PO 125 mcg DAILY@0600 ELVA Administration Lidocaine 1 patch 10/30/24 11:04 10/31/24 20:33 Lidocaine 5% Patch TOPICAL 1 patch [id number] ELVA Administration Pantoprazole Sodium 40 mg 10/30/24 18:00 10/31/24 18:[address] 40 Mg Tablet PO 40 mg BID ELVA Administration Senna/Docusate Sodium 1 tab 10/26/24 18:00 10/31/24 18:09 Sennosides-Docusate Tablet PO 1 tab BID ELVA Administration Sucralfate 1 gm 10/24/24 07:00 11/01/24 05:54 Sucralfate 1 Gm/10 Ml Oral Liq Udc PO 1 gm AC ELVA Administration PFSH Anesthesia Medical History Coronary artery disease ST elevation [place] (STEMI) HTN (hypertension) Hyperlipidemia Reports she cannot take statins Hypothyroidism Surgical History History of permanent cardiac pacemaker placement H/O coronary angiogram 2019, RCA disease MARGY times 2 S/P cholecystectomy Family History Father Cancer glioblastoma Mother CAD (coronary artery disease), Onset Age: 90 Denies family history of Diabetes Clotting disorder Dementia Chronic kidney disease (CKD) Suicide Anesthesia complication Bleeding disorder Lung disease Stroke Social History Smoking and tobacco/nicotine status: never used tobacco/nicotine Alcohol intake: never Substance/Drug Use: never Data Anesthesia 11/01/24 04:14 11/01/24 04:14 Short CBC 10/30/24 11/01/24 Range/Units 16:42 04:14 WBC 4.23 (3.29-11.43) 10^3/uL Hgb 10.60 L 8.60 L (11.27-16.99) g/dL Hct 34.6 L 27.3 L (36-47) % MCV 96.8 (85-98) fl Plt Count 238 (157-399) 10^3/cmm Neut % (Auto) 37.3 % Neut # (Auto) 1.58 L (1.8-7.7) 10^3/uL BMP 11/01/24 04:14 Sodium 140 Potassium 3.6 Chloride 107 Carbon Dioxide 24 BUN 7 L Creatinine 0.5 Glucose 87 Calcium 8.5 Liver Function 11/01/24 Range/Units 04:14 Total Bilirubin 0.2 (0.15-1.2) mg/dL AST 17 (0-32) U/L ALT 14 (0-33) U/L Alkaline Phosphatase 121 H (35-105) U/L Albumin 2.7 L (3.5-5.2) g/dL Cardiac Studies: 2 Echocardiogram 06/23/22 Cardiac Event Monitor 05/09/22
[2024-11-01] MEDS: clindamycin 600 MG/50 ML PREMIX 100 MG IV (10:02)
--- NOTE | 2024-11-01 10:04 | PC.SOCIAL ---
IMM Update pg 2 of IMM Updated and reviewed w/ patient. Copy provided and copy dated, initialed and placed in chart.
[2024-11-01] MEDS: lidocaine-epi 1% 20 mL INJ INJECTION (10:19)
--- NOTE | 2024-11-01 10:36 | P.OP_ITS ---
Operative Report Date of procedure: November 01, 2024 Pre-op diagnosis: L1 wedge osteoporotic traumatic compression fracture Post-op diagnosis: same Procedure done: L1 kyphoplasty Surgeon: Honorio Rai DO Estimated blood loss (mL): 5 Procedure: L1 kyphoplasty Patient brought to the procedure after an [place] was placed in the prone position. All his impingement well-padded. Patient's prepped draped sterile fashion. Skin incision made lateral to the L1 pedicle. The fluoroscopy conf irmed this with biplanar fluoroscopy. The awl was then inserted into the L1 pedicle. This was confirmed on C-arm guidance. The awl was brought to the border of the posterior body. The drill was then inserted. Then the balloon was inserted and inflated. Then is deflated. And then cement was inserted and filled the void had a good spread throughout the vertebral body. AP lateral fluoroscopy ensured the cement was in good position. Wound was irrigated and closed with a nylon stitch. Sterile dressings applied and patient transferred to the PACU in stable condition.
--- NOTE | 2024-11-01 10:41 | XR_ITS ---
WS: [id number] C-ARM RADIOGRAPHS LUMBAR SPINE; 4 IMAGES HISTORY: OR PICS COMPARISON: None available. Intraoperative imaging during vertebroplasty. Methylmethacrylate is noted within what is probably L1. XR/XR lumbar spine 2-3V* [id number] IMPRESSION: Intraoperative imaging during vertebroplasty at L1.
--- NOTE | 2024-11-01 11:21 | PC.NURSE ---
TO FLOOR - Pt transferred to floor. Report given to Shweta JIN. T-97.4 p-61 sat- 97% bp - 130/63 Resting quietly no complaints -BW
--- NOTE | 2024-11-01 11:44 | PC.SOCIAL ---
IMM Update pg 2 of IMM Updated and reviewed w/ patient. Copy provided and copy dated, initialed and placed in chart.
[2024-11-01] MEDS: lactated ringers 1,000 ML 90 ML IV (12:11)
--- NOTE | 2024-11-01 14:35 | PM.PN ---
Subjective Subjective: s/p kyphoplasty earlier this mornin, feels well overall, denies pain Medications: Reviewed: Yes Vitals/I&O/Wt Last Vital Signs Temp 97.4 F L 11/01/24 11:21 Pulse 60 11/01/24 13:36 Resp 18 11/01/24 13:36 BP 133/80 11/01/24 13:36 Pulse Ox 97 11/01/24 13:36 O2 Del Method Room Air 11/01/24 13:36 10/31/24 11/01/24 11/01/24 22:59 06:59 14:59 Intake Total 240 / 720 0 / 720 290 / 290 Output Total 2 / 2 Balance 240 / 720 0 / 720 288 / 288 Weight last 48 hrs Weight 87.679 kg Weight 86.636 kg Weight 88.269 kg Physical Exam Narrative: General: No acute distress, AO x3 HEENT: PERRLA, pupils bilaterally equal and reactive, pallors not present Chest: Normal vesicular breath sounds, no added sounds, equal good air entry bilaterally CVS: S1-S2 regular, no murmurs, no tachycardia, no gallops, no rubs Abdomen: Soft, nontender, no organomegaly, bowel sounds present Neuro: No focal deficits, no facial deformity, AO x3, power 5/5 in all limbs Data 11/01/24 04:14 11/01/24 04:14 A&P Assessment and plan (1) History of permanent cardiac pacemaker placement: (2) Peptic ulcer disease: (3) Acute GI bleeding: (4) Anemia, posthemorrhagic, acute: (5) Anemia: (6) Degenerative disc disease: Qualifiers: Disc-related pain type: discogenic back pain only Spinal region: lumbar Qualified Code(s): M51.360 - Other intervertebral disc degeneration, lumbar region with discogenic back pain only (7) HTN (hypertension): (8) Coronary artery disease: Qualifiers: Coronary Disease-Associated Artery/Lesion type: [place] artery [place] vs. transplanted heart: [place] heart Associated angina: without angina Qualified Code(s): I25.10 - Atherosclerotic heart disease of [place] coronary artery without angina pectoris (9) Anemia due to GI blood loss: Plan Acute GI blood loss anemia In 2020 patient had similar episode at that point she was on antiplatelets, she is not on antiplatelets or anticoagulating agent Has a pacemaker for sick sinus syndrome I received ketorolac Previous history of gastritis duodenitis as per the EGD report per Dr. Grijalva Keep her n.p.o. Start Protonix 40 mg IV twice daily 2 unit PRBC with goal hemoglobin above 8 considering underlying coronary disease Hypertension: Closely monitor for now Holding off on antihypertensive regimen with active bleed Lower back pain: Degenerative joint disease: No typical signs of cauda equina patient is wanting to be seen by spine surgeon in the morning Patient does have a L1 vertebral body compression fracture Will request MRI spine after her endoscopy Patient is stating that her urine incontinence is relatively new but no in sensations of medial thigh area, no recent fall Her back pain is so severe she cannot lay flat, she has a recliner herself up in the bed Full code N.p.o. DVT prophylaxis: SCDs 10/24/2024 -EGD completed this morning. Possibility of prepyloric stricture. If hemoglobin remained stable in next 24 hours may be discharged from that standpoint ? Patient on TLSO brace at this time. Does have a known vertebral compression fracture on scan from 10/16. ? MRI cannot be completed secondary to pacemaker. ? Spine surgery not on-call today. She is to follow-up as an outpatient with them for further management ? Will optimize pain medications at this time. ? Labs consistent with iron deficiency anemia RDW 19. I will start on oral iron at this time. ? Check iron TIBC, ferritin. ? Once pathology biopsy results are available she may be able to follow-up as an outpatient with oncology. 10/25/2024 ?Patient does have a TLSO brace at this time. Has a known vertebral compression fracture from 10/16. Patient is unsafe to go home at this time and will likely need surgical intervention possible kyphoplasty. ? Spine surgeon not on-call today. Continue to hospitalize patient at this time. IV pain management required. ? Consult spine surgeon on Monday for possible procedure. ? Continue oral iron ? Check iron TIBC ferritin. ? Once pathology results available she should follow-up with oncology as an outpatient. 10/27/2024 -Continue TLSO brace. Known vertebral fracture from 10/16. ? Consult Dr. Rai in a.m. for evaluation for kyphoplasty. ? Hemoglobin is stable ? Follow-up with oncology once pathology is also available. ? Patient lives alone at home with her animals. Secondary to pain and with no other help at home she is unable to go home safely at this time. She has concerns for falling and managing alone at this time. oct 28, 2024 Hb stable today consulted ortho surgery Dr. Rai, continue TLSO brace Pain appears to be controlled with current regimen last iv morphine 2 mg taken on 10/24/24 ay 12: 24 PM. NO administered doses of morphine 4 mg. Po hydrocoddone APAP last taken at 10/27/24 at 21: 51. prn order renewed. Iv orders d/c as not needed since 10/24/24. Will assess. Continue prn flexeril, last taken 10/26. urine cx with Galvez S Proteus and citrobacter , on ceftriaxone currently. October 29, 2024 Hemoglobin stable at 8.6. Evaluated by spine surgery, plan for bone scan tomorrow. Likely conservative management if fracture appearing to be chronic. May require kyphoplasty if acute. Has not required hydrocodone this morning. She was apprehensive to participate with physical therapy until seen by Dr. Holloway. Worked in bed for therapy. Further planning dependent on results of bone scan tomorrow. Oct 30, 2024 Patient states her pain increased after being moved for the bone scan. Still able to move bilateral lower extremities. No tingling or numbness. Able to void without issues. Patient has been trying to minimize opioids while in the hospital. She requested NSAIDs, however counseled that with recent GI bleeding NSAIDs would not be a safe intervention for her.She is hesitant to participate with PT however has been up in the room walking to the bathroom intermittently. Today her pain is worse. Nonopiate pain management optimized with lidocaine patch, addition of diclofenac gel topically, Flexeril as needed for muscle spasms. Encouraged incentive spirometry Bone scan completed today, shows L1 fracture, appearing to be acute, likely will proceed to kyphoplasty, next OR day on Monday. October 31, 2024 Pain is better controlled today. Pathology results from EGD biopsy are now available. No active malignancy identified. Signs of intestinal metaplasia and chronic gastritis. Patient is continued on PPIs. Helicobacter testing is currently negative. Patient has previously been treated for H. pylori gastritis in 2021 when she had presented with GI bleeding. Will likely benefit from long-term follow-up with gastroenterology as an outpatient. Plan kyphoplasty tomorrow. N.p.o. after midnight november 01, 2023 Pain is well controlled. s/p kyphoplasty today, feels well overall. Anticipate discharge in the upcoming 24 hrs if hb remains stable post op Attestations Medical Necessity Statement*: s/p kyphoplasty Coding Level of Care Code Acute Code for Chg Fwd Diagnoses History of permanent cardiac pacemaker placement Z95.0 Peptic ulcer disease K27.9 Acute GI bleeding K92.2 Anemia, posthemorrhagic, acute D62 Anemia D64.9 Degenerative disc disease M51.360 Disc-related pain type: discogenic back pain only Spinal region: lumbar Essential hypertension I10 Coronary artery disease involving [place] coronary artery of [place] heart without angina pectoris I25.10 Coronary Disease-Associated Artery/Lesion type: [place] artery [place] vs. transplanted heart: [place] heart Associated angina: without angina Anemia due to GI blood loss D50.0
[2024-11-01] MEDS: docusate sodium 100 mg Capsule PO (17:07)
[2024-11-01] MEDS: pantoprazole DR 40 mg Tablet PO (17:07)
[2024-11-01] MEDS: cefTRIAXone 1,000 mg SDV 1000 MG IVP (17:07)
[2024-11-01] MEDS: sennosides-docusate Tablet 1 TAB PO (17:07)
--- NOTE | 2024-11-01 20:28 | PC.NURSE ---
IV Patient IV infiltrated. Fluids stopped and IV catheter removed intact. 2x2 gauze and coban placed to site, patient tolerated well. When informing patient that this nurse would place another IV catheter, patient refused stating I don't want another IV, I'm going home tomorrow. If the doctor thinks it is necessary for me to have one tomorrow when he rounds then I'll allow it, otherwise no. Patient care nurse, Carmita JIN, notified.
[2024-11-01] MEDS: lidocaine 5% Patch 1 PATCH TOPICAL (21:27)
[2024-11-02] VITALS: BP 122/74; PULSE 60; RESP 17; TEMP 36.8; O2SAT 92
[2024-11-02 03:15] LABS: Hematocrit 27.5 % (36-47); Lymphocytes # 0.8 10^3/uL (0.8-4.8); Lymphocytes % 11.8 %; Mean Corpuscular HGB Conc 31.6 g/dL (30-55); Mean Corpuscular Hemoglobin 30.5 pg (27-33); Mean Corpuscular Volume 96.5 fl (85-98); Mean Platelet Volume 10.5 fL (7.4-10.4); Monocytes # 0.4 10^3/uL (0.2-0.9); Monocytes % 5.6 %; Neutrophils % 82.5 %; Nucleated Red Blood Cells % 0 %; Platelet Count 257 10^3/cmm (157-399); Red Blood Count 2.85 10^6/uL (3.85-5.65); Red Cell Distribution Width 17.3 % (12.1-15.1); White Blood Count 6.92 10^3/uL (3.29-11.43)
[2024-11-02 03:41] LABS: Alanine Aminotransferase 16 U/L (0-33); Alkaline Phosphatase 131 U/L (35-105); Anion Gap 14.9 (5-19); Aspartate Amino Transferase 20 U/L (0-32); Blood Urea Nitrogen 9 mg/dL (8-23); Calcium 8.7 mg/dL (8.5-10.5); Carbon Dioxide 24 mmol/L (22-29); Chloride 107 mmol/L (98-107); Creatinine Clr Calc Pharmacy 64.7795; Globulin 2.7 g/dL (1.3-4.6); Glucose 143 mg/dL (65-115); Osmolality Calculated 295 mOsm/kg (285-295); Potassium 3.9 mmol/L (3.5-5.1); Sodium 142 mmol/L (136-145); Total Bilirubin 0.2 mg/dL (0.15-1.2); Total Protein 5.7 g/dL (6.6-8.7)
[2024-11-02 04:00] VITALS: BP 119/72; PULSE 60; RESP 17; TEMP 36.6; O2SAT 94
[2024-11-02] MEDS: levothyroxine 125 mcg Tablet PO (06:03)
[2024-11-02] MEDS: sucralfate 1 gm/10 mL Oral Liq UDC PO (06:03)
[2024-11-02] MEDS: sennosides-docusate Tablet 1 TAB PO (08:21)
[2024-11-02] MEDS: pantoprazole DR 40 mg Tablet PO (08:21)
[2024-11-02] MEDS: docusate sodium 100 mg Capsule PO (08:21)
[2024-11-02 08:29] VITALS: BP 138/87; PULSE 78; RESP 17; TEMP 36.6; O2SAT 98
[2024-11-02 10:00] VITALS: PULSE 61; RESP 18; O2SAT 96
--- NOTE | 2024-11-02 10:57 | P.PN_ITS ---
Subjective 2 Subjective: Patient is doing well no pain. She was sitting up in bed wearing a brace. Told her that she does not need to wear the brace at all. Vitals/I&O/Wt Last Vital Signs Temp 98 F 11/02/24 08:29 Pulse 61 11/02/24 10:00 Resp 18 11/02/24 10:00 BP 138/87 11/02/24 08:29 Pulse Ox 96 11/02/24 10:00 O2 Del Method Room Air 11/02/24 10:00 11/01/24 11/02/24 11/02/24 22:59 06:59 14:59 Intake Total 997.5 / 1287.5 720 / 720 Balance 997.5 / 1285.5 720 / 720 Weight last 48 hrs Weight 192 lb 3.2 oz Weight 193 lb 4.8 oz Physical Exam 2 Narrative: Patient has no pain sitting up in bed comfortable. Alert and oriented x 3 Head is normocephalic atraumatic Respirations are intact No evidence of any rashes or infection 5/5 strength in bilateral upper and lowe r extremities Sensation intact in all extremities Deep tendon reflexes 2 out of 4 bilateral upper and lower extremities Data 11/02/24 02:27 11/02/24 02:27 A&P Assessment and plan (1) Compression fracture of L1 lumbar vertebra: Postop day #1 L1 kyphoplasty Up with physical therapy She does not need to wear the brace at all Okay to discharge from orthopedic standpoint Follow-up in clinic in 2 weeks. Qualifiers: Encounter type: initial encounter Qualified Code(s): S32.010A - [place] compression fracture of first lumbar vertebra, initial encounter for closed fracture Attestations 2 Medical Necessity Statement*: Per primary service Coding Level of Care Code Acute Code for Chg Fwd Diagnoses Compression fracture of L1 vertebra, initial encounter S32.010A Encounter type: initial encounter
--- NOTE | 2024-11-02 12:40 | PM.DCS ---
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 HB upon admission was 6.3, she received blood transfusion. Hb has stablized at ~8.5 at the time of discharge. Sehe underwent EGD during this admission which showed findings of prepyloric stricture. This area was biopsied and showed signs of chronic gastritis and intestinal metaplasia without signs of malignancy. She has been receiving twice daily PPI and sucralfate for the same. Recommended to follow up with gastroenterology at discharge for these chronic findings. Additionally she complained of back pain. She had been discovered to have an L1 fracture without h/o trauma in Sep 2025. Bone scan was recommended by orthopedics, fracture appearing to be acute, she underwent kyphoplasty on 11/01 for the same. her pain is currently well controlled. Instructed to avoid use of NSAIDs for pain management so as not to worsen gastritis. Physical Exam Narrative: General: No acute distress, AO x3 HEENT: PERRLA, pupils bilaterally equal and reactive, pallors not present Chest: Normal vesicular breath sounds, no added sounds, equal good air entry bilaterally Abdomen: Soft, nontender, non distended Neuro: No focal deficits, no facial deformity, AO x3, power 5/5 in all limbs Discharge Data Studies Completed and Pending Completed Studies During Hospitalization Category Date Time Status XR lumbar spine 2-3V* [id number] Routine Exams 11/01/24 10:41 Completed NM bone scan whole body* [id number] Routine Nuc Med 10/30/24 08:02 Completed Pathology: Surgical [PTH] Routine Pth 10/24/24 08:20 Completed Radiology Impressions Bone Scan Nuclear Medicine 10/30/24 08:02 IMPRESSION: 1. Increased uptake within the L1 vertebral body consistent with a compression fracture as described by CT on 10/16/2024. 2. No additional suspicious areas of uptake in the ribs or spine. 3. Osteoarthritic changes at the knees and ankles. Lumbar Spine X-Ray 11/01/24 10:41 IMPRESSION: Intraoperative imaging during vertebroplasty at L1. Laboratory Results WBC 6.92 10^3/uL (3.29-11.43) 11/02/24 02:27 RBC 2.85 10^6/uL (3.85-5.65) L 11/02/24 02:27 Hgb 8.70 g/dL (11.27-16.99) L 11/02/24 02:27 Hct 27.5 % (36-47) L 11/02/24 02:27 MCV 96.5 fl (85-98) 11/02/24 02:27 MCH 30.5 pg (27-33) 11/02/24 02:27 MCHC 31.6 g/dL (30-55) 11/02/24 02:27 RDW 17.3 % (12.1-15.1) H 11/02/24 02:27 Plt Count 257 10^3/cmm (157-399) 11/02/24 02:27 MPV 10.5 fL (7.4-10.4) H 11/02/24 02:27 Neut % (Auto) 82.5 % 11/02/24 02:27 Lymph % (Auto) 11.8 % 11/02/24 02:27 [place] % (Auto) 5.6 % 11/02/24 02:27 Eos % (Auto) 0.0 % 11/02/24 02:27 Baso % (Auto) 0.0 % 11/02/24 02:27 Neut # (Auto) 5.70 10^3/uL (1.8-7.7) 11/02/24 02:27 Lymph # (Auto) 0.8 10^3/uL (0.8-4.8) 11/02/24 02:27 [place] # (Auto) 0.4 10^3/uL (0.2-0.9) 11/02/24 02:27 Eos # (Auto) 0.0 10^3/uL (0.0-0.8) 11/02/24 02:27 Baso # (Auto) 0.0 10^3/uL (0.0-0.1) 11/02/24 02:27 Nucleated RBC % (auto) 0 % 11/02/24 02:27 Nucleated RBCs # 0.0 /100WBC 11/02/24 02:27 PT 14.10 SECONDS (12.1-14.9) 10/23/24 18:17 INR 1.02 (0.8-1.2) 10/23/24 18:17 Sodium 142 mmol/L (136-145) 11/02/24 02:27 Potassium 3.9 mmol/L (3.5-5.1) 11/02/24 02:27 Chloride 107 mmol/L (98-107) 11/02/24 02:27 Carbon Dioxide 24 mmol/L (22-29) 11/02/24 02:27 Anion Gap 14.9 (5-19) 11/02/24 02:27 BUN 9 mg/dL (8-23) 11/02/24 02:27 Creatinine 0.5 mg/dL (0.5-0.9) 11/02/24 02:27 GFR Calculation Not Reportable 11/02/24 02:27 Glucose 143 mg/dL (65-115) H 11/02/24 02:27 Calculated Osmolality 295 mOsm/kg (285-295) 11/02/24 02:27 Calcium 8.7 mg/dL (8.5-10.5) 11/02/24 02:27 Magnesium 2.0 mg/dL (1.7-2.3) 10/28/24 04:47 Iron 40 ug/dL (37-145) 11/01/24 04:14 TIBC 278 mcg/dl 10/23/24 15:23 % Saturation 20.5 % (20-50) 10/23/24 15:23 Unsat Iron Binding 221 ug/dL (112-347) 10/23/24 15:23 Ferritin 118 ng/mL (15-150) 11/01/24 04:14 Total Bilirubin 0.2 mg/dL (0.15-1.2) 11/02/24 02:27 AST 20 U/L (0-32) 11/02/24 02:27 ALT 16 U/L (0-33) 11/02/24 02:27 Alkaline Phosphatase 131 U/L (35-105) H 11/02/24 02:27 Total Protein 5.7 g/dL (6.6-8.7) L 11/02/24 02:27 Albumin 3.0 g/dL (3.5-5.2) L 11/02/24 02:27 Globulin 2.7 g/dL (1.3-4.6) 11/02/24 02:27 Vitamin B12 718 pg/mL (232-1245) 11/01/24 04:14 Folate 9.1 ng/mL (4.8-37.3) 11/01/24 04:14 Urine Color Yellow (Yellow) 10/23/24 18:48 Urine Appearance Cloudy (CLEAR) A 10/23/24 18:48 Urine pH 6.0 (5-7) 10/23/24 18:48 Ur Specific [place] 1.023 (1.005-1.030) 10/23/24 18:48 Urine Protein Negative (Negative) 10/23/24 18:48 Urine Glucose (UA) Negative (Normal) 10/23/24 18:48 Urine Ketones Trace (Negative) 10/23/24 18:48 Urine Blood 3+ (Negative) A 10/23/24 18:48 Urine Nitrate Negative (Negative) 10/23/24 18:48 Urine Bilirubin Negative (Negative) 10/23/24 18:48 Urine Urobilinogen 1.0 mg/dL (Negative) 10/23/24 18:48 Ur Leukocyte Esterase 1+ (Negative) A 10/23/24 18:48 Urine RBC 21-50 /hpf (0-2) H 10/23/24 18:48 Urine WBC 0-5 /hpf (0-5) 10/23/24 18:48 Ur Squamous Epith Cells 0-5 /hpf (0-5) 10/23/24 18:48 Amorphous Sediment Not Reportable 10/23/24 18:48 Urine Bacteria Trace /hpf (NONE) 10/23/24 18:48 Hyaline Casts 1.21 /lpf 10/23/24 18:48 Blood Type A Negative 10/23/24 17:35 Rho(D) Type Rh negative 10/23/24 17:35 Antibody Screen Negative 10/23/24 17:35 Crossmatch See Detail 10/23/24 17:35 Vitals Last Vital Signs Temp 98 F 11/02/24 08:29 Pulse 61 11/02/24 10:00 Resp 18 11/02/24 10:00 BP 138/87 11/02/24 08:29 Pulse Ox 96 11/02/24 10:00 O2 Del Method Room Air 11/02/24 10:00 Discharge Plan Discharge Patient Disposition: Home Health Service Condition: Stable Prescriptions: New pantoprazole 40 mg Tablet,Delayed Release (Dr/Ec) 40 mg PO BID 30 Days Qty: 60 0RF multivitamin Tablet 1 tab PO DAILY 30 Days Qty: 30 0RF sucralfate 1 gram tablet 1 g PO BID 28 Days Qty: 56 0RF ferrous sulfate 325 mg (65 mg iron) tablet 325 mg PO DAILY 30 Days Qty: 30 0RF Continued levothyroxine 125 mcg tablet 125 mcg PO DAILY Qty: 90 1RF multivitamin Tablet 1 tab PO QAM ascorbic acid (vitamin C) [Vitamin C] 250 mg Tablet 250 mg PO QAM cyclobenzaprine 10 mg tablet 5 mg PO PRN PRN (Reason: Muscle Spasm) Qty: 10 0RF hydrocodone-acetaminophen 5-325 mg tablet 1 tab PO Q8H PRN (Reason: pain) Qty: 14 0RF Rx Instructions: Take 1/2 to 1 tab every 8 hours as needed for pain fluconazole [Diflucan] 40 mg/mL suspension for reconstitution 150 mg PO DAILY Qty: 35 0RF Rx Instructions: administer on day 1 of therapy Discharge Orders: Discharge Order (Routine); Ordered 11/02/24 Ordered By: Anita Lawrence Other Ambulatory Orders: DME: [facility] (Order) Location: None Selected Ordered By: Anita Lawrence Referrals: Honorio Rai DO [Physician] - 2 weeks Cassie Cosby MD [Primary Care Provider] - 12/02/24 3:00 pm (Pt needs to be seen patricia by Dr Gallardo, in order for HH to be able to start seeing pt. ) Luis Enriquez MD [Referring] - 1 month Discharge Diet: As Directed Discharge Activity: As per PT/OT instructions Patient Instructions: GI Post Discharge Instructions w/ Anesthesia, Opioid Safety Activity Restrictions/Additional Instructions: Thank you for [facility] for your care! The following is a list of instructions, from your provider, to follow upon your discharge to ensure you have the optimal recovery from your recent injury orsurgery. Follow-up care is a martinez part of your treatment and safety. Be sure to make and go to all appointments, and call your doctor if you are having problems. If you do not already have a follow-up appointment made, call Dr. Rai office in the next 1-3 days to make follow up appointment for 2 weeks at [phone]. It is also a good idea to know your test results and keep a list of the medicines you take. Medications will be prescribed for you at your provider's discretion. These medications are to be used as instructed; if they are taken more often that prescribed they will not be refilled early and in most cases will not be refilled at all. > When a refill is needed,you should contact wallace bernabe 2-3 business days before your prescription runs out. Medications will NOT be refilled by mail distribution scheme examiner providers after hours! > Many pain medications contain Tylenol (Acetaminophen). Do not consume more than 4,000 mg of Tylenol per day in total with any combination ofmedications. > Pain medications can cause constipation. Please use an over the counter stool softener as directed, while taking pain medications. Consulty our local pharmacist with questions or recommendations on stool softeners. If constipation persists, contact our office or your primary care provider. > While under our care,you are not to receive pain medications or other controlled substances from any other provider unless our office is notified and approves. Any attempts to do so will result in refusal to prescribe any further pain medications and possible dismissal from our practice. ? Your wound and/or dressing should remain clean and dry for 2 days after surgery. On postoperative day 2 (48 hours after your surgery) the dressing (if present) should be removed and it is okay to shower and get the incision wet. Pad dry afterwards. No further dressing should be required from that point on. Do not put any creams or ointments on theincision > It is normal for there to be a small amount of discharge (bloody or blood tinged) present from a surgical wound for the first 1-3days. > The wound should be examined twice a day for signs of infection. Mild redness or bruising is to be expected but indications that an infection maybe starting would include; An increase in redness, swelling, or discharge, a foul odor present around the incision, and/or a fever greater than 101 ?F ? Showering is permitted, however we ask that you do not take a bath, sit in a whirlpool / Jacuzzi, or go swimming for 1 month. For only the first 2 days after surgery, lt wilt be necessary for you to cover your wound/dressing with plastic and tape to keep it dry. ? Walking is essential for the healing process after surgery. We would like you to slowly advance your walking. This should be done on relatively flat clear ground (inside or out) or can be done on a treadmill. Remember this goal does not have to happen all at once, slowly increase your distance and duration. This can be broken into more more than one walk per day as tolerated. Patients who walk as directed after surgery rarely require Physical Therapy. In the unlikely event this issue arises your provider will direct hospital staff to make the appropriate arrangements. ? No lifting over 5 pounds {a gallon of milk) or bending/twisting until further notice. Each of these activities places an unnecessary amount of stress onto the body and can impede the delicate healing process. > Instead of bending at the waist, keep your back straight and bend at the knees. > Instead of twisting your torso, keep your back straight and turn your entire body with your feet. ? You may sleep in any position which makes you comfortable. Many patients find comfort sleeping in a reclining chair. It is not abnormal to have difficulty sleeping for the first several weeks following your surgery. We recommend trying Benadry! or Tylenol PM as directed to help with your sleeping difficulties. Both medications are over the counter and available withoutprescription. ? NO SMOKING!!! Smoking dramatically increases the probability of developing postoperative wound infections. ? Common complaints after lumbar and/or thoracic spine surgery include, but are not limited to: numbness and/or tingling in the legs, pain around the incision and surrounding tissues, muscle spasms, or stiffness of the middle to low back. Contact our office if these symptoms persist or if an acute change occurs. ? No driving for the first 3-5days, and not while taking narcotics until seen at your follow-up appointment and cleared. There are no restrictions for riding on short trips, however if you take a longer trip, arrangements should be made to make regular stops to get out of the vehicle and stretch . ? Swelling is an unfortunate event that will take place with any surgery and is the primary source of your postoperative discomfort. While walking and regular approved activities helps control inflammation, there are additional steps you can take to minimizeswelling. > Place ice over the surgical site and surrounding tissue for twenty minutes, followed by applying a low/medium heat (heating pad) for an additional twenty minutes every 1-2 hours as needed for painrelief. > You may use of over the counter anti-inflammatory medications (Ibuprofen, Motrin, Aleve, Advil, etc) as directed on the package label. These types of medicines wm significantly reduce the amount of discomfort you experience after surgery from swelling. It should be noted that if you have and allergy to any of these medications, or a history of ulcers or kidney disease you should consult you primary care provider prior to starting these medications. 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
[2024-11-02 13:07] VITALS: BP 106/64; PULSE 72; RESP 18; TEMP 36.6; O2SAT 97
--- NOTE | 2024-11-04 11:07 | ANE.PACU2 ---
Inpatient post-anesthesia follow up: Airway intact: Yes Vital signs: Temperature 97.8 F Pulse Rate 72 Respiratory Rate 18 Blood Pressure 106/64 Pulse Oximetry 97 Oxygen Delivery Me thod Room Air Oxygen Flow Rate Fraction of Inspir ed Oxygen Hydration adequate: Yes Nausea and vomiting: No Pain level: 1 Mental status: Baseline
== END 2024-11-02 13:55 | disposition home health service (06) | DRG 515 ==
LOC: ER 16:54 → MEDSURG 20:02
PROVIDERS: Emergency Medicine; Orthopaedic Surgery; Student in an Organized Health Care Education/Training Program; Admitting Provider Internal Medicine; Emergency Provider Family Medicine; PCP Family Medicine; Visit Provider Student in an Organized Health Care Education/Training Program
PROC: 0DJ08ZZ Inspection of Upper Intestinal Tract, Via Natural or Artificial Opening Endoscopic (ICD-10-PCS; principal; 2024-10-24 08:00)
PROC: 0QS03ZZ Reposition Lumbar Vertebra, Percutaneous Approach (ICD-10-PCS; principal; 2024-11-01 13:30)
DX: M48.56XA Collapsed vertebra, not elsewhere classified, lumbar region, initial encounter for fracture (principal); K29.51 Unspecified chronic gastritis with bleeding; D62 Acute posthemorrhagic anemia; K31.1 Adult hypertrophic pyloric stenosis; K31.A11 Gastric intestinal metaplasia without dysplasia, involving the antrum; I25.10 Atherosclerotic heart disease of native coronary artery without angina pectoris; I49.5 Sick sinus syndrome; K27.9 Peptic ulcer, site unspecified, unspecified as acute or chronic, without hemorrhage or perforation; M51.360 Other intervertebral disc degeneration, lumbar region with discogenic back pain only; I10 Essential (primary) hypertension; E03.9 Hypothyroidism, unspecified; Z95.5 Presence of coronary angioplasty implant and graft; Z95.0 Presence of cardiac pacemaker; I25.2 Old myocardial infarction
CPT/HCPCS: 36415; 36430; 43239; 72100; 78306; 80048; 80053; 81003; 82607; 82728; 82746; 83540; 83550; 83735; 85014; 85018; 85025; 85610; 86850; 86900; 86920; 87077; 87086; 87186; 88305; 88342; 96361; 96374; 96375; 97110; 97116; 97161; 97530; 97760; 99222; 99232; 99233; 99252; 99285; A9561; J0171; J0696; J1100; J2270; J2405; J2470; J2704; J3010; J3490; J7030; J7120; L0456; P9016

== ENCOUNTER → 2024-11-07 15:00 | Outpatient (BNVA) | payer MEDICARE, SELFPAY | PROVIDERS: PCP Family Medicine; Visit Provider Orthopaedic Surgery | DX: M54.50 Low back pain, unspecified (principal); S32.010A Wedge compression fracture of first lumbar vertebra, initial encounter for closed fracture; X58.XXXA Exposure to other specified factors, initial encounter | CPT/HCPCS: 99024 ==

== ENCOUNTER → 2024-12-02 16:07 | Outpatient (BNVA) | payer MEDICARE, SELFPAY | PROVIDERS: PCP Family Medicine; Visit Provider Family Medicine | DX: E03.9 Hypothyroidism, unspecified (principal); K29.50 Unspecified chronic gastritis without bleeding; D64.9 Anemia, unspecified; S32.010A Wedge compression fracture of first lumbar vertebra, initial encounter for closed fracture; I10 Essential (primary) hypertension; M85.80 Other specified disorders of bone density and structure, unspecified site; I44.39 Other atrioventricular block; Z76.89 Persons encountering health services in other specified circumstances; G72.0 Drug-induced myopathy; T46.6X5A Adverse effect of antihyperlipidemic and antiarteriosclerotic drugs, initial encounter; I44.2 Atrioventricular block, complete; Z95.0 Presence of cardiac pacemaker; K31.A11 Gastric intestinal metaplasia without dysplasia, involving the antrum; X58.XXXA Exposure to other specified factors, initial encounter | CPT/HCPCS: 80053; 82306; 82310; 83540; 83970; 84439; 84443; 85025 ==

== ENCOUNTER → 2025-08-01 14:49 | Outpatient (BNVA) | payer MEDICARE, SELFPAY | PROVIDERS: PCP Family Medicine; Visit Provider Family Medicine | DX: Z00.00 Encounter for general adult medical examination without abnormal findings (principal); I10 Essential (primary) hypertension; I25.10 Atherosclerotic heart disease of native coronary artery without angina pectoris; E03.9 Hypothyroidism, unspecified; M85.80 Other specified disorders of bone density and structure, unspecified site; E55.9 Vitamin D deficiency, unspecified; K27.9 Peptic ulcer, site unspecified, unspecified as acute or chronic, without hemorrhage or perforation; K29.50 Unspecified chronic gastritis without bleeding; D62 Acute posthemorrhagic anemia; I44.39 Other atrioventricular block | CPT/HCPCS: 80053; 82306; 82607; 83540; 84439; 84443; 84481; 85025 ==